=== PATIENT | female | born 1940 | race Caucasian/White ===

== ENCOUNTER 2016-10-31 10:27 | Inpatient (IN) | payer MEDICARE, MEDICAID ==
--- NOTE | 2016-10-31 10:34 | EDM.PDOC ---
ED HPI Skin/Rash - General Chief Complaint: Skin Complaint Stated Complaint: UNK Time Seen by Provider: 10/31/16 10:30 Source: Reports: Patient History Limitations: Reports: No limitations - History of Present Illness INITIAL COMMENTS - FREE TEXT/NARRATIVE: HISTORY AND PHYSICAL: History of present illness: [Patient is brought to the emergency room by EMS. Patient has been largely nonresponsive for the past 2 days. Home health care provider became concerned about patient's condition today. She gave patient a bath this morning and noticed a large pressure ulcer to her coccyx. She is concerned that this may be infected which could be causing patient's decreased level of consciousness. Patient is largely wheelchair bound and can take a couple of steps on command. Home health provider does not know patient's medical history. Thinks there may be a history of brain tumor. Family does not come to ER today so past medical history is largely unknown. 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 Her only medication is metoprolol 25 mg daily which was not given this morning. The healthcare provider began caring for the patient within the past week or so. Patient has lived at home with her as caregiver for the past 3+ years. He admits to home health care navigator that he is unable to care for her anymore. Aide reports that patient is full code. Review of systems: Unable to obtain Past medical history: As per history of present illness and as reviewed below otherwise noncontributory. Surgical history: As per history of present illness and as reviewed below otherwise noncontributory. Social history: No reported history of drug or alcohol abuse. Family history: As per history of present illness and as reviewed below otherwise noncontributory. Physical exam: Gen: Laying on bed, with eyes closed, does not answer questions or respond to commands. She pulls away from painful stimulus when IV is being started. HEENT: Atraumatic, normocephalic. pupils reactive. Yellow matter crusted to L eyelashes. negative for conjunctival pallor or scleral icterus, mucous membranes moist. neck supple. Lungs: Clear to auscultation anteriorly, breath sounds equal bilaterally. Is in no respiratory distress. Heart: S1S2, regular, negative for clicks, rubs, or JVD. Abdomen: Soft, nondistended, nontender. Genitourinary: Deferred. Rectal: Deferred. Skin: Warm dry pink. 3 cm x 2 cm partial-thickness ulceration to left elbow. Black eschar to center. Stage IV ulcer to coccyx is 6 cm x 6 cm and 2 cm deep. Purulent green discharge present in the ulcer. Surrounding tissue is erythematous. Extremities: No pressure ulcers to feet or lower legs. No swelling or cyanosis bilateral lower extremities. Cap refill less than 2 seconds. Neurovascular unremarkable. No flaccidity. Neuro: Nonresponsive to verbal commands. Diagnostics: [CBC, CMP, lactic acid, UA, blood cultures] Therapeutics: [Levaquin 750 mg IV, normal saline 250 mLs per hour] Impression: [UTI Stage 4 pressure ulcer, coccyx] Plan: [Discussed patient's condition with Dr. Francis Lyles. He agrees to accept patient to Med/Surg for IV antibiotics for UTI. Levaquin 750 mg IV started in the ER. Home health aide is made aware of inpatient admission questions are answered and concerns are addressed. Definitive disposition and diagnosis as appropriate pending reevaluation and review of above. - Related Data Allergies Allergy/AdvReac Type Severity Reaction Status Date / Time Penicillins Allergy Cannot Verified 10/31/16 10:37 Remember Home Meds: Ambulatory Orders Medication Instructions Recorded Confirmed Metoprolol Succinate 25 mg PO DAILY #30 07/25/14 10/31/16 Social & Family History - Tobacco Use Smoking Status *Q: Unknown Ever Smoked Second Hand Smoke Exposure: No - Alcohol Use Days Per Week of Alcohol Use: 0 - Recreational Drug Use Recreational Drug Use: No ED ROS GENERAL - Review of Systems Review Of Systems: ROS reveals no pertinent complaints other than HPI. ED EXAM, SKIN/RASH Exam: See Below Course - Vital Signs Last Recorded V/S: Last Vital Signs Temp 98.6 F 10/31/16 10:31 Pulse 70 10/31/16 12:39 Resp 16 10/31/16 12:39 BP 140/70 10/31/16 12:39 Pulse Ox 95 10/31/16 12:39 - Orders/Labs/Meds Orders: Active Orders 24 hr Category Date Time Status Admission Status [Patient Status] [ADT] Stat ADT 10/31/16 12:53 Active Head wo Cont [CT] Stat Exams 10/31/16 12:14 Taken CULTURE BLOOD [BC] Stat Lab 10/31/16 12:15 Results CULTURE BLOOD [BC] Stat Lab 10/31/16 12:22 Results Levofloxacin/Dextrose 5%-Water [Levaquin in D5W 750 MG/ Med 10/31/16 12:50 Active 150 ML] 750 mg Premix Bag 1 bag IV ONETIME Sodium Chloride 0.9% [Normal Saline] 1,000 ml Med 10/31/16 10:45 Active IV STAT Blood Culture x2 Reflex Set [OM.PC] Stat Oth 10/31/16 11:55 Ordered Medication Orders Sodium Chloride (Normal Saline) 1,000 mls @ 250 mls/hr IV STAT ONE Stop: 10/31/16 14:44 Last Admin: 10/31/16 11:13 Dose: 250 mls/hr Levofloxacin/Dextrose 750 mg/ (Premix) 150 mls @ 100 mls/hr IV ONETIME ONE Stop: 10/31/16 14:19 Last Admin: 10/31/16 12:58 Dose: 100 mls/hr Labs: Laboratory Tests 10/31/16 10/31/16 10/31/16 Range/Units 11:10 11:10 11:47 WBC 11.11 H (4.0-11.0) K/uL RBC 4.38 (4.30-5.90) M/uL Hgb 12.2 (12.0-16.0) g/dL Hct 39.2 (36.0-46.0) % MCV 89.5 (80.0-98.0) fL MCH 27.9 (27.0-32.0) pg MCHC 31.1 (31.0-37.0) g/dL RDW Std Deviation 50.1 (28.0-62.0) fl RDW Coeff of Deanna 16 H (11.0-15.0) % Plt Count 227 (150-400) K/uL MPV 10.20 (7.40-12.00) fL Neut % (Auto) 81.1 H (48.0-80.0) % Lymph % (Auto) 10.5 L (16.0-40.0) % [place] % (Auto) 7.5 (0.0-15.0) % Eos % (Auto) 0.5 (0.0-7.0) % Baso % (Auto) 0.4 (0.0-1.5) % Neut # 9.0 H (1.4-5.7) K/uL Lymph # 1.2 (0.6-2.4) K/uL [place] # 0.8 (0.0-0.8) K/uL Eos # 0.1 (0.0-0.7) K/uL Baso # 0.0 (0.0-0.1) K/uL Nucleated RBC % 0.0 /100WBC Nucleated RBCs # 0 K/uL Lactate (0.20-2.00) mmol/L Sodium 146 (136-146) mmol/L Potassium 4.2 (3.5-5.1) mmol/L Chloride 112 H (98-110) mmol/L Carbon Dioxide 23 (21-31) mmol/L BUN 14 (6.0-23.0) mg/dL Creatinine 0.6 (0.6-1.5) mg/dL Est Cr Clr Drug Dosing 59.49 mL/min Estimated GFR (MDRD) > 60.0 ml/min Glucose 102 (60-110) mg/dL Calcium 8.2 L (8.8-10.8) mg/dL Total Bilirubin 0.5 (0.1-1.5) mg/dL AST 18 (5-40) IU/L ALT 9 (8-54) IU/L Alkaline Phosphatase 61 (40-150) Total Protein 5.3 L (6.0-8.0) g/dL Albumin 2.8 L (3.4-4.8) g/dL Globulin 2.5 (2.0-3.5) g/dL Albumin/Globulin Ratio 1.1 L (1.3-2.8) Urine Color YELLOW Urine Appearance SLT CLOUDY Urine pH 5.0 (5.0-8.0) Ur Specific [place] 1.025 (1.001-1.035) Urine Protein TRACE (NEGATIVE) mg/dL Urine Glucose (UA) NEGATIVE (NEGATIVE) mg/dL Urine Ketones NEGATIVE (NEGATIVE) mg/dL Urine Occult Blood LARGE H (NEGATIVE) Urine Nitrite POSITIVE H (NEGATIVE) Urine Bilirubin SMALL H (NEGATIVE) Urine Ictotest NEGATIVE Urine Urobilinogen 1.0 (<2.0) EU/dL Ur Leukocyte Esterase SMALL (NEGATIVE) Urine RBC 10-12 (0-2/HPF) Urine WBC 30-40 (0-5/HPF) Ur Epithelial Cells FEW (NONE-FEW) Urine Bacteria 3+ H (NEGATIVE) 10/31/16 Range/Units 12:22 WBC (4.0-11.0) K/uL RBC (4.30-5.90) M/uL Hgb (12.0-16.0) g/dL Hct (36.0-46.0) % MCV (80.0-98.0) fL MCH (27.0-32.0) pg MCHC (31.0-37.0) g/dL RDW Std Deviation (28.0-62.0) fl RDW Coeff of Deanna (11.0-15.0) % Plt Count (150-400) K/uL MPV (7.40-12.00) fL Neut % (Auto) (48.0-80.0) % Lymph % (Auto) (16.0-40.0) % [place] % (Auto) (0.0-15.0) % Eos % (Auto) (0.0-7.0) % Baso % (Auto) (0.0-1.5) % Neut # (1.4-5.7) K/uL Lymph # (0.6-2.4) K/uL [place] # (0.0-0.8) K/uL Eos # (0.0-0.7) K/uL Baso # (0.0-0.1) K/uL Nucleated RBC % /100WBC Nucleated RBCs # K/uL Lactate 1.6 (0.20-2.00) mmol/L Sodium (136-146) mmol/L Potassium (3.5-5.1) mmol/L Chloride (98-110) mmol/L Carbon Dioxide (21-31) mmol/L BUN (6.0-23.0) mg/dL Creatinine (0.6-1.5) mg/dL Est Cr Clr Drug Dosing mL/min Estimated GFR (MDRD) ml/min Glucose (60-110) mg/dL Calcium (8.8-10.8) mg/dL Total Bilirubin (0.1-1.5) mg/dL AST (5-40) IU/L ALT (8-54) IU/L Alkaline Phosphatase (40-150) Total Protein (6.0-8.0) g/dL Albumin (3.4-4.8) g/dL Globulin (2.0-3.5) g/dL Albumin/Globulin Ratio (1.3-2.8) Urine Color Urine Appearance Urine pH (5.0-8.0) Ur Specific [place] (1.001-1.035) Urine Protein (NEGATIVE) mg/dL Urine Glucose (UA) (NEGATIVE) mg/dL Urine Ketones (NEGATIVE) mg/dL Urine Occult Blood (NEGATIVE) Urine Nitrite (NEGATIVE) Urine Bilirubin (NEGATIVE) Urine Ictotest Urine Urobilinogen (<2.0) EU/dL Ur Leukocyte Esterase (NEGATIVE) Urine RBC (0-2/HPF) Urine WBC (0-5/HPF) Ur Epithelial Cells (NONE-FEW) Urine Bacteria (NEGATIVE) Meds: Medications Generic Name Dose Route Start Last Admin Trade Name Freq PRN Reason Stop Dose Admin Sodium Chloride 1,000 mls @ 250 mls/hr 10/31/16 10:45 10/31/16 11:13 Normal Saline IV 10/31/16 14:44 250 mls/hr STAT ONE Administration Levofloxacin/Dextrose 750 mg/ 150 mls @ 100 mls/hr 10/31/16 12:50 10/31/16 12 :58 Premix IV 10/31/16 14:19 100 mls/hr ONETIME ONE Administration Discontinued Medications Generic Name Dose Route Start Last Admin Trade Name Freq PRN Reason Stop Dose Admin Ceftriaxone Sodium 1,000 mg 10/31/16 12:45 Rocephin IVPUSH Q24H DWIGHT Ceftriaxone Sodium/Dextrose Confirm 10/31/16 12:48 10/31/16 12:58 Rocephin In Dextrose,Iso-Osm 1 Gm/50 Ml Administered 10/31/16 12:49 Not Given Dose 50 mls @ as directed .ROUTE .STK-MED ONE Departure - Departure Time of Disposition: 12:40 Disposition: Admitted As Inpatient 68 Condition: fair Clinical Impression: Pressure ulcer of coccygeal region, stage 4 UTI (urinary tract infection) Qualifiers: Urinary tract infection type: site unspecified - My Orders Last 24 Hours: My Active Orders 10/31/16 10:45 Sodium Chloride 0.9% [Normal Saline] 1,000 ml IV STAT 10/31/16 11:55 Blood Culture x2 Reflex Set [OM.PC] Stat 10/31/16 12:14 Head wo Cont [CT] Stat 10/31/16 12:15 CULTURE BLOOD [BC] Stat 10/31/16 12:22 CULTURE BLOOD [BC] Stat 10/31/16 12:50 Levofloxacin/Dextrose 5%-Water [Levaquin in D5W 750 MG/150 ML] 750 mg Premix Bag 1 bag IV ONETIME 10/31/16 12:53 Admission Status [Patient Status] [ADT] Stat - Assessment/Plan Last 24 Hours: My Active Orders 10/31/16 10:45 Sodium Chloride 0.9% [Normal Saline] 1,000 ml IV STAT 10/31/16 11:55 Blood Culture x2 Reflex Set [OM.PC] Stat 10/31/16 12:14 Head wo Cont [CT] Stat 10/31/16 12:15 CULTURE BLOOD [BC] Stat 10/31/16 12:22 CULTURE BLOOD [BC] Stat 10/31/16 12:50 Levofloxacin/Dextrose 5%-Water [Levaquin in D5W 750 MG/150 ML] 750 mg Premix Bag 1 bag IV ONETIME 10/31/16 12:53 Admission Status [Patient Status] [ADT] Stat
[2016-10-31] MEDS ORDERED: Sodium Chloride 0.9% 1,000 ML IV ONE (10:45)
[2016-10-31 11:40] LABS: CHLORIDE,CL 112 mmol/L (98-110); SODIUM,NA 146 mmol/L (136-146)
[2016-10-31] MEDS ORDERED: Levofloxacin/Dextrose 5%-Water 750 MG in Premix Bag 1 BAG IV ONE (12:50)
[2016-10-31] MEDS: cefTRIAXone 1,000 MG VIAL IVPUSH SCH ×2 (12:50→17:21)
[2016-10-31] MEDS ORDERED: Ondansetron 4 MG/2 ML SDV IVPUSH PRN (14:34)
[2016-10-31] MEDS ORDERED: Acetaminophen 325 MG Tab PO PRN (14:34)
--- NOTE | 2016-10-31 14:43 | PCM.HP ---
H&P History of Present Illness - History of Present Illness Initial Comments - Free Text/Narative: 76 yo female with pmh of CVA with left sided weakness. She has largely been taking care of at home by her for the past two years. At baseline she does not speak much and does not ambulate. According to she can be unresponsive for days at a time. Today she was taking a bath and was more lethargic than normal. A new home helper noticed a large sacral ulcer prompting evaluation in the ED. She also has a left elbow ulcer which she picks at daily. - Related Data Allergies/Adverse Reactions: Allergies Allergy/AdvReac Type Severity Reaction Status Date / Time Penicillins Allergy Cannot Verified 10/31/16 10:37 Remember Home Medications: Home Meds Metoprolol Succinate 25 mg PO DAILY #30 07/25/14 [Rx] Social & Family History - Family History Family Medical History: Noncontributory - Tobacco Use Smoking Status *Q: Never Smoker Second Hand Smoke Exposure: No - Caffeine Use Caffeine Use: Reports: None - Alcohol Use Days Per Week of Alcohol Use: 0 - Recreational Drug Use Recreational Drug Use: No H&P Review of Systems - Review of Systems: Review Of Systems: Unable To Obtain Exam - Exam Exam: See Below - Vital Signs Vital Signs: Last Vital Signs Temp 37.1 C 10/31/16 14:26 Pulse 117 H 10/31/16 14:26 Resp 18 10/31/16 14:26 BP 127/82 10/31/16 14:26 Pulse Ox 97 10/31/16 14:26 Weight: 45.813 kg - Exam General: No: mild distress Lungs: Clear to auscultation, Normal respiratory effort Cardiovascular: regular rate, regular rhythm Abdomen: normal bowel sounds, soft Extremities: No: edema Skin: other (large sacral ulcer about the size of baseball, litte surroning erythema) - Patient Data Result Diagrams: 11/01/16 06:43 11/01/16 06:43 *Q Meaningful Use (ADM) - VTE *Q VTE Criteria *Q: - Stroke *Q Stroke Criteria *Q: - AMI *Q AMI Criteria *Q: Problem List Initiated/Reviewed/Updated: Yes Orders Last 24hrs: Active Orders 24 hr Category Date Time Status Antiembolic Devices [RC] PER UNIT ROUTINE Care 10/31/16 14:36 Ordered EKG 12 Lead [EKG Documentation Completion] [RC] STAT Care 10/31/16 14:22 Active Intake and Output [RC] QSHIFT Care 10/31/16 14:34 Ordered Oxygen Therapy [RC] PRN Care 10/31/16 14:34 Ordered Up ad Toyin [RC] ASDIRECTED Care 10/31/16 14:34 Ordered VTE/DVT Education [RC] PER UNIT ROUTINE Care 10/31/16 14:34 Ordered Vital Signs [RC] Q4H Care 10/31/16 14:34 Ordered PT Evaluation and Treatment [CONS] Routine Cons 10/31/16 14:34 Ordered Regular Diet [DIET] Diet 10/31/16 Breakfast Ordered BASIC METABOLIC PANEL,BMP [CHEM] AM Lab 11/01/16 05:11 Ordered BASIC METABOLIC PANEL,BMP [CHEM] AM Lab 11/02/16 05:11 Ordered BASIC METABOLIC PANEL,BMP [CHEM] AM Lab 11/03/16 05:11 Ordered CBC WITH AUTO DIFF [HEME] AM Lab 11/01/16 05:11 Ordered CBC WITH AUTO DIFF [HEME] AM Lab 11/02/16 05:11 Ordered CBC WITH AUTO DIFF [HEME] AM Lab 11/03/16 05:11 Ordered CULTURE URINE [RM] Routine Lab 10/31/16 14:02 Uncollected Acetaminophen [Tylenol] Med 10/31/16 14:34 Ordered 650 mg PO Q4H PRN Heparin Sodium Med 10/31/16 14:45 Ordered 5,000 units SUBCUT Q8H Metoprolol Succinate [Toprol XL] Med 11/01/16 09:00 Ordered 25 mg PO DAILY Ondansetron [Zofran] Med 10/31/16 14:34 Ordered 4 mg IVPUSH Q4H PRN Pneumococcal Polyvalent-23 Vac [Pneumovax 23] Med 11/04/16 23:59 Once 0.5 ml IM .ONCE ONE Sodium Chloride 0.9% @ 100 MLS/HR(1,000ml) Med 10/31/16 14:45 Ordered Sodium Chloride 0.9% [Normal Saline] 1,000 ml IV ASDIRECTED Vancomycin Pharmacy to Dose [Pharmacy to Dose - Med 10/31/16 14:45 Ordered Vancomycin] 1 dose .XX ASDIRECTED Sequential Compression Device [OM.PC] Per Unit Routine Oth 10/31/16 14:35 Ordered Resuscitation Status Routine Resus Stat 10/31/16 14:34 Ordered Medication Orders Acetaminophen (Tylenol) 650 mg PO Q4H PRN PRN Reason: Pain (Mild 1-3)/fever Heparin Sodium (Porcine) (Heparin Sodium) 5,000 units SUBCUT Q8H [facility] Sodium Chloride (Normal Saline) 1,000 mls @ 100 mls/hr IV ASDIRECTED [facility] Stop: 11/01/16 00:44 Metoprolol Succinate (Toprol Xl) 25 mg PO DAILY [facility] Ondansetron HCl (Zofran) 4 mg IVPUSH Q4H PRN PRN Reason: Nausea Pneumococcal Polyvalent Vaccine (Pneumovax 23) 0.5 ml IM .ONCE ONE Stop: 11/08/16 00:00 Vancomycin HCl (Pharmacy To Dose - Vancomycin) 1 dose .XX ASDIRECTED [facility] Assessment/Plan Comment:: 76 yo female admitted with large sacral ulcer and UTI. We will treat with Vancomcyin and zoysn. will place wound care consult.
[2016-10-31] MEDS ORDERED: Sodium Chloride 0.9% 1,000 ML IV SCH (14:45)
[2016-10-31] MEDS: Heparin Sodium 5,000 Units/ML Vial SUBCUT SCH ×2 (15:18→22:56)
[2016-10-31] MEDS ORDERED: Docusate Sodium 100 MG Cap PO PRN (15:52)
[2016-10-31] MEDS ORDERED: Bisacodyl 10 MG Supp RECTAL ONE (16:45)
[2016-10-31] MEDS ORDERED: Labetalol 100 MG/20 ML MDV IVPUSH PRN (18:20)
[2016-10-31] MEDS ORDERED: Metoprolol Tartrate 25 MG Tab PO ONE (18:20)
[2016-11-01] MEDS: Heparin Sodium 5,000 Units/ML Vial SUBCUT SCH ×3 (06:02→23:27)
[2016-11-01 07:58] LABS: CHLORIDE,CL 110 mmol/L (98-110); SODIUM,NA 143 mmol/L (136-146)
[2016-11-01] MEDS: Metoprolol Succinate 25 MG Tab.ER PO SCH (09:58)
[2016-11-01] MEDS ORDERED: Levofloxacin 500 MG Tab PO SCH (10:30)
--- NOTE | 2016-11-01 10:36 | PCM.PN ---
- Review of Systems Systems Review Comment:: nonverbal - Patient Data Vitals - most recent: Last Vital Signs Temp 37.2 C 11/01/16 04:00 Pulse 101 H 11/01/16 09:58 Resp 19 11/01/16 04:00 BP 151/96 H 11/01/16 09:58 Pulse Ox 98 11/01/16 04:00 Weight - most recent: 45.813 kg I&O - last 24 hours: Intake & Output 10/31/16 11/01/16 11/01/16 22:59 06:59 14:59 Intake Total 300 1150 Output Total 300 450 Balance 0 700 Lab Results last 24 hrs: Laboratory Results - last 24 hr 11/01/16 11/01/16 Range/Units 06:43 06:43 WBC 10.52 (4.0-11.0) K/uL RBC 4.36 (4.30-5.90) M/uL Hgb 12.2 (12.0-16.0) g/dL Hct 38.7 (36.0-46.0) % MCV 88.8 (80.0-98.0) fL MCH 28.0 (27.0-32.0) pg MCHC 31.5 (31.0-37.0) g/dL RDW Std Deviation 49.3 (28.0-62.0) fl RDW Coeff of Deanna 15 (11.0-15.0) % Plt Count 211 (150-400) K/uL MPV 10.60 (7.40-12.00) fL Neut % (Auto) 84.4 H (48.0-80.0) % Lymph % (Auto) 9.2 L (16.0-40.0) % [place] % (Auto) 5.7 (0.0-15.0) % Eos % (Auto) 0.6 (0.0-7.0) % Baso % (Auto) 0.1 (0.0-1.5) % Neut # 8.9 H (1.4-5.7) K/uL Lymph # 1.0 (0.6-2.4) K/uL [place] # 0.6 (0.0-0.8) K/uL Eos # 0.1 (0.0-0.7) K/uL Baso # 0.0 (0.0-0.1) K/uL Nucleated RBC % 0.0 /100WBC Nucleated RBCs # 0 K/uL Sodium 143 (136-146) mmol/L Potassium 4.4 (3.5-5.1) mmol/L Chloride 110 (98-110) mmol/L Carbon Dioxide 23 (21-31) mmol/L BUN 9 (6.0-23.0) mg/dL Creatinine 0.5 L (0.6-1.5) mg/dL Est Cr Clr Drug Dosing 71.39 mL/min Estimated GFR (MDRD) > 60.0 ml/min Glucose 103 (60-110) mg/dL Calcium 7.9 L (8.8-10.8) mg/dL Med Orders - Current: Current Medications Acetaminophen (Tylenol) 650 mg PO Q4H PRN PRN Reason: Pain (Mild 1-3)/fever Diltiazem HCl (Diltiazem) 10 mg IVPUSH Q4H PRN PRN Reason: tachycardia Docusate Sodium (Colace) 100 mg PO DAILY PRN PRN Reason: Constipation Last Admin: 10/31/16 16:41 Dose: 100 mg Heparin Sodium (Porcine) (Heparin Sodium) 5,000 units SUBCUT Q8H [facility] Last Admin: 11/01/16 06:02 Dose: 5,000 units Vancomycin HCl 0.75 gm/ Sodium (Chloride) 100 mls @ 100 mls/hr IV Q12H [facility] Last Admin: 11/01/16 02:27 Dose: 100 mls/hr Levofloxacin (Levaquin) 500 mg PO Q24H [facility] Metoprolol Succinate (Toprol Xl) 25 mg PO DAILY [facility] Last Admin: 11/01/16 09:58 Dose: 25 mg Ondansetron HCl (Zofran) 4 mg IVPUSH Q4H PRN PRN Reason: Nausea Pneumococcal Polyvalent Vaccine (Pneumovax 23) 0.5 ml IM .ONCE ONE Stop: 11/08/16 00:00 Vancomycin HCl (Pharmacy To Dose - Vancomycin) 1 dose .XX ASDIRECTED [facility] Discontinued Medications Bisacodyl (Dulcolax) 10 mg RECTAL ONETIME ONE Stop: 10/31/16 16:46 Last Admin: 10/31/16 16:41 Dose: 10 mg Ceftriaxone Sodium (Rocephin) 1,000 mg IVPUSH Q24H [facility] Last Admin: 10/31/16 17:21 Dose: Not Given Sodium Chloride (Normal Saline) 1,000 mls @ 250 mls/hr IV STAT ONE Stop: 10/31/16 14:44 Last Admin: 10/31/16 11:13 Dose: 250 mls/hr Levofloxacin/Dextrose 750 mg/ (Premix) 150 mls @ 100 mls/hr IV ONETIME ONE Stop: 10/31/16 14:19 Last Admin: 10/31/16 12:58 Dose: 100 mls/hr Ceftriaxone Sodium/Dextrose (Rocephin In Dextrose,Iso-Osm 1 Gm/50 Ml) Confirm Administered Dose 50 mls @ as directed .ROUTE .STK-MED ONE Stop: 10/31/16 12:49 Last Admin: 10/31/16 12:58 Dose: Not Given Sodium Chloride (Normal Saline) 1,000 mls @ 100 mls/hr IV ASDIRECTED [facility] Stop: 11/01/16 00:44 Last Admin: 10/31/16 15:09 Dose: 100 mls/hr Labetalol HCl (Normodyne) 20 mg IVPUSH Q4H PRN PRN Reason: tachycardia Metoprolol Tartrate (Lopressor) 25 mg PO ONETIME ONE Stop: 10/31/16 18:21 Last Admin: 10/31/16 18:41 Dose: 25 mg - Exam General: alert, oriented Lungs: Clear to auscultation, Normal respiratory effort Cardiovascular: regular rate, regular rhythm Extremities: no edema Skin: other (no changes to large sacral ulcer) Neurological: no new focal deficit - Problem List Review Problem List Initiated/Reviewed/Updated: Yes - My Orders Last 24 Hours: My Active Orders 10/31/16 11:47 CULTURE URINE [RM] Routine 10/31/16 14:22 EKG 12 Lead [EKG Documentation Completion] [RC] STAT 10/31/16 14:34 Intake and Output [RC] Q12H Oxygen Therapy [RC] PRN Up ad Toyin [RC] ASDIRECTED VTE/DVT Education [RC] DAILY Vital Signs [RC] Q4H PT Evaluation and Treatment [CONS] Routine Acetaminophen [Tylenol] 650 mg PO Q4H PRN Ondansetron [Zofran] 4 mg IVPUSH Q4H PRN Resuscitation Status Routine 10/31/16 14:35 Sequential Compression Device [OM.PC] Per Unit Routine 10/31/16 14:36 Antiembolic Devices [RC] Q12H 10/31/16 14:45 Heparin Sodium 5,000 units SUBCUT Q8H Vancomycin Pharmacy to Dose [Pharmacy to Dose - Vancomycin] 1 dose .XX ASDIRECTED 10/31/16 15:00 Vancomycin 0.75 gm Sodium Chloride 0.9% [Normal Saline] 100 ml IV Q12H 10/31/16 15:08 Telemetry Monitoring [Cardiac Monitoring] [RC] Q8H 10/31/16 15:52 Docusate Sodium [Colace] 100 mg PO DAILY PRN 10/31/16 15:53 Urinary Catheter Assessment [RC] Q4H 10/31/16 16:00 Insert Nguyen Catheter [Insert Urinary Catheter] [OM.PC] Q24H 10/31/16 17:39 Hip Min 2V or 3V w Pelvis Lt [CR] Routine 10/31/16 18:22 Diltiazem 10 mg IVPUSH Q4H PRN 11/01/16 09:00 Metoprolol Succinate [Toprol XL] 25 mg PO DAILY 11/01/16 10:25 Abdomen Pelvis wo Cont [CT] Routine 11/01/16 10:30 Levofloxacin [Levaquin] 500 mg PO Q24H 11/02/16 02:30 VANCOMYCIN TROUGH [CHEM] Routine 11/02/16 05:11 BASIC METABOLIC PANEL,BMP [CHEM] AM CBC WITH AUTO DIFF [HEME] AM 11/03/16 05:11 BASIC METABOLIC PANEL,BMP [CHEM] AM CBC WITH AUTO DIFF [HEME] AM 11/07/16 23:59 Pneumococcal Polyvalent-23 Vac [Pneumovax 23] 0.5 ml IM .ONCE ONE - Plan Plan:: 76 yo female admitted with large sacral ulcer and UTI. Sacral ulcer: on vancomycin blood cultures growing gram positive cocci. CT scan of pelvis ordered UTI. on levaquin
[2016-11-01] MEDS: Levofloxacin 500 MG Tab PO SCH (13:29)
[2016-11-01] MEDS: Diltiazem 25 MG/5 ML SDV IVPUSH PRN (19:57)
[2016-11-02 03:24] LABS: CHLORIDE,CL 107 mmol/L (98-110); SODIUM,NA 140 mmol/L (136-146)
[2016-11-02] MEDS: Heparin Sodium 5,000 Units/ML Vial SUBCUT SCH ×3 (06:41→22:30)
[2016-11-02] MEDS ORDERED: Calcium Carbonate 500 MG Tab.Chew PO ONE (08:18)
--- NOTE | 2016-11-02 08:21 | PCM.PN ---
- General Info Date of Service: 11/02/16 Admission Dx/Problem (Free Text): UTI and sacral ulcer Subjective Update: Non-verbal. Connor at bedside. He reports she is more alert and is talking with him some. He feels she is improving. Discussed with him plans for discharge. At this time he would like to take her home and provide care. He had her at [facility] but removed her from there in the past. - Patient Data Vitals - most recent: Last Vital Signs Temp 97.8 F 11/02/16 04:00 Pulse 107 H 11/01/16 16:00 Resp 18 11/02/16 04:00 BP 117/59 L 11/02/16 04:00 Pulse Ox 95 11/02/16 05:06 Weight - most recent: 45.813 kg I&O - last 24 hours: Intake & Output 11/01/16 11/02/16 11/02/16 22:59 06:59 14:59 Intake Total 540 200 Output Total 450 300 Balance 90 -100 Lab Results last 24 hrs: Laboratory Results - last 24 hr 11/02/16 11/02/16 11/02/16 Range/Units 02:50 02:50 02:50 WBC 9.88 (4.0-11.0) K/uL RBC 3.93 L (4.30-5.90) M/uL Hgb 11.0 L (12.0-16.0) g/dL Hct 35.0 L (36.0-46.0) % MCV 89.1 (80.0-98.0) fL MCH 28.0 (27.0-32.0) pg MCHC 31.4 (31.0-37.0) g/dL RDW Std Deviation 46.7 (28.0-62.0) fl RDW Coeff of Deanna 15 (11.0-15.0) % Plt Count 230 (150-400) K/uL MPV 9.70 (7.40-12.00) fL Neut % (Auto) 77.8 (48.0-80.0) % Lymph % (Auto) 13.2 L (16.0-40.0) % [place] % (Auto) 7.7 (0.0-15.0) % Eos % (Auto) 1.1 (0.0-7.0) % Baso % (Auto) 0.2 (0.0-1.5) % Neut # 7.7 H (1.4-5.7) K/uL Lymph # 1.3 (0.6-2.4) K/uL [place] # 0.8 (0.0-0.8) K/uL Eos # 0.1 (0.0-0.7) K/uL Baso # 0.0 (0.0-0.1) K/uL Sodium 140 (136-146) mmol/L Potassium 3.6 (3.5-5.1) mmol/L Chloride 107 (98-110) mmol/L Carbon Dioxide 23 (21-31) mmol/L BUN 9 (6.0-23.0) mg/dL Creatinine 0.6 (0.6-1.5) mg/dL Est Cr Clr Drug Dosing 59.49 mL/min Estimated GFR (MDRD) > 60.0 ml/min Glucose 105 (60-110) mg/dL Calcium 7.6 L (8.8-10.8) mg/dL Vancomycin Trough 13.4 (5-15) ug/mL Elbert Results last 24 hrs: Microbiology 11/01/16 12:15 Anaerobic Blood Culture - Final Blood - Venous Med Orders - Current: Current Medications Acetaminophen (Tylenol) 650 mg PO Q4H PRN PRN Reason: Pain (Mild 1-3)/fever Calcium Carbonate/Glycine (Tums) 1,000 mg PO ONETIME ONE Stop: 11/02/16 08:19 Diltiazem HCl (Diltiazem) 10 mg IVPUSH Q4H PRN PRN Reason: tachycardia Last Admin: 11/01/16 19:57 Dose: 10 mg Docusate Sodium (Colace) 100 mg PO DAILY PRN PRN Reason: Constipation Last Admin: 10/31/16 16:41 Dose: 100 mg Heparin Sodium (Porcine) (Heparin Sodium) 5,000 units SUBCUT Q8H [facility] Last Admin: 11/02/16 06:41 Dose: 5,000 units Vancomycin HCl 0.75 gm/ Sodium (Chloride) 100 mls @ 100 mls/hr IV Q12H [facility] Last Admin: 11/02/16 04:15 Dose: 100 mls/hr Levofloxacin (Levaquin) 500 mg PO Q24H [facility] Last Admin: 11/01/16 13:29 Dose: 500 mg Metoprolol Succinate (Toprol Xl) 25 mg PO DAILY [facility] Last Admin: 11/01/16 09:58 Dose: 25 mg Ondansetron HCl (Zofran) 4 mg IVPUSH Q4H PRN PRN Reason: Nausea Pneumococcal Polyvalent Vaccine (Pneumovax 23) 0.5 ml IM .ONCE ONE Stop: 11/08/16 00:00 Vancomycin HCl (Pharmacy To Dose - Vancomycin) 1 dose .XX ASDIRECTED [facility] Discontinued Medications Bisacodyl (Dulcolax) 10 mg RECTAL ONETIME ONE Stop: 10/31/16 16:46 Last Admin: 10/31/16 16:41 Dose: 10 mg Ceftriaxone Sodium (Rocephin) 1,000 mg IVPUSH Q24H [facility] Last Admin: 10/31/16 17:21 Dose: Not Given Sodium Chloride (Normal Saline) 1,000 mls @ 250 mls/hr IV STAT ONE Stop: 10/31/16 14:44 Last Admin: 10/31/16 11:13 Dose: 250 mls/hr Levofloxacin/Dextrose 750 mg/ (Premix) 150 mls @ 100 mls/hr IV ONETIME ONE Stop: 10/31/16 14:19 Last Admin: 10/31/16 12:58 Dose: 100 mls/hr Ceftriaxone Sodium/Dextrose (Rocephin In Dextrose,Iso-Osm 1 Gm/50 Ml) Confirm Administered Dose 50 mls @ as directed .ROUTE .STK-MED ONE Stop: 10/31/16 12:49 Last Admin: 10/31/16 12:58 Dose: Not Given Sodium Chloride (Normal Saline) 1,000 mls @ 100 mls/hr IV ASDIRECTED [facility] Stop: 11/01/16 00:44 Last Admin: 10/31/16 15:09 Dose: 100 mls/hr Labetalol HCl (Normodyne) 20 mg IVPUSH Q4H PRN PRN Reason: tachycardia Levofloxacin (Levaquin) 500 mg PO Q24H [facility] Last Admin: 11/01/16 15:38 Dose: Not Given Metoprolol Tartrate (Lopressor) 25 mg PO ONETIME ONE Stop: 10/31/16 18:21 Last Admin: 10/31/16 18:41 Dose: 25 mg - Exam Quality Assessment: urine catheter, DVT prophylaxis General: alert Neck: supple Lungs: Clear to auscultation, Normal respiratory effort Cardiovascular: regular rhythm, tachycardia Abdomen: bowel sounds present, soft, no tenderness, no distension Extremities: no edema, normal pulses Wound/Incisions: decubitis (sacral ulcer, wet to dry dressing intact.), other ( L elbow abrasion noted, no surrounding erythema or drainage) - Problem List & Annotations (1) Pressure ulcer of coccygeal region, stage 4 SNOMED Code(s): 981000313, 140988133 Code(s): L89.154 - PRESSURE ULCER OF SACRAL REGION, STAGE 4 Status: Acute Current Visit: Yes (2) UTI (urinary tract infection) SNOMED Code(s): 28417799 Code(s): N39.0 - URINARY TRACT INFECTION, SITE NOT SPECIFIED Status: Acute Current Visit: Yes Qualifiers: Urinary tract infection type: site unspecified (3) Malaise SNOMED Code(s): 637340397 Code(s): R53.81 - OTHER MALAISE Status: Chronic Current Visit: No (4) History of CVA with residual deficit SNOMED Code(s): 505158046 Code(s): I69.30 - UNSPECIFIED SEQUELAE OF CEREBRAL INFARCTION Status: Chronic Current Visit: Yes - Problem List Review Problem List Initiated/Reviewed/Updated: Yes - My Orders Last 24 Hours: My Active Orders 11/02/16 08:18 Calcium Carbonate [Tums] 1,000 mg PO ONETIME ONE - Plan Plan:: This 76 year old female admitted with large sacral ulcer and UTI. 1. Sacral ulcer: Continue Vancomycin. blood cultures growing gram positive cocci. CT revealed sacral ulcer, with osteopenia, unable to confirm/deny presence of ostemyelitis. Will consult Dr. Mustafa for best recommendations for care of wound. We appreciate her assistance on this case. 2. UTI: Continue Levaquin. Urine culture Kelbsiella pneumoniae 3. Tachycardia: May be related to above infections. Will give 500 ml NS and increase Metoprolol XL to 50 mg daily. VTE: Heparin Dispo:2-3 days Pending improvement and evaluation by Dr. Mustafa. May benefit from [facility] care facility to provide adequate care for sacral ulcer. at this time wants to return home and provide care.
[2016-11-02] MEDS: Metoprolol Succinate 25 MG Tab.ER PO SCH (08:50)
[2016-11-02] MEDS ORDERED: Sodium Chloride 0.9% 500 ML IV SCH (10:00)
[2016-11-02] MEDS ORDERED: Metoprolol Succinate 25 MG Tab.ER PO ONE (10:01)
[2016-11-02] MEDS: Diltiazem 25 MG/5 ML SDV IVPUSH PRN (11:28)
[2016-11-02] MEDS: Levofloxacin 500 MG Tab PO SCH (14:30)
--- NOTE | 2016-11-02 14:43 | CT ---
EXAM DATE: 10/31/16 PATIENT'S AGE: 76 Patient: SAMINA COMER Facility: [place], [place] Site . Site : 1940 Study: CT Head [id number]/18/2017 1:09:21 PM Ordering Physician: Doctor Noriega Final Report: INDICATION: Decreased level of consciousness. TECHNIQUE: CT head without IV contrast. COMPARISON: CT head 07/22/2014. FINDINGS: Polyp or retention cysts in the maxillary sinuses are stable. Postoperative changes of a left suboccipital craniectomy with moderate ill-defined encephalomalacia in the left cerebellum stable. 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 Small amount of fluid in the left sphenoid sinus. Moderate cerebral and cerebellar atrophy mildly more prominent. Patchy mild small vessel ischemic disease. Mild prominence of the left ventricular system compared to the right is likely a chronic finding which is slightly more prominent. No acute intracranial hemorrhage, edema or mass effect. Remainder negative. IMPRESSION: 1. 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 2. Moderate chronic intracranial disease has progressed mildly. 3. Mild inflammatory sinus disease. Dictated by Dayday Mitchell MD @ 10/31/2016 2:15:02 PM Dictated by: Dayday Mitchell MD @ 10/31/2016 14:15:06 (Electronic Signature) Report Signed by Proxy and Original Signed Document filed in the Medical Record.JOEL DICKSON
--- NOTE | 2016-11-02 15:25 | CR ---
EXAM DATE: 10/31/16 PATIENT'S AGE: 76 Patient: SAMINA COMER Facility: [place], [place] Site . Site : 1940 Study: XRay Hip Left with pelvis [id number]/18/2017 6:03:21 PM Ordering Physician: Rafal Blanco Final Report: Indication: Pain after fall. Technique: Three views pelvis and left hip. Impression: No definite fracture or malalignment left hip. Osteopenia somewhat limits sensitivity. Large amount of stool and gas in the visualized rectum and colon. No definite pelvic fracture. If there is difficulty bearing weight and on going significant pain, consider MRI for further characterization. Dictated by Reji Shin MD @ Oct 31 2016 6:09PM (Electronic Signature) Report Signed by Proxy and Original Signed Document filed in the Medical Record. MTDD
--- NOTE | 2016-11-02 17:03 | CT ---
EXAM DATE: 10/31/16 PATIENT'S AGE: 76 Patient: SAMINA COMER Facility: [place], [place] Site . Site : 1940 Study: CT Abdomen/Pelvis [id number] wo cont-11/01/2016 12:36:38 PM Ordering Physician: Rafal Blanco Final Report: INDICATIONS: Sacral ulcer. Technique: Noncontrast CT head of the abdomen and pelvis. Coronal and sagittal reformats. Comparison: No relevant priors. Findings: Bones and soft tissues: There is a large sacral ulcer containing air, just to the left of midline which measures approximately 5.7 x 3.2 x 4.7 cm. Underlying osteopenia which limits evaluation for osteomyelitis. No definite focal bony changes the. There is an age-indeterminate compression deformity of L4. No other worrisome bone findings. Abdomen/pelvis: The adrenal glands, kidneys, liver, spleen and pancreas are grossly unremarkable. No renal or ureteral stones. Bowel is nonobstructed. A large volume of stool. There is a Nguyen catheter in place with complex appearing fluid in the bladder, raising the question of bladder infection. No free air or free fluid. There is atelectasis in the lung bases. Impression: 1. 5.7 cm sacral ulcer with marked underlying osteopenia limiting evaluation for osteomyelitis, however there is no overt bony change. 2. Complex air and fluid in the bladder suggesting a possible bladder infection. Catheter is in place. 3. Age-indeterminate mild compression deformity of L4. 4. Very large volume of stool. Dictated by Dorinda Rodriguez MD @ Nov 01 2016 1:10PM (Electronic Signature) Report Signed by Proxy and Original Signed Document filed in the Medical Record. [facility]
[2016-11-03] MEDS: Heparin Sodium 5,000 Units/ML Vial SUBCUT SCH ×3 (05:55→22:55)
[2016-11-03 06:52] LABS: CHLORIDE,CL 105 mmol/L (98-110); SODIUM,NA 139 mmol/L (136-146)
[2016-11-03] MEDS: Metoprolol Succinate 25 MG Tab.ER PO SCH (09:42)
[2016-11-03] MEDS: Levofloxacin 500 MG Tab PO SCH (13:25)
--- NOTE | 2016-11-03 13:35 | PCM.PN ---
- General Info Date of Service: 11/03/16 Admission Dx/Problem (Free Text): UTI and sacral ulcer Subjective Update: Non-verbal. Connor at bedside. continues to report she is more alert and is answering him. He feels she is improving. Dr. Mustafa in this morning for consult on sacral wound. Connor would like to take Jane home and provide care for her there with the assistance of a friend and then Home Health. Functional Status: Reports: pain controlled (denies pain, answers "No") - Patient Data Vitals - most recent: Last Vital Signs Temp 97.1 F 11/03/16 12:00 Pulse 100 11/03/16 12:00 Resp 22 H 11/03/16 12:00 BP 145/78 H 11/03/16 12:00 Pulse Ox 92 L 11/03/16 12:00 Weight - most recent: 45.813 kg I&O - last 24 hours: Intake & Output 11/02/16 11/03/16 11/03/16 22:59 06:59 14:59 Intake Total 500 400 Output Total 450 480 Balance 50 -80 Lab Results last 24 hrs: Laboratory Results - last 24 hr 11/02/16 11/03/16 11/03/16 Range/Units 08:33 06:11 06:11 WBC 8.39 (4.0-11.0) K/uL RBC 4.24 L (4.30-5.90) M/uL Hgb 11.6 L (12.0-16.0) g/dL Hct 37.4 (36.0-46.0) % MCV 88.2 (80.0-98.0) fL MCH 27.4 (27.0-32.0) pg MCHC 31.0 (31.0-37.0) g/dL RDW Std Deviation 49.0 (28.0-62.0) fl RDW Coeff of Deanna 15 (11.0-15.0) % Plt Count 221 (150-400) K/uL MPV 10.70 (7.40-12.00) fL Neut % (Auto) 77.0 (48.0-80.0) % Lymph % (Auto) 14.5 L (16.0-40.0) % Alexander % (Auto) 7.3 (0.0-15.0) % Eos % (Auto) 1.1 (0.0-7.0) % Baso % (Auto) 0.1 (0.0-1.5) % Neut # 6.5 H (1.4-5.7) K/uL Lymph # 1.2 (0.6-2.4) K/uL Alexander # 0.6 (0.0-0.8) K/uL Eos # 0.1 (0.0-0.7) K/uL Baso # 0.0 (0.0-0.1) K/uL Nucleated RBC % 0.0 /100WBC Nucleated RBCs # 0 K/uL Sodium 139 (136-146) mmol/L Potassium 3.7 (3.5-5.1) mmol/L Chloride 105 (98-110) mmol/L Carbon Dioxide 26 (21-31) mmol/L BUN 11 (6.0-23.0) mg/dL Creatinine 0.6 (0.6-1.5) mg/dL Est Cr Clr Drug Dosing 59.49 mL/min Estimated GFR (MDRD) > 60.0 ml/min Glucose 111 H (60-110) mg/dL Calcium 8.0 L (8.8-10.8) mg/dL Magnesium 1.8 (1.5-2.3) mEq/L Elbert Results last 24 hrs: Microbiology 11/01/16 12:38 Aerobic Blood Culture - Preliminary Blood - Venous - Lab Draw NO GROWTH AFTER 2 DAYS Anaerobic Blood Culture - Preliminary NO GROWTH AFTER 2 DAYS 11/01/16 12:15 Aerobic Blood Culture - Preliminary Blood - Venous NO GROWTH AFTER 2 DAYS Anaerobic Blood Culture - Final Med Orders - Current: Current Medications Acetaminophen (Tylenol) 650 mg PO Q4H PRN PRN Reason: Pain (Mild 1-3)/fever Diltiazem HCl (Diltiazem) 10 mg IVPUSH Q4H PRN PRN Reason: tachycardia Last Admin: 11/02/16 11:28 Dose: 10 mg Docusate Sodium (Colace) 100 mg PO DAILY PRN PRN Reason: Constipation Last Admin: 10/31/16 16:41 Dose: 100 mg Heparin Sodium (Porcine) (Heparin Sodium) 5,000 units SUBCUT Q8H [facility] Last Admin: 11/03/16 05:55 Dose: 5,000 units Sodium Chloride (Normal Saline) 500 mls @ 125 mls/hr IV .BOLUS [facility] Last Admin: 11/02/16 10:15 Dose: 125 mls/hr Levofloxacin (Levaquin) 500 mg PO Q24H [facility] Last Admin: 11/03/16 13:25 Dose: 500 mg Metoprolol Succinate (Toprol Xl) 50 mg PO DAILY [facility] Last Admin: 11/03/16 09:42 Dose: 50 mg Ondansetron HCl (Zofran) 4 mg IVPUSH Q4H PRN PRN Reason: Nausea Pneumococcal Polyvalent Vaccine (Pneumovax 23) 0.5 ml IM .ONCE ONE Stop: 11/08/16 00:00 Discontinued Medications Bisacodyl (Dulcolax) 10 mg RECTAL ONETIME ONE Stop: 10/31/16 16:46 Last Admin: 10/31/16 16:41 Dose: 10 mg Calcium Carbonate/Glycine (Tums) 1,000 mg PO ONETIME ONE Stop: 11/02/16 08:19 Last Admin: 11/02/16 08:56 Dose: 1,000 mg Ceftriaxone Sodium (Rocephin) 1,000 mg IVPUSH Q24H [facility] Last Admin: 10/31/16 17:21 Dose: Not Given Sodium Chloride (Normal Saline) 1,000 mls @ 250 mls/hr IV STAT ONE Stop: 10/31/16 14:44 Last Admin: 10/31/16 11:13 Dose: 250 mls/hr Levofloxacin/Dextrose 750 mg/ (Premix) 150 mls @ 100 mls/hr IV ONETIME ONE Stop: 10/31/16 14:19 Last Admin: 10/31/16 12:58 Dose: 100 mls/hr Ceftriaxone Sodium/Dextrose (Rocephin In Dextrose,Iso-Osm 1 Gm/50 Ml) Confirm Administered Dose 50 mls @ as directed .ROUTE .STK-MED ONE Stop: 10/31/16 12:49 Last Admin: 10/31/16 12:58 Dose: Not Given Sodium Chloride (Normal Saline) 1,000 mls @ 100 mls/hr IV ASDIRECTED [facility] Stop: 11/01/16 00:44 Last Admin: 10/31/16 15:09 Dose: 100 mls/hr Vancomycin HCl 0.75 gm/ Sodium (Chloride) 100 mls @ 100 mls/hr IV Q12H [facility] Last Admin: 11/03/16 02:58 Dose: 100 mls/hr Labetalol HCl (Normodyne) 20 mg IVPUSH Q4H PRN PRN Reason: tachycardia Levofloxacin (Levaquin) 500 mg PO Q24H [facility] Last Admin: 11/01/16 15:38 Dose: Not Given Metoprolol Succinate (Toprol Xl) 25 mg PO DAILY [facility] Last Admin: 11/02/16 08:50 Dose: 25 mg Metoprolol Succinate (Toprol Xl) 25 mg PO ONETIME ONE Stop: 11/02/16 10:02 Last Admin: 11/02/16 10:31 Dose: 25 mg Metoprolol Tartrate (Lopressor) 25 mg PO ONETIME ONE Stop: 10/31/16 18:21 Last Admin: 10/31/16 18:41 Dose: 25 mg Vancomycin HCl (Pharmacy To Dose - Vancomycin) 1 dose .XX ASDIRECTED [facility] - Exam General: alert, cooperative Lungs: Clear to auscultation, Normal respiratory effort Cardiovascular: regular rate, regular rhythm, no murmurs Abdomen: bowel sounds present, soft, no tenderness, no distension Extremities: no edema, normal pulses Wound/Incisions: dressing dry and intact, decubitis (dressing intact, changed this morning per Dr. Mustafa. No erythema noted and no purulent drainage), other ( L elbow ulcer, intact, no erythema or drainage. ) Neurological: no new focal deficit Psy/Mental Status: alert, normal affect, normal mood - Problem List & Annotations (1) Pressure ulcer of coccygeal region, stage 4 SNOMED Code(s): 293074609, 353515310 Code(s): L89.154 - PRESSURE ULCER OF SACRAL REGION, STAGE 4 Status: Acute Current Visit: Yes (2) UTI (urinary tract infection) SNOMED Code(s): 54461554 Code(s): N39.0 - URINARY TRACT INFECTION, SITE NOT SPECIFIED Status: Acute Current Visit: Yes Qualifiers: Urinary tract infection type: site unspecified (3) Malaise SNOMED Code(s): 916554511 Code(s): R53.81 - OTHER MALAISE Status: Chronic Current Visit: No (4) History of CVA with residual deficit SNOMED Code(s): 497503501 Code(s): I69.30 - UNSPECIFIED SEQUELAE OF CEREBRAL INFARCTION Status: Chronic Current Visit: Yes - Problem List Review Problem List Initiated/Reviewed/Updated: Yes - My Orders Last 24 Hours: My Active Orders 11/03/16 09:00 Metoprolol Succinate [Toprol XL] 50 mg PO DAILY - Plan Plan:: This 76 year old female admitted with large sacral ulcer and UTI. 1. Sacral ulcer: Does not appear infection, will discontinue Vancomycin. Blood cultures growing gram positive cocci, coagulase negative Staph, likely contaminated. Repeat cultures negative x [address] Mustafa consulted and recommends wet to dry dressing BID, please see Dr. Mustafa's note for consult. We appreciate her assistance on this case. would like hospital bed for care at home. Jane is bed bound due to CVA with residual affects. She is unable to move per self frequently relieve pressure from sacrum. Frequent repositioning and relief of pressure to sacrum is needed for adequate healing of sacral ucler. This ulcer is approximately 5.7x 3.2 x 4.7 cm. Frequent perineal care is needed to keep wound bed clean as well as twice daily dressing changes to the sacral wound. These frequent, at least eery 2 hours, position changes and perineal care is limited when she is a regular bed. Positioning and cares will be more easily performed in a hospital bed. For this reason, I will prescribe hospital bed for home use to be able to provide adequate care to wound as well as allowing ease for frequent repositioning to relieve pressure to large sacral ulcer. 2. UTI: Continue Levaquin. Urine culture Kelbsiella pneumoniae 3. Tachycardia: Increased Metoprolol XL to 50 mg daily, better controlled today. Does elevate slightly with dressing changes and when awake. Pain related? VTE: Heparin Dispo: discharge in am.
[2016-11-03] MEDS: Diltiazem 25 MG/5 ML SDV IVPUSH PRN (20:10)
[2016-11-04] MEDS: Diltiazem 25 MG/5 ML SDV IVPUSH PRN (05:12)
[2016-11-04] MEDS: Heparin Sodium 5,000 Units/ML Vial SUBCUT SCH ×2 (05:56→14:37)
[2016-11-04] MEDS: Metoprolol Succinate 25 MG Tab.ER PO SCH (08:40)
--- NOTE | 2016-11-04 11:13 | CR ---
EXAMINATION: Abdomen HISTORY: Pain COMPARISON: CT dated 11/01/2016. TECHNIQUE: Single AP view. FINDINGS: There is a moderate amount of stool and gas throughout the colon and most notable overlyin g the rectum. No dilated loops of small bowel identified. No abnormal calcifications project the kid neys. The lung bases are clear. Old right-sided rib fractures are present. IMPRESSION: 1. Moderate amount of stool and gas throughout the colon with probable fecal impaction.
[2016-11-04] MEDS: Levofloxacin 500 MG Tab PO SCH (12:37)
--- NOTE | 2016-11-04 15:49 | PCM.DCSUM1 ---
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 She has largely been taken care of at home by her for the past two years. At baseline she does not speak much and does not ambulate. According to she can be unresponsive for days at a time. Today she was taking a bath and was more lethargic than normal. A new home helper noticed a large sacral ulcer prompting evaluation in the ED. She also has a left elbow ulcer which she picks at daily. In the ED UTI was noted and slight leukcytosis noted as well, 11,000. She was admitted due to large stage 4 sacral ulcer and UTI. - Discharge Data Discharge Date: 11/04/16 Discharge Disposition: Home, W Home Health Agency 06 Condition: Good - Discharge Diagnosis/Problem(s) (1) Pressure ulcer of coccygeal region, stage 4 SNOMED Code(s): 023632308, 429015832 ICD Code: L89.154 - PRESSURE ULCER OF SACRAL REGION, STAGE 4 Status: Acute Current Visit: Yes (2) UTI (urinary tract infection) SNOMED Code(s): 36215885 ICD Code: N39.0 - URINARY TRACT INFECTION, SITE NOT SPECIFIED Status: Acute Current Visit: Yes Qualifiers: Urinary tract infection type: site unspecified (3) Malaise SNOMED Code(s): 729952995 ICD Code: R53.81 - OTHER MALAISE Status: Chronic Current Visit: No (4) History of CVA with residual deficit SNOMED Code(s): 011474147 ICD Code: I69.30 - UNSPECIFIED SEQUELAE OF CEREBRAL INFARCTION Status: Chronic Current Visit: Yes (5) Generalized weakness SNOMED Code(s): 79229698 ICD Code: R53.1 - WEAKNESS Status: Acute Current Visit: Yes - Patient Summary/Data Consults: Consultations 10/31/16 14:34 PT Evaluation and Treatment [CONS] Routine 11/02/16 11:52 Consult to Physician [CONS] Routine - Patient Instructions Diet: Regular Diet as Tolerated Activity: As Tolerated Activity, Other: FREQUENT REPOSITIONING, At least every 2 hours to relieve pressure Showering/Bathing: May Shower Notify Provider of: Fever, Increased Pain, Swelling and Redness, Drainage, Nausea and/or Vomiting Other/Special Instructions: Wet to dry dressing change to sacral ulcer twice daily and as needed for soiling. It is very important to change dressing if stool matter soils dressing and keep wound clean. Frequent repositioning to relieve pressure from sacrum. Anton cares. Home health. - Discharge Plan Prescriptions/Med Rec: Acetaminophen/HYDROcodone [[place] 325-5 MG] 1 tab PO Q8H #15 tablet Adhesive Tape [Paper Tape] 1 each TP ASDIRECTED #1 tape Gauze Bandage [Gauze Dressing] 1 each TP ASDIRECTED #1 box Levofloxacin [Levaquin] 500 mg PO Q24H #5 tablet Metoprolol Succinate 50 mg PO DAILY #30 tab.er.24h Sodium Chloride [Saline Wound Wash] 210 ml MC ASDIRECTED #1 bottle Home Medications: Home Meds Acetaminophen/HYDROcodone [[place] 325-5 MG] 1 tab PO Q8H #15 tablet 11/04/16 [Rx] Adhesive Tape [Paper Tape] 1 each TP ASDIRECTED #1 tape 11/04/16 [Rx] Gauze Bandage [Gauze Dressing] 1 each TP ASDIRECTED #1 box 11/04/16 [Rx] Levofloxacin [Levaquin] 500 mg PO Q24H #5 tablet 11/04/16 [Rx] Metoprolol Succinate 50 mg PO DAILY #30 tab.er.24h 11/04/16 [Rx] Sodium Chloride [Saline Wound Wash] 210 ml MC ASDIRECTED #1 bottle 11/04/16 [Rx] Patient Handouts: Acetaminophen; Hydrocodone tablets or capsules, Metoprolol extended-release tablets, How to Prevent Pressure Injuries, Urinary Tract Infection, Adult, [id number], Anton Catheter Care, Adult, [id number], Levofloxacin tablets Referrals: Volodymyr Arellano MD [Physician] - 11/11/16 1:45 pm (Follow up 1 week) - Discharge Summary/Plan Comment DC Time >30 min.: No Discharge Summary/Plan Comment: Discharge Diagnosis: Large stage 4 sacral ulcer UTI-Klebsiella Hx CVA with residual effects Constipation Non-verbal bedfast HTN Jane was admitted and treated with Vancomycin for sacral ulcer with question of infection. She was given Levaquin for UTI. Anton was placed due to large sacral wound. PT and Dr. Mustafa were consulted for wound care and dressing recommendations. See Dr. Mustafa's consult. She recommended wet to dry dressing changes BID and when soiled. No surgical interventions appropriate at this time. UC returned with Klebsiella. Wound not infected and CT did not see osteomyelitis, but it was not clear due to patient osteopenia. Patient responded well to antibiotics. , Connor was spoke to regarding need for frequently dressing changes and repositioning to help with healing of sacral ulcer. He declined transfer to [facility] and would like to take care of her at home. He reports he does have help and a friend, Nathalie will help with dressing changes and positioning. I will also order to have Home Health follow. Skilled protector plate attacher is needed for wound care and home safety assessment. Jane is homebound because it is taxing for caregivers and herself to leave the residence since she is non-ambulatory and bedfast. Dr. Volodymyr Arellano is PCP and will oversee plan of care. Dr. Arellano updated on patient and sacral ulcer. Tachycardia was noted intermittently in the hospital, Metoprolol was increased to 50 mg XL daily. She has done well, but it is noted she has some pain with dressing changes and heart rate elevates when in pain. Will arrange follow up with Dr Arellano next week. To return to ED or clinic if concerns should arise. I spoke with and stressed the importance of keep this wound clean. Will continue anton catheter now to help with keep wound clean and dry. Anton cares stressed as well. verbalizes understanding and reports a lpn care manager, Nathalie, will help. ALso encouraged good bowel regimen at home to keep bowels regular and diminished fecal impaction, states he has stool softeners at home. - General Info Date of Service: 11/04/16 Admission Dx/Problem (Free Text: UTI and sacral ulcer Subjective Update: Non-verbal. - Review of Systems Gastrointestinal: Reports: Abdominal pain (whinced when palpated. ) - Patient Data Vitals - Most Recent: Last Vital Signs Temp 97.8 F 11/04/16 12:00 Pulse 108 H 11/04/16 12:00 Resp 18 11/04/16 12:00 BP 140/78 11/04/16 12:00 Pulse Ox 93 L 11/04/16 12:00 Weight - Most Recent: 45.813 kg I&O - Last 24 hours: Intake & Output 11/04/16 11/04/16 11/04/16 06:59 14:59 22:59 Intake Total 240 Output Total 425 Balance -185 ALIYA Results - Last 24 hrs: Microbiology 11/01/16 12:38 Aerobic Blood Culture - Preliminary Blood - Venous - Lab Draw NO GROWTH AFTER 3 DAYS Anaerobic Blood Culture - Preliminary NO GROWTH AFTER 3 DAYS 11/01/16 12:15 Aerobic Blood Culture - Preliminary Blood - Venous NO GROWTH AFTER 3 DAYS Anaerobic Blood Culture - Final Med Orders - Current: Current Medications Acetaminophen (Tylenol) 650 mg PO Q4H PRN PRN Reason: Pain (Mild 1-3)/fever Diltiazem HCl (Diltiazem) 10 mg IVPUSH Q4H PRN PRN Reason: tachycardia Last Admin: 11/04/16 05:12 Dose: 10 mg Docusate Sodium (Colace) 100 mg PO DAILY PRN PRN Reason: Constipation Last Admin: 10/31/16 16:41 Dose: 100 mg Heparin Sodium (Porcine) (Heparin Sodium) 5,000 units SUBCUT Q8H [facility] Last Admin: 11/04/16 14:37 Dose: 5,000 units Sodium Chloride (Normal Saline) 500 mls @ 125 mls/hr IV .BOLUS [facility] Last Admin: 11/02/16 10:15 Dose: 125 mls/hr Levofloxacin (Levaquin) 500 mg PO Q24H [facility] Last Admin: 11/04/16 12:37 Dose: 500 mg Metoprolol Succinate (Toprol Xl) 50 mg PO DAILY [facility] Last Admin: 11/04/16 08:40 Dose: 50 mg Ondansetron HCl (Zofran) 4 mg IVPUSH Q4H PRN PRN Reason: Nausea Pneumococcal Polyvalent Vaccine (Pneumovax 23) 0.5 ml IM .ONCE ONE Stop: 11/08/16 00:00 Discontinued Medications Bisacodyl (Dulcolax) 10 mg RECTAL ONETIME ONE Stop: 10/31/16 16:46 Last Admin: 10/31/16 16:41 Dose: 10 mg Calcium Carbonate/Glycine (Tums) 1,000 mg PO ONETIME ONE Stop: 11/02/16 08:19 Last Admin: 11/02/16 08:56 Dose: 1,000 mg Ceftriaxone Sodium (Rocephin) 1,000 mg IVPUSH Q24H [facility] Last Admin: 10/31/16 17:21 Dose: Not Given Sodium Chloride (Normal Saline) 1,000 mls @ 250 mls/hr IV STAT ONE Stop: 10/31/16 14:44 Last Admin: 10/31/16 11:13 Dose: 250 mls/hr Levofloxacin/Dextrose 750 mg/ (Premix) 150 mls @ 100 mls/hr IV ONETIME ONE Stop: 10/31/16 14:19 Last Admin: 10/31/16 12:58 Dose: 100 mls/hr Ceftriaxone Sodium/Dextrose (Rocephin In Dextrose,Iso-Osm 1 Gm/50 Ml) Confirm Administered Dose 50 mls @ as directed .ROUTE .STK-MED ONE Stop: 10/31/16 12:49 Last Admin: 10/31/16 12:58 Dose: Not Given Sodium Chloride (Normal Saline) 1,000 mls @ 100 mls/hr IV ASDIRECTED [facility] Stop: 11/01/16 00:44 Last Admin: 10/31/16 15:09 Dose: 100 mls/hr Vancomycin HCl 0.75 gm/ Sodium (Chloride) 100 mls @ 100 mls/hr IV Q12H [facility] Last Admin: 11/03/16 02:58 Dose: 100 mls/hr Labetalol HCl (Normodyne) 20 mg IVPUSH Q4H PRN PRN Reason: tachycardia Levofloxacin (Levaquin) 500 mg PO Q24H [facility] Last Admin: 11/01/16 15:38 Dose: Not Given Metoprolol Succinate (Toprol Xl) 25 mg PO DAILY [facility] Last Admin: 11/02/16 08:50 Dose: 25 mg Metoprolol Succinate (Toprol Xl) 25 mg PO ONETIME ONE Stop: 11/02/16 10:02 Last Admin: 11/02/16 10:31 Dose: 25 mg Metoprolol Tartrate (Lopressor) 25 mg PO ONETIME ONE Stop: 10/31/16 18:21 Last Admin: 10/31/16 18:41 Dose: 25 mg Vancomycin HCl (Pharmacy To Dose - Vancomycin) 1 dose .XX ASDIRECTED [facility] - Exam General: Reports: alert Lungs: Reports: Clear to auscultation, Normal respiratory effort Cardiovascular: Reports: regular rate, regular rhythm, no murmurs Abdomen: Reports: bowel sounds present, soft, no distension, tenderness (Xray noted fecal impaction with large amount of stool. Enema given along with manual removal by nursing, with good results. ) Wound/Incisions: Reports: decubitis (sacral ulcer noted. At least 6 cm wide, with depth of 2-3 cm, no bone noted, no erythema. Tissue appears healthy with some slough noted. No drainage or foul odor. Continue wet to dry dressing. Ulcer to L elbow, healing well keep clean and dry) Neurological: Reports: no new focal deficit Psy/Mental Status: Reports: normal affect, normal mood *Q Meaningful Use (DIS) - VTE *Q VTE Criteria *Q: - Stroke *Q Stroke Criteria *Q: - AMI *Q AMI Criteria *Q:
[2016-11-04 15:53] VITALS: BP 103/58
[2016-11-07] MEDS ORDERED: Pneumococcal Polyvalent-23 Vaccine 0.5 ML SDV IM ONE (23:59)
--- NOTE | 2016-11-09 09:39 | PCM.CONS ---
H&P History of Present Illness - General Date of Service: 11/03/16 Admit Problem/Dx: UTI and sacral ulcer Source of Information: Family, Old records, Provider, RN History Limitations: Reports: Altered mental status - History of Present Illness Initial Comments - Free Text/Narative: longstanding sacral ulcer. has been caring for her at home. Discussed dressing changes. She is incontinent and has severe dementia. We discussed prognosis and I would not recommend surgery for someone who cannot offload and participate in care. The open wound is not infected and dressings changes with wet to dry bid are the best option for her at this point to keep this clean and prevent it from causing her problems with the time she has left. Discussed cares and offloading with turning her q 2 hours and preventing contamination. Onset of Symptoms: Reports: gradual Duration of Symptoms: Reports: Chronic Location: Reports: back, pelvis Improves with: Reports: None Worsens with: Reports: Immobilization Associated Symptoms: Reports: fever/chills Sacral Pain Score (Numeric/FACES): 2 Abdomen Pain Score (Numeric/FACES): 1 - Related Data Allergies/Adverse Reactions: Allergies Allergy/AdvReac Type Severity Reaction Status Date / Time Penicillins Allergy Cannot Verified 10/31/16 10:37 Remember Home Medications: Home Meds Acetaminophen/HYDROcodone [[place] 325-5 MG] 1 tab PO Q8H #15 tablet 11/04/16 [Rx] Adhesive Tape [Paper Tape] 1 each TP ASDIRECTED #1 tape 11/04/16 [Rx] Gauze Bandage [Gauze Dressing] 1 each TP ASDIRECTED #1 box 11/04/16 [Rx] Levofloxacin [Levaquin] 500 mg PO Q24H #5 tablet 11/04/16 [Rx] Metoprolol Succinate 50 mg PO DAILY #30 tab.er.24h 11/04/16 [Rx] Sodium Chloride [Saline Wound Wash] 210 ml MC ASDIRECTED #1 bottle 11/04/16 [Rx] Past Medical History Cardiovascular History: Reports: Hypertension Gastrointestinal History: Reports: Other (see below) Other Gastrointestinal History: constipation Neurological History: Reports: Other (see below) Other Neuro History: Brain tumor Oncologic (Cancer) History: Reports: Brain Social & Family History - Family History Family Medical History: Noncontributory - Tobacco Use Smoking Status *Q: Never Smoker Second Hand Smoke Exposure: No - Caffeine Use Caffeine Use: Reports: None - Alcohol Use Days Per Week of Alcohol Use: 0 - Recreational Drug Use Recreational Drug Use: No H&P Review of Systems - Review of Systems: Review Of Systems: Unable To Obtain Exam - Exam Exam: See Below - Vital Signs Vital Signs: Last Vital Signs Temp 97.7 F 11/04/16 15:52 Pulse 89 11/04/16 15:52 Resp 18 11/04/16 15:52 BP 103/58 L 11/04/16 15:52 Pulse Ox 94 L 11/04/16 15:52 Weight: 101 lb - Exam General: alert, cooperative HEENT: EOMI Lungs: Normal respiratory effort Back Exam: decreased range of motion Extremities: cool Skin: warm, dry, decubitis ulcer (stage 3-4 on the sacrum - central and large wihtout signs of infection. No sequestration. Mild debris but cleaning up well with dressing changes. No redness surrounding. ) Neuro Extensive - Mental Status: alert Psychiatric: alert. No: agitated - Patient Data Result Diagrams: 11/03/16 06:11 11/03/16 06:11 Consult PN Assessment/Plan Procedures: Procedures (1) Pressure ulcer of coccygeal region, stage 4 SNOMED Code(s): 479372709, 576105967 Code(s): L89.154 - PRESSURE ULCER OF SACRAL REGION, STAGE 4 Priority: Medium Problem List Initiated/Reviewed/Updated: Yes Plan: Treating UTI. Continue wet to dry dressings to the area and watch closely for any signs of infection. Continue pressure relief and vigilance for her incontinence. Continue to keep her comfortable for her remaining time. Requesting Provider: noni alejandre Consult Requested: 11/02/16 Reason for Consult: sacral ulcer Patient History Reviewed: Yes Admission H&P Reviewed: Yes Notified Requestor: Yes Time Spent (in minutes): 20
== END 2016-11-04 17:15 | disposition home health service (06) | DRG 592 ==
LOC: MW.ED 10:27 → MW.MS 12:53 → UNDOADMIN 13:17 → MW.MS 13:17 → UNDODISIN 11-04 17:15
PROVIDERS: ADMIT Internal Medicine; ATTEND Internal Medicine
DX: L89.154 Pressure ulcer of sacral region, stage 4 (principal); N39.0 Urinary tract infection, site not specified; I69.354 Hemiplegia and hemiparesis following cerebral infarction affecting left non-dominant side; B96.1 Klebsiella pneumoniae [K. pneumoniae] as the cause of diseases classified elsewhere; R53.81 Other malaise; K59.00 Constipation, unspecified; R00.0 Tachycardia, unspecified; L98.499 Non-pressure chronic ulcer of skin of other sites with unspecified severity; R41.82 Altered mental status, unspecified
CPT/HCPCS: 70450; 80053; 81001; 83605; 85025; 87040 ×2; 87077; 87086; 87186; 96361; 96365; 99285; J1956; J7040; 36415; 51703; 73502-26-LT; 73502-LT; 74000; 74000-26; 74176; 74176-26; 80048; 80202; 83735; 87088; 93005; 97802; A9270-GY; J0696; J1644; J3370; J3490; J7030

== ENCOUNTER 2017-02-25 13:02 | Inpatient (IN) | payer MEDICARE, MEDICAID ==
[2017-02-25] MEDS ORDERED: Sodium Chloride 0.9% 10 ML Syringe FLUSH PRN (13:09)
[2017-02-25] MEDS ORDERED: Sodium Chloride 0.9% 2.5 ML Syringe FLUSH PRN (13:09)
[2017-02-25] MEDS ORDERED: Sodium Chloride 0.9% 1,000 ML IV SCH (13:15)
--- NOTE | 2017-02-25 13:16 | EDM.PDOC ---
ED HPI GENERAL MEDICAL PROBLEM - General Chief Complaint: General Stated Complaint: NOT RESPONDING Time Seen by Provider: 02/25/17 13:03 - History of Present Illness INITIAL COMMENTS - FREE TEXT/NARRATIVE: HISTORY AND PHYSICAL: History of present illness: The patient is a 76-year-old female who was bedridden and has a caregiver at home as well as family and presents via ambulance after being noted to have decreased mental status that started early this morning. According to the family and EMS she has not been eating as much over the last few days and she was noted to have decreased mental status early this morning. They opted to call paramedics as she was no longer grimacing when they interacted with her. There is no history of fever chills, vomiting or diarrhea and the patient is unable to offer any history she merely stares off or closes her eyes. Caregiver is here and at the time of this dictation on my initial evaluation we have not spoken with her but we will proceed to get more history. 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 The family member has subsequently arrived and states that she takes only 1 medication and they have been doing wound care on her sacrum/coccyx decubital ulcer and it has been improving. She states to me that the patient has not been eating or drinking very much the last several days and that her decreased mental status started yesterday. She did not talk very much yesterday and this morning this progressed hence their call with the ambulance. Review of systems: As per history of present illness and below otherwise all systems reviewed and negative. Past medical history: As per history of present illness and as reviewed below otherwise noncontributory. Surgical history: As per history of present illness and as reviewed below otherwise noncontributory. Social history: No reported history of drug or alcohol abuse. Family history: As per history of present illness and as reviewed below otherwise noncontributory. Physical exam: Gen.: Well-developed thin and cachectic female prefers to lay on her left side and eyes are open. She resists movement and when I attempt to look in her eyes she does scratch them and resist opening. HEENT: Atraumatic, normocephalic, pupils reactive, negative for conjunctival pallor or scleral icterus, mucous membranes tacky, throat clear, neck supple, nontender, trachea midline. Lungs: Clear to auscultation diminished breath sounds with poor effort but no work of breathing or sensory muscle use breath sounds equal bilaterally, chest nontender. Heart: S1S2, regular, negative for clicks, rubs, or JVD. Abdomen: Soft, nondistended, nontender. Negative for masses or hepatosplenomegaly. Negative for costovertebral tenderness. Pelvis: Stable nontender. Genitourinary: Deferred. Patient does have a chronic indwelling Nguyen Rectal: Deferred. Extremities: Atraumatic, negative for cords or calf pain. Neurovascular unremarkable. There are no palpable bony deformities or visible soft tissue swelling of the extremities. Neuro: Awake, and as noted above. Patient is contracted in all extremities with flexion at the hips and knees bilaterally as well as her hands and arms clenched to her chest. Exam cannot be performed due to patient's lack of cooperation or inability and she is nonverbal in the ED. Coccyx: There is a very large decubital ulcer seen with a wet-to-dry gauze in place but no surrounding erythema and according to the computer she has a history of same. Diagnostics: EKG Accu-Chek CBC CMP troponin INR lactic acid TSH UA urine culture if indicated ABG chest x-ray CT scan of the head Therapeutics: IV O2 monitor gentle IV fluids Due to EKG abnormalities Dr. DE LA TORRE logistics supply officer was notified at 1325 and he has reviewed the EKG. He requests a repeat EKG and would like labs to be performed and he will follow-up with this patient. 1505: Case was discussed with her hospitalist Dr. Lyles who was aware of the patient and the findings and agrees with admission. He is aware of my antibiotic choices and I will discuss with Dr. Leos if he like to be on formal consult. I've also discussed testing results with the family and plan for admission. Critical care time including [id number]: Impression: Altered mental status, UTI, EKG changes Definitive disposition and diagnosis as appropriate pending reevaluation and review of above. - Related Data Allergies Allergy/AdvReac Type Severity Reaction Status Date / Time Penicillins Allergy Cannot Verified 10/31/16 10:37 Remember Home Meds: Home Meds Metoprolol Succinate 50 mg PO DAILY #30 tab.er.24h 11/04/16 [Rx] Past Medical History Cardiovascular History: Reports: Hypertension Gastrointestinal History: Reports: Other (See Below) Other Gastrointestinal History: constipation Neurological History: Reports: Other (See Below) Other Neuro History: Brain tumor Oncologic (Cancer) History: Reports: Brain Social & Family History - Family History Family Medical History: Noncontributory - Tobacco Use Smoking Status *Q: Never Smoker Second Hand Smoke Exposure: No - Caffeine Use Caffeine Use: Reports: None - Alcohol Use Days Per Week of Alcohol Use: 0 - Recreational Drug Use Recreational Drug Use: No ED ROS GENERAL - Review of Systems Review Of Systems: ROS reveals no pertinent complaints other than HPI. ED EXAM, GENERAL - Physical Exam Exam: See Below (See dictation) Course - Vital Signs Last Recorded V/S: Last Vital Signs Temp 36.2 C 02/25/17 13:50 Pulse 109 H 02/25/17 14:07 Resp 15 02/25/17 14:07 BP 122/78 02/25/17 14:07 Pulse Ox 96 02/25/17 14:07 - Orders/Labs/Meds Orders: Active Orders 24 hr Category Date Time Status Blood Glucose Check, Bedside [RC] ONETIME Care 02/25/17 13:09 Active Cardiac Monitoring [RC] . DIRECTED Care 02/25/17 13:09 Active EKG Documentation Completion [RC] STAT Care 02/25/17 13:09 Active Oxygen Therapy, ED [RC] ASDIRECTED Care 02/25/17 13:09 Active Pulse Oximetry [RC] ASDIRECTED Care 02/25/17 13:09 Active CULTURE BLOOD [BC] Stat Lab 02/25/17 13:17 Received CULTURE BLOOD [BC] Stat Lab 02/25/17 13:39 Results CULTURE URINE [RM] Stat Lab 02/25/17 13:05 Received Sodium Chloride 0.9% [Normal Saline] 1,000 ml Med 02/25/17 13:15 Active IV ASDIRECTED Sodium Chloride 0.9% [Saline Flush] Med 02/25/17 13:09 Active 10 ml FLUSH ASDIRECTED PRN Sodium Chloride 0.9% [Saline Flush] Med 02/25/17 13:09 Active 2.5 ml FLUSH ASDIRECTED PRN Blood Culture x2 Reflex Set [OM.PC] Stat Oth 02/25/17 14:49 Ordered Saline Lock Insert [OM.PC] Stat Oth 02/25/17 13:09 Ordered Medication Orders Sodium Chloride (Normal Saline) 1,000 mls @ 83 mls/hr IV ASDIRECTED DWIGHT Last Admin: 02/25/17 13:41 Dose: 83 mls/hr Sodium Chloride (Saline Flush) 10 ml FLUSH ASDIRECTED PRN PRN Reason: Keep Vein Open Last Admin: 02/25/17 13:41 Dose: 10 ml Sodium Chloride (Saline Flush) 2.5 ml FLUSH ASDIRECTED PRN PRN Reason: Keep Vein Open Last Admin: 02/25/17 13:41 Dose: 2.5 ml Labs: Laboratory Tests 02/25/17 02/25/17 02/25/17 Range/Units 13:05 13:17 13:17 WBC 10.14 (4.0-11.0) K/uL RBC 4.63 (4.30-5.90) M/uL Hgb 11.5 L (12.0-16.0) g/dL Hct 36.8 (36.0-46.0) % MCV 79.5 L (80.0-98.0) fL MCH 24.8 L (27.0-32.0) pg MCHC 31.3 (31.0-37.0) g/dL RDW Std Deviation 52.7 (28.0-62.0) fl RDW Coeff of Deanna 18 H (11.0-15.0) % Plt Count 438 H (150-400) K/uL MPV 8.80 (7.40-12.00) fL Neut % (Auto) 74.1 (48.0-80.0) % Lymph % (Auto) 18.3 (16.0-40.0) % [place] % (Auto) 6.6 (0.0-15.0) % Eos % (Auto) 0.6 (0.0-7.0) % Baso % (Auto) 0.4 (0.0-1.5) % Neut # (Auto) 7.5 H (1.4-5.7) K/uL Lymph # (Auto) 1.9 (0.6-2.4) K/uL [place] # (Auto) 0.7 (0.0-0.8) K/uL Eos # (Auto) 0.1 (0.0-0.7) K/uL Baso # (Auto) 0.0 (0.0-0.1) K/uL Nucleated RBC % 0.0 /100WBC Nucleated RBCs # 0 K/uL INR (0.86-1.11) ABG pH (7.35-7.45) ABG pCO2 (35-45) mmHG ABG pO2 (75-100) mmHG ABG HCO3 (22-26) mEq/L ABG Total CO2 ABG Base Excess (-2.0-2.0) Lactate (0.20-2.00) mmol/L Sodium 133 L (136-146) mmol/L Potassium 4.7 (3.5-5.1) mmol/L Chloride 100 (98-110) mmol/L Carbon Dioxide 22 (21-31) mmol/L BUN 10 (6.0-23.0) mg/dL Creatinine 0.6 (0.6-1.5) mg/dL Est Cr Clr Drug Dosing 53.76 mL/min Estimated GFR (MDRD) > 60.0 ml/min Glucose 103 (60-110) mg/dL POC Glucose (60-110) mg/dL Calcium 8.3 L (8.8-10.8) mg/dL Total Bilirubin 0.4 (0.1-1.5) mg/dL AST 20 (5-40) IU/L ALT 7 L (8-54) IU/L Alkaline Phosphatase 64 (40-150) Troponin I (0.0-0.29) NG/ML Total Protein 5.8 L (6.0-8.0) g/dL Albumin 2.7 L (3.4-4.8) g/dL Globulin 3.1 (2.0-3.5) g/dL Albumin/Globulin Ratio 0.9 L (1.3-2.8) TSH 3rd Generation 3.48 (0.47-5.0) uIU/mL Urine Color YELLOW Urine Appearance CLOUDY Urine pH 6.0 (5.0-8.0) Ur Specific [place] >= 1.030 (1.001-1.035) Urine Protein 30 (NEGATIVE) mg/dL Urine Glucose (UA) NEGATIVE (NEGATIVE) mg/dL Urine Ketones 15 H (NEGATIVE) mg/dL Urine Occult Blood MODERATE (NEGATIVE) Urine Nitrite POSITIVE H (NEGATIVE) Urine Bilirubin SMALL H (NEGATIVE) Urine Ictotest NEGATIVE Urine Urobilinogen 1.0 (<2.0) EU/dL Ur Leukocyte Esterase MODERATE (NEGATIVE) Urine RBC 1-2 (0-2/HPF) Urine WBC TO NUMEROUS TO COUNT H (0-5/HPF) Ur Epithelial Cells RARE (NONE-FEW) Urine Bacteria 3+ H (NEGATIVE) 02/25/17 02/25/17 02/25/17 Range/Units 13:17 13:17 13:17 WBC (4.0-11.0) K/uL RBC (4.30-5.90) M/uL Hgb (12.0-16.0) g/dL Hct (36.0-46.0) % MCV (80.0-98.0) fL MCH (27.0-32.0) pg MCHC (31.0-37.0) g/dL RDW Std Deviation (28.0-62.0) fl RDW Coeff of Deanna (11.0-15.0) % Plt Count (150-400) K/uL MPV (7.40-12.00) fL Neut % (Auto) (48.0-80.0) % Lymph % (Auto) (16.0-40.0) % [place] % (Auto) (0.0-15.0) % Eos % (Auto) (0.0-7.0) % Baso % (Auto) (0.0-1.5) % Neut # (Auto) (1.4-5.7) K/uL Lymph # (Auto) (0.6-2.4) K/uL [place] # (Auto) (0.0-0.8) K/uL Eos # (Auto) (0.0-0.7) K/uL Baso # (Auto) (0.0-0.1) K/uL Nucleated RBC % /100WBC Nucleated RBCs # K/uL INR 1.03 (0.86-1.11) ABG pH (7.35-7.45) ABG pCO2 (35-45) mmHG ABG pO2 (75-100) mmHG ABG HCO3 (22-26) mEq/L ABG Total CO2 ABG Base Excess (-2.0-2.0) Lactate 1.7 (0.20-2.00) mmol/L Sodium (136-146) mmol/L Potassium (3.5-5.1) mmol/L Chloride (98-110) mmol/L Carbon Dioxide (21-31) mmol/L BUN (6.0-23.0) mg/dL Creatinine (0.6-1.5) mg/dL Est Cr Clr Drug Dosing mL/min Estimated GFR (MDRD) ml/min Glucose (60-110) mg/dL POC Glucose (60-110) mg/dL Calcium (8.8-10.8) mg/dL Total Bilirubin (0.1-1.5) mg/dL AST (5-40) IU/L ALT (8-54) IU/L Alkaline Phosphatase (40-150) Troponin I < 0.10 (0.0-0.29) NG/ML Total Protein (6.0-8.0) g/dL Albumin (3.4-4.8) g/dL Globulin (2.0-3.5) g/dL Albumin/Globulin Ratio (1.3-2.8) TSH 3rd Generation (0.47-5.0) uIU/mL Urine Color Urine Appearance Urine pH (5.0-8.0) Ur Specific [place] (1.001-1.035) Urine Protein (NEGATIVE) mg/dL Urine Glucose (UA) (NEGATIVE) mg/dL Urine Ketones (NEGATIVE) mg/dL Urine Occult Blood (NEGATIVE) Urine Nitrite (NEGATIVE) Urine Bilirubin (NEGATIVE) Urine Ictotest Urine Urobilinogen (<2.0) EU/dL Ur Leukocyte Esterase (NEGATIVE) Urine RBC (0-2/HPF) Urine WBC (0-5/HPF) Ur Epithelial Cells (NONE-FEW) Urine Bacteria (NEGATIVE) 02/25/17 02/25/17 Range/Units 13:27 13:47 WBC (4.0-11.0) K/uL RBC (4.30-5.90) M/uL Hgb (12.0-16.0) g/dL Hct (36.0-46.0) % MCV (80.0-98.0) fL MCH (27.0-32.0) pg MCHC (31.0-37.0) g/dL RDW Std Deviation (28.0-62.0) fl RDW Coeff of Deanna (11.0-15.0) % Plt Count (150-400) K/uL MPV (7.40-12.00) fL Neut % (Auto) (48.0-80.0) % Lymph % (Auto) (16.0-40.0) % [place] % (Auto) (0.0-15.0) % Eos % (Auto) (0.0-7.0) % Baso % (Auto) (0.0-1.5) % Neut # (Auto) (1.4-5.7) K/uL Lymph # (Auto) (0.6-2.4) K/uL [place] # (Auto) (0.0-0.8) K/uL Eos # (Auto) (0.0-0.7) K/uL Baso # (Auto) (0.0-0.1) K/uL Nucleated RBC % /100WBC Nucleated RBCs # K/uL INR (0.86-1.11) ABG pH 7.484 H (7.35-7.45) ABG pCO2 34 L (35-45) mmHG ABG pO2 75 (75-100) mmHG ABG HCO3 25 (22-26) mEq/L ABG Total CO2 23.0 ABG Base Excess 1.9 (-2.0-2.0) Lactate (0.20-2.00) mmol/L Sodium (136-146) mmol/L Potassium (3.5-5.1) mmol/L Chloride (98-110) mmol/L Carbon Dioxide (21-31) mmol/L BUN (6.0-23.0) mg/dL Creatinine (0.6-1.5) mg/dL Est Cr Clr Drug Dosing mL/min Estimated GFR (MDRD) ml/min Glucose (60-110) mg/dL POC Glucose 105 (60-110) mg/dL Calcium (8.8-10.8) mg/dL Total Bilirubin (0.1-1.5) mg/dL AST (5-40) IU/L ALT (8-54) IU/L Alkaline Phosphatase (40-150) Troponin I (0.0-0.29) NG/ML Total Protein (6.0-8.0) g/dL Albumin (3.4-4.8) g/dL Globulin (2.0-3.5) g/dL Albumin/Globulin Ratio (1.3-2.8) TSH 3rd Generation (0.47-5.0) uIU/mL Urine Color Urine Appearance Urine pH (5.0-8.0) Ur Specific [place] (1.001-1.035) Urine Protein (NEGATIVE) mg/dL Urine Glucose (UA) (NEGATIVE) mg/dL Urine Ketones (NEGATIVE) mg/dL Urine Occult Blood (NEGATIVE) Urine Nitrite (NEGATIVE) Urine Bilirubin (NEGATIVE) Urine Ictotest Urine Urobilinogen (<2.0) EU/dL Ur Leukocyte Esterase (NEGATIVE) Urine RBC (0-2/HPF) Urine WBC (0-5/HPF) Ur Epithelial Cells (NONE-FEW) Urine Bacteria (NEGATIVE) Meds: Medications Generic Name Dose Route Start Last Admin Trade Name Freq PRN Reason Stop Dose Admin Sodium Chloride 1,000 mls @ 83 mls/hr 02/25/17 13:15 02/25/17 13:41 Normal Saline IV 83 mls/hr ASDIRECTED DWIGHT Administration Sodium Chloride 10 ml 02/25/17 13:09 02/25/17 13:41 Saline Flush FLUSH 10 ml ASDIRECTED PRN Administration Keep Vein Open Sodium Chloride 2.5 ml 02/25/17 13:09 02/25/17 13:41 Saline Flush FLUSH 2.5 ml ASDIRECTED PRN Administration Keep Vein Open Discontinued Medications Generic Name Dose Route Start Last Admin Trade Name Freq PRN Reason Stop Dose Admin Ceftriaxone Sodium/Dextrose 1 50 mls @ 100 mls/hr 02/25/17 14:00 02/25/17 14: 06 gm/ Premix IV 02/25/17 14:29 100 mls/hr ONETIME ONE Administration Departure - Departure Time of Disposition: 15:21 Disposition: Admitted As Inpatient 68 Condition: Fair Clinical Impression: Altered mental status Qualifiers: Altered mental status type: somnolence Qualified Code(s): R40.0 - Somnolence UTI (urinary tract infection) Qualifiers: Urinary tract infection type: site unspecified - Discharge Information Forms: ED Department Discharge - My Orders Last 24 Hours: My Active Orders 02/25/17 13:05 CULTURE URINE [RM] Stat 02/25/17 13:09 Blood Glucose Check, Bedside [RC] ONETIME Cardiac Monitoring [RC] . DIRECTED EKG Documentation Completion [RC] STAT Oxygen Therapy, ED [RC] ASDIRECTED Pulse Oximetry [RC] ASDIRECTED Sodium Chloride 0.9% [Saline Flush] 10 ml FLUSH ASDIRECTED PRN Sodium Chloride 0.9% [Saline Flush] 2.5 ml FLUSH ASDIRECTED PRN Saline Lock Insert [OM.PC] Stat 02/25/17 13:15 Sodium Chloride 0.9% [Normal Saline] 1,000 ml IV ASDIRECTED 02/25/17 13:17 CULTURE BLOOD [BC] Stat 02/25/17 13:39 CULTURE BLOOD [BC] Stat 02/25/17 14:49 Blood Culture x2 Reflex Set [OM.PC] Stat - Assessment/Plan Last 24 Hours: My Active Orders 02/25/17 13:05 CULTURE URINE [RM] Stat 02/25/17 13:09 Blood Glucose Check, Bedside [RC] ONETIME Cardiac Monitoring [RC] . DIRECTED EKG Documentation Completion [RC] STAT Oxygen Therapy, ED [RC] ASDIRECTED Pulse Oximetry [RC] ASDIRECTED Sodium Chloride 0.9% [Saline Flush] 10 ml FLUSH ASDIRECTED PRN Sodium Chloride 0.9% [Saline Flush] 2.5 ml FLUSH ASDIRECTED PRN Saline Lock Insert [OM.PC] Stat 02/25/17 13:15 Sodium Chloride 0.9% [Normal Saline] 1,000 ml IV ASDIRECTED 02/25/17 13:17 CULTURE BLOOD [BC] Stat 02/25/17 13:39 CULTURE BLOOD [BC] Stat 02/25/17 14:49 Blood Culture x2 Reflex Set [OM.PC] Stat
[2017-02-25 13:58] LABS: CHLORIDE,CL 100 mmol/L (98-110); SODIUM,NA 133 mmol/L (136-146)
[2017-02-25] MEDS ORDERED: cefTRIAXone 1 GM in Premix Bag 1 BAG IV ONE (14:00)
--- NOTE | 2017-02-25 14:29 | CR ---
EXAMINATION: Portable chest radiograph. HISTORY: Shortness of breath. FINDINGS: The trachea is midline. The heart is prominent in size. The cardiomediastinal silhouette is within n ormal limits. No pulmonary infiltrates, effusions or pneumothorax. Old right-sided rib fractures are noted. Chronic interstitial prominence. IMPRESSION: Borderline cardiomegaly with chronic interstitial prominence. No acute cardiopulmonary finding.
--- NOTE | 2017-02-25 15:14 | CT ---
EXAMINATION: Non contrast CT head. Coronal and sagittal reformats. HISTORY: Pain FINDINGS: No evidence of intra or extra axial hemorrhage, mass, midline shift, hydrocephalus or edema. Enceph alomalacia is noted within the medial right frontal lobe and within the left cerebellum with overlyi ng postsurgical changes. There is generalized atrophy. Confluent periventricular and subcortical whi te matter hypodensities are noted. No hypoattenuation changes in the major vascular territories to suggest acute infarct. No abnormal intracranial calcifications are detected. Mild vascular calcifications noted. The paranasal sinuses and mastoid air cells are well aerated without substantial findings. Pituitary fossa appears unremarkable. Degenerative changes are noted within the temporomandibular po ints. The orbits and globes are symmetric. Calvarium is intact. No evidence of skull fracture. IMPRESSION: 1. Generalized atrophy and small vessel ischemic changes. 2. No acute intracranial findings. 3. Encephalomalacia noted within the right frontal, right occipital, and left cerebellum. 4. 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
--- NOTE | 2017-02-25 15:59 | PCM.HP ---
H&P History of Present Illness - General Date of Service: 02/25/17 Admit Problem/Dx: UTI, altered mental status Source of Information: Other (ED MD documentation, ) History Limitations: Reports: Altered Mental Status (NO family or caregiver at bedside upon admission) - History of Present Illness Initial Comments - Free Text/Narative: This 76 year old female with pmh of CVA with L sided weakness, nonverbal and bedridden, and sacral decubitus presented to the ED via EMS today with concerns from family and caregiver of decreased mental status, which started earlier in the day. No family in the room at time of admission, so unable to gather further information. Please see Dr Montiel's ED note. In the ED WBC 10,140, Hgb 11.5, Na 133, Ua 3+ bacteria, +nitrites, mod leukocyte esterase, and too numerous to count WBC. CXR showed borderline cardiomegaly, and Head CT reported no acute intracranial findings, but did report encephalomalacia in the R frontal, occipital and L cerebellum regions. She was treated with Rocephin in the ED, BC and UC pending. She will be admitted with UTI and AMS. - Related Data Allergies/Adverse Reactions: Allergies Allergy/AdvReac Type Severity Reaction Status Date / Time Penicillins Allergy Cannot Verified 10/31/16 10:37 Remember Home Medications: Home Meds Metoprolol Succinate 50 mg PO DAILY #30 tab.er.24h 11/04/16 [Rx] Past Medical History Cardiovascular History: Reports: Hypertension Gastrointestinal History: Reports: Other (See Below) Other Gastrointestinal History: constipation Neurological History: Reports: CVA (with residual effects, L sided weakness, non verbal.), Other (See Below) Other Neuro History: Brain tumor Endocrine/Metabolic History: Reports: None. Denies: Diabetes, Type II Oncologic (Cancer) History: Reports: Brain Dermatologic History: Reports: Other (See Below) (sacral pressure ulcer.) - Past Surgical History Cardiovascular Surgical History: Reports: None Oncologic Surgical History: Reports: None Social & Family History - Family History Family Medical History: Noncontributory - Tobacco Use Smoking Status *Q: Never Smoker Second Hand Smoke Exposure: No - Caffeine Use Caffeine Use: Reports: None - Alcohol Use Days Per Week of Alcohol Use: 0 - Recreational Drug Use Recreational Drug Use: No - Living Situation & Occupation Living situation: Reports: with Spouse, Other (has caregiver as well) Occupation: Disabled H&P Review of Systems - Review of Systems: Review Of Systems: Unable To Obtain Exam - Exam Exam: See Below - Vital Signs Vital Signs: Last Vital Signs Temp 97.2 F 02/25/17 13:50 Pulse 109 H 02/25/17 14:07 Resp 15 02/25/17 14:07 BP 122/78 02/25/17 14:07 Pulse Ox 96 02/25/17 14:07 Weight: 41.4 kg - Exam Quality Assessment: Urinary Catheter General: Obtunded (responds to painful stimuli.) HEENT: Nares Patent, Posterior Pharynx Clear, Pupils Reactive. No: Conjunctiva Clear (green matter to eyes, dried and some moist, ), Mucosa Moist & [place] (dry mucous membranes) Neck: Supple, Trachea Midline Lungs: Clear to Auscultation, Normal Respiratory Effort Cardiovascular: Regular Rate, Regular Rhythm, Normal S1, Normal S2 Abdomen: Normal Bowel Sounds, Soft. No: Tenderness Extremities: Normal Inspection, Other (contractures noted to bilateral hands and wrists. ). No: Edema Skin: Decubitis (large sacral decubitis, very clean wound bed, no surround erythema and no drainage. some bleeding noted after removal of dressing on wound bed. Measures 6cm x 4.5 cm x 3 cm) - Patient Data Result Diagrams: 02/25/17 13:17 02/25/17 13:17 *Q Meaningful Use (ADM) - VTE *Q VTE Criteria *Q: - VTE Risk Assess *Q Each Risk Factor Represents 1 Point: Medical Patient Currently on Bedrest Total Score 1 Point Risk Factors: 1 Each Risk Factor Represents 2 Points: Age 60 - 74 Years Total Score 2 Point Risk Factors: 2 Each Risk Factor Represents 3 Points: None Total Score 3 Point Risk Factors: 0 Each Risk Factor Represents 5 Points: None Total Score 5 Point Risk Factors: 0 Venous Thromboembolism Risk Factor Score *Q: 3 - Stroke *Q Stroke Criteria *Q: - AMI *Q AMI Criteria *Q: - Problem List (1) Altered mental status SNOMED Code(s): 964450184 ICD Code: R41.82 - ALTERED MENTAL STATUS, UNSPECIFIED Status: Acute Current Visit: Yes Qualifiers: Altered mental status type: somnolence Qualified Code(s): R40.0 - Somnolence (2) UTI (urinary tract infection) SNOMED Code(s): 82954479 ICD Code: N39.0 - URINARY TRACT INFECTION, SITE NOT SPECIFIED Status: Acute Current Visit: Yes Qualifiers: Urinary tract infection type: acute cystitis Hematuria presence: without hematuria Qualified Code(s): N30.00 - Acute cystitis without hematuria (3) History of CVA with residual deficit SNOMED Code(s): 007142396 ICD Code: I69.30 - UNSPECIFIED SEQUELAE OF CEREBRAL INFARCTION Status: Chronic Current Visit: No Problem List Initiated/Reviewed/Updated: Yes Orders Last 24hrs: Medication Orders Sodium Chloride (Normal Saline) 1,000 mls @ 83 mls/hr IV ASDIRECTED DWIGHT Last Admin: 02/25/17 13:41 Dose: 83 mls/hr Sodium Chloride (Saline Flush) 10 ml FLUSH ASDIRECTED PRN PRN Reason: Keep Vein Open Last Admin: 02/25/17 13:41 Dose: 10 ml Sodium Chloride (Saline Flush) 2.5 ml FLUSH ASDIRECTED PRN PRN Reason: Keep Vein Open Last Admin: 02/25/17 13:41 Dose: 2.5 ml Assessment/Plan Comment:: This 76 year old female admitted with UTI and AMS 1. UTI: UC pending. Will treat with Rocephin. Nguyen at home due to sacral wound. Gentle IVFs. 2. AMS: likely secondary to UTI. Will monitor. Will keep NPO until more alert. 3. Sacral decubitus: Continue wet to dry dressing changes. VTE prophylaxis: Heparin. Dispo: Pending improvement.
[2017-02-25] MEDS ORDERED: Ondansetron 4 MG/2 ML SDV IVPUSH PRN (16:08)
[2017-02-25] MEDS: Sodium Chloride 0.9% 1,000 ML IV SCH ×2 (19:00→23:20)
--- NOTE | 2017-02-25 19:14 | CONS ---
DATE OF CONSULTATION: 02/25/2017 DATE OF : 1940 PRIMARY CARE PHYSICIAN: None PCP REASON FOR CONSULTATION: Abnormal EKG. 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 Her baseline is that she can talk some, she can state what she want, and she can tell about her symptoms, about pain, and what she needs as well. However, over the past two days, she has been eating less and less and not responding or not talking, and her caregiver noticed that her urine output seemed to be less, but no fever, did not notice any cough nor any aspiration and not even complained about the pain. That is why she was brought here to the emergency room. Initial EKG showed some EKG abnormality, there is suspicion of ST elevation in V2 and with the EKG repeated with 20 minutes apart still remained the same looking of ST-segment in V2 and then when I compared to the old one in October 2016, there is a lot of artifact on this EKG tracing and there is no other previous EKG tracing that I can compare, and it seems like there is lead V2. It seemed to probably look similar to the current one as well as a V1, otherwise there are no any other ST-segment elevation or depression in the other leads. Otherwise, she is nonverbal. PAST MEDICAL HISTORY: Including left-sided CVA, bed ridden and she was noted to take metoprolol but her caregiver states that she does not have a history of hypertension, diabetes, hyperlipidemia or heart problem. ALLERGIES: Seems to be allergic to penicillin. FAMILY HISTORY: Unobtainable. SOCIAL HISTORY: She lives with her and it seems like her want everything aggressively to be done. PHYSICAL EXAMINATION: VITAL SIGNS: Blood pressure is 102/64, heart rate of 109, temperature 36.2, O2 saturation 96% on room air, respirations 16. HEENT: Mouth dry, mouth pale. No jaundice. HEART: Tachycardic. Regular rate and rhythm. No murmur. LUNGS: Clear. ABDOMEN: Soft, nontender. Bowel sounds present. No hepatosplenomegaly. LEGS: No edema. NEUROLOGICAL: She is nonverbal, left-sided weakness, responding to pain but nonverbal. LABORATORY INVESTIGATION: CBC showed WBC 10, hematocrit of 36, hemoglobin of 11, platelets 438. Neutrophils 74, INR 1.03. Blood gases 7.48, PO2 75. Sodium 133, potassium 4.7, chloride 100, bicarb 22, BUN 10, creatinine 0.6. Liver function is normal. Troponin is negative. TSH is normal at 3.4. Urinalysis, numerous WBC. She already has Nguyen catheter since she was admitted here in October due to the pressure sore. ASSESSMENT: A 76-year-old female, left-sided cerebrovascular accident, bed ridden, unresponsive and abnormal EKG. Troponin was negative for heart attack. I am suspicious that her EKG changes abnormality seemed to be unchanged from the previous EKG and I doubt it will be ACS, but I will keep checking the troponin, repeat EKG, check her echocardiogram, and it seems like she may have infection for UTI that caused her unresponsiveness and she will be assessed and evaluated by hospitalist team, and definitely she looks dehydrated. She needs IV fluid. STANISLAV / RICARDO /[id number]
[2017-02-25] MEDS: Heparin Sodium 5,000 Units/ML Vial SUBCUT SCH (20:33)
[2017-02-26] MEDS: Sodium Chloride 0.9% 1,000 ML IV SCH ×2 (05:22→10:47)
[2017-02-26 07:24] LABS: CHLORIDE,CL 105 mmol/L (98-110); SODIUM,NA 136 mmol/L (136-146)
--- NOTE | 2017-02-26 08:40 | PCM.PN ---
- General Info Date of Service: 02/26/17 Admission Dx/Problem (Free Text): UTI, altered mental status Subjective Update: Slightly more alert, but is more alert when family is at bedside. Non verbal. - Patient Data Vitals - most recent: Last Vital Signs Temp 97.5 F 02/26/17 08:00 Pulse 88 02/26/17 08:00 Resp 18 02/26/17 08:00 BP 128/60 02/26/17 08:00 Pulse Ox 96 02/26/17 08:00 Weight - most recent: 41.4 kg I&O - last 24 hours: Intake & Output 02/25/17 02/26/17 02/26/17 22:59 06:59 14:59 Intake Total 652 Output Total 150 Balance 502 Lab Results last 24 hrs: Laboratory Results - last 24 hr 02/26/17 02/26/17 Range/Units 06:54 06:54 WBC 5.83 (4.0-11.0) K/uL RBC 3.96 L (4.30-5.90) M/uL Hgb 10.0 L (12.0-16.0) g/dL Hct 32.0 L (36.0-46.0) % MCV 80.8 (80.0-98.0) fL MCH 25.3 L (27.0-32.0) pg MCHC 31.3 (31.0-37.0) g/dL RDW Std Deviation 52.2 (28.0-62.0) fl RDW Coeff of Deanna 18 H (11.0-15.0) % Plt Count 368 (150-400) K/uL MPV 8.60 (7.40-12.00) fL Neut % (Auto) 70.7 (48.0-80.0) % Lymph % (Auto) 19.7 (16.0-40.0) % [place] % (Auto) 7.4 (0.0-15.0) % Eos % (Auto) 1.7 (0.0-7.0) % Baso % (Auto) 0.5 (0.0-1.5) % Neut # (Auto) 4.1 (1.4-5.7) K/uL Lymph # (Auto) 1.2 (0.6-2.4) K/uL [place] # (Auto) 0.4 (0.0-0.8) K/uL Eos # (Auto) 0.1 (0.0-0.7) K/uL Baso # (Auto) 0.0 (0.0-0.1) K/uL Sodium 136 (136-146) mmol/L Potassium 3.7 (3.5-5.1) mmol/L Chloride 105 (98-110) mmol/L Carbon Dioxide 21 (21-31) mmol/L BUN 7 (6.0-23.0) mg/dL Creatinine 0.5 L (0.6-1.5) mg/dL Est Cr Clr Drug Dosing 64.52 mL/min Estimated GFR (MDRD) > 60.0 ml/min Glucose 72 (60-110) mg/dL Calcium 7.7 L (8.8-10.8) mg/dL Med Orders - Current: Current Medications Heparin Sodium (Porcine) (Heparin Sodium) 5,000 units SUBCUT Q12HR [facility] Last Admin: 02/25/17 20:33 Dose: 5,000 units Ceftriaxone Sodium/Dextrose 1 (gm/ Premix) 50 mls @ 100 mls/hr IV Q24H [facility] Sodium Chloride (Normal Saline) 1,000 mls @ 125 mls/hr IV ASDIRECTED [facility] Last Admin: 02/26/17 05:22 Dose: 125 mls/hr Metoprolol Succinate (Toprol Xl) 50 mg PO DAILY [facility] Ondansetron HCl (Zofran) 4 mg IVPUSH Q4H PRN PRN Reason: Nausea Sodium Chloride (Saline Flush) 10 ml FLUSH ASDIRECTED PRN PRN Reason: Keep Vein Open Last Admin: 02/25/17 13:41 Dose: 10 ml Sodium Chloride (Saline Flush) 2.5 ml FLUSH ASDIRECTED PRN PRN Reason: Keep Vein Open Last Admin: 02/25/17 13:41 Dose: 2.5 ml Discontinued Medications Sodium Chloride (Normal Saline) 1,000 mls @ 83 mls/hr IV ASDIRECTED [facility] Last Admin: 02/25/17 13:41 Dose: 83 mls/hr Ceftriaxone Sodium/Dextrose 1 (gm/ Premix) 50 mls @ 100 mls/hr IV ONETIME ONE Stop: 02/25/17 14:29 Last Admin: 02/25/17 14:06 Dose: 100 mls/hr Sodium Chloride (Normal Saline) 1,000 mls @ 50 mls/hr IV ASDIRECTED [facility] Last Admin: 02/25/17 23:20 Dose: 50 mls/hr - Exam Quality Assessment: urine catheter, DVT prophylaxis General: other (Non verbal, does not respond to questions, opens eyes slightly.) Neck: supple Lungs: Clear to auscultation, Normal respiratory effort Cardiovascular: Regular Rate, Regular Rhythm, No Murmurs. No: Tachycardia Abdomen: bowel sounds present, soft, no tenderness, no distension Extremities: no edema, other (contractures to hands and wrists) Wound/Incisions: dressing dry and intact Psy/Mental Status: alert, normal affect, normal mood - Problem List & Annotations (1) Altered mental status SNOMED Code(s): 455968273 Code(s): R41.82 - ALTERED MENTAL STATUS, UNSPECIFIED Status: Acute Current Visit: Yes Qualifiers: Altered mental status type: somnolence Qualified Code(s): R40.0 - Somnolence (2) UTI (urinary tract infection) SNOMED Code(s): 37112462 Code(s): N39.0 - URINARY TRACT INFECTION, SITE NOT SPECIFIED Status: Acute Current Visit: Yes Qualifiers: Urinary tract infection type: acute cystitis Hematuria presence: without hematuria Qualified Code(s): N30.00 - Acute cystitis without hematuria (3) History of CVA with residual deficit SNOMED Code(s): 516055526 Code(s): I69.30 - UNSPECIFIED SEQUELAE OF CEREBRAL INFARCTION Status: Chronic Current Visit: No - Problem List Review Problem List Initiated/Reviewed/Updated: Yes - My Orders Last 24 Hours: My Active Orders 02/25/17 16:08 Oxygen Therapy [RC] PRN VTE/DVT Education [RC] DAILY Vital Signs [RC] Q4H Ondansetron [Zofran] 4 mg IVPUSH Q4H PRN 02/25/17 16:14 Turn and Reposition [RC] Q2H 02/25/17 16:52 Resuscitation Status Routine 02/25/17 16:57 Telemetry Monitoring [Cardiac Monitoring] [RC] Q8H 02/25/17 21:00 Heparin Sodium 5,000 units SUBCUT Q12HR 02/26/17 07:56 TROPONIN I [CHEM] Routine 02/26/17 09:00 Metoprolol Succinate [Toprol XL] 50 mg PO DAILY 02/26/17 14:00 cefTRIAXone [Rocephin in Dextrose,Iso-Osm 1 GM/50 ML] 1 gm Premix Bag 1 bag IV Q24H 02/27/17 05:11 BASIC METABOLIC PANEL,BMP [CHEM] AM CBC WITH AUTO DIFF [HEME] AM 02/28/17 05:11 BASIC METABOLIC PANEL,BMP [CHEM] AM CBC WITH AUTO DIFF [HEME] AM 03/01/17 05:11 BASIC METABOLIC PANEL,BMP [CHEM] AM CBC WITH AUTO DIFF [HEME] AM - Plan Plan:: This 76 year old female admitted with UTI and AMS 1. UTI: UC pending. Continue Rocephin. Nguyen at home due to sacral wound. Gentle IVFs. 2. AMS: likely secondary to UTI. Will monitor. More alert with family this am, will start soft diet, monitor alertness prior to feedings 3. Sacral decubitus: Continue wet to dry dressing changes. 4. Tachycardia: Noted this am, Will order lopressor IV until able to tale Metoprolol home medication. Telemetry. Dr. Murdock was consulted in ED regarding abnormal EKG, which was similar to previous EKGs. NO ACS was suspected. Will obtain troponin this am. VTE prophylaxis: Heparin. Dispo: Pending improvement.
[2017-02-26] MEDS: Metoprolol Succinate 50 MG Tab.ER PO SCH (09:40)
[2017-02-26] MEDS: Heparin Sodium 5,000 Units/ML Vial SUBCUT SCH ×2 (09:41→21:26)
[2017-02-26] MEDS ORDERED: Metoprolol Tartrate 5 MG/5 ML SDV IVPUSH PRN (09:58)
[2017-02-26] MEDS ORDERED: Magnesium Sulfate/Water 4 GM in Premix Bag 1 BAG IV ONE (10:31)
[2017-02-26] MEDS ORDERED: Potassium Chloride 20 MEQ Tab.ER PO ONE (11:20)
[2017-02-26] MEDS ORDERED: Diltiazem 25 MG/5 ML SDV IVPUSH ONE (11:20)
[2017-02-26] MEDS ORDERED: cefTRIAXone 1 GM in Premix Bag 1 BAG IV SCH (14:00)
[2017-02-27 06:30] LABS: CHLORIDE,CL 107 mmol/L (98-110); SODIUM,NA 137 mmol/L (136-146)
[2017-02-27] MEDS: Metoprolol Succinate 50 MG Tab.ER PO SCH (08:58)
[2017-02-27] MEDS: Heparin Sodium 5,000 Units/ML Vial SUBCUT SCH ×2 (09:33→20:22)
[2017-02-27] MEDS: Diltiazem 25 MG/5 ML SDV IVPUSH PRN ×3 (10:16→21:07)
--- NOTE | 2017-02-27 10:58 | PCM.PN ---
- Review of Systems Systems Review Comment:: ate breakfast, sleeping this morning - Patient Data Vitals - most recent: Last Vital Signs Temp 36.9 C 02/27/17 08:00 Pulse 150 H 02/27/17 08:58 Resp 16 02/27/17 08:00 BP 133/79 02/27/17 08:58 Pulse Ox 97 02/27/17 08:00 Weight - most recent: 41.4 kg I&O - last 24 hours: Intake & Output 02/26/17 02/27/17 02/27/17 22:59 06:59 14:59 Intake Total 711 0 Output Total 350 200 Balance 361 -200 Lab Results last 24 hrs: Laboratory Results - last 24 hr 02/27/17 02/27/17 02/27/17 Range/Units 06:00 06:00 06:00 WBC 6.69 (4.0-11.0) K/uL RBC 3.99 L (4.30-5.90) M/uL Hgb 10.0 L (12.0-16.0) g/dL Hct 31.6 L (36.0-46.0) % MCV 79.2 L (80.0-98.0) fL MCH 25.1 L (27.0-32.0) pg MCHC 31.6 (31.0-37.0) g/dL RDW Std Deviation 52.1 (28.0-62.0) fl RDW Coeff of Deanna 18 H (11.0-15.0) % Plt Count 371 (150-400) K/uL MPV 8.60 (7.40-12.00) fL Neut % (Auto) 69.2 (48.0-80.0) % Lymph % (Auto) 21.8 (16.0-40.0) % [place] % (Auto) 7.8 (0.0-15.0) % Eos % (Auto) 0.9 (0.0-7.0) % Baso % (Auto) 0.3 (0.0-1.5) % Neut # (Auto) 4.6 (1.4-5.7) K/uL Lymph # (Auto) 1.5 (0.6-2.4) K/uL [place] # (Auto) 0.5 (0.0-0.8) K/uL Eos # (Auto) 0.1 (0.0-0.7) K/uL Baso # (Auto) 0.0 (0.0-0.1) K/uL Nucleated RBC % 0.8 /100WBC Nucleated RBCs # 0 K/uL Sodium 137 (136-146) mmol/L Potassium 4.0 (3.5-5.1) mmol/L Chloride 107 (98-110) mmol/L Carbon Dioxide 21 (21-31) mmol/L BUN 5 L (6.0-23.0) mg/dL Creatinine 0.5 L (0.6-1.5) mg/dL Est Cr Clr Drug Dosing 64.52 mL/min Estimated GFR (MDRD) > 60.0 ml/min Glucose 92 (60-110) mg/dL Calcium 7.5 L (8.8-10.8) mg/dL Magnesium 1.9 (1.5-2.3) mEq/L Med Orders - Current: Current Medications Diltiazem HCl (Diltiazem) 10 mg IVPUSH Q3H PRN PRN Reason: Tachycardia Last Admin: 02/27/17 10:16 Dose: 10 mg Heparin Sodium (Porcine) (Heparin Sodium) 5,000 units SUBCUT Q12HR [facility] Last Admin: 02/27/17 09:33 Dose: 5,000 units Ceftriaxone Sodium/Dextrose 1 (gm/ Premix) 50 mls @ 100 mls/hr IV Q24H [facility] Last Admin: 02/26/17 13:59 Dose: 100 mls/hr Metoprolol Succinate (Toprol Xl) 50 mg PO DAILY [facility] Last Admin: 02/27/17 08:58 Dose: 50 mg Ondansetron HCl (Zofran) 4 mg IVPUSH Q4H PRN PRN Reason: Nausea Sodium Chloride (Saline Flush) 10 ml FLUSH ASDIRECTED PRN PRN Reason: Keep Vein Open Last Admin: 02/25/17 13:41 Dose: 10 ml Sodium Chloride (Saline Flush) 2.5 ml FLUSH ASDIRECTED PRN PRN Reason: Keep Vein Open Last Admin: 02/25/17 13:41 Dose: 2.5 ml Discontinued Medications Diltiazem HCl (Diltiazem) 20 mg IVPUSH ONETIME ONE Stop: 02/26/17 11:21 Last Admin: 02/26/17 11:35 Dose: 20 mg Sodium Chloride (Normal Saline) 1,000 mls @ 83 mls/hr IV ASDIRECTED [facility] Last Admin: 02/25/17 13:41 Dose: 83 mls/hr Ceftriaxone Sodium/Dextrose 1 (gm/ Premix) 50 mls @ 100 mls/hr IV ONETIME ONE Stop: 02/25/17 14:29 Last Admin: 02/25/17 14:06 Dose: 100 mls/hr Sodium Chloride (Normal Saline) 1,000 mls @ 50 mls/hr IV ASDIRECTED [facility] Last Admin: 02/25/17 23:20 Dose: 50 mls/hr Sodium Chloride (Normal Saline) 1,000 mls @ 125 mls/hr IV ASDIRECTED [facility] Last Admin: 02/26/17 10:47 Dose: 125 mls/hr Magnesium Sulfate 4 gm/ Premix 100 mls @ 50 mls/hr IV ONETIME ONE Stop: 02/26/17 12:30 Last Admin: 02/26/17 10:52 Dose: 50 mls/hr Metoprolol Tartrate (Lopressor) 5 mg IVPUSH Q6H PRN PRN Reason: Tachycardia Last Admin: 02/26/17 10:06 Dose: 5 mg Potassium Chloride (Klor-Con M20) 40 meq PO ONETIME ONE Stop: 02/26/17 11:21 Last Admin: 02/26/17 11:55 Dose: 40 meq - Exam General: sedated Lungs: Clear to auscultation, Normal respiratory effort Cardiovascular: Regular Rate, Regular Rhythm Extremities: no edema - Problem List Review Problem List Initiated/Reviewed/Updated: Yes - My Orders Last 24 Hours: My Active Orders 02/27/17 10:02 Diltiazem 10 mg IVPUSH Q3H PRN - Plan Plan:: This 76 year old female admitted with UTI and AMS 1. MRSA UTI: will switch to vancomcyin. 2. Sacral decubitus: Continue wet to dry dressing changes. 3. Tachycardia: sinus/a.fib continue metoprolol and prn diltiazem VTE prophylaxis: Heparin. Dispo: Pending improvement.
[2017-02-27] MEDS ORDERED: Digoxin 500 MCG/2 ML Amp IVPUSH ONE (11:01)
[2017-02-28] MEDS: Diltiazem 25 MG/5 ML SDV IVPUSH PRN (02:56)
[2017-02-28 06:51] LABS: CHLORIDE,CL 106 mmol/L (98-110); SODIUM,NA 133 mmol/L (136-146)
[2017-02-28] MEDS: Metoprolol Succinate 50 MG Tab.ER PO SCH (08:04)
[2017-02-28] MEDS: Heparin Sodium 5,000 Units/ML Vial SUBCUT SCH ×2 (08:05→20:04)
--- NOTE | 2017-02-28 09:34 | PCM.PN ---
- Review of Systems Systems Review Comment:: nonverbal - Patient Data Vitals - most recent: Last Vital Signs Temp 35.9 C 02/28/17 08:00 Pulse 104 H 02/28/17 08:04 Resp 16 02/28/17 08:00 BP 102/56 L 02/28/17 08:04 Pulse Ox 96 02/28/17 04:00 Weight - most recent: 41.4 kg I&O - last 24 hours: Intake & Output 02/27/17 02/28/17 02/28/17 22:59 06:59 14:59 Intake Total 400 570 Output Total 235 Balance 400 335 Lab Results last 24 hrs: Laboratory Results - last 24 hr 02/28/17 02/28/17 02/28/17 Range/Units 06:05 06:05 06:05 WBC 11.64 H (4.0-11.0) K/uL RBC 4.10 L (4.30-5.90) M/uL Hgb 10.4 L (12.0-16.0) g/dL Hct 32.1 L (36.0-46.0) % MCV 78.3 L (80.0-98.0) fL MCH 25.4 L (27.0-32.0) pg MCHC 32.4 (31.0-37.0) g/dL RDW Std Deviation 51.2 (28.0-62.0) fl RDW Coeff of Deanna 18 H (11.0-15.0) % Plt Count 359 (150-400) K/uL MPV 8.80 (7.40-12.00) fL Neut % (Auto) 81.1 H (48.0-80.0) % Lymph % (Auto) 13.1 L (16.0-40.0) % [place] % (Auto) 4.6 (0.0-15.0) % Eos % (Auto) 0.9 (0.0-7.0) % Baso % (Auto) 0.3 (0.0-1.5) % Neut # (Auto) 9.4 H (1.4-5.7) K/uL Lymph # (Auto) 1.5 (0.6-2.4) K/uL [place] # (Auto) 0.5 (0.0-0.8) K/uL Eos # (Auto) 0.1 (0.0-0.7) K/uL Baso # (Auto) 0.0 (0.0-0.1) K/uL Nucleated RBC % 0.6 /100WBC Nucleated RBCs # 0 K/uL Sodium 133 L (136-146) mmol/L Potassium 3.9 (3.5-5.1) mmol/L Chloride 106 (98-110) mmol/L Carbon Dioxide 17 L (21-31) mmol/L BUN 3 L (6.0-23.0) mg/dL Creatinine 0.5 L (0.6-1.5) mg/dL Est Cr Clr Drug Dosing 64.52 mL/min Estimated GFR (MDRD) > 60.0 ml/min Glucose 112 H (60-110) mg/dL Calcium 7.6 L (8.8-10.8) mg/dL Magnesium 1.6 (1.5-2.3) mEq/L Med Orders - Current: Current Medications Diltiazem HCl (Diltiazem) 10 mg IVPUSH Q3H PRN PRN Reason: Tachycardia Last Admin: 02/28/17 02:56 Dose: 10 mg Heparin Sodium (Porcine) (Heparin Sodium) 5,000 units SUBCUT Q12HR [facility] Last Admin: 02/28/17 08:05 Dose: 5,000 units Vancomycin HCl 500 mg/ Sodium (Chloride) 100 mls @ 100 mls/hr IV Q12H [facility] Last Admin: 02/27/17 23:17 Dose: 100 mls/hr Metoprolol Succinate (Toprol Xl) 50 mg PO DAILY [facility] Last Admin: 02/28/17 08:04 Dose: 50 mg Ondansetron HCl (Zofran) 4 mg IVPUSH Q4H PRN PRN Reason: Nausea Sodium Chloride (Saline Flush) 10 ml FLUSH ASDIRECTED PRN PRN Reason: Keep Vein Open Last Admin: 02/25/17 13:41 Dose: 10 ml Sodium Chloride (Saline Flush) 2.5 ml FLUSH ASDIRECTED PRN PRN Reason: Keep Vein Open Last Admin: 02/25/17 13:41 Dose: 2.5 ml Vancomycin HCl (Pharmacy To Dose - Vancomycin) 1 dose .XX ASDIRECTED [facility] Discontinued Medications Digoxin (Lanoxin) 250 mcg IVPUSH ONETIME ONE Stop: 02/27/17 11:02 Last Admin: 02/27/17 11:31 Dose: 250 mcg Diltiazem HCl (Diltiazem) 20 mg IVPUSH ONETIME ONE Stop: 02/26/17 11:21 Last Admin: 02/26/17 11:35 Dose: 20 mg Sodium Chloride (Normal Saline) 1,000 mls @ 83 mls/hr IV ASDIRECTED [facility] Last Admin: 02/25/17 13:41 Dose: 83 mls/hr Ceftriaxone Sodium/Dextrose 1 (gm/ Premix) 50 mls @ 100 mls/hr IV ONETIME ONE Stop: 02/25/17 14:29 Last Admin: 02/25/17 14:06 Dose: 100 mls/hr Sodium Chloride (Normal Saline) 1,000 mls @ 50 mls/hr IV ASDIRECTED [facility] Last Admin: 02/25/17 23:20 Dose: 50 mls/hr Ceftriaxone Sodium/Dextrose 1 (gm/ Premix) 50 mls @ 100 mls/hr IV Q24H [facility] Last Admin: 02/26/17 13:59 Dose: 100 mls/hr Sodium Chloride (Normal Saline) 1,000 mls @ 125 mls/hr IV ASDIRECTED [facility] Last Admin: 02/26/17 10:47 Dose: 125 mls/hr Magnesium Sulfate 4 gm/ Premix 100 mls @ 50 mls/hr IV ONETIME ONE Stop: 02/26/17 12:30 Last Admin: 02/26/17 10:52 Dose: 50 mls/hr Metoprolol Tartrate (Lopressor) 5 mg IVPUSH Q6H PRN PRN Reason: Tachycardia Last Admin: 02/26/17 10:06 Dose: 5 mg Potassium Chloride (Klor-Con M20) 40 meq PO ONETIME ONE Stop: 02/26/17 11:21 Last Admin: 02/26/17 11:55 Dose: 40 meq - Exam General: no acute distress Neck: No: JVD Lungs: Clear to auscultation, Normal respiratory effort Cardiovascular: Regular Rate, Regular Rhythm Abdomen: soft, no distension Extremities: no edema - Problem List Review Problem List Initiated/Reviewed/Updated: Yes - My Orders Last 24 Hours: My Active Orders 02/27/17 10:02 Diltiazem 10 mg IVPUSH Q3H PRN 02/27/17 10:56 Consult to Speech Language Pathology [PROPERTY CONDITION ASSESSOR Evaluation and Treatment] [CONS] Routine 02/27/17 11:15 Vancomycin Pharmacy to Dose [Pharmacy to Dose - Vancomycin] 1 dose .XX ASDIRECTED 02/27/17 11:30 Vancomycin 500 mg Sodium Chloride 0.9% [Normal Saline] 100 ml IV Q12H 02/28/17 22:30 VANCOMYCIN TROUGH [CHEM] Routine - Plan Plan:: This 76 year old female admitted with UTI and AMS 1. MRSA UTI: continue vancomcyin. 2. Sacral decubitus: Continue wet to dry dressing changes. 3. Tachycardia: sinus/a.fib continue metoprolol and prn diltiazem VTE prophylaxis: Heparin. Dispo: Pending improvement.
[2017-03-01 05:12] LABS: CHLORIDE,CL 101 mmol/L (98-110); SODIUM,NA 132 mmol/L (136-146)
[2017-03-01] MEDS: Metoprolol Succinate 50 MG Tab.ER PO SCH (10:02)
[2017-03-01] MEDS: Potassium Chloride 20 MEQ Tab.ER PO ONE ×2 (10:04→15:04)
[2017-03-01] MEDS: Diltiazem 25 MG/5 ML SDV IVPUSH PRN ×2 (10:14→23:03)
[2017-03-01] MEDS ORDERED: Digoxin 500 MCG/2 ML Amp IVPUSH ONE ×2 (10:15→16:30)
[2017-03-01] MEDS: Heparin Sodium 5,000 Units/ML Vial SUBCUT SCH ×2 (10:38→20:05)
[2017-03-01] MEDS ORDERED: Magnesium Sulfate/Water 4 GM in Premix Bag 1 BAG IV ONE (11:00)
--- NOTE | 2017-03-01 11:00 | PCM.PN ---
- General Info Date of Service: 03/01/17 Admission Dx/Problem (Free Text): UTI, altered mental status Subjective Update: Non verbal and care tech in room on second rounds with Dr Barron, continue to have concers regarding swallowing. ST consult ordered. - Patient Data Vitals - most recent: Last Vital Signs Temp 97.2 F 03/01/17 07:25 Pulse 137 H 03/01/17 10:02 Resp 14 03/01/17 07:25 BP 154/92 H 03/01/17 10:02 Pulse Ox 97 03/01/17 07:25 Weight - most recent: 41.4 kg I&O - last 24 hours: Intake & Output 02/28/17 03/01/17 03/01/17 22:59 06:59 14:59 Intake Total 474 376 100 Output Total 250 150 Balance 224 226 100 Lab Results last 24 hrs: Laboratory Results - last 24 hr 02/28/17 03/01/17 03/01/17 Range/Units 22:40 04:45 04:45 WBC 7.18 (4.0-11.0) K/uL RBC 3.90 L (4.30-5.90) M/uL Hgb 9.8 L (12.0-16.0) g/dL Hct 30.7 L (36.0-46.0) % MCV 78.7 L (80.0-98.0) fL MCH 25.1 L (27.0-32.0) pg MCHC 31.9 (31.0-37.0) g/dL RDW Std Deviation 50.4 (28.0-62.0) fl RDW Coeff of Deanna 18 H (11.0-15.0) % Plt Count 329 (150-400) K/uL MPV 9.00 (7.40-12.00) fL Neut % (Auto) 70.4 (48.0-80.0) % Lymph % (Auto) 18.0 (16.0-40.0) % [place] % (Auto) 9.1 (0.0-15.0) % Eos % (Auto) 1.9 (0.0-7.0) % Baso % (Auto) 0.6 (0.0-1.5) % Neut # (Auto) 5.1 (1.4-5.7) K/uL Lymph # (Auto) 1.3 (0.6-2.4) K/uL [place] # (Auto) 0.7 (0.0-0.8) K/uL Eos # (Auto) 0.1 (0.0-0.7) K/uL Baso # (Auto) 0.0 (0.0-0.1) K/uL Nucleated RBC % 0.0 /100WBC Nucleated RBCs # 0 K/uL Sodium 132 L (136-146) mmol/L Potassium 3.4 L (3.5-5.1) mmol/L Chloride 101 (98-110) mmol/L Carbon Dioxide 23 (21-31) mmol/L BUN 3 L (6.0-23.0) mg/dL Creatinine 0.4 L (0.6-1.5) mg/dL Est Cr Clr Drug Dosing 80.64 mL/min Estimated GFR (MDRD) > 60.0 ml/min Glucose 98 (60-110) mg/dL Calcium 7.4 L (8.8-10.8) mg/dL Magnesium (1.5-2.3) mEq/L Vancomycin Trough 9.2 (5-15) ug/mL 03/01/17 Range/Units 04:45 WBC (4.0-11.0) K/uL RBC (4.30-5.90) M/uL Hgb (12.0-16.0) g/dL Hct (36.0-46.0) % MCV (80.0-98.0) fL MCH (27.0-32.0) pg MCHC (31.0-37.0) g/dL RDW Std Deviation (28.0-62.0) fl RDW Coeff of Deanna (11.0-15.0) % Plt Count (150-400) K/uL MPV (7.40-12.00) fL Neut % (Auto) (48.0-80.0) % Lymph % (Auto) (16.0-40.0) % [place] % (Auto) (0.0-15.0) % Eos % (Auto) (0.0-7.0) % Baso % (Auto) (0.0-1.5) % Neut # (Auto) (1.4-5.7) K/uL Lymph # (Auto) (0.6-2.4) K/uL [place] # (Auto) (0.0-0.8) K/uL Eos # (Auto) (0.0-0.7) K/uL Baso # (Auto) (0.0-0.1) K/uL Nucleated RBC % /100WBC Nucleated RBCs # K/uL Sodium (136-146) mmol/L Potassium (3.5-5.1) mmol/L Chloride (98-110) mmol/L Carbon Dioxide (21-31) mmol/L BUN (6.0-23.0) mg/dL Creatinine (0.6-1.5) mg/dL Est Cr Clr Drug Dosing mL/min Estimated GFR (MDRD) ml/min Glucose (60-110) mg/dL Calcium (8.8-10.8) mg/dL Magnesium 1.3 L (1.5-2.3) mEq/L Vancomycin Trough (5-15) ug/mL Med Orders - Current: Current Medications Diltiazem HCl (Diltiazem) 10 mg IVPUSH Q3H PRN PRN Reason: Tachycardia Last Admin: 03/01/17 10:14 Dose: 10 mg Heparin Sodium (Porcine) (Heparin Sodium) 5,000 units SUBCUT Q12HR [facility] Last Admin: 03/01/17 10:38 Dose: 5,000 units Vancomycin HCl 500 mg/ Sodium (Chloride) 100 mls @ 100 mls/hr IV Q8H [facility] Last Admin: 03/01/17 10:37 Dose: 100 mls/hr Magnesium Sulfate 4 gm/ Premix 100 mls @ 50 mls/hr IV ONETIME ONE Stop: 03/01/17 12:57 Metoprolol Succinate (Toprol Xl) 50 mg PO DAILY [facility] Last Admin: 03/01/17 10:02 Dose: 50 mg Ondansetron HCl (Zofran) 4 mg IVPUSH Q4H PRN PRN Reason: Nausea Sodium Chloride (Saline Flush) 10 ml FLUSH ASDIRECTED PRN PRN Reason: Keep Vein Open Last Admin: 02/25/17 13:41 Dose: 10 ml Sodium Chloride (Saline Flush) 2.5 ml FLUSH ASDIRECTED PRN PRN Reason: Keep Vein Open Last Admin: 02/25/17 13:41 Dose: 2.5 ml Vancomycin HCl (Pharmacy To Dose - Vancomycin) 1 dose .XX ASDIRECTED [facility] Discontinued Medications Digoxin (Lanoxin) 250 mcg IVPUSH ONETIME ONE Stop: 02/27/17 11:02 Last Admin: 02/27/17 11:31 Dose: 250 mcg Digoxin (Lanoxin) 250 mcg IVPUSH ONETIME ONE Stop: 03/01/17 10:16 Last Admin: 03/01/17 10:23 Dose: 250 mcg Diltiazem HCl (Diltiazem) 20 mg IVPUSH ONETIME ONE Stop: 02/26/17 11:21 Last Admin: 02/26/17 11:35 Dose: 20 mg Sodium Chloride (Normal Saline) 1,000 mls [facility] Last Admin: 02/25/17 13:41 Dose: 83 mls/hr Ceftriaxone Sodium/Dextrose 1 (gm/ Premix) 50 mls @ 100 mls/hr IV ONETIME ONE Stop: 02/25/17 14:29 Last Admin: 02/25/17 14:06 Dose: 100 mls/hr Sodium Chloride (Normal Saline) 1,000 mls @ 50 mls/hr IV ASDIRECTED [facility] Last Admin: 02/25/17 23:20 Dose: 50 mls/hr Ceftriaxone Sodium/Dextrose 1 (gm/ Premix) 50 mls @ 100 mls/hr IV Q24H [facility] Last Admin: 02/26/17 13:59 Dose: 100 mls/hr Sodium Chloride (Normal Saline) 1,000 mls @ 125 mls/hr IV ASDIRECTED [facility] Last Admin: 02/26/17 10:47 Dose: 125 mls/hr Magnesium Sulfate 4 gm/ Premix 100 mls @ 50 mls/hr IV ONETIME ONE Stop: 02/26/17 12:30 Last Admin: 02/26/17 10:52 Dose: 50 mls/hr Vancomycin HCl 500 mg/ Sodium (Chloride) 100 mls @ 100 mls/hr IV Q12H [facility] Last Admin: 02/28/17 23:41 Dose: 100 mls/hr Metoprolol Tartrate (Lopressor) 5 mg IVPUSH Q6H PRN PRN Reason: Tachycardia Last Admin: 02/26/17 10:06 Dose: 5 mg Potassium Chloride (Klor-Con M20) 40 meq PO ONETIME ONE Stop: 02/26/17 11:21 Last Admin: 02/26/17 11:55 Dose: 40 meq Potassium Chloride (Klor-Con M20) 40 meq PO ONETIME ONE Stop: 03/01/17 07:59 Last Admin: 03/01/17 10:04 Dose: 40 meq - Exam General: alert Lungs: Clear to auscultation, Normal respiratory effort Cardiovascular: Regular Rate, Regular Rhythm. No: Tachycardia Abdomen: bowel sounds present, soft, no tenderness, no distension Extremities: no edema Wound/Incisions: healing well, decubitis (dressing C/D/I) Psy/Mental Status: alert - Problem List & Annotations (1) Altered mental status SNOMED Code(s): 287729517 Code(s): R41.82 - ALTERED MENTAL STATUS, UNSPECIFIED Status: Acute Current Visit: Yes Qualifiers: Altered mental status type: somnolence Qualified Code(s): R40.0 - Somnolence (2) UTI (urinary tract infection) SNOMED Code(s): 57763376 Code(s): N39.0 - URINARY TRACT INFECTION, SITE NOT SPECIFIED Status: Acute Current Visit: Yes Qualifiers: Urinary tract infection type: acute cystitis Hematuria presence: without hematuria Qualified Code(s): N30.00 - Acute cystitis without hematuria (3) History of CVA with residual deficit SNOMED Code(s): 953594097 Code(s): I69.30 - UNSPECIFIED SEQUELAE OF CEREBRAL INFARCTION Status: Chronic Current Visit: No - Problem List Review Problem List Initiated/Reviewed/Updated: Yes - My Orders Last 24 Hours: My Active Orders 03/01/17 10:58 Magnesium Sulfate/Water [Magnesium Sulfate 4 GM in Water 100 ML] 4 gm Premix Bag 1 bag IV ONETIME - Plan Plan:: This 76 year old female admitted with UTI and AMS 1. MRSA UTI: continue Vancomcyin. Leukocytosis improving 2. Sacral decubitus: Continue wet to dry dressing changes. 3. Tachycardia: sinus/a.fib continue metoprolol and prn diltiazem. Supplement magnesium today. Add Digoxin, monitor. 4. Dysphagia: ST consult. VTE prophylaxis: Heparin. Dispo: Pending improvement.
[2017-03-01] MEDS ORDERED: Potassium Chloride 40 MEQ in Sodium Chloride 0.9% 500 ML IV SCH (16:15)
[2017-03-02 05:26] LABS: CHLORIDE,CL 105 mmol/L (98-110); SODIUM,NA 133 mmol/L (136-146)
[2017-03-02] MEDS ORDERED: Magnesium Sulfate/Water 2 GM in Premix Bag 1 BAG IV ONE (08:06)
[2017-03-02] MEDS: Heparin Sodium 5,000 Units/ML Vial SUBCUT SCH ×2 (09:28→21:05)
[2017-03-02] MEDS: Digoxin 125 MCG Tab PO SCH (09:29)
[2017-03-02] MEDS: Metoprolol Succinate 50 MG Tab.ER PO SCH (09:29)
[2017-03-02] MEDS: Sulfamethoxazole/Trimethoprim 800-160 MG Tab PO SCH ×2 (12:23→21:05)
--- NOTE | 2017-03-02 12:31 | PCM.PN ---
- General Info Date of Service: 03/02/17 Admission Dx/Problem (Free Text): UTI, altered mental status Subjective Update: Non, verbal. Sleeping this morning. had a few bites of cream of wheat this morning. at bedside. discussed with him our concerns of her swallowing ST still pending full assessment. Dr. Lyles and I discussed with swallowing concerns. We also discussed if he would want a PEG tube placed if she was aspirating or no longer eating. He wouldn't want her to"lay there and starve." At this time, he wants to wait and see if after this acute illness if her appetite and swallowing function returns. Will modify diet as per ST. - Patient Data Vitals - most recent: Last Vital Signs Temp 97.7 F 03/02/17 08:00 Pulse 100 03/02/17 09:29 Resp 16 03/02/17 08:00 BP 138/67 03/02/17 09:29 Pulse Ox 95 03/02/17 08:00 Weight - most recent: 41.4 kg I&O - last 24 hours: Intake & Output 03/01/17 03/02/17 03/02/17 22:59 06:59 14:59 Intake Total 340 730 150 Output Total 400 350 Balance -60 380 150 Lab Results last 24 hrs: Laboratory Results - last 24 hr 03/02/17 03/02/17 03/02/17 Range/Units 04:12 04:12 08:19 WBC 7.72 (4.0-11.0) K/uL RBC 3.90 L (4.30-5.90) M/uL Hgb 9.8 L (12.0-16.0) g/dL Hct 31.1 L (36.0-46.0) % MCV 79.7 L (80.0-98.0) fL MCH 25.1 L (27.0-32.0) pg MCHC 31.5 (31.0-37.0) g/dL RDW Std Deviation 51.7 (28.0-62.0) fl RDW Coeff of Deanna 18 H (11.0-15.0) % Plt Count 225 (150-400) K/uL MPV 10.40 (7.40-12.00) fL Neut % (Auto) 73.5 (48.0-80.0) % Lymph % (Auto) 16.1 (16.0-40.0) % [place] % (Auto) 8.2 (0.0-15.0) % Eos % (Auto) 1.8 (0.0-7.0) % Baso % (Auto) 0.4 (0.0-1.5) % Neut # (Auto) 5.7 (1.4-5.7) K/uL Lymph # (Auto) 1.2 (0.6-2.4) K/uL [place] # (Auto) 0.6 (0.0-0.8) K/uL Eos # (Auto) 0.1 (0.0-0.7) K/uL Baso # (Auto) 0.0 (0.0-0.1) K/uL Sodium 133 L (136-146) mmol/L Potassium 4.6 (3.5-5.1) mmol/L Chloride 105 (98-110) mmol/L Carbon Dioxide 22 (21-31) mmol/L BUN 4 L (6.0-23.0) mg/dL Creatinine 0.4 L (0.6-1.5) mg/dL Est Cr Clr Drug Dosing 80.64 mL/min Estimated GFR (MDRD) > 60.0 ml/min Glucose 91 (60-110) mg/dL Calcium 7.0 L (8.8-10.8) mg/dL Magnesium 1.6 (1.5-2.3) mEq/L Vancomycin Trough 16.1 H (5-15) ug/mL Med Orders - Current: Current Medications Digoxin (Lanoxin) 125 mcg PO DAILY [facility] Last Admin: 03/02/17 09:29 Dose: 125 mcg Diltiazem HCl (Diltiazem) 10 mg IVPUSH Q3H PRN PRN Reason: Tachycardia Last Admin: 03/01/17 23:03 Dose: 10 mg Heparin Sodium (Porcine) (Heparin Sodium) 5,000 units SUBCUT Q12HR [facility] Last Admin: 03/02/17 09:28 Dose: 5,000 units Metoprolol Succinate (Toprol Xl) 50 mg PO DAILY [facility] Last Admin: 03/02/17 09:29 Dose: 50 mg Ondansetron HCl (Zofran) 4 mg IVPUSH Q4H PRN PRN Reason: Nausea Sodium Chloride (Saline Flush) 10 ml FLUSH ASDIRECTED PRN PRN Reason: Keep Vein Open Last Admin: 02/25/17 13:41 Dose: 10 ml Sodium Chloride (Saline Flush) 2.5 ml FLUSH ASDIRECTED PRN PRN Reason: Keep Vein Open Last Admin: 02/25/17 13:41 Dose: 2.5 ml Trimethoprim/Sulfamethoxazole (Septra Ds) 1 tab PO BID [facility] Discontinued Medications Digoxin (Lanoxin) 250 mcg IVPUSH ONETIME ONE Stop: 02/27/17 11:02 Last Admin: 02/27/17 11:31 Dose: 250 mcg Digoxin (Lanoxin) 250 mcg IVPUSH ONETIME ONE Stop: 03/01/17 10:16 Last Admin: 03/01/17 10:23 Dose: 250 mcg Digoxin (Lanoxin) 125 mcg IVPUSH ONETIME ONE Stop: 03/01/17 16:31 Last Admin: 03/01/17 16:48 Dose: 125 mcg Diltiazem HCl (Diltiazem) 20 mg IVPUSH ONETIME ONE Stop: 02/26/17 11:21 Last Admin: 02/26/17 11:35 Dose: 20 mg Sodium Chloride (Normal Saline) 1,000 mls @ 83 mls/hr IV ASDIRECTED [facility] Last Admin: 02/25/17 13:41 Dose: 83 mls/hr Ceftriaxone Sodium/Dextrose 1 (gm/ Premix) 50 mls @ 100 mls/hr IV ONETIME ONE Stop: 02/25/17 14:29 Last Admin: 02/25/17 14:06 Dose: 100 mls/hr Sodium Chloride (Normal Saline) 1,000 mls @ 50 mls/hr IV ASDIRECTED [facility] Last Admin: 02/25/17 23:20 Dose: 50 mls/hr Ceftriaxone Sodium/Dextrose 1 (gm/ Premix) 50 mls @ 100 mls/hr IV Q24H [facility] Last Admin: 02/26/17 13:59 Dose: 100 mls/hr Sodium Chloride (Normal Saline) 1,000 mls @ 125 mls/hr IV ASDIRECTED [facility] Last Admin: 02/26/17 10:47 Dose: 125 mls/hr Magnesium Sulfate 4 gm/ Premix 100 mls @ 50 mls/hr IV ONETIME ONE Stop: 02/26/17 12:30 Last Admin: 02/26/17 10:52 Dose: 50 mls/hr Vancomycin HCl 500 mg/ Sodium (Chloride) 100 mls @ 100 mls/hr IV Q12H [facility] Last Admin: 02/28/17 23:41 Dose: 100 mls/hr Vancomycin HCl 500 mg/ Sodium (Chloride) 100 mls @ 100 mls/hr IV Q8H [facility] Last Admin: 03/02/17 09:25 Dose: 100 mls/hr Magnesium Sulfate 4 gm/ Premix 100 mls @ 50 mls/hr IV ONETIME ONE Stop: 03/01/17 12:59 Last Admin: 03/01/17 12:01 Dose: 50 mls/hr Potassium Chloride 40 meq/ (Sodium Chloride) 520 mls @ 75 mls/hr IV ASDIRECTED [facility] Stop: 03/01/17 23:10 Last Admin: 03/01/17 16:48 Dose: 75 mls/hr Magnesium Sulfate 2 gm/ Premix 50 mls @ 50 mls/hr IV ONETIME ONE Stop: 03/02/17 09:05 Last Admin: 03/02/17 09:28 Dose: 50 mls/hr Metoprolol Tartrate (Lopressor) 5 mg IVPUSH Q6H PRN PRN Reason: Tachycardia Last Admin: 02/26/17 10:06 Dose: 5 mg Potassium Chloride (Klor-Con M20) 40 meq PO ONETIME ONE Stop: 02/26/17 11:21 Last Admin: 02/26/17 11:55 Dose: 40 meq Potassium Chloride (Klor-Con M20) 40 meq PO ONETIME ONE Stop: 03/01/17 07:59 Last Admin: 03/01/17 15:04 Dose: Not Given Vancomycin HCl (Pharmacy To Dose - Vancomycin) 1 dose .XX ASDIRECTED [facility] - Exam General: alert, cooperative, no acute distress Lungs: Clear to auscultation, Normal respiratory effort Cardiovascular: Regular Rate, Regular Rhythm Extremities: no edema, normal pulses Wound/Incisions: dressing dry and intact, decubitis Psy/Mental Status: alert, normal affect, normal mood - Problem List & Annotations (1) Altered mental status SNOMED Code(s): 799308564 Code(s): R41.82 - ALTERED MENTAL STATUS, UNSPECIFIED Status: Acute Current Visit: Yes Qualifiers: Altered mental status type: somnolence Qualified Code(s): R40.0 - Somnolence (2) UTI (urinary tract infection) SNOMED Code(s): 19316679 Code(s): N39.0 - URINARY TRACT INFECTION, SITE NOT SPECIFIED Status: Acute Current Visit: Yes Qualifiers: Urinary tract infection type: acute cystitis Hematuria presence: without hematuria Qualified Code(s): N30.00 - Acute cystitis without hematuria (3) History of CVA with residual deficit SNOMED Code(s): 124937093 Code(s): I69.30 - UNSPECIFIED SEQUELAE OF CEREBRAL INFARCTION Status: Chronic Current Visit: No - Problem List Review Problem List Initiated/Reviewed/Updated: Yes - My Orders Last 24 Hours: My Active Orders 03/02/17 09:00 Digoxin [Lanoxin] 125 mcg PO DAILY 03/02/17 10:30 Sulfamethoxazole/Trimethoprim [Septra DS] 1 tab PO BID 03/02/17 11:20 Consult to Dietary [Consult to Mandarin Speaking Nanny] [CONS] Routine 03/02/17 Lunch Pureed Diet [DIET] 03/03/17 05:00 BASIC METABOLIC PANEL,BMP [CHEM] DAILY CBC WITH AUTO DIFF [HEME] DAILY MAGNESIUM [CHEM] DAILY 03/04/17 05:00 BASIC METABOLIC PANEL,BMP [CHEM] DAILY CBC WITH AUTO DIFF [HEME] DAILY MAGNESIUM [CHEM] DAILY - Plan Plan:: This 76 year old female admitted with UTI and AMS 1. MRSA UTI:Discontinue vancomycin, start Bactrim. Leukocytosis resolved. 2. Sacral decubitus: Continue wet to dry dressing changes. 3. Tachycardia: sinus/a.fib continue metoprolol and prn diltiazem. Supplement magnesium today. Add Digoxin, monitor. 4. Dysphagia: ST consult. Will change diet to pureed with thickened liquids. Monitor. Consult dietary to increase calorie intake. VTE prophylaxis: Heparin. Dispo: Likely discharge in am.
[2017-03-02] MEDS: Diltiazem 25 MG/5 ML SDV IVPUSH PRN (12:54)
[2017-03-03 05:28] LABS: CHLORIDE,CL 100 mmol/L (98-110); SODIUM,NA 127 mmol/L (136-146)
[2017-03-03] MEDS ORDERED: Magnesium Sulfate/Water 4 GM in Premix Bag 1 BAG IV ONE (07:31)
[2017-03-03 08:19] LABS: CHLORIDE,CL 101 mmol/L (98-110); SODIUM,NA 128 mmol/L (136-146)
[2017-03-03] MEDS: Sodium Chloride 0.9% 1,000 ML IV SCH (09:42)
[2017-03-03] MEDS: Heparin Sodium 5,000 Units/ML Vial SUBCUT SCH ×2 (09:51→21:42)
[2017-03-03] MEDS: Sulfamethoxazole/Trimethoprim 800-160 MG Tab PO SCH ×3 (09:51→21:47)
[2017-03-03] MEDS: Digoxin 125 MCG Tab PO SCH (10:20)
[2017-03-03] MEDS: Metoprolol Succinate 50 MG Tab.ER PO SCH (10:20)
[2017-03-03 14:11] LABS: CHLORIDE,CL 99 mmol/L (98-110); SODIUM,NA 127 mmol/L (136-146)
--- NOTE | 2017-03-03 14:36 | PCM.PN ---
- General Info Date of Service: 03/03/17 Admission Dx/Problem (Free Text): UTI, altered mental status Subjective Update: Non-verbal - Patient Data Vitals - most recent: Last Vital Signs Temp 97.6 F 03/03/17 11:00 Pulse 77 03/03/17 11:00 Resp 17 03/03/17 11:00 BP 101/52 L 03/03/17 11:00 Pulse Ox 94 L 03/03/17 11:00 Weight - most recent: 41.4 kg I&O - last 24 hours: Intake & Output 03/02/17 03/03/17 03/03/17 22:59 06:59 14:59 Intake Total 400 160 Output Total 500 350 Balance -100 -190 Lab Results last 24 hrs: Laboratory Results - last 24 hr 03/03/17 03/03/17 03/03/17 Range/Units 04:18 04:18 07:39 WBC 8.11 (4.0-11.0) K/uL RBC 4.19 L (4.30-5.90) M/uL Hgb 10.4 L (12.0-16.0) g/dL Hct 32.9 L (36.0-46.0) % MCV 78.5 L (80.0-98.0) fL MCH 24.8 L (27.0-32.0) pg MCHC 31.6 (31.0-37.0) g/dL RDW Std Deviation 52.5 (28.0-62.0) fl RDW Coeff of Deanna 18 H (11.0-15.0) % Plt Count 350 (150-400) K/uL MPV 9.40 (7.40-12.00) fL Neut % (Auto) 68.6 (48.0-80.0) % Lymph % (Auto) 19.5 (16.0-40.0) % [place] % (Auto) 10.4 (0.0-15.0) % Eos % (Auto) 1.1 (0.0-7.0) % Baso % (Auto) 0.4 (0.0-1.5) % Neut # (Auto) 5.6 (1.4-5.7) K/uL Lymph # (Auto) 1.6 (0.6-2.4) K/uL [place] # (Auto) 0.8 (0.0-0.8) K/uL Eos # (Auto) 0.1 (0.0-0.7) K/uL Baso # (Auto) 0.0 (0.0-0.1) K/uL Nucleated RBC % 0.0 /100WBC Nucleated RBCs # 0 K/uL Sodium 127 L 128 L (136-146) mmol/L Potassium 4.9 4.8 (3.5-5.1) mmol/L Chloride 100 101 (98-110) mmol/L Carbon Dioxide 21 22 (21-31) mmol/L BUN 3 L 3 L (6.0-23.0) mg/dL Creatinine 0.5 L 0.5 L (0.6-1.5) mg/dL Est Cr Clr Drug Dosing 64.52 64.52 mL/min Estimated GFR (MDRD) > 60.0 > 60.0 ml/min Glucose 99 94 (60-110) mg/dL Calcium 7.4 L 7.4 L (8.8-10.8) mg/dL Magnesium 1.4 L (1.5-2.3) mEq/L 03/03/17 Range/Units 13:42 WBC (4.0-11.0) K/uL RBC (4.30-5.90) M/uL Hgb (12.0-16.0) g/dL Hct (36.0-46.0) % MCV (80.0-98.0) fL MCH (27.0-32.0) pg MCHC (31.0-37.0) g/dL RDW Std Deviation (28.0-62.0) fl RDW Coeff of Deanna (11.0-15.0) % Plt Count (150-400) K/uL MPV (7.40-12.00) fL Neut % (Auto) (48.0-80.0) % Lymph % (Auto) (16.0-40.0) % [place] % (Auto) (0.0-15.0) % Eos % (Auto) (0.0-7.0) % Baso % (Auto) (0.0-1.5) % Neut # (Auto) (1.4-5.7) K/uL Lymph # (Auto) (0.6-2.4) K/uL [place] # (Auto) (0.0-0.8) K/uL Eos # (Auto) (0.0-0.7) K/uL Baso # (Auto) (0.0-0.1) K/uL Nucleated RBC % /100WBC Nucleated RBCs # K/uL Sodium 127 L (136-146) mmol/L Potassium 4.7 (3.5-5.1) mmol/L Chloride 99 (98-110) mmol/L Carbon Dioxide 21 (21-31) mmol/L BUN 4 L (6.0-23.0) mg/dL Creatinine 0.5 L (0.6-1.5) mg/dL Est Cr Clr Drug Dosing 64.52 mL/min Estimated GFR (MDRD) > 60.0 ml/min Glucose 106 (60-110) mg/dL Calcium 7.3 L (8.8-10.8) mg/dL Magnesium (1.5-2.3) mEq/L Med Orders - Current: Current Medications Digoxin (Lanoxin) 125 mcg PO DAILY [facility] Last Admin: 03/03/17 10:20 Dose: 125 mcg Diltiazem HCl (Diltiazem) 10 mg IVPUSH Q3H PRN PRN Reason: Tachycardia Last Admin: 03/02/17 12:54 Dose: 10 mg Heparin Sodium (Porcine) (Heparin Sodium) 5,000 units SUBCUT Q12HR [facility] Last Admin: 03/03/17 09:51 Dose: 5,000 units Sodium Chloride (Normal Saline) 1,000 mls @ 75 mls/hr IV ASDIRECTED [facility] Last Admin: 03/03/17 09:42 Dose: 75 mls/hr Metoprolol Succinate (Toprol Xl) 50 mg PO DAILY [facility] Last Admin: 03/03/17 10:20 Dose: 50 mg Ondansetron HCl (Zofran) 4 mg IVPUSH Q4H PRN PRN Reason: Nausea Sodium Chloride (Saline Flush) 10 ml FLUSH ASDIRECTED PRN PRN Reason: Keep Vein Open Last Admin: 02/25/17 13:41 Dose: 10 ml Sodium Chloride (Saline Flush) 2.5 ml FLUSH ASDIRECTED PRN PRN Reason: Keep Vein Open Last Admin: 02/25/17 13:41 Dose: 2.5 ml Trimethoprim/Sulfamethoxazole (Septra Ds) 1 tab PO BID [facility] Last Admin: 03/03/17 09:51 Dose: 1 tab Discontinued Medications Digoxin (Lanoxin) 250 mcg IVPUSH ONETIME ONE Stop: 02/27/17 11:02 Last Admin: 02/27/17 11:31 Dose: 250 mcg Digoxin (Lanoxin) 250 mcg IVPUSH ONETIME ONE Stop: 03/01/17 10:16 Last Admin: 03/01/17 10:23 Dose: 250 mcg Digoxin (Lanoxin) 125 mcg IVPUSH ONETIME ONE Stop: 03/01/17 16:31 Last Admin: 03/01/17 16:48 Dose: 125 mcg Diltiazem HCl (Diltiazem) 20 mg IVPUSH ONETIME ONE Stop: 02/26/17 11:21 Last Admin: 02/26/17 11:35 Dose: 20 mg Sodium Chloride (Normal Saline) 1,000 mls @ 83 [facility] Last Admin: 02/25/17 13:41 Dose: 83 mls/hr Ceftriaxone Sodium/Dextrose 1 (gm/ Premix) 50 mls @ 100 mls/hr IV ONETIME ONE Stop: 02/25/17 14:29 Last Admin: 02/25/17 14:06 Dose: 100 mls/hr Sodium Chloride (Normal Saline) 1,000 mls @ [facility] Last Admin: 02/25/17 23:20 Dose: 50 mls/hr Ceftriaxone Sodium/Dextrose 1 (gm/ Premix) 50 mls @ 100 mls/hr IV Q24H [facility] Last Admin: 02/26/17 13:59 Dose: 100 mls/hr Sodium Chloride (Normal Saline) 1,000 mls @ [facility] Last Admin: 02/26/17 10:47 Dose: 125 mls/hr Magnesium Sulfate 4 gm/ Premix 100 mls @ 50 mls/hr IV ONETIME ONE Stop: 02/26/17 12:30 Last Admin: 02/26/17 10:52 Dose: 50 mls/hr Vancomycin HCl 500 mg/ Sodium (Chloride) 100 mls @ 100 mls/hr IV Q12H [facility] Last Admin: 02/28/17 23:41 Dose: 100 mls/hr Vancomycin HCl 500 mg/ Sodium (Chloride) 100 mls @ 100 mls/hr IV Q8H [facility] Last Admin: 03/02/17 09:25 Dose: 100 mls/hr Magnesium Sulfate 4 gm/ Premix 100 mls @ 50 mls/hr IV ONETIME ONE Stop: 03/01/17 12:59 Last Admin: 03/01/17 12:01 Dose: 50 mls/hr Potassium Chloride 40 meq/ (Sodium Chloride) 520 mls @ 75 mls/hr IV ASDIRECTED [facility] Stop: 03/01/17 23:10 Last Admin: 03/01/17 16:48 Dose: 75 mls/hr Magnesium Sulfate 2 gm/ Premix 50 mls @ 50 mls/hr IV ONETIME ONE Stop: 03/02/17 09:05 Last Admin: 03/02/17 09:28 Dose: 50 mls/hr Magnesium Sulfate 4 gm/ Premix 100 mls @ 50 mls/hr IV ONETIME ONE Stop: 03/03/17 09:30 Last Admin: 03/03/17 09:45 Dose: 50 mls/hr Metoprolol Tartrate (Lopressor) 5 mg IVPUSH Q6H PRN PRN Reason: Tachycardia Last Admin: 02/26/17 10:06 Dose: 5 mg Potassium Chloride (Klor-Con M20) 40 meq PO ONETIME ONE Stop: 02/26/17 11:21 Last Admin: 02/26/17 11:55 Dose: 40 meq Potassium Chloride (Klor-Con M20) 40 meq PO ONETIME ONE Stop: 03/01/17 07:59 Last Admin: 03/01/17 15:04 Dose: Not Given Vancomycin HCl (Pharmacy To Dose - Vancomycin) 1 dose .XX ASDIRECTED [facility] - Exam Quality Assessment: urine catheter, DVT prophylaxis General: alert, cooperative, other (nonverbal) Lungs: Clear to auscultation, Normal respiratory effort. No: Crackles Cardiovascular: Regular Rate, Regular Rhythm. No: Tachycardia, Murmurs Abdomen: bowel sounds present, soft, no tenderness, no distension Extremities: no edema, normal pulses Wound/Incisions: dressing dry and intact, decubitis (6cm x 4.5 cm x 3 cm clean wound bed, no drainage.). No: drainage, erythema - Problem List & Annotations (1) Altered mental status SNOMED Code(s): 692499139 Code(s): R41.82 - ALTERED MENTAL STATUS, UNSPECIFIED Status: Acute Current Visit: Yes Qualifiers: Altered mental status type: somnolence Qualified Code(s): R40.0 - Somnolence (2) UTI (urinary tract infection) SNOMED Code(s): 45640879 Code(s): N39.0 - URINARY TRACT INFECTION, SITE NOT SPECIFIED Status: Acute Current Visit: Yes Qualifiers: Urinary tract infection type: acute cystitis Hematuria presence: without hematuria Qualified Code(s): N30.00 - Acute cystitis without hematuria (3) History of CVA with residual deficit SNOMED Code(s): 333604087 Code(s): I69.30 - UNSPECIFIED SEQUELAE OF CEREBRAL INFARCTION Status: Chronic Current Visit: No - Problem List Review Problem List Initiated/Reviewed/Updated: Yes - My Orders Last 24 Hours: My Active Orders 03/03/17 07:30 Sodium Chloride 0.9% [Normal Saline] 1,000 ml IV ASDIRECTED 03/03/17 10:08 Communication Order [RC] PRN 03/04/17 05:00 BASIC METABOLIC PANEL,BMP [CHEM] DAILY CBC WITH AUTO DIFF [HEME] DAILY MAGNESIUM [CHEM] DAILY - Plan Plan:: This 76 year old female admitted with UTI and AMS 1. MRSA UTI: Continue Bactrim. 2. Sacral decubitus: Continue wet to dry dressing changes. Stable, no drainage. clean wound bed. 3. Tachycardia: sinus/a.fib continue metoprolol and prn diltiazem. HR improving. Supplement Mg today. 4. Dysphagia: pureed diet with thickened liquids. Monitor. ST feels unsafe feeding patient due to inconsistent findings. Patient does well with family feeding her and does not want patient to be NPO, does udnerstand risk of aspiration. We did talk at length regarding PEG tube yesterday, may want to discuss that at a later date, but would like to take Jane home and evaluate how she does there first. 5. Hyponatremia: Noted this am, will give gentle fluids and monitor in am. VTE prophylaxis: Heparin. Dispo: 1-2 days.
[2017-03-04] MEDS: Sodium Chloride 0.9% 1,000 ML IV SCH (00:06)
[2017-03-04 05:26] LABS: CHLORIDE,CL 101 mmol/L (98-110); SODIUM,NA 128 mmol/L (136-146)
[2017-03-04] MEDS ORDERED: Magnesium Sulfate/Water 4 GM in Premix Bag 1 BAG IV ONE (07:53)
[2017-03-04 08:49] VITALS: BP 110/58
[2017-03-04] MEDS: Digoxin 125 MCG Tab PO SCH (09:04)
[2017-03-04] MEDS: Sulfamethoxazole/Trimethoprim 800-160 MG Tab PO SCH (09:04)
[2017-03-04] MEDS: Metoprolol Succinate 50 MG Tab.ER PO SCH (09:05)
[2017-03-04] MEDS: Heparin Sodium 5,000 Units/ML Vial SUBCUT SCH (09:06)
--- NOTE | 2017-03-04 11:29 | PCM.DCSUM1 ---
Addendum entered and electronically signed by Hemalatha Greenfield NP 03/09/17 12: 23: Discharge Summary - Hospital Course Free Text/Narrative:: Jane will go home with Home Care. Skilled trimmer and borer machine operator is needed for wound care and dressing changes. Jane is homebound because it is taxing for caregivers to transport her. She is bedridden and non-ambulatory. Dr. Arellano, PCP will oversee care plan. Brief History: This 76 year old female with pmh of CVA with L sided weakness, nonverbal and bedridden, and sacral decubitus presented to the ED via EMS today with concerns from family and caregiver of decreased mental status, which started earlier in the day. In the ED WBC 10,140, Hgb 11.5, Na 133, Ua 3+ bacteria, +nitrites, mod leukocyte esterase, and too numerous to count WBC. CXR showed borderline cardiomegaly, and Head CT reported no acute intracranial findings, but did report encephalomalacia in the R frontal, occipital and L cerebellum regions. She was treated with Rocephin in the ED, BC and UC pending. She will be admitted with UTI and AMS. - Discharge Data Discharge Date: 03/04/17 Discharge Disposition: Home, W Home Health Agency 06 Condition: Good - Discharge Diagnosis/Problem(s) (1) Altered mental status SNOMED Code(s): 179524503 ICD Code: R41.82 - ALTERED MENTAL STATUS, UNSPECIFIED Status: Acute Qualifiers: Altered mental status type: somnolence Qualified Code(s): R40.0 - Somnolence (2) UTI (urinary tract infection) SNOMED Code(s): 71864047 ICD Code: N39.0 - URINARY TRACT INFECTION, SITE NOT SPECIFIED Status: Acute Qualifiers: Urinary tract infection type: acute cystitis Hematuria presence: without hematuria Qualified Code(s): N30.00 - Acute cystitis without hematuria (3) History of CVA with residual deficit SNOMED Code(s): 207336346 ICD Code: I69.30 - UNSPECIFIED SEQUELAE OF CEREBRAL INFARCTION Status: Chronic - Patient Summary/Data Consults: Consultations 02/25/17 15:57 Consult to Physician [CONS] Stat 02/27/17 10:56 Consult to Speech Language Pathology [ENERGY TRADING ANALYST Evaluation and Treatment] [CONS] Routine 03/02/17 11:20 Consult to Dietary [Consult to Imager] [CONS] Routine - Patient Instructions Diet: Pureed Activity: As Tolerated Showering/Bathing: May Shower Notify Provider of: Fever, Increased Pain, Swelling and Redness, Drainage, Nausea and/or Vomiting Other/Special Instructions: Resume Home health. Continue wet to dry dressing changes to sacral decubitus. - Discharge Plan Prescriptions/Med Rec: Digoxin [Lanoxin] 125 mcg PO DAILY #30 tablet Sulfamethoxazole/Trimethoprim [IJD: Sulfamethoxazole/Trimethoprim DS] 1 tab PO BID #5 tablet Home Medications: Home Meds Metoprolol Succinate 50 mg PO DAILY #30 tab.er.24h 11/04/16 [Rx] Digoxin [Lanoxin] 125 mcg PO DAILY #30 tablet 03/04/17 [Rx] Sulfamethoxazole/Trimethoprim [IJD: Sulfamethoxazole/Trimethoprim DS] 1 tab PO BID #5 tablet 03/04/17 [Rx] Patient Handouts: Urinary Tract Infection, Adult, [id number] Referrals: Volodymyr Arellano MD [Physician] - 03/11/17 1:30 pm - Patient Data Vitals - Most Recent: Last Vital Signs Temp 97.5 F 03/04/17 07:00 Pulse 88 03/04/17 09:05 Resp 18 03/04/17 07:00 BP 110/58 L 03/04/17 09:05 Pulse Ox 95 03/04/17 07:00 Weight - Most Recent: 41.4 kg Med Orders - Current: Current Medications Discontinued Medications Digoxin (Lanoxin) 250 mcg IVPUSH ONETIME ONE Stop: 02/27/17 11:02 Last Admin: 02/27/17 11:31 Dose: 250 mcg Digoxin (Lanoxin) 250 mcg IVPUSH ONETIME ONE Stop: 03/01/17 10:16 Last Admin: 03/01/17 10:23 Dose: 250 mcg Digoxin (Lanoxin) 125 mcg IVPUSH ONETIME ONE Stop: 03/01/17 16:31 Last Admin: 03/01/17 16:48 Dose: 125 mcg Digoxin (Lanoxin) 125 mcg PO DAILY [facility] Last Admin: 03/04/17 09:04 Dose: 125 mcg Diltiazem HCl (Diltiazem) 20 mg IVPUSH ONETIME ONE Stop: 02/26/17 11:21 Last Admin: 02/26/17 11:35 Dose: 20 mg Diltiazem HCl (Diltiazem) 10 mg IVPUSH Q3H PRN PRN Reason: Tachycardia Last Admin: 03/02/17 12:54 Dose: 10 mg Heparin Sodium (Porcine) (Heparin Sodium) 5,000 units SUBCUT Q12HR [facility] Last Admin: 03/04/17 09:06 Dose: 5,000 units Sodium Chloride (Normal Saline) 1,000 mls [facility] Last Admin: 02/25/17 13:41 Dose: 83 mls/hr Ceftriaxone Sodium/Dextrose 1 (gm/ Premix) 50 mls @ 100 mls/hr IV ONETIME ONE Stop: 02/25/17 14:29 Last Admin: 02/25/17 14:06 Dose: 100 mls/hr Sodium Chloride (Normal Saline) 1,000 [facility] Admin: 02/25/17 23:20 Dose: 50 mls/hr Ceftriaxone Sodium/Dextrose 1 (gm/ Premix) 50 mls @ 100 mls/hr IV Q24H [facility] Last Admin: 02/26/17 13:59 Dose: 100 mls/hr Sodium Chloride (Normal Saline) 1,000 mls @ 125 [facility] Last Admin: 02/26/17 10:47 Dose: 125 mls/hr Magnesium Sulfate 4 gm/ Premix 100 mls @ 50 mls/hr IV ONETIME ONE Stop: 02/26/17 12:30 Last Admin: 02/26/17 10:52 Dose: 50 mls/hr Vancomycin HCl 500 mg/ Sodium (Chloride) 100 mls @ 100 mls/hr IV Q12H [facility] Last Admin: 02/28/17 23:41 Dose: 100 mls/hr Vancomycin HCl 500 mg/ Sodium (Chloride) 100 mls @ 100 mls/hr IV Q8H [facility] Last Admin: 03/02/17 09:25 Dose: 100 mls/hr Magnesium Sulfate 4 gm/ Premix 100 mls @ 50 mls/hr IV ONETIME ONE Stop: 03/01/17 12:59 Last Admin: 03/01/17 12:01 Dose: 50 mls/hr Potassium Chloride 40 meq/ (Sodium Chloride) 520 mls @ 75 [facility]ls[facility] Stop: 03/01/17 23:10 Last Admin: 03/01/17 16:48 Dose: 75 mls/hr Magnesium Sulfate 2 gm/ Premix 50 mls @ 50 mls/hr IV ONETIME ONE Stop: 03/02/17 09:05 Last Admin: 03/02/17 09:28 Dose: 50 mls/hr Magnesium Sulfate 4 gm/ Premix 100 mls @ 50 mls/hr IV ONETIME ONE Stop: 03/03/17 09:30 Last Admin: 03/03/17 09:45 Dose: 50 mls/hr Sodium Chloride (Normal Saline) 1,000 mls @ 75 mls/hr IV ASDIRECTED [facility] Last Admin: 03/04/17 00:06 Dose: 75 mls/hr Magnesium Sulfate 4 gm/ Premix 100 mls @ 50 mls/hr IV ONETIME ONE Stop: 03/04/17 09:52 Last Admin: 03/04/17 09:06 Dose: 50 mls/hr Metoprolol Succinate (Toprol Xl) 50 mg PO DAILY [facility] Last Admin: 03/04/17 09:05 Dose: 50 mg Metoprolol Tartrate (Lopressor) 5 mg IVPUSH Q6H PRN PRN Reason: Tachycardia Last Admin: 02/26/17 10:06 Dose: 5 mg Ondansetron HCl (Zofran) 4 mg IVPUSH Q4H PRN PRN Reason: Nausea Potassium Chloride (Klor-Con M20) 40 meq PO ONETIME ONE Stop: 02/26/17 11:21 Last Admin: 02/26/17 11:55 Dose: 40 meq Potassium Chloride (Klor-Con M20) 40 meq PO ONETIME ONE Stop: 03/01/17 07:59 Last Admin: 03/01/17 15:04 Dose: Not Given Sodium Chloride (Saline Flush) 10 ml FLUSH ASDIRECTED PRN PRN Reason: Keep Vein Open Last Admin: 02/25/17 13:41 Dose: 10 ml Sodium Chloride (Saline Flush) 2.5 ml FLUSH ASDIRECTED PRN PRN Reason: Keep Vein Open Last Admin: 02/25/17 13:41 Dose: 2.5 ml Trimethoprim/Sulfamethoxazole (Septra Ds) 1 tab PO BID [facility] Last Admin: 03/04/17 09:04 Dose: 1 tab Vancomycin HCl (Pharmacy To Dose - Vancomycin) 1 dose .XX ASDIRECTED [facility] Addendum entered and electronically signed by Hemalatha Greenfield NP 03/04/17 12: 45: Discharge Summary - Hospital Course Free Text/Narrative:: Resume Home Health. Brief History: This 76 year old female with pmh of CVA with L sided weakness, nonverbal and bedridden, and sacral decubitus presented to the ED via EMS today with concerns from family and caregiver of decreased mental status, which started earlier in the day. In the ED WBC 10,140, Hgb 11.5, Na 133, Ua 3+ bacteria, +nitrites, mod leukocyte esterase, and too numerous to count WBC. CXR showed borderline cardiomegaly, and Head CT reported no acute intracranial findings, but did report encephalomalacia in the R frontal, occipital and L cerebellum regions. She was treated with Rocephin in the ED, BC and UC pending. She will be admitted with UTI and AMS. - Discharge Data Discharge Date: 03/04/17 Discharge Disposition: Home, W Home Health Agency 06 Condition: Good - Discharge Diagnosis/Problem(s) (1) Altered mental status SNOMED Code(s): 096175388 ICD Code: R41.82 - ALTERED MENTAL STATUS, UNSPECIFIED Status: Acute Qualifiers: Altered mental status type: somnolence Qualified Code(s): R40.0 - Somnolence (2) UTI (urinary tract infection) SNOMED Code(s): 17815752 ICD Code: N39.0 - URINARY TRACT INFECTION, SITE NOT SPECIFIED Status: Acute Qualifiers: Urinary tract infection type: acute cystitis Hematuria presence: without hematuria Qualified Code(s): N30.00 - Acute cystitis without hematuria (3) History of CVA with residual deficit SNOMED Code(s): 955789227 ICD Code: I69.30 - UNSPECIFIED SEQUELAE OF CEREBRAL INFARCTION Status: Chronic - Patient Summary/Data Consults: Consultations 02/25/17 15:57 Consult to Physician [CONS] Stat 02/27/17 10:56 Consult to Speech Language Pathology [ENERGY TRADING ANALYST Evaluation and Treatment] [CONS] Routine 03/02/17 11:20 Consult to Dietary [Consult to Imager] [CONS] Routine - Patient Instructions Diet: Pureed Activity: As Tolerated Showering/Bathing: January Shower Notify Provider of: Fever, Increased Pain, Swelling and Redness, Drainage, Nausea and/or Vomiting Other/Special Instructions: Resume Home health. Continue wet to dry dressing changes to sacral decubitus. - Discharge Plan Prescriptions/Med Rec: Digoxin [Lanoxin] 125 mcg PO DAILY #30 tablet Sulfamethoxazole/Trimethoprim [IJD: Sulfamethoxazole/Trimethoprim DS] 1 tab PO BID #5 tablet Home Medications: Home Meds Metoprolol Succinate 50 mg PO DAILY #30 tab.er.24h 11/04/16 [Rx] Digoxin [Lanoxin] 125 mcg PO DAILY #30 tablet 03/04/17 [Rx] Sulfamethoxazole/Trimethoprim [IJD: Sulfamethoxazole/Trimethoprim DS] 1 tab PO BID #5 tablet 03/04/17 [Rx] Patient Handouts: Urinary Tract Infection, Adult, [id number] Referrals: Volodymyr Arellano MD [Physician] - 03/11/17 1:30 pm - Patient Data Vitals - Most Recent: Last Vital Signs Temp 97.5 F 03/04/17 07:00 Pulse 88 03/04/17 09:05 Resp 18 03/04/17 07:00 BP 110/58 L 03/04/17 09:05 Pulse Ox 95 03/04/17 07:00 Weight - Most Recent: 41.4 kg I&O - Last 24 hours: Intake & Output 03/03/17 03/04/17 03/04/17 22:59 06:59 14:59 Intake Total 100 1283 950 Output Total 700 500 600 Balance -600 783 350 Lab Results - Last 24 hrs: Laboratory Results - last 24 hr 03/03/17 03/04/17 03/04/17 Range/Units 13:42 04:10 04:10 WBC 6.80 (4.0-11.0) K/uL RBC 3.93 L (4.30-5.90) M/uL Hgb 9.8 L (12.0-16.0) g/dL Hct 30.4 L (36.0-46.0) % MCV 77.4 L (80.0-98.0) fL MCH 24.9 L (27.0-32.0) pg MCHC 32.2 (31.0-37.0) g/dL RDW Std Deviation 51.6 (28.0-62.0) fl RDW Coeff of Deanna 18 H (11.0-15.0) % Plt Count 332 (150-400) K/uL MPV 10.00 (7.40-12.00) fL Neut % (Auto) 64.8 (48.0-80.0) % Lymph % (Auto) 20.3 (16.0-40.0) % [place] % (Auto) 12.4 (0.0-15.0) % Eos % (Auto) 2.1 (0.0-7.0) % Baso % (Auto) 0.4 (0.0-1.5) % Neut # (Auto) 4.4 (1.4-5.7) K/uL Lymph # (Auto) 1.4 (0.6-2.4) K/uL [place] # (Auto) 0.8 (0.0-0.8) K/uL Eos # (Auto) 0.1 (0.0-0.7) K/uL Baso # (Auto) 0.0 (0.0-0.1) K/uL Nucleated RBC % 0.0 /100WBC Nucleated RBCs # 0 K/uL Sodium 127 L 128 L (136-146) mmol/L Potassium 4.7 4.4 (3.5-5.1) mmol/L Chloride 99 101 (98-110) mmol/L Carbon Dioxide 21 21 (21-31) mmol/L BUN 4 L 3 L (6.0-23.0) mg/dL Creatinine 0.5 L 0.5 L (0.6-1.5) mg/dL Est Cr Clr Drug Dosing 64.52 64.52 mL/min Estimated GFR (MDRD) > 60.0 > 60.0 ml/min Glucose 106 90 (60-110) mg/dL Calcium 7.3 L 7.2 L (8.8-10.8) mg/dL Magnesium 1.3 L (1.5-2.3) mEq/L Med Orders - Current: Current Medications Discontinued Medications Digoxin (Lanoxin) 250 mcg IVPUSH ONETIME ONE Stop: 02/27/17 11:02 Last Admin: 02/27/17 11:31 Dose: 250 mcg Digoxin (Lanoxin) 250 mcg IVPUSH ONETIME ONE Stop: 03/01/17 10:16 Last Admin: 03/01/17 10:23 Dose: 250 mcg Digoxin (Lanoxin) 125 mcg IVPUSH ONETIME ONE Stop: 03/01/17 16:31 Last Admin: 03/01/17 16:48 Dose: 125 mcg Digoxin (Lanoxin) 125 mcg PO DAILY [facility] Last Admin: 03/04/17 09:04 Dose: 125 mcg Diltiazem HCl (Diltiazem) 20 mg IVPUSH ONETIME ONE Stop: 02/26/17 11:21 Last Admin: 02/26/17 11:35 Dose: 20 mg Diltiazem HCl (Diltiazem) 10 mg IVPUSH Q3H PRN PRN Reason: Tachycardia Last Admin: 03/02/17 12:54 Dose: 10 mg Heparin Sodium (Porcine) (Heparin Sodium) 5,000 units SUBCUT Q12HR [facility] Last Admin: 03/04/17 09:06 Dose: 5,000 units Sodium Chloride (Normal Saline) 1,000 mls @ 83 mls/hr IV ASDIRECTED [facility] Last Admin: 02/25/17 13:41 Dose: 83 mls/hr Ceftriaxone Sodium/Dextrose 1 (gm/ Premix) 50 mls @ 100 mls/hr IV ONETIME ONE Stop: 02/25/17 14:29 Last Admin: 02/25/17 14:06 Dose: 100 mls/hr Sodium Chloride (Normal Saline) 1,000 mls @ 50 mls/hr IV ASDIRECTED [facility] Last Admin: 02/25/17 23:20 Dose: 50 mls/hr Ceftriaxone Sodium/Dextrose 1 (gm/ Premix) 50 mls @ 100 mls/hr IV Q24H [facility] Last Admin: 02/26/17 13:59 Dose: 100 mls/hr Sodium Chloride (Normal Saline) 1,000 mls @ 125 mls/hr IV ASDIRECTED [facility] Last Admin: 02/26/17 10:47 Dose: 125 mls/hr Magnesium Sulfate 4 gm/ Premix 100 mls @ 50 mls/hr IV ONETIME ONE Stop: 02/26/17 12:30 Last Admin: 02/26/17 10:52 Dose: 50 mls/hr Vancomycin HCl 500 mg/ Sodium (Chloride) 100 mls @ 100 mls/hr IV Q12H [facility] Last Admin: 02/28/17 23:41 Dose: 100 mls/hr Vancomycin HCl 500 mg/ Sodium (Chloride) 100 mls @ 100 mls/hr IV Q8H [facility] Last Admin: 03/02/17 09:25 Dose: 100 mls/hr Magnesium Sulfate 4 gm/ Premix 100 mls @ 50 mls/hr IV ONETIME ONE Stop: 03/01/17 12:59 Last Admin: 03/01/17 12:01 Dose: 50 mls/hr Potassium Chloride 40 meq/ (Sodium Chloride) 520 mls @ 75 mls/hr IV ASDIRECTED [facility] Stop: 03/01/17 23:10 Last Admin: 03/01/17 16:48 Dose: 75 mls/hr Magnesium Sulfate 2 gm/ Premix 50 mls @ 50 mls/hr IV ONETIME ONE Stop: 03/02/17 09:05 Last Admin: 03/02/17 09:28 Dose: 50 mls/hr Magnesium Sulfate 4 gm/ Premix 100 mls @ 50 mls/hr IV ONETIME ONE Stop: 03/03/17 09:30 Last Admin: 03/03/17 09:45 Dose: 50 mls/hr Sodium Chloride (Normal Saline) 1,000 mls @ 75 mls/hr IV ASDIRECTED [facility] Last Admin: 03/04/17 00:06 Dose: 75 mls/hr Magnesium Sulfate 4 gm/ Premix 100 mls @ 50 mls/hr IV ONETIME ONE Stop: 03/04/17 09:52 Last Admin: 03/04/17 09:06 Dose: 50 mls/hr Metoprolol Succinate (Toprol Xl) 50 mg PO DAILY [facility] Last Admin: 03/04/17 09:05 Dose: 50 mg Metoprolol Tartrate (Lopressor) 5 mg IVPUSH Q6H PRN PRN Reason: Tachycardia Last Admin: 02/26/17 10:06 Dose: 5 mg Ondansetron HCl (Zofran) 4 mg IVPUSH Q4H PRN PRN Reason: Nausea Potassium Chloride (Klor-Con M20) 40 meq PO ONETIME ONE Stop: 02/26/17 11:21 Last Admin: 02/26/17 11:55 Dose: 40 meq Potassium Chloride (Klor-Con M20) 40 meq PO ONETIME ONE Stop: 03/01/17 07:59 Last Admin: 03/01/17 15:04 Dose: Not Given Sodium Chloride (Saline Flush) 10 ml FLUSH ASDIRECTED PRN PRN Reason: Keep Vein Open Last Admin: 02/25/17 13:41 Dose: 10 ml Sodium Chloride (Saline Flush) 2.5 ml FLUSH ASDIRECTED PRN PRN Reason: Keep Vein Open Last Admin: 02/25/17 13:41 Dose: 2.5 ml Trimethoprim/Sulfamethoxazole (Septra Ds) 1 tab PO BID [facility] Last Admin: 03/04/17 09:04 Dose: 1 tab Vancomycin HCl (Pharmacy To Dose - Vancomycin) 1 dose .XX ASDIRECTED [facility] Original Note: Discharge Summary - Hospital Course Brief History: This 76 year old female with pmh of CVA with L sided weakness, nonverbal and bedridden, and sacral decubitus presented to the ED via EMS today with concerns from family and caregiver of decreased mental status, which started earlier in the day. In the ED WBC 10,140, Hgb 11.5, Na 133, Ua 3+ bacteria, +nitrites, mod leukocyte esterase, and too numerous to count WBC. CXR showed borderline cardiomegaly, and Head CT reported no acute intracranial findings, but did report encephalomalacia in the R frontal, occipital and L cerebellum regions. She was treated with Rocephin in the ED, BC and UC pending. She will be admitted with UTI and AMS. - Discharge Data Discharge Date: 03/04/17 Discharge Disposition: Home, W Home Health Agency 06 Condition: Good - Discharge Diagnosis/Problem(s) (1) Altered mental status SNOMED Code(s): 230277647 ICD Code: R41.82 - ALTERED MENTAL STATUS, UNSPECIFIED Status: Acute Current Visit: Yes Qualifiers: Altered mental status type: somnolence Qualified Code(s): R40.0 - Somnolence (2) UTI (urinary tract infection) SNOMED Code(s): 49033235 ICD Code: N39.0 - URINARY TRACT INFECTION, SITE NOT SPECIFIED Status: Acute Current Visit: Yes Qualifiers: Urinary tract infection type: acute cystitis Hematuria presence: without hematuria Qualified Code(s): N30.00 - Acute cystitis without hematuria (3) History of CVA with residual deficit SNOMED Code(s): 511211435 ICD Code: I69.30 - UNSPECIFIED SEQUELAE OF CEREBRAL INFARCTION Status: Chronic Current Visit: No - Patient Summary/Data Consults: Consultations 02/25/17 15:57 Consult to Physician [CONS] Stat 02/27/17 10:56 Consult to Speech Language Pathology [ENERGY TRADING ANALYST Evaluation and Treatment] [CONS] Routine 03/02/17 11:20 Consult to Dietary [Consult to Imager] [CONS] Routine - Patient Instructions Diet: Pureed (Thickened liquids) Activity: As Tolerated Showering/Bathing: May Shower Notify Provider of: Fever, Increased Pain, Swelling and Redness, Drainage, Nausea and/or Vomiting Other/Special Instructions: Resume Home health. Continue wet to dry dressing changes to sacral decubitus. - Discharge Plan Prescriptions/Med Rec: Digoxin [Lanoxin] 125 mcg PO DAILY #30 tablet Sulfamethoxazole/Trimethoprim [IJD: Sulfamethoxazole/Trimethoprim DS] 1 tab PO BID #5 tablet Home Medications: Home Meds Metoprolol Succinate 50 mg PO DAILY #30 tab.er.24h 11/04/16 [Rx] Digoxin [Lanoxin] 125 mcg PO DAILY #30 tablet 03/04/17 [Rx] Sulfamethoxazole/Trimethoprim [IJD: Sulfamethoxazole/Trimethoprim DS] 1 tab PO BID #5 tablet 03/04/17 [Rx] Patient Handouts: Urinary Tract Infection, Adult, [id number] Referrals: Volodymyr Arellano MD [Physician] - 03/11/17 1:30 pm - Discharge Summary/Plan Comment DC Time >30 min.: No Discharge Summary/Plan Comment: Discharge diagnoses: MRSA UTI AMS-resolved Hx CVA with residual effects Afib Jane was admitted and treated with Rocephin initially, UC returned with MRSA and antibiotics changed to Vancomycin. She slowly improved and is more alert. She is alert intermittently, which reports is normal, "she has good days and bad days". He reports today she is more alert and is wanted to take her home. During her stay, coughing was noted with some liquids. Speech was consulted, and after a few evaluations she felt it was unsafe to feed Jane due to inconsistent findings of coughing and no coughing with liquids and foods. We spoke with regarding her findings and PEG tube. At this time, he would like to keep feeing her pureed diet and thickened liquids and assess how things go at home. He will further discuss PEG tube with Dr Arellano as needed. Hyponatremia noted, but patient asymptomatic, maybe related to nutrition and CHF. requesting discharge today. Sacral wound remains clean with no drainage. Digoxin 125 mcg was started due to noted afib. Tacycardia resolved and she has now be SR. Will continue metoprolol as well. Will continue Bactrim DS for 2 more days, 10 day course due to MRSA UTI. Will arrange follow up with Dr. Arellano. At first caregiver refused to go to Dr. Arellano, but , who makes all decisions requests Dr Arellano, he is not unhappy with the care and states "that lady has no business making decisions for us, she is not family." We encouraged him to bring Jane back to the ED or clinic if concerns should arise. - General Info Date of Service: 03/04/17 Admission Dx/Problem (Free Text: UTI, altered mental status Subjective Update: Alert this morning, ate breakfast well with assistance of caregiver and . requesting discharge. Non verbal. Functional Status: Reports: pain controlled, tolerating diet, ambulating - Patient Data Vitals - Most Recent: Last Vital Signs Temp 97.5 F 03/04/17 07:00 Pulse 88 03/04/17 09:05 Resp 18 03/04/17 07:00 BP 110/58 L 03/04/17 09:05 Pulse Ox 95 03/04/17 07:00 Weight - Most Recent: 41.4 kg I&O - Last 24 hours: Intake & Output 03/03/17 03/04/17 03/04/17 22:59 06:59 14:59 Intake Total 100 1283 Output Total 700 500 Balance -600 783 Lab Results - Last 24 hrs: Laboratory Results - last 24 hr 03/03/17 03/04/17 03/04/17 Range/Units 13:42 04:10 04:10 WBC 6.80 (4.0-11.0) K/uL RBC 3.93 L (4.30-5.90) M/uL Hgb 9.8 L (12.0-16.0) g/dL Hct 30.4 L (36.0-46.0) % MCV 77.4 L (80.0-98.0) fL MCH 24.9 L (27.0-32.0) pg MCHC 32.2 (31.0-37.0) g/dL RDW Std Deviation 51.6 (28.0-62.0) fl RDW Coeff of Deanna 18 H (11.0-15.0) % Plt Count 332 (150-400) K/uL MPV 10.00 (7.40-12.00) fL Neut % (Auto) 64.8 (48.0-80.0) % Lymph % (Auto) 20.3 (16.0-40.0) % [place] % (Auto) 12.4 (0.0-15.0) % Eos % (Auto) 2.1 (0.0-7.0) % Baso % (Auto) 0.4 (0.0-1.5) % Neut # (Auto) 4.4 (1.4-5.7) K/uL Lymph # (Auto) 1.4 (0.6-2.4) K/uL [place] # (Auto) 0.8 (0.0-0.8) K/uL Eos # (Auto) 0.1 (0.0-0.7) K/uL Baso # (Auto) 0.0 (0.0-0.1) K/uL Nucleated RBC % 0.0 /100WBC Nucleated RBCs # 0 K/uL Sodium 127 L 128 L (136-146) mmol/L Potassium 4.7 4.4 (3.5-5.1) mmol/L Chloride 99 101 (98-110) mmol/L Carbon Dioxide 21 21 (21-31) mmol/L BUN 4 L 3 L (6.0-23.0) mg/dL Creatinine 0.5 L 0.5 L (0.6-1.5) mg/dL Est Cr Clr Drug Dosing 64.52 64.52 mL/min Estimated GFR (MDRD) > 60.0 > 60.0 ml/min Glucose 106 90 (60-110) mg/dL Calcium 7.3 L 7.2 L (8.8-10.8) mg/dL Magnesium 1.3 L (1.5-2.3) mEq/L Med Orders - Current: Current Medications Digoxin (Lanoxin) 125 mcg PO DAILY [facility] Last Admin: 03/04/17 09:04 Dose: 125 mcg Diltiazem HCl (Diltiazem) 10 mg IVPUSH Q3H PRN PRN Reason: Tachycardia Last Admin: 03/02/17 12:54 Dose: 10 mg Heparin Sodium (Porcine) (Heparin Sodium) 5,000 units SUBCUT Q12HR [facility] Last Admin: 03/04/17 09:06 Dose: 5,000 units Sodium Chloride (Normal Saline) 1,000 mls @ 75 mls/hr IV ASDIRECTED [facility] Last Admin: 03/04/17 00:06 Dose: 75 mls/hr Metoprolol Succinate (Toprol Xl) 50 mg PO DAILY [facility] Last Admin: 03/04/17 09:05 Dose: 50 mg Ondansetron HCl (Zofran) 4 mg IVPUSH Q4H PRN PRN Reason: Nausea Sodium Chloride (Saline Flush) 10 ml FLUSH ASDIRECTED PRN PRN Reason: Keep Vein Open Last Admin: 02/25/17 13:41 Dose: 10 ml Sodium Chloride (Saline Flush) 2.5 ml FLUSH ASDIRECTED PRN PRN Reason: Keep Vein Open Last Admin: 02/25/17 13:41 Dose: 2.5 ml Trimethoprim/Sulfamethoxazole (Septra Ds) 1 tab PO BID [facility] Last Admin: 03/04/17 09:04 Dose: 1 tab Discontinued Medications Digoxin (Lanoxin) 250 mcg IVPUSH ONETIME ONE Stop: 02/27/17 11:02 Last Admin: 02/27/17 11:31 Dose: 250 mcg Digoxin (Lanoxin) 250 mcg IVPUSH ONETIME ONE Stop: 03/01/17 10:16 Last Admin: 03/01/17 10:23 Dose: 250 mcg Digoxin (Lanoxin) 125 mcg IVPUSH ONETIME ONE Stop: 03/01/17 16:31 Last Admin: 03/01/17 16:48 Dose: 125 mcg Diltiazem HCl (Diltiazem) 20 mg IVPUSH ONETIME ONE Stop: 02/26/17 11:21 Last Admin: 02/26/17 11:35 Dose: 20 mg Sodium Chloride (Normal Saline) 1,000 mls @ 83 mls/hr IV ASDIRECTED [facility] Last Admin: 02/25/17 13:41 Dose: 83 mls/hr Ceftriaxone Sodium/Dextrose 1 (gm/ Premix) 50 mls @ 100 mls/hr IV ONETIME ONE Stop: 02/25/17 14:29 Last Admin: 02/25/17 14:06 Dose: 100 mls/hr Sodium Chloride (Normal Saline) 1,000 mls [facility] Admin: 02/25/17 23:20 Dose: 50 mls/hr Ceftriaxone Sodium/Dextrose 1 (gm/ Premix) 50 mls @ 100 mls/hr IV Q24H [facility] Last Admin: 02/26/17 13:59 Dose: 100 mls/hr Sodium Chloride (Normal Saline) 1,000 mls [facility] Admin: 02/26/17 10:47 Dose: 125 mls/hr Magnesium Sulfate 4 gm/ Premix 100 mls @ 50 mls/hr IV ONETIME ONE Stop: 02/26/17 12:30 Last Admin: 02/26/17 10:52 Dose: 50 mls/hr Vancomycin HCl 500 mg/ Sodium (Chloride) 100 mls @ 100 mls/hr IV Q12H [facility] Last Admin: 02/28/17 23:41 Dose: 100 mls/hr Vancomycin HCl 500 mg/ Sodium (Chloride) 100 mls @ 100 mls/hr IV Q8H [facility] Last Admin: 03/02/17 09:25 Dose: 100 mls/hr Magnesium Sulfate 4 gm/ Premix 100 mls @ 50 mls/hr IV ONETIME ONE Stop: 03/01/17 12:59 Last Admin: 03/01/17 12:01 Dose: 50 mls/hr Potassium Chloride 40 meq/ (Sodium Chloride) 520 mls @ 75 mls/hr IV [facility] Stop: 03/01/17 23:10 Last Admin: 03/01/17 16:48 Dose: 75 mls/hr Magnesium Sulfate 2 gm/ Premix 50 mls @ 50 mls/hr IV ONETIME ONE Stop: 03/02/17 09:05 Last Admin: 03/02/17 09:28 Dose: 50 mls/hr Magnesium Sulfate 4 gm/ Premix 100 mls @ 50 mls/hr IV ONETIME ONE Stop: 03/03/17 09:30 Last Admin: 03/03/17 09:45 Dose: 50 mls/hr Magnesium Sulfate 4 gm/ Premix 100 mls @ 50 mls/hr IV ONETIME ONE Stop: 03/04/17 09:52 Last Admin: 03/04/17 09:06 Dose: 50 mls/hr Metoprolol Tartrate (Lopressor) 5 mg IVPUSH Q6H PRN PRN Reason: Tachycardia Last Admin: 02/26/17 10:06 Dose: 5 mg Potassium Chloride (Klor-Con M20) 40 meq PO ONETIME ONE Stop: 02/26/17 11:21 Last Admin: 02/26/17 11:55 Dose: 40 meq Potassium Chloride (Klor-Con M20) 40 meq PO ONETIME ONE Stop: 03/01/17 07:59 Last Admin: 03/01/17 15:04 Dose: Not Given Vancomycin HCl (Pharmacy To Dose - Vancomycin) 1 dose .XX ASDIRECTED DWIGHT - Exam General: Reports: alert, cooperative, no acute distress Lungs: Reports: Clear to auscultation, Normal respiratory effort Cardiovascular: Reports: Regular Rate, Regular Rhythm Extremities: Reports: edema (dependent, upon repositioning) Wound/Incisions: Reports: dressing dry and intact (sacral decubitus.), no drainage Neurological: Reports: no new focal deficit Psy/Mental Status: Reports: alert, normal affect, normal mood *Q Meaningful Use (DIS) - VTE *Q VTE Criteria *Q: - Stroke *Q Stroke Criteria *Q: - AMI *Q AMI Criteria *Q:
== END 2017-03-04 12:20 | disposition home health service (06) | DRG 690 ==
LOC: MW.ED 13:02 → OBSVTOIN 15:48 → INTOOBSV 15:48 → MW.MS 15:48 → EEVIPCON 15:48 → MW.MS 16:24
PROVIDERS: ADMIT Internal Medicine; ATTEND Internal Medicine
DX: N39.0 Urinary tract infection, site not specified (principal); I69.354 Hemiplegia and hemiparesis following cerebral infarction affecting left non-dominant side; E87.1 Hypo-osmolality and hyponatremia; B95.62 Methicillin resistant Staphylococcus aureus infection as the cause of diseases classified elsewhere; Z74.01 Bed confinement status; I50.9 Heart failure, unspecified; I48.91 Unspecified atrial fibrillation; L89.159 Pressure ulcer of sacral region, unspecified stage; R13.10 Dysphagia, unspecified; R06.02 Shortness of breath; G93.89 Other specified disorders of brain
CPT/HCPCS: 36415; 36600; 70450; 71010; 80053; 81001; 82803; 82962; 83605; 84443; 84484; 85025; 85610; 87040 ×2; 87086; 87088 ×2; 87186; 93005 ×2; 96361; 96365; 99285; J0696; J7040; 51703; 80048; 80202; 83735; 92526-GN; 92610-GN; A9270-GY; J1160; J1644; J3370; J3475; J3480; J3490; J7030

== ENCOUNTER 2017-03-10 12:54 | Inpatient (IN) | payer MEDICARE, MEDICAID ==
[2017-03-10] MEDS ORDERED: Sodium Chloride 0.9% 2.5 ML Syringe FLUSH PRN (12:58)
[2017-03-10] MEDS ORDERED: Sodium Chloride 0.9% 10 ML Syringe FLUSH PRN (12:58)
[2017-03-10] MEDS ORDERED: Sodium Chloride 0.9% 500 ML IV SCH ×2 (13:00→13:30)
--- NOTE | 2017-03-10 13:01 | EDM.PDOC ---
ED HPI GENERAL MEDICAL PROBLEM - General Stated Complaint: SOB Time Seen by Provider: 03/10/17 12:58 Source of Information: Reports: EMS, Old Records, RN History Limitations: Reports: Other (Nonverbal) - History of Present Illness INITIAL COMMENTS - FREE TEXT/NARRATIVE: HISTORY AND PHYSICAL: []76-year-old female presenting per EMS with unresponsiveness History of Present Illness: []Frail Patient is known to the staff. 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 Review of Systems: As per history of present illness and below otherwise all systems reviewed and negative. Past medical history: As per history of present illness and as reviewed below otherwise noncontributory. Surgical history: As per history of present illness and as reviewed below otherwise noncontributory. Social history: No reported history of drug or alcohol abuse. Family history: As per history of present illness and as reviewed below otherwise noncontributory. Physical exam: Patient has nonverbal responses. Skin is warm and dry. HEENT: Atraumatic, normocehpalic, pupils reactive, but sluggish .negative for conjunctival pallor or scleral icterus, mucous membranes moist, throat clear, gag reflex intact, neck supple, nontender, trachea midline. Lungs: Clear to auscultation, breath sounds equal bilaterally, shallow and diminished. chest non tender. Heart: S1S2, regular, negative for clicks, rubs, or JVD. Abdomen: Soft, nondistended, nontender. Negative for masses or hepatossplenmegaly. Negative for costovertebral tenderness. Pelvis: Stable nontender. Genitourinary: Deferred. Nguyen catheter intact yellow fluid present Rectal: Deferred/large stage IV decubitus present to coccyx area Extremities: Atraumatic, negative for cords or calf pain. Neurovascular unremarkable. Neuro: Awake, alert, oriented. Cranial nerves II through XII unremarkable. Cerebellum unremarkable. Motor and sensory unremarkable throughout. Exam nonfocal. Discussed code level status with and son. Have discussed the repercussions of having CPR of possible fractured ribs. Have discussed what ventilation would consist of. relates he would not want CPR initiated. Discussed case with Dr. Mathew Aguilera who has accepted patient for inpatient care. Diagnostics: [CBC, CMP CT head, blood cultures, ammonia level, digoxin level, UA and culture] Therapeutics: [Normal saline] Impression: []#1 left basilar pneumonia versus atelectasis #2 failure to thrive #3 possible recent CVA Plan: []Admit for left basilar pneumonia UTI Definitive disposition and diagnosis as appropriate pending reevaluation and review of above. Onset: Unknown/Unsure - Related Data Allergies Allergy/AdvReac Type Severity Reaction Status Date / Time Penicillins Allergy Cannot Verified 03/10/17 13:15 Remember Home Meds: Home Meds Metoprolol Succinate 50 mg PO DAILY #30 tab.er.24h 11/04/16 [Rx] Digoxin [Lanoxin] 125 mcg PO DAILY #30 tablet 03/04/17 [Rx] Sulfamethoxazole/Trimethoprim [IJD: Sulfamethoxazole/Trimethoprim DS] 1 tab PO DAILY 03/10/17 [History] Past Medical History Cardiovascular History: Reports: Hypertension Gastrointestinal History: Reports: Other (See Below) Other Gastrointestinal History: constipation Neurological History: Reports: CVA, Other (See Below) Other Neuro History: Brain tumor Endocrine/Metabolic History: Reports: None Oncologic (Cancer) History: Reports: Brain Dermatologic History: Reports: Other (See Below) - Past Surgical History Cardiovascular Surgical History: Reports: None Oncologic Surgical History: Reports: None Social & Family History - Family History Family Medical History: Noncontributory - Tobacco Use Smoking Status *Q: Never Smoker Second Hand Smoke Exposure: No - Caffeine Use Caffeine Use: Reports: None - Alcohol Use Days Per Week of Alcohol Use: 0 - Recreational Drug Use Recreational Drug Use: No - Living Situation & Occupation Living situation: Reports: with Spouse, Other (has caregiver as well) Occupation: Disabled ED ROS GENERAL - Review of Systems Review Of Systems: ROS reveals no pertinent complaints other than HPI. ED EXAM, GENERAL - Physical Exam Exam: See Below (See dictation) Course - Vital Signs Last Recorded V/S: Last Vital Signs Temp 36.4 C 03/10/17 13:06 Pulse 132 H 03/10/17 13:50 Resp 20 03/10/17 13:50 BP 158/99 H 03/10/17 13:50 Pulse Ox 94 L 03/10/17 13:50 - Orders/Labs/Meds Orders: Active Orders 24 hr Category Date Time Status Patient Status [ADT] Stat ADT 03/10/17 14:02 Active Cardiac Monitoring [RC] . DIRECTED Care 03/10/17 12:57 Active EKG Documentation Completion [RC] STAT Care 03/10/17 12:57 Active Oxygen Therapy, ED [RC] ASDIRECTED Care 03/10/17 12:57 Active Pulse Oximetry [RC] ASDIRECTED Care 03/10/17 12:57 Active Telemetry Monitoring [Cardiac Monitoring] [RC] . Care 03/10/17 14:04 Active DIRECTED CULTURE BLOOD [BC] Stat Lab 03/10/17 13:40 Received CULTURE BLOOD [BC] Stat Lab 03/10/17 14:00 Received CULTURE URINE [RM] Stat Lab 03/10/17 12:55 Received Levofloxacin/Dextrose 5%-Water [Levaquin in D5W 500 MG/ Med 03/10/17 14:01 Active 100 ML] 500 mg Premix Bag 1 bag IV ONETIME Sodium Chloride 0.9% [Normal Saline] 1,000 ml Med 03/10/17 13:45 Active IV ASDIRECTED Sodium Chloride 0.9% [Saline Flush] Med 03/10/17 12:58 Active 10 ml FLUSH ASDIRECTED PRN Sodium Chloride 0.9% [Saline Flush] Med 03/10/17 12:58 Active 2.5 ml FLUSH ASDIRECTED PRN Blood Culture x2 Reflex Set [OM.PC] Stat Oth 03/10/17 12:58 Ordered Saline Lock Insert [OM.PC] Stat Oth 03/10/17 12:57 Ordered Medication Orders Sodium Chloride (Normal Saline) 1,000 mls @ 999 mls/hr IV ASDIRECTED DWIGHT Last Admin: 03/10/17 13:41 Dose: 999 mls/hr Levofloxacin/Dextrose 500 mg/ (Premix) 100 mls @ 100 mls/hr IV ONETIME ONE Stop: 03/10/17 15:00 Sodium Chloride (Saline Flush) 10 ml FLUSH ASDIRECTED PRN PRN Reason: Keep Vein Open Sodium Chloride (Saline Flush) 2.5 ml FLUSH ASDIRECTED PRN PRN Reason: Keep Vein Open Labs: Laboratory Tests 03/10/17 03/10/17 03/10/17 Range/Units 12:50 12:50 12:50 WBC 12.44 H (4.0-11.0) K/uL RBC 4.40 (4.30-5.90) M/uL Hgb 11.3 L (12.0-16.0) g/dL Hct 35.8 L (36.0-46.0) % MCV 81.4 (80.0-98.0) fL MCH 25.7 L (27.0-32.0) pg MCHC 31.6 (31.0-37.0) g/dL RDW Std Deviation 57.4 (28.0-62.0) fl RDW Coeff of Deanna 20 H (11.0-15.0) % Plt Count 359 (150-400) K/uL MPV 9.10 (7.40-12.00) fL Neut % (Auto) 84.7 H (48.0-80.0) % Lymph % (Auto) 9.6 L (16.0-40.0) % [place] % (Auto) 5.6 (0.0-15.0) % Eos % (Auto) 0.0 (0.0-7.0) % Baso % (Auto) 0.1 (0.0-1.5) % Neut # (Auto) 10.5 H (1.4-5.7) K/uL Lymph # (Auto) 1.2 (0.6-2.4) K/uL [place] # (Auto) 0.7 (0.0-0.8) K/uL Eos # (Auto) 0.0 (0.0-0.7) K/uL Baso # (Auto) 0.0 (0.0-0.1) K/uL Nucleated RBC % 0.0 /100WBC Nucleated RBCs # 0 K/uL INR 1.09 (0.86-1.11) ABG pH (7.35-7.45) ABG pCO2 (35-45) mmHG ABG pO2 (75-100) mmHG ABG HCO3 (22-26) mEq/L ABG Total CO2 ABG Base Excess (-2.0-2.0) Lactate 1.3 (0.20-2.00) mmol/L Sodium (136-146) mmol/L Potassium (3.5-5.1) mmol/L Chloride (98-110) mmol/L Carbon Dioxide (21-31) mmol/L BUN (6.0-23.0) mg/dL Creatinine (0.6-1.5) mg/dL Est Cr Clr Drug Dosing mL/min Estimated GFR (MDRD) ml/min Glucose (60-110) mg/dL Calcium (8.8-10.8) mg/dL Total Bilirubin (0.1-1.5) mg/dL AST (5-40) IU/L ALT (8-54) IU/L Alkaline Phosphatase (40-150) Ammonia (14-68) UG/DL Troponin I (0.0-0.29) NG/ML Total Protein (6.0-8.0) g/dL Albumin (3.4-4.8) g/dL Globulin (2.0-3.5) g/dL Albumin/Globulin Ratio (1.3-2.8) Urine Color Urine Appearance Urine pH (5.0-8.0) Ur Specific [place] (1.001-1.035) Urine Protein (NEGATIVE) mg/dL Urine Glucose (UA) (NEGATIVE) mg/dL Urine Ketones (NEGATIVE) mg/dL Urine Occult Blood (NEGATIVE) Urine Nitrite (NEGATIVE) Urine Bilirubin (NEGATIVE) Urine Ictotest Urine Urobilinogen (<2.0) EU/dL Ur Leukocyte Esterase (NEGATIVE) Urine RBC (0-2/HPF) Urine WBC (0-5/HPF) Ur Epithelial Cells (NONE-FEW) Urine Bacteria (NEGATIVE) Urine Yeast 03/10/17 03/10/17 03/10/17 Range/Units 12:50 12:50 12:50 WBC (4.0-11.0) K/uL RBC (4.30-5.90) M/uL Hgb (12.0-16.0) g/dL Hct (36.0-46.0) % MCV (80.0-98.0) fL MCH (27.0-32.0) pg MCHC (31.0-37.0) g/dL RDW Std Deviation (28.0-62.0) fl RDW Coeff of Deanna (11.0-15.0) % Plt Count (150-400) K/uL MPV (7.40-12.00) fL Neut % (Auto) (48.0-80.0) % Lymph % (Auto) (16.0-40.0) % [place] % (Auto) (0.0-15.0) % Eos % (Auto) (0.0-7.0) % Baso % (Auto) (0.0-1.5) % Neut # (Auto) (1.4-5.7) K/uL Lymph # (Auto) (0.6-2.4) K/uL [place] # (Auto) (0.0-0.8) K/uL Eos # (Auto) (0.0-0.7) K/uL Baso # (Auto) (0.0-0.1) K/uL Nucleated RBC % /100WBC Nucleated RBCs # K/uL INR (0.86-1.11) ABG pH (7.35-7.45) ABG pCO2 (35-45) mmHG ABG pO2 (75-100) mmHG ABG HCO3 (22-26) mEq/L ABG Total CO2 ABG Base Excess (-2.0-2.0) Lactate (0.20-2.00) mmol/L Sodium 138 (136-146) mmol/L Potassium 4.1 (3.5-5.1) mmol/L Chloride 106 (98-110) mmol/L Carbon Dioxide 22 (21-31) mmol/L BUN 21 (6.0-23.0) mg/dL Creatinine 0.6 (0.6-1.5) mg/dL Est Cr Clr Drug Dosing 56.10 mL/min Estimated GFR (MDRD) > 60.0 ml/min Glucose 129 H (60-110) mg/dL Calcium 9.0 (8.8-10.8) mg/dL Total Bilirubin 0.5 (0.1-1.5) mg/dL AST 23 (5-40) IU/L ALT 9 (8-54) IU/L Alkaline Phosphatase 87 (40-150) Ammonia 55 (14-68) UG/DL Troponin I < 0.10 (0.0-0.29) NG/ML Total Protein 5.9 L (6.0-8.0) g/dL Albumin 2.7 L (3.4-4.8) g/dL Globulin 3.2 (2.0-3.5) g/dL Albumin/Globulin Ratio 0.8 L (1.3-2.8) Urine Color Urine Appearance Urine pH (5.0-8.0) Ur Specific [place] (1.001-1.035) Urine Protein (NEGATIVE) mg/dL Urine Glucose (UA) (NEGATIVE) mg/dL Urine Ketones (NEGATIVE) mg/dL Urine Occult Blood (NEGATIVE) Urine Nitrite (NEGATIVE) Urine Bilirubin (NEGATIVE) Urine Ictotest Urine Urobilinogen (<2.0) EU/dL Ur Leukocyte Esterase (NEGATIVE) Urine RBC (0-2/HPF) Urine WBC (0-5/HPF) Ur Epithelial Cells (NONE-FEW) Urine Bacteria (NEGATIVE) Urine Yeast 03/10/17 03/10/17 Range/Units 12:55 13:31 WBC (4.0-11.0) K/uL RBC (4.30-5.90) M/uL Hgb (12.0-16.0) g/dL Hct (36.0-46.0) % MCV (80.0-98.0) fL MCH (27.0-32.0) pg MCHC (31.0-37.0) g/dL RDW Std Deviation (28.0-62.0) fl RDW Coeff of Deanna (11.0-15.0) % Plt Count (150-400) K/uL MPV (7.40-12.00) fL Neut % (Auto) (48.0-80.0) % Lymph % (Auto) (16.0-40.0) % [place] % (Auto) (0.0-15.0) % Eos % (Auto) (0.0-7.0) % Baso % (Auto) (0.0-1.5) % Neut # (Auto) (1.4-5.7) K/uL Lymph # (Auto) (0.6-2.4) K/uL [place] # (Auto) (0.0-0.8) K/uL Eos # (Auto) (0.0-0.7) K/uL Baso # (Auto) (0.0-0.1) K/uL Nucleated RBC % /100WBC Nucleated RBCs # K/uL INR (0.86-1.11) ABG pH 7.506 H (7.35-7.45) ABG pCO2 32 L (35-45) mmHG ABG pO2 70 L (75-100) mmHG ABG HCO3 25 (22-26) mEq/L ABG Total CO2 22.8 ABG Base Excess 2.0 (-2.0-2.0) Lactate (0.20-2.00) mmol/L Sodium (136-146) mmol/L Potassium (3.5-5.1) mmol/L Chloride (98-110) mmol/L Carbon Dioxide (21-31) mmol/L BUN (6.0-23.0) mg/dL Creatinine (0.6-1.5) mg/dL Est Cr Clr Drug Dosing mL/min Estimated GFR (MDRD) ml/min Glucose (60-110) mg/dL Calcium (8.8-10.8) mg/dL Total Bilirubin (0.1-1.5) mg/dL AST (5-40) IU/L ALT (8-54) IU/L Alkaline Phosphatase (40-150) Ammonia (14-68) UG/DL Troponin I (0.0-0.29) NG/ML Total Protein (6.0-8.0) g/dL Albumin (3.4-4.8) g/dL Globulin (2.0-3.5) g/dL Albumin/Globulin Ratio (1.3-2.8) Urine Color YELLOW Urine Appearance CLEAR Urine pH 5.5 (5.0-8.0) Ur Specific [place] >= 1.030 (1.001-1.035) Urine Protein TRACE (NEGATIVE) mg/dL Urine Glucose (UA) NEGATIVE (NEGATIVE) mg/dL Urine Ketones TRACE H (NEGATIVE) mg/dL Urine Occult Blood MODERATE (NEGATIVE) Urine Nitrite NEGATIVE (NEGATIVE) Urine Bilirubin SMALL H (NEGATIVE) Urine Ictotest Urine Urobilinogen 0.2 (<2.0) EU/dL Ur Leukocyte Esterase LARGE (NEGATIVE) Urine RBC 3-5 (0-2/HPF) Urine WBC 55-60 (0-5/HPF) Ur Epithelial Cells MODERATE (NONE-FEW) Urine Bacteria FEW (NEGATIVE) Urine Yeast MANY Meds: Medications Generic Name Dose Route Start Last Admin Trade Name Freq PRN Reason Stop Dose Admin Sodium Chloride 1,000 mls @ 999 mls/hr 03/10/17 13:45 03/10/17 13:41 Normal Saline IV 999 mls/hr ASDIRECTED DWIGHT Administration Levofloxacin/Dextrose 500 mg/ 100 mls @ 100 mls/hr 03/10/17 14:01 Premix IV 03/10/17 15:00 ONETIME ONE Sodium Chloride 10 ml 03/10/17 12:58 Saline Flush FLUSH ASDIRECTED PRN Keep Vein Open Sodium Chloride 2.5 ml 03/10/17 12:58 Saline Flush FLUSH ASDIRECTED PRN Keep Vein Open Discontinued Medications Generic Name Dose Route Start Last Admin Trade Name Freq PRN Reason Stop Dose Admin Sodium Chloride 500 mls @ 999 mls/hr 03/10/17 13:00 Normal Saline IV STAT DWIGHT Sodium Chloride 500 mls @ 999 mls/hr 03/10/17 13:30 Normal Saline IV .BOLUS DWIGHT Departure - Departure Time of Disposition: 14:07 Disposition: Admitted As Inpatient 68 Condition: Good Clinical Impression: Pressure ulcer of coccygeal region, stage 4, Generalized weakness UTI (urinary tract infection) Qualifiers: Urinary tract infection type: acute cystitis Hematuria presence: with hematuria Qualified Code(s): N30.01 - Acute cystitis with hematuria Altered mental status Qualifiers: Altered mental status type: somnolence Qualified Code(s): R40.0 - Somnolence Pneumonia Qualifiers: Pneumonia type: due to unspecified organism Laterality: left Lung location: lower lobe of lung Qualified Code(s): J18.1 - Lobar pneumonia, unspecified organism - Discharge Information - My Orders Last 24 Hours: My Active Orders 03/10/17 13:45 Sodium Chloride 0.9% [Normal Saline] 1,000 ml IV ASDIRECTED 03/10/17 14:01 Levofloxacin/Dextrose 5%-Water [Levaquin in D5W 500 MG/100 ML] 500 mg Premix Bag 1 bag IV ONETIME 03/10/17 14:02 Patient Status [ADT] Stat 03/10/17 14:04 Telemetry Monitoring [Cardiac Monitoring] [RC] . DIRECTED - Assessment/Plan Last 24 Hours: My Active Orders 03/10/17 13:45 Sodium Chloride 0.9% [Normal Saline] 1,000 ml IV ASDIRECTED 03/10/17 14:01 Levofloxacin/Dextrose 5%-Water [Levaquin in D5W 500 MG/100 ML] 500 mg Premix Bag 1 bag IV ONETIME 03/10/17 14:02 Patient Status [ADT] Stat 03/10/17 14:04 Telemetry Monitoring [Cardiac Monitoring] [RC] . DIRECTED
--- NOTE | 2017-03-10 13:31 | CT ---
EXAMINATION: Non contrast CT head. Coronal and sagittal reformats. HISTORY: Pain FINDINGS: No evidence of intra or extra axial hemorrhage, mass, midline shift, hydrocephalus or edema. There is moderate generalized atrophy. Multiple previously demonstrated areas of encephalomalacia noted wi thin the cerebrum and cerebellum again noted. There is likely a small area of jackson-white matter diff erentiation loss within the medial left frontoparietal area. This however appears slightly less pron ounced in comparison to the previous CT. No abnormal intracranial calcifications are detected. Mild basilar calcifications are noted. Paranasal sinuses and mastoid air cells are well aerated without substantial findings. The orbits a nd globes are symmetric. Pituitary fossa appears unremarkable. Postoperative changes are noted within the left aspect of the posterior fossa. The calvarium otherwi se appears intact. IMPRESSION: 1. Probable small cortical ischemic infarct within the left frontoparietal region medially. This how ever appears slightly less pronounced in comparison to the recent CT. 2. No evidence of an acute intracranial hemorrhage. 3. Multiple previously demonstrated areas of encephalomalacia within the supra and infratentorial. 4. Prominent generalized atrophy and small vessel ischemic changes. The above findings were called to the ER at 1:25 PM.
--- NOTE | 2017-03-10 13:32 | CR ---
EXAMINATION: Portable chest radiograph. HISTORY: Shortness of breath. FINDINGS: Stable rightward deviation of the trachea. The heart is borderline in size. The cardiomediastinal si lhouette is within normal limits. Left basilar atelectasis and/or infiltrate is noted. Chronic inter stitial prominence. Osseous structures appear unremarkable. IMPRESSION: Mild left basilar atelectasis and/or infiltrate.
[2017-03-10 13:40] LABS: CHLORIDE,CL 106 mmol/L (98-110); SODIUM,NA 138 mmol/L (136-146)
[2017-03-10] MEDS ORDERED: Sodium Chloride 0.9% 1,000 ML IV SCH (13:45)
[2017-03-10] MEDS ORDERED: Levofloxacin/Dextrose 5%-Water 500 MG in Premix Bag 1 BAG IV ONE (14:01)
[2017-03-10] MEDS ORDERED: Cefepime 1 GM in Premix Bag 1 BAG IV SCH (16:15)
[2017-03-10] MEDS ORDERED: Ondansetron 4 MG/2 ML SDV IVPUSH PRN (16:28)
[2017-03-10] MEDS ORDERED: Acetaminophen 650 MG Supp RECTAL PRN (16:28)
[2017-03-10] MEDS: Sodium Chloride 0.9% 1,000 ML IV SCH ×2 (16:39→20:53)
--- NOTE | 2017-03-10 16:42 | PCM.HP ---
H&P History of Present Illness - General Date of Service: 03/10/17 Admit Problem/Dx: Admission Diagnosis/Problem Admission Diagnosis/Problem Pneumonia Source of Information: Patient History Limitations: Reports: No Limitations - History of Present Illness Initial Comments - Free Text/Narative: This 76 year old female with pmh of CVA with residual effects, left sided weaknes, non-verbal, bedridde, stage IV sacral ulcer, afib and chronic anton arrived to ED today unresponsive. Patient is non-verbal , all history from . Jane was discharge 03/04/2017 after a hospital stay for MRSA UTI and urosepsis. She was improving and discharged home. Her reports she did improve at home, but continued to eat/drink very little. He reports she would spit all food out of her mouth or anything she did try to eat she would cough to the point of emesis. He reports today she seemed more lethargic and he became worried and called EMS. He denies fevers, but does note more coughing in the last 2-3 days. He reports she won't use a straw so they have been thickening water and giving it by syringe, but they have noticed coughing with this as well. He reports her urine was clear yesterday, but today it looked "raunchy" and had chunks. Reports feeling a lump on the left side of her neck. In the ED leukocytosis, 12,440 noted, hgb 11.3 Na 138, Ua -nitrite, large leukocyte esterase, WBC 55-60 and few bacteria. UC and BC obtained and pending. CXR revealed l basilar atelectasis vs. infiltrate. Head CT obtained as well "probable small cortical ischemix infarct within the left frontoparietal region medially, but less pronounced from last head CT, no evidence of acute intracranial hemorrhage, multple previousl demonstrated areas of encephalamalacia with the supr and infraentorial, promoinint generalized atrophy and small vessel ischemic changes." HR in ED and EKG revealed 130-140s, afib. Dig level 0.72. She was treated with Levaquin in ED. She will be admitted for HCAP and UTI. I had lengthy discussion with regarding goals of care/treatment. He is very concerned about her not eating or drinking. During last admission we discussed PEG tub placement and he wanted to wait on this. ST had recommended NPO status due to hish risk of aspiration due to inconsistent findings of bedside swallow. had wanted to continue feeding her. Today he is wondering if she needs a PEG tube. He states she never had a living will or advance directive. When asked if this is what she would want for quality of life , he stated "Well this is what I want, and what she would want. She would not want to be away from me. I know what she wants." I suggested waiting to see how she responds to abx prior to consulting surgery for PEG tube placement. This may not be safe due to patient frail condition and comorbidities. We also discussed code status. When asked is her heart were to stop, "I don't want you push on her chest and break her ribs." When asked if he would want a tube placed to help with breathing, he responded "No, she wouldn't want that." When asked is she needed medications to start her heart or to help with blood pressure he responded "Yes that is ok". At this time Jane would be DNR/DNI, medications only in the event of cardiac arrest. - Related Data Allergies/Adverse Reactions: Allergies Allergy/AdvReac Type Severity Reaction Status Date / Time Penicillins Allergy Cannot Verified 03/10/17 13:15 Remember Home Medications: Home Meds Metoprolol Succinate 50 mg PO DAILY #30 tab.er.24h 11/04/16 [Rx] Digoxin [Lanoxin] 125 mcg PO DAILY #30 tablet 03/04/17 [Rx] Sulfamethoxazole/Trimethoprim [IJD: Sulfamethoxazole/Trimethoprim DS] 1 tab PO DAILY 03/10/17 [History] Past Medical History Cardiovascular History: Reports: Afib, Heart Failure, Hypertension Gastrointestinal History: Reports: Other (See Below) Other Gastrointestinal History: constipation Neurological History: Reports: CVA, Other (See Below) Other Neuro History: Brain tumor Endocrine/Metabolic History: Reports: None Oncologic (Cancer) History: Reports: Brain Dermatologic History: Reports: Other (See Below) - Past Surgical History Cardiovascular Surgical History: Reports: None Oncologic Surgical History: Reports: None Social & Family History - Family History Family Medical History: Noncontributory - Tobacco Use Smoking Status *Q: Never Smoker Second Hand Smoke Exposure: No - Caffeine Use Caffeine Use: Reports: None - Alcohol Use Days Per Week of Alcohol Use: 0 - Recreational Drug Use Recreational Drug Use: No - Living Situation & Occupation Living situation: Reports: with Spouse, Other (has caregiver as well) Occupation: Disabled H&P Review of Systems - Review of Systems: Review Of Systems: Unable To Obtain (patient non-verbal. From .) General: Denies: Fever, Chills Pulmonary: Reports: Cough, Sputum Cardiovascular: Denies: Edema Gastrointestinal: Reports: Vomiting. Denies: Abdominal Pain, Black Stool, Bloody Stool Genitourinary: Reports: Other (sediment in urine and cloudy in anton) Neurological: Reports: Other (more lethargic) Exam - Exam Exam: See Below - Vital Signs Vital Signs: Last Vital Signs Temp 96.7 F 03/10/17 15:25 Pulse 111 H 03/10/17 15:25 Resp 16 03/10/17 15:25 BP 100/56 L 03/10/17 15:25 Pulse Ox 94 L 03/10/17 15:25 Weight: 38.5 kg - Exam General: Alert, Other (non verbal, anton being changed out, very alert, eyes open. Will not follow commands) HEENT: Mucosa Moist & [place], Nares Patent, Pupils Equal, Pupils Reactive Neck: Supple. No: Lymphadenopathy, JVD, Thyromegaly Lungs: Clear to Auscultation, Normal Respiratory Effort Cardiovascular: Irregular Rhythm, Tachycardia (100s) Abdomen: Normal Bowel Sounds, Soft. No: Tenderness Extremities: Normal Inspection, Normal Pulses, Other (contractures to bilateral hands , arms and legs.) Skin: Decubitis (large sacral ulcer remains, clean wound bed, with some bleeding 3x3.5x2.5 with tunneling noted to R. ) Neuro Extensive - Mental Status: Alert, Normal Mood/Affect Neuro Extensive - Motor, Sensory, Reflexes: Total Aphasia, Other (Does not follow commands, will not open mouth, holds it tightly closed.) Psychiatric: Alert - Patient Data Result Diagrams: 03/10/17 12:50 03/10/17 12:50 EKG INTERPRETATION Rhythm: A-Fib Rate (Beats/Min): 134 *Q Meaningful Use (ADM) - VTE *Q VTE Criteria *Q: - VTE Risk Assess *Q Each Risk Factor Represents 1 Point: Serious Lung Disease Including Pneumonia, Less than 1 Month Total Score 1 Point Risk Factors: 1 Each Risk Factor Represents 2 Points: Age 60 - 74 Years Total Score 2 Point Risk Factors: 2 Each Risk Factor Represents 3 Points: None Total Score 3 Point Risk Factors: 0 Each Risk Factor Represents 5 Points: None Total Score 5 Point Risk Factors: 0 Venous Thromboembolism Risk Factor Score *Q: 3 - Stroke *Q Stroke Criteria *Q: - AMI *Q AMI Criteria *Q: - Problem List (1) UTI (urinary tract infection) SNOMED Code(s): 37165646 ICD Code: N39.0 - URINARY TRACT INFECTION, SITE NOT SPECIFIED Status: Acute Current Visit: Yes Qualifiers: Urinary tract infection type: acute cystitis Hematuria presence: with hematuria Qualified Code(s): N30.01 - Acute cystitis with hematuria (2) Pneumonia SNOMED Code(s): 593588738 ICD Code: J18.9 - PNEUMONIA, UNSPECIFIED ORGANISM Status: Acute Current Visit: Yes Qualifiers: Pneumonia type: due to unspecified organism Laterality: left Lung location: lower lobe of lung Qualified Code(s): J18.1 - Lobar pneumonia, unspecified organism (3) Altered mental status SNOMED Code(s): 271873410 ICD Code: R41.82 - ALTERED MENTAL STATUS, UNSPECIFIED Status: Acute Current Visit: Yes Qualifiers: Altered mental status type: somnolence Qualified Code(s): R40.0 - Somnolence (4) Hx MRSA infection SNOMED Code(s): 459299934, 233629599 ICD Code: Z86.14 - PERSONAL HISTORY OF METHICILLIN RESIS STAPH INFECTION Status: Chronic Current Visit: Yes Problem Details: UTI (5) Pressure ulcer of coccygeal region, stage 4 SNOMED Code(s): 753500555, 929416084 ICD Code: L89.154 - PRESSURE ULCER OF SACRAL REGION, STAGE 4 Status: Chronic Priority: Medium Current Visit: Yes (6) History of CVA with residual deficit SNOMED Code(s): 616803815 ICD Code: I69.30 - UNSPECIFIED SEQUELAE OF CEREBRAL INFARCTION Status: Chronic Current Visit: No Problem List Initiated/Reviewed/Updated: Yes Orders Last 24hrs: Active Orders 24 hr Category Date Time Status Height and Weight [RC] DAILY Care 03/10/17 16:28 Ordered Intake and Output [RC] QSHIFT Care 03/10/17 16:29 Ordered Oxygen Therapy [RC] PRN Care 03/10/17 16:28 Ordered RT Aerosol Therapy [RC] ASDIRECTED Care 03/10/17 16:30 Ordered Telemetry Monitoring [Cardiac Monitoring] [RC] . Care 03/10/17 14:04 Inactive DIRECTED Telemetry Monitoring [Cardiac Monitoring] [RC] . Care 03/10/17 16:26 Ordered DIRECTED VTE/DVT Education [RC] PER UNIT ROUTINE Care 03/10/17 16:28 Ordered Vital Signs [RC] Q4H Care 03/10/17 16:28 Ordered Nothing per Oral Now Diet [DIET] Diet 03/10/17 Dinner Ordered BASIC METABOLIC PANEL,BMP [CHEM] DAILY Lab 03/11/17 05:00 Ordered BASIC METABOLIC PANEL,BMP [CHEM] DAILY Lab 03/12/17 05:00 Ordered BASIC METABOLIC PANEL,BMP [CHEM] DAILY Lab 03/13/17 05:00 Ordered BASIC METABOLIC PANEL,BMP [CHEM] DAILY Lab 03/14/17 05:00 Ordered BASIC METABOLIC PANEL,BMP [CHEM] DAILY Lab 03/15/17 05:00 Ordered CBC WITH AUTO DIFF [HEME] DAILY Lab 03/11/17 05:00 Ordered CBC WITH AUTO DIFF [HEME] DAILY Lab 03/12/17 05:00 Ordered CBC WITH AUTO DIFF [HEME] DAILY Lab 03/13/17 05:00 Ordered CBC WITH AUTO DIFF [HEME] DAILY Lab 03/14/17 05:00 Ordered CBC WITH AUTO DIFF [HEME] DAILY Lab 03/15/17 05:00 Ordered MAGNESIUM [CHEM] DAILY Lab 03/11/17 05:00 Ordered MAGNESIUM [CHEM] DAILY Lab 03/12/17 05:00 Ordered MAGNESIUM [CHEM] DAILY Lab 03/13/17 05:00 Ordered MAGNESIUM [CHEM] DAILY Lab 03/14/17 05:00 Ordered MAGNESIUM [CHEM] DAILY Lab 03/15/17 05:00 Ordered MAGNESIUM [CHEM] Routine Lab 03/10/17 16:25 Ordered Acetaminophen [Tylenol] Med 03/10/17 16:28 Ordered 650 mg RECTAL Q4H PRN Albuterol/Ipratropium [DuoNeb 3.0-0.5 MG/3 ML] Med 03/10/17 16:28 Ordered 3 ml NEB Q4HRRT PRN Cefepime [Maxipime in D5W 1 GM/50 ML] 1 gm Med 03/10/17 16:15 Ordered Premix Bag 1 bag IV Q8H Heparin Sodium Med 03/10/17 21:00 Ordered 5,000 units SUBCUT Q12HR Levofloxacin/Dextrose 5%-Water [Levaquin in D5W 750 MG/ Med 03/11/17 13:00 Active 150 ML] 750 mg Premix Bag 1 bag IV Q24H Metoprolol Tartrate [Lopressor] Med 03/10/17 16:24 Ordered 5 mg IVPUSH Q6H PRN Ondansetron [Zofran] Med 03/10/17 16:28 Ordered 4 mg IVPUSH Q4H PRN Sodium Chloride 0.9% @ 75 MLS/HR(1,000ml) Med 03/10/17 16:30 Ordered Sodium Chloride 0.9% [Normal Saline] 1,000 ml IV ASDIRECTED Vancomycin Pharmacy to Dose [Pharmacy to Dose - Med 03/10/17 16:15 Ordered Vancomycin] 1 dose .XX ASDIRECTED Resuscitation Status Routine Resus Stat 03/10/17 16:28 Ordered Medication Orders Acetaminophen (Tylenol) 650 mg RECTAL Q4H PRN PRN Reason: Pain (mild 1-3) Albuterol/Ipratropium (Duoneb 3.0-0.5 Mg/3 Ml) 3 ml NEB Q4HRRT PRN PRN Reason: Shortness Of Breath/wheezing Heparin Sodium (Porcine) (Heparin Sodium) 5,000 units SUBCUT Q12HR [facility] Cefepime HCl 1 gm/ Premix 50 mls @ 100 mls/hr IV Q8H [facility] Levofloxacin/Dextrose 750 mg/ (Premix) 150 mls @ 100 mls/hr IV Q24H [facility] Sodium Chloride (Normal Saline) 1,000 mls @ 75 mls/hr IV ASDIRECTED [facility] Metoprolol Tartrate (Lopressor) 5 mg IVPUSH Q6H PRN PRN Reason: Tachycardia Ondansetron HCl (Zofran) 4 mg IVPUSH Q4H PRN PRN Reason: Nausea Sodium Chloride (Saline Flush) 10 ml FLUSH ASDIRECTED PRN PRN Reason: Keep Vein Open Sodium Chloride (Saline Flush) 2.5 ml FLUSH ASDIRECTED PRN PRN Reason: Keep Vein Open Vancomycin HCl (Pharmacy To Dose - Vancomycin) 1 dose .XX ASDIRECTED [facility] Assessment/Plan Comment:: This 76 year old female admitted with HCAP vs aspiration PNA, UTI, and AMS 1. PNA: Since recent admission will treat with broad spectrum antibiotics, Vancomycin, Levaquin and Cefepime. BC pending. Will place NPO for now until more alert to eat, consult ST. 2. UTI: recent hx MRSA UTI, treat with Vancomycin, culture pending. change anton catheter. 3. AMS: More alert since coming to floor. Will monitor. 4. Afib: HR elevated, Lopressor IV PRN, monitor on telemetry. Magnesium low, will supplement, k+ 4.1. 5. CHF: Gentle IVF since she has very low oral intake. NS 75 for now. Monitor daily weights. VTE prophylaxis: Heparin. Dispo: 3-4 days
[2017-03-10] MEDS: Cefepime 2 GM in Premix Bag 1 BAG IV SCH (16:59)
[2017-03-10] MEDS ORDERED: Magnesium Sulfate/Water 4 GM in Premix Bag 1 BAG IV ONE (17:04)
[2017-03-10] MEDS: Albuterol/Ipratropium 3.0-0.5 MG/3 ML Neb Soln NEB PRN (17:16)
[2017-03-10] MEDS: Metoprolol Tartrate 5 MG/5 ML SDV IVPUSH PRN (18:27)
[2017-03-10] MEDS: Heparin Sodium 5,000 Units/ML Vial SUBCUT SCH (20:46)
[2017-03-11] MEDS: Cefepime 2 GM in Premix Bag 1 BAG IV SCH ×3 (00:45→16:42)
[2017-03-11] MEDS: Sodium Chloride 0.9% 1,000 ML IV SCH (05:30)
[2017-03-11 05:54] LABS: CHLORIDE,CL 112 mmol/L (98-110); SODIUM,NA 139 mmol/L (136-146)
[2017-03-11] MEDS ORDERED: Potassium Chloride 40 MEQ in Sodium Chloride 0.45% 1,000 ML IV SCH (07:45)
--- NOTE | 2017-03-11 08:52 | PCM.PN ---
- General Info Date of Service: 03/11/17 Admission Dx/Problem (Free Text): Admission Diagnosis/Problem Admission Diagnosis/Problem Pneumonia, UTI Subjective Update: Non verbal and no family at bedside. Upon talking to patient, she did move her L arm and adjust herself. Did not open eyes. - Patient Data Vitals - most recent: Last Vital Signs Temp 97.3 F 03/11/17 08:00 Pulse 111 H 03/11/17 08:00 Resp 20 03/11/17 08:00 BP 156/87 H 03/11/17 08:00 Pulse Ox 99 03/11/17 08:00 Weight - most recent: 39 kg I&O - last 24 hours: Intake & Output 03/10/17 03/11/17 03/11/17 22:59 06:59 14:59 Intake Total 700 1050 250 Output Total 300 200 Balance 400 850 250 Lab Results last 24 hrs: Laboratory Results - last 24 hr 03/11/17 03/11/17 Range/Units 05:03 05:03 WBC 10.47 (4.0-11.0) K/uL RBC 3.58 L (4.30-5.90) M/uL Hgb 9.1 L (12.0-16.0) g/dL Hct 29.1 L (36.0-46.0) % MCV 81.3 (80.0-98.0) fL MCH 25.4 L (27.0-32.0) pg MCHC 31.3 (31.0-37.0) g/dL RDW Std Deviation 56.6 (28.0-62.0) fl RDW Coeff of Deanna 19 H (11.0-15.0) % Plt Count 295 (150-400) K/uL MPV 8.90 (7.40-12.00) fL Neut % (Auto) 87.4 H (48.0-80.0) % Lymph % (Auto) 6.6 L (16.0-40.0) % [place] % (Auto) 5.8 (0.0-15.0) % Eos % (Auto) 0.1 (0.0-7.0) % Baso % (Auto) 0.1 (0.0-1.5) % Neut # (Auto) 9.2 H (1.4-5.7) K/uL Lymph # (Auto) 0.7 (0.6-2.4) K/uL [place] # (Auto) 0.6 (0.0-0.8) K/uL Eos # (Auto) 0.0 (0.0-0.7) K/uL Baso # (Auto) 0.0 (0.0-0.1) K/uL Nucleated RBC % 0.0 /100WBC Nucleated RBCs # 0 K/uL Sodium 139 (136-146) mmol/L Potassium 3.4 L (3.5-5.1) mmol/L Chloride 112 H (98-110) mmol/L Carbon Dioxide 19 L (21-31) mmol/L BUN 16 (6.0-23.0) mg/dL Creatinine 0.5 L (0.6-1.5) mg/dL Est Cr Clr Drug Dosing 60.00 mL/min Estimated GFR (MDRD) > 60.0 ml/min Glucose 107 (60-110) mg/dL Calcium 7.6 L (8.8-10.8) mg/dL Magnesium 2.1 (1.5-2.3) mEq/L Med Orders - Current: Current Medications Acetaminophen (Tylenol) 650 mg RECTAL Q4H PRN PRN Reason: Pain (mild 1-3) Albuterol/Ipratropium (Duoneb 3.0-0.5 Mg/3 Ml) 3 ml NEB Q4HRRT PRN PRN Reason: Shortness Of Breath/wheezing Last Admin: 03/10/17 17:16 Dose: 3 ml Heparin Sodium (Porcine) (Heparin Sodium) 5,000 units SUBCUT Q12HR [facility] Last Admin: 03/10/17 20:46 Dose: 5,000 units Levofloxacin/Dextrose 750 mg/ (Premix) 150 mls @ 100 mls/hr IV Q24H [facility] Cefepime HCl 2 gm/ Premix 50 mls @ 100 mls/hr IV Q8H [facility] Last Admin: 03/11/17 00:45 Dose: 100 mls/hr Vancomycin HCl 750 mg/ Sodium (Chloride) 250 mls @ 250 mls/hr IV Q12H [facility] Last Infusion: 03/11/17 07:00 Dose: Infused Potassium Chloride 40 meq/ (Sodium Chloride) 1,020 mls @ 75 mls/hr IV ASDIRECTED [facility] Stop: 03/11/17 21:20 Metoprolol Tartrate (Lopressor) 5 mg IVPUSH Q6H PRN PRN Reason: Tachycardia Last Admin: 03/10/17 18:27 Dose: 5 mg Ondansetron HCl (Zofran) 4 mg IVPUSH Q4H PRN PRN Reason: Nausea Sodium Chloride (Saline Flush) 10 ml FLUSH ASDIRECTED PRN PRN Reason: Keep Vein Open Sodium Chloride (Saline Flush) 2.5 ml FLUSH ASDIRECTED PRN PRN Reason: Keep Vein Open Vancomycin HCl (Pharmacy To Dose - Vancomycin) 1 dose .XX ASDIRECTED [facility] Discontinued Medications Sodium Chloride (Normal Saline) 500 mls @ 999 mls/hr IV STAT [facility] Sodium Chloride (Normal Saline) 500 mls @ 999 mls/hr IV .BOLUS [facility] Sodium Chloride (Normal Saline) 1,000 mls @ 999 mls/hr IV ASDIRECTED [facility] Last Infusion: 03/10/17 14:11 Dose: 300 mls/hr Levofloxacin/Dextrose 500 mg/ (Premix) 100 mls @ 100 mls/hr IV ONETIME ONE Stop: 03/10/17 15:00 Last Admin: 03/10/17 14:11 Dose: 100 mls/hr Sodium Chloride (Normal Saline) 1,000 mls @ 75 mls/hr IV ASDIRECTED [facility] Last Admin: 03/11/17 05:30 Dose: 75 mls/hr Magnesium Sulfate 4 gm/ Premix 100 mls @ 50 mls/hr IV ONETIME ONE Stop: 03/10/17 19:03 Last Admin: 03/10/17 18:04 Dose: 50 mls/hr - Exam Quality Assessment: supplemental oxygen, urine catheter, DVT prophylaxis General: alert, cooperative, no acute distress Lungs: Clear to auscultation, Normal respiratory effort Cardiovascular: Regular Rate, Regular Rhythm Extremities: no edema, normal pulses Wound/Incisions: dressing dry and intact (sacral decubitus) Neurological: no new focal deficit Psy/Mental Status: alert, normal affect, normal mood - Problem List & Annotations (1) UTI (urinary tract infection) SNOMED Code(s): 49300389 Code(s): N39.0 - URINARY TRACT INFECTION, SITE NOT SPECIFIED Status: Acute Current Visit: Yes Qualifiers: Urinary tract infection type: acute cystitis Hematuria presence: with hematuria Qualified Code(s): N30.01 - Acute cystitis with hematuria (2) Pneumonia SNOMED Code(s): 230975401 Code(s): J18.9 - PNEUMONIA, UNSPECIFIED ORGANISM Status: Acute Current Visit: Yes Qualifiers: Pneumonia type: due to unspecified organism Laterality: left Lung location: lower lobe of lung Qualified Code(s): J18.1 - Lobar pneumonia, unspecified organism (3) Altered mental status SNOMED Code(s): 802553317 Code(s): R41.82 - ALTERED MENTAL STATUS, UNSPECIFIED Status: Acute Current Visit: Yes Qualifiers: Altered mental status type: somnolence Qualified Code(s): R40.0 - Somnolence (4) Hx MRSA infection SNOMED Code(s): 676012711, 888676687 Code(s): Z86.14 - PERSONAL HISTORY OF METHICILLIN RESIS STAPH INFECTION Status: Chronic Current Visit: Yes Annotation/Comment:: UTI (5) Pressure ulcer of coccygeal region, stage 4 SNOMED Code(s): 532915634, 662860158 Code(s): L89.154 - PRESSURE ULCER OF SACRAL REGION, STAGE 4 Status: Chronic Priority: Medium Current Visit: Yes (6) History of CVA with residual deficit SNOMED Code(s): 241020764 Code(s): I69.30 - UNSPECIFIED SEQUELAE OF CEREBRAL INFARCTION Status: Chronic Current Visit: No - Problem List Review Problem List Initiated/Reviewed/Updated: Yes - My Orders Last 24 Hours: My Active Orders 03/10/17 16:15 Vancomycin Pharmacy to Dose [Pharmacy to Dose - Vancomycin] 1 dose .XX ASDIRECTED 03/10/17 16:24 Metoprolol Tartrate [Lopressor] 5 mg IVPUSH Q6H PRN 03/10/17 16:26 Telemetry Monitoring [Cardiac Monitoring] [RC] . DIRECTED 03/10/17 16:28 Height and Weight [RC] DAILY Oxygen Therapy [RC] PRN Vital Signs [RC] Q4H Acetaminophen [Tylenol] 650 mg RECTAL Q4H PRN Albuterol/Ipratropium [DuoNeb 3.0-0.5 MG/3 ML] 3 ml NEB Q4HRRT PRN Ondansetron [Zofran] 4 mg IVPUSH Q4H PRN Resuscitation Status Routine 03/10/17 16:29 Intake and Output [RC] Q12H 03/10/17 16:30 RT Aerosol Therapy [RC] ASDIRECTED 03/10/17 16:45 Cefepime [Maxipime in D5W 2 GM/50 ML] 2 gm Premix Bag 1 bag IV Q8H 03/10/17 17:00 Nguyen Catheter Insertion [Insert Urinary Catheter] [OM.PC] Q24H Urinary Catheter Assessment [RC] Q4H 03/10/17 17:02 Consult to Speech Language Pathology [TUBE SIZER OPERATOR Evaluation and Treatment] [CONS] Routine 03/10/17 21:00 Heparin Sodium 5,000 units SUBCUT Q12HR 03/10/17 Dinner Nothing per Oral Now Diet [DIET] 03/11/17 07:45 Potassium Chloride 40 meq Sodium Chloride 0.45% 1,000 ml IV ASDIRECTED 03/11/17 13:00 Levofloxacin/Dextrose 5%-Water [Levaquin in D5W 750 MG/150 ML] 750 mg Premix Bag 1 bag IV Q24H 03/12/17 05:00 BASIC METABOLIC PANEL,BMP [CHEM] DAILY CBC WITH AUTO DIFF [HEME] DAILY MAGNESIUM [CHEM] DAILY 03/13/17 05:00 BASIC METABOLIC PANEL,BMP [CHEM] DAILY CBC WITH AUTO DIFF [HEME] DAILY MAGNESIUM [CHEM] DAILY 03/14/17 05:00 BASIC METABOLIC PANEL,BMP [CHEM] DAILY CBC WITH AUTO DIFF [HEME] DAILY MAGNESIUM [CHEM] DAILY 03/15/17 05:00 BASIC METABOLIC PANEL,BMP [CHEM] DAILY CBC WITH AUTO DIFF [HEME] DAILY MAGNESIUM [CHEM] DAILY - Plan Plan:: This 76 year old female admitted with HCAP vs aspiration PNA, UTI, and AMS 1. PNA: Continue with broad spectrum antibiotics, Vancomycin, Levaquin and Cefepime. BC pending. NPO for now until more alert to eat, consulted ST. After speaking with ST, will possible consult General surgery for PEG tube placement consultation. confirms he would want to pursue this. 2. UTI: recent hx MRSA UTI, treat with Vancomycin, culture pending. Urine more clear this morning 3. AMS: Monitor. 4. Afib: Lopressor IV PRN, monitor on telemetry. Magnesium 2.1 today, K+3.4, will supplement in fluids. 5. CHF: Gentle IVF since she has very low oral intake. Change to 1/2 NS with 40 kcl 75. Monitor daily weights. VTE prophylaxis: Heparin. Dispo: 3-4 days
[2017-03-11] MEDS: Heparin Sodium 5,000 Units/ML Vial SUBCUT SCH ×2 (10:18→20:36)
[2017-03-11] MEDS ORDERED: Fluconazole/Dextrose 200 MG in Premix Bag 1 BAG IV ONE (11:05)
[2017-03-11] MEDS: Levofloxacin/Dextrose 5%-Water 750 MG in Premix Bag 1 BAG IV SCH (13:54)
--- NOTE | 2017-03-11 15:07 | PCM.SN ---
- Free Text/Narrative Note: Spoke with Dr Martinez regarding PEG tube placement. She agrees she does need this and is willing to place, but recommends placing NG tube now for feedings and she will visit with on Wednesday or as outpatient. I notified and he agrees with this, verbally agreed to NG tube placement for feedings now. Notified PCP, Dr Volodymyr Arellano.
--- NOTE | 2017-03-11 20:32 | PCM.CONS ---
H&P History of Present Illness - General Date of Service: 03/11/17 Admit Problem/Dx: Admission Diagnosis/Problem Admission Diagnosis/Problem Pneumonia, UTI Source of Information: Family History Limitations: Reports: Physical Impairment - History of Present Illness Initial Comments - Free Text/Narative: Patient is a 76-year-old female status post CVA with left-sided weakness and dysarthria. She requires [id number] care for all of her ADLs. She lives at home with her and is cared for by him and a care provider that comes to the home. The patient was admitted 2 days ago with failure to thrive as well as a possible left-sided pneumonia and UTI. According to the , she will eat small amounts for him but has significant swallowing difficulties due to the stroke. Many times she will just hold food in her mouth as opposed eating it. For the last several weeks she has not been eating much at all. She has been admitted for dehydration in the past as well. She has a large sacral ulcer that is being managed with 3 times a day dressing changes. At this point in time the patient is unable to take anything by mouth due to her physical limitations. She is unable to follow commands. Her last bowel movement was this morning. She had a previous hysterectomy performed via a lower midline incision. She is currently on IV fluids and receiving IV antibiotics. Her white blood count has come down to 10 and currently her vital signs are stable. Her recently made the patient DNR DNI other than medications in the event of a cardiac arrest. In the meantime, he would like to provide all medical cares necessary for his . - Related Data Allergies/Adverse Reactions: Allergies Allergy/AdvReac Type Severity Reaction Status Date / Time Penicillins Allergy Cannot Verified 03/10/17 13:15 Remember Home Medications: Home Meds Metoprolol Succinate 50 mg PO DAILY #30 tab.er.24h 11/04/16 [Rx] Digoxin [Lanoxin] 125 mcg PO DAILY #30 tablet 03/04/17 [Rx] Sulfamethoxazole/Trimethoprim [IJD: Sulfamethoxazole/Trimethoprim DS] 1 tab PO DAILY 03/10/17 [History] Past Medical History HEENT History: Reports: None Cardiovascular History: Reports: Afib, Heart Failure, Hypertension Gastrointestinal History: Reports: Other (See Below) Other Gastrointestinal History: constipation Genitourinary History: Reports: UTI, Recurrent, Other (See Below) Other Genitourinary History: MRSA positive in urine 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: Reports: Musculoskeletal History: Reports: Other (See Below) Other Musculoskeletal History: Contractures Neurological History: Reports: CVA, Other (See Below) Other Neuro History: Brain tumor Psychiatric History: Reports: Other (See Below) Other Psychiatric History: Non-verbal Endocrine/Metabolic History: Reports: None Oncologic (Cancer) History: Reports: Brain Dermatologic History: Reports: Other (See Below) Other Dermatologic History: Unstageable pressure ulcer to coccyx - Infectious Disease History Infectious Disease History: Reports: MRSA - Past Surgical History HEENT Surgical History: Reports: None Cardiovascular Surgical History: Reports: None GI Surgical History: Reports: None Female Surgical History: Reports: Hysterectomy Oncologic Surgical History: Reports: None Social & Family History - Family History Family Medical History: Noncontributory - Tobacco Use Smoking Status *Q: Never Smoker Second Hand Smoke Exposure: No - Caffeine Use Caffeine Use: Reports: None - Alcohol Use Days Per Week of Alcohol Use: 0 - Recreational Drug Use Recreational Drug Use: No - Living Situation & Occupation Living situation: Reports: with Spouse, Other (has caregiver as well) Occupation: Disabled H&P Review of Systems - Review of Systems: Review Of Systems: Unable To Obtain Exam - Exam Exam: See Below - Vital Signs Vital Signs: Last Vital Signs Temp 36.4 C 03/11/17 16:00 Pulse 109 H 03/11/17 16:00 Resp 20 03/11/17 16:00 BP 161/78 H 03/11/17 16:00 Pulse Ox 97 03/11/17 16:28 Weight: 39 kg - Exam Quality Assessment: Supplemental Oxygen General: Obtunded HEENT: Conjunctiva Clear, Mucosa Moist & [place], Nares Patent, Pupils Equal, Pupils Reactive Neck: Trachea Midline Lungs: Clear to Auscultation, Normal Respiratory Effort Cardiovascular: Regular Rhythm, Tachycardia Abdomen: Soft, Other (well healed lower midline abdominal incision). No: Distention, Guarding, Rigidity, Rebound Back Exam: Other (scoliosis) Skin: Warm, Dry Neurological: Other (contractures of the left arm and legs) Neuro Extensive - Mental Status: Alert, Withdraws to Pain Neuro Extensive - Motor, Sensory, Reflexes: Total Aphasia, Hemeplagia (L) - Patient Data Lab Results Last 24 hrs: Laboratory Results - last 24 hr 03/11/17 03/11/17 Range/Units 05:03 05:03 WBC 10.47 (4.0-11.0) K/uL RBC 3.58 L (4.30-5.90) M/uL Hgb 9.1 L (12.0-16.0) g/dL Hct 29.1 L (36.0-46.0) % MCV 81.3 (80.0-98.0) fL MCH 25.4 L (27.0-32.0) pg MCHC 31.3 (31.0-37.0) g/dL RDW Std Deviation 56.6 (28.0-62.0) fl RDW Coeff of Deanna 19 H (11.0-15.0) % Plt Count 295 (150-400) K/uL MPV 8.90 (7.40-12.00) fL Neut % (Auto) 87.4 H (48.0-80.0) % Lymph % (Auto) 6.6 L (16.0-40.0) % [place] % (Auto) 5.8 (0.0-15.0) % Eos % (Auto) 0.1 (0.0-7.0) % Baso % (Auto) 0.1 (0.0-1.5) % Neut # (Auto) 9.2 H (1.4-5.7) K/uL Lymph # (Auto) 0.7 (0.6-2.4) K/uL [place] # (Auto) 0.6 (0.0-0.8) K/uL Eos # (Auto) 0.0 (0.0-0.7) K/uL Baso # (Auto) 0.0 (0.0-0.1) K/uL Nucleated RBC % 0.0 /100WBC Nucleated RBCs # 0 K/uL Sodium 139 (136-146) mmol/L Potassium 3.4 L (3.5-5.1) mmol/L Chloride 112 H (98-110) mmol/L Carbon Dioxide 19 L (21-31) mmol/L BUN 16 (6.0-23.0) mg/dL Creatinine 0.5 L (0.6-1.5) mg/dL Est Cr Clr Drug Dosing 60.00 mL/min Estimated GFR (MDRD) > 60.0 ml/min Glucose 107 (60-110) mg/dL Calcium 7.6 L (8.8-10.8) mg/dL Magnesium 2.1 (1.5-2.3) mEq/L Result Diagrams: 03/11/17 05:03 03/11/17 05:03 Consult PN Assessment/Plan Procedures: Procedures ASSAY OF CK (CPK) (04/26/14) ASSAY OF LACTIC ACID (02/25/17) ASSAY OF MAGNESIUM (02/25/17) ASSAY OF PHOSPHORUS (07/22/14) ASSAY OF TROPONIN QUANT (02/25/17) ASSAY OF VANCOMYCIN (02/25/17) ASSAY THYROID STIM HORMONE (02/25/17) BLOOD CULTURE FOR BACTERIA (02/25/17) BLOOD GASES ANY COMBINATION (02/25/17) CHEST X-RAY 1 VIEW FRONTAL (02/25/17) CHEST X-RAY 2VW FRONTAL&LATL (07/22/14) COMPLETE CBC W/AUTO DIFF WBC (02/25/17) COMPREHEN METABOLIC PANEL (02/25/17) CREATINE MB FRACTION (07/22/14) CT ABD & PELVIS W/O CONTRAST (10/31/16) CT HEAD/BRAIN W/O DYE (02/25/17) CT NECK SPINE W/O DYE (07/22/14) CULTURE AEROBIC IDENTIFY (10/31/16) ELECTROCARDIOGRAM TRACING (02/25/17) EMERGENCY DEPT VISIT (02/25/17) EMERGENCY DEPT VISIT (04/26/14) EMERGENCY DEPT VISIT (04/26/14) EVALUATE SWALLOWING FUNCTION (02/25/17) GLUCOSE BLOOD TEST (02/25/17) HYDRATE IV INFUSION ADD-ON (02/25/17) INSERT BLADDER CATH COMPLEX (02/25/17) MEDICAL NUTRITION INDIV IN (10/31/16) METABOLIC PANEL TOTAL CA (02/25/17) MICROBE SUSCEPTIBLE ALIYA (02/25/17) ORAL FUNCTION THERAPY (02/25/17) PPSV23 VACC 2 YRS+ SUBQ/IM (07/22/14) PROTHROMBIN TIME (02/25/17) PT EVALUATION (07/22/14) ROUTINE VENIPUNCTURE (02/25/17) THER/PROPH/DIAG INJ IV PUSH (07/22/14) THER/PROPH/DIAG IV INF INIT (02/25/17) THERAPEUTIC ACTIVITIES (07/22/14) URINALYSIS AUTO W/SCOPE (02/25/17) URINE BACTERIA CULTURE (02/25/17) URINE CULTURE/COLONY COUNT (02/25/17) WITHDRAWAL OF ARTERIAL BLOOD (02/25/17) X-RAY EXAM HIP UNI 2-3 VIEWS (10/31/16) X-RAY EXAM L-S SPINE 2/3 VWS (07/22/14) X-RAY EXAM OF ABDOMEN (10/31/16) X-RAY EXAM THORAC SPINE 3VWS (07/22/14) (1) Failure to thrive SNOMED Code(s): 37666104 Code(s): LLG2293 - Current Visit: Yes (2) Dysphagia as late effect of cerebrovascular accident (CVA) SNOMED Code(s): 754845663 Code(s): I69.391 - DYSPHAGIA FOLLOWING CEREBRAL INFARCTION Current Visit: Yes Problem List Initiated/Reviewed/Updated: Yes Plan: Due to the patient's stroke she is unable to swallow appropriately or follow commands enough to adequately meet her nutritional needs. Her albumin is low she appears slightly cachectic. She will need a feeding tube placed because of this and the 's desire to provide maximum medical therapy. I discussed the need for feeding tube and the surgical techniques to place it. I explained the open gastrostomy as well as the percutaneous endoscopically placed gastrostomy tube. Ideally I would perform this via a PEG procedure. I explained the expected perioperative course as well as the risks. Given this patient's previous stroke she carries a greater risk of anesthetic complications. I will discuss her case with anesthesia prior to doing any surgical procedure. We discussed the risks of surgery including bleeding infection or damage to surrounding structures. Because her previous surgery was done through a lower midline incision I feel it would be safe to proceed with a PEG. However to rule out any bowel distention I would like to order a plain film of the abdomen. We discussed the need to suspend her DNR/DNI status for the surgery itself. The consented to blood if it should be needed. The patient's is in agreement and wishes to proceed. I attempted to place a feeding tube and NG tube at bedside. Despite multiple attempts and repositioning, I was unable to get the feeding tube to go into the patient's stomach. She is nutritionally deplete in any form of enteral nutrition prior to this procedure will be beneficial. However we do not have the proper feeding tubes available in our facility at this time. I would favor PPN nutrition however will leave this decision up to her primary team. I will discuss this procedure with the anesthesia team tomorrow and tentatively plan on an operation this coming Wednesday. That will allow the patient to have enough time to recover from her infections and be resuscitated. I will continue to follow along. Please call with any questions or concerns.
[2017-03-11] MEDS: Metoprolol Tartrate 5 MG/5 ML SDV IVPUSH PRN (20:48)
[2017-03-12] MEDS: Cefepime 2 GM in Premix Bag 1 BAG IV SCH ×3 (00:13→15:46)
[2017-03-12] MEDS: Metoprolol Tartrate 5 MG/5 ML SDV IVPUSH PRN ×2 (03:28→20:32)
[2017-03-12] MEDS ORDERED: Potassium Chloride 40 MEQ in Sodium Chloride 0.45% 1,000 ML IV SCH (04:45)
[2017-03-12 06:08] LABS: CHLORIDE,CL 113 mmol/L (98-110); SODIUM,NA 140 mmol/L (136-146)
[2017-03-12] MEDS ORDERED: Magnesium Sulfate/Water 4 GM in Premix Bag 1 BAG IV ONE (07:51)
--- NOTE | 2017-03-12 07:53 | PCM.PN ---
- General Info Date of Service: 03/12/17 Admission Dx/Problem (Free Text): Admission Diagnosis/Problem Admission Diagnosis/Problem Pneumonia, UTI Subjective Update: Non-verbal. Is alert, open eyes slightly when spoken to. at bedside, he is very pleased with treatment plan at this time. Discussed tachycardia, with possible afib. Jane has been taking ASA daily, but we discussed the need for possible chronic anticoagulation to reduce further stroke risk. He will think about it, but is likely wanting this started. Will start after PEG tube placement, closer to discharge. - Patient Data Vitals - most recent: Last Vital Signs Temp 97.2 F 03/12/17 04:00 Pulse 108 H 03/12/17 03:28 Resp 18 03/12/17 04:00 BP 130/61 03/12/17 04:00 Pulse Ox 98 03/12/17 04:00 Weight - most recent: 43 kg I&O - last 24 hours: Intake & Output 03/11/17 03/12/17 03/12/17 22:59 06:59 14:59 Intake Total 1535 721 250 Output Total 225 200 Balance 1310 521 250 Lab Results last 24 hrs: Laboratory Results - last 24 hr 03/12/17 03/12/17 03/12/17 Range/Units 04:20 04:20 04:20 WBC 8.66 (4.0-11.0) K/uL RBC 3.52 L (4.30-5.90) M/uL Hgb 9.0 L (12.0-16.0) g/dL Hct 28.7 L (36.0-46.0) % MCV 81.5 (80.0-98.0) fL MCH 25.6 L (27.0-32.0) pg MCHC 31.4 (31.0-37.0) g/dL RDW Std Deviation 57.6 (28.0-62.0) fl RDW Coeff of Deanna 19 H (11.0-15.0) % Plt Count 295 (150-400) K/uL MPV 9.20 (7.40-12.00) fL Neut % (Auto) 79.5 (48.0-80.0) % Lymph % (Auto) 13.2 L (16.0-40.0) % [place] % (Auto) 6.6 (0.0-15.0) % Eos % (Auto) 0.5 (0.0-7.0) % Baso % (Auto) 0.2 (0.0-1.5) % Neut # (Auto) 6.9 H (1.4-5.7) K/uL Lymph # (Auto) 1.1 (0.6-2.4) K/uL [place] # (Auto) 0.6 (0.0-0.8) K/uL Eos # (Auto) 0.0 (0.0-0.7) K/uL Baso # (Auto) 0.0 (0.0-0.1) K/uL Nucleated RBC % 0.0 /100WBC Nucleated RBCs # 0 K/uL Sodium 140 (136-146) mmol/L Potassium 4.0 (3.5-5.1) mmol/L Chloride 113 H (98-110) mmol/L Carbon Dioxide 19 L (21-31) mmol/L BUN 12 (6.0-23.0) mg/dL Creatinine 0.5 L (0.6-1.5) mg/dL Est Cr Clr Drug Dosing 67.01 mL/min Estimated GFR (MDRD) > 60.0 ml/min Glucose 80 (60-110) mg/dL Calcium 7.6 L (8.8-10.8) mg/dL Magnesium 1.5 (1.5-2.3) mEq/L Vancomycin Trough 14.6 (5-15) ug/mL Med Orders - Current: Current Medications Acetaminophen (Tylenol) 650 mg RECTAL Q4H PRN PRN Reason: Pain (mild 1-3) Albuterol/Ipratropium (Duoneb 3.0-0.5 Mg/3 Ml) 3 ml NEB Q4HRRT PRN PRN Reason: Shortness Of Breath/wheezing Last Admin: 03/10/17 17:16 Dose: 3 ml Heparin Sodium (Porcine) (Heparin Sodium) 5,000 units SUBCUT Q12HR [facility] Last Admin: 03/11/17 20:36 Dose: 5,000 units Levofloxacin/Dextrose 750 mg/ (Premix) 150 mls @ 100 mls/hr IV Q24H [facility] Last Admin: 03/11/17 13:54 Dose: 100 mls/hr Cefepime HCl 2 gm/ Premix 50 mls @ 100 mls/hr IV Q8H [facility] Last Admin: 03/12/17 00:13 Dose: 100 mls/hr Vancomycin HCl 750 mg/ Sodium (Chloride) 250 mls @ 250 mls/hr IV Q12H [facility] Last Admin: 03/12/17 06:30 Dose: 250 mls/hr Magnesium Sulfate 4 gm/ Premix 100 mls @ 50 mls/hr IV ONETIME ONE Stop: 03/12/17 09:50 Sodium Chloride (Sodium Chloride 0.45%) 1,000 mls @ 50 mls/hr IV ASDIRECTED [facility] Metoprolol Tartrate (Lopressor) 5 mg IVPUSH Q6H PRN PRN Reason: Tachycardia Last Admin: 03/12/17 03:28 Dose: 5 mg Ondansetron HCl (Zofran) 4 mg IVPUSH Q4H PRN PRN Reason: Nausea Sodium Chloride (Saline Flush) 10 ml FLUSH ASDIRECTED PRN PRN Reason: Keep Vein Open Sodium Chloride (Saline Flush) 2.5 ml FLUSH ASDIRECTED PRN PRN Reason: Keep Vein Open Vancomycin HCl (Pharmacy To Dose - Vancomycin) 1 dose .XX ASDIRECTED [facility] Discontinued Medications Sodium Chloride (Normal Saline) 500 mls @ 999 mls/hr IV STAT [facility] Sodium Chloride (Normal Saline) 500 mls @ 999 mls/hr IV .BOLUS [facility] Sodium Chloride (Normal Saline) 1,000 mls @ 999 mls/hr IV ASDIRECTED [facility] Last Infusion: 03/10/17 14:11 Dose: 300 mls/hr Levofloxacin/Dextrose 500 mg/ (Premix) 100 mls @ 100 mls/hr IV ONETIME ONE Stop: 03/10/17 15:00 Last Admin: 03/10/17 14:11 Dose: 100 mls/hr Sodium Chloride (Normal Saline) 1,000 mls @ 75 mls/hr IV ASDIRECTED [facility] Last Admin: 03/11/17 05:30 Dose: 75 mls/hr Magnesium Sulfate 4 gm/ Premix 100 mls @ 50 mls/hr IV ONETIME ONE Stop: 03/10/17 19:03 Last Admin: 03/10/17 18:04 Dose: 50 mls/hr Potassium Chloride 40 meq/ (Sodium Chloride) 1,020 mls @ 75 mls/hr IV ASDIRECTED [facility] Stop: 03/11/17 21:20 Last Admin: 03/11/17 09:54 Dose: 75 mls/hr Fluconazole 200 mg/ Premix 100 mls @ 100 mls/hr IV ONETIME ONE Stop: 03/11/17 12:04 Last Admin: 03/11/17 11:15 Dose: 100 mls/hr Potassium Chloride 40 meq/ (Sodium Chloride) 1,020 mls @ 75 mls/hr IV ASDIRECTED [facility] Last Admin: 03/12/17 05:46 Dose: 75 mls/hr - Exam General: alert, cooperative, no acute distress Lungs: Clear to auscultation, Normal respiratory effort Cardiovascular: Regular Rate, Regular Rhythm Abdomen: bowel sounds present, soft, no tenderness, no distension Extremities: normal pulses, edema (trace to +1 edema to bilateral feet) Wound/Incisions: decubitis (dressing intact, no erythema.) Psy/Mental Status: alert, normal affect, normal mood - Problem List & Annotations (1) UTI (urinary tract infection) SNOMED Code(s): 82575397 Code(s): N39.0 - URINARY TRACT INFECTION, SITE NOT SPECIFIED Status: Acute Current Visit: Yes Qualifiers: Urinary tract infection type: acute cystitis Hematuria presence: with hematuria Qualified Code(s): N30.01 - Acute cystitis with hematuria (2) Pneumonia SNOMED Code(s): 021193223 Code(s): J18.9 - PNEUMONIA, UNSPECIFIED ORGANISM Status: Acute Current Visit: Yes Qualifiers: Pneumonia type: due to unspecified organism Laterality: left Lung location: lower lobe of lung Qualified Code(s): J18.1 - Lobar pneumonia, unspecified organism (3) Altered mental status SNOMED Code(s): 598464015 Code(s): R41.82 - ALTERED MENTAL STATUS, UNSPECIFIED Status: Acute Current Visit: Yes Qualifiers: Altered mental status type: somnolence Qualified Code(s): R40.0 - Somnolence (4) Hx MRSA infection SNOMED Code(s): 681394424, 413259529 Code(s): Z86.14 - PERSONAL HISTORY OF METHICILLIN RESIS STAPH INFECTION Status: Chronic Current Visit: Yes Annotation/Comment:: UTI (5) Pressure ulcer of coccygeal region, stage 4 SNOMED Code(s): 938740193, 340707746 Code(s): L89.154 - PRESSURE ULCER OF SACRAL REGION, STAGE 4 Status: Chronic Priority: Medium Current Visit: Yes (6) History of CVA with residual deficit SNOMED Code(s): 515781606 Code(s): I69.30 - UNSPECIFIED SEQUELAE OF CEREBRAL INFARCTION Status: Chronic Current Visit: No (7) Malnutrition SNOMED Code(s): 2411267 Code(s): E46 - UNSPECIFIED PROTEIN-CALORIE MALNUTRITION Status: Acute Current Visit: Yes (8) Failure to thrive SNOMED Code(s): 66101707 Code(s): ZKL7328 - Status: Acute Current Visit: Yes Qualifiers: Failure to thrive age range: in adult Qualified Code(s): R62.7 - Adult failure to thrive - Problem List Review Problem List Initiated/Reviewed/Updated: Yes - My Orders Last 24 Hours: My Active Orders 03/11/17 08:49 Dressing Change [Wound Care] [RC] Q8H 03/11/17 13:00 Levofloxacin/Dextrose 5%-Water [Levaquin in D5W 750 MG/150 ML] 750 mg Premix Bag 1 bag IV Q24H 03/11/17 14:53 Consult to Packaging Machine Operator [CONS] Routine 03/11/17 15:05 NG [Nasogastric Orogastric Tube Insertion] [OM.PC] Routine 03/12/17 07:51 Magnesium Sulfate/Water [Magnesium Sulfate 4 GM in Water 100 ML] 4 gm Premix Bag 1 bag IV ONETIME 03/12/17 08:00 Sodium Chloride 0.45% 1,000 ml IV ASDIRECTED 03/13/17 05:00 BASIC METABOLIC PANEL,BMP [CHEM] DAILY CBC WITH AUTO DIFF [HEME] DAILY MAGNESIUM [CHEM] DAILY 03/14/17 05:00 BASIC METABOLIC PANEL,BMP [CHEM] DAILY CBC WITH AUTO DIFF [HEME] DAILY MAGNESIUM [CHEM] DAILY 03/15/17 05:00 BASIC METABOLIC PANEL,BMP [CHEM] DAILY CBC WITH AUTO DIFF [HEME] DAILY MAGNESIUM [CHEM] DAILY - Plan Plan:: This 76 year old female admitted with HCAP vs aspiration PNA, UTI, and AMS 1. PNA: Continue with broad spectrum antibiotics, Vancomycin, Levaquin and Cefepime. BC negative. NPO, consulted Dr. Martinez, General surgery for PEG tube placement consultation. Plan for placement on Wednesday, unable to place NG tube last evening for tube feedings. After discussion with he declines wanting to start PPN at this time. Will change IVFs to D51/2 NS and monitor closely 2. UTI: UC reveals yeast, Given Diflucan 200 mg IV x1 yesterday 3. AMS: resolved, more alert. 4. Afib/tachycardia: A lot of artifact noted on EKG, possibly Afib or tachycardia. Some irregularity to rhythm. Lopressor IV PRN, monitor on telemetry. Supplement magnesium. debating chronic anticoagluation besides ASA which she has been on at home. 5. CHF: Monitor daily weights. 6. Malnutrition: secondary to dysphagia from hx CVA Plan for PEG tube placement on Wednesday. VTE prophylaxis: Heparin. Dispo: 3-4 days
[2017-03-12] MEDS ORDERED: Sodium Chloride 0.45% 1,000 ML IV SCH (08:00)
[2017-03-12] MEDS: Heparin Sodium 5,000 Units/ML Vial SUBCUT SCH ×2 (08:22→21:06)
[2017-03-12] MEDS ORDERED: Dextrose 5%-0.45% NaCl 1,000 ML IV SCH (10:30)
--- NOTE | 2017-03-12 11:40 | CR ---
EXAMINATION: Abdomen HISTORY: Rule out distention COMPARISON: 11/04/2016 TECHNIQUE: Single view FINDINGS: There is stool and gas throughout the colon most prominent within the rectosigmoid region. No dilated loops of small bowel. No abnormal calcifications project over the kidneys. No organomega ly. The visualized osseous structures appear osteopenic. IMPRESSION: 1. Mild amount of stool and gas throughout the colon most prominent within the rectal region. Correl ate clinically for constipation versus mild impaction.
--- NOTE | 2017-03-12 12:17 | PCM.SN ---
- Free Text/Narrative Note: Abdominal xray shows some constipation but otherwise normal bowel ga pattern. Plan for PEG possbile open gastrostomy on Wednesday. Please make NPO at midnight. Please call recruiting consultant physician this weekend with any questions or concerns.
[2017-03-12] MEDS: Levofloxacin/Dextrose 5%-Water 750 MG in Premix Bag 1 BAG IV SCH (12:38)
[2017-03-12] MEDS ORDERED: Bisacodyl 10 MG Supp RECTAL PRN (14:42)
[2017-03-12] MEDS: Albuterol/Ipratropium 3.0-0.5 MG/3 ML Neb Soln NEB PRN (19:53)
[2017-03-13] MEDS: Sodium Chloride 0.65% Nasal Spray 45 ML Bottle NAS SCH ×3 (00:28→20:24)
[2017-03-13] MEDS: Cefepime 2 GM in Premix Bag 1 BAG IV SCH ×2 (00:30→08:30)
[2017-03-13 06:47] LABS: CHLORIDE,CL 111 mmol/L (98-110); SODIUM,NA 136 mmol/L (136-146)
--- NOTE | 2017-03-13 08:49 | PCM.PN ---
- Review of Systems Systems Review Comment:: nonverbal - Patient Data Vitals - most recent: Last Vital Signs Temp 36.9 C 03/13/17 08:00 Pulse 93 03/13/17 08:00 Resp 16 03/13/17 08:00 BP 109/50 L 03/13/17 08:00 Pulse Ox 96 03/13/17 08:00 Weight - most recent: 42.5 kg I&O - last 24 hours: Intake & Output 03/12/17 03/13/17 03/13/17 22:59 06:59 14:59 Intake Total 550 730 250 Output Total 450 260 Balance 100 470 250 Lab Results last 24 hrs: Laboratory Results - last 24 hr 03/13/17 03/13/17 Range/Units 05:38 05:38 WBC 7.00 (4.0-11.0) K/uL RBC 3.46 L (4.30-5.90) M/uL Hgb 8.8 L (12.0-16.0) g/dL Hct 27.9 L (36.0-46.0) % MCV 80.6 (80.0-98.0) fL MCH 25.4 L (27.0-32.0) pg MCHC 31.5 (31.0-37.0) g/dL RDW Std Deviation 55.9 (28.0-62.0) fl RDW Coeff of Deanna 19 H (11.0-15.0) % Plt Count 321 (150-400) K/uL MPV 9.30 (7.40-12.00) fL Neut % (Auto) 78.0 (48.0-80.0) % Lymph % (Auto) 13.6 L (16.0-40.0) % [place] % (Auto) 7.6 (0.0-15.0) % Eos % (Auto) 0.7 (0.0-7.0) % Baso % (Auto) 0.1 (0.0-1.5) % Neut # (Auto) 5.5 (1.4-5.7) K/uL Lymph # (Auto) 1.0 (0.6-2.4) K/uL [place] # (Auto) 0.5 (0.0-0.8) K/uL Eos # (Auto) 0.1 (0.0-0.7) K/uL Baso # (Auto) 0.0 (0.0-0.1) K/uL Nucleated RBC % 0.0 /100WBC Nucleated RBCs # 0 K/uL Sodium 136 (136-146) mmol/L Potassium 3.0 L (3.5-5.1) mmol/L Chloride 111 H (98-110) mmol/L Carbon Dioxide 18 L (21-31) mmol/L BUN 9 (6.0-23.0) mg/dL Creatinine 0.5 L (0.6-1.5) mg/dL Est Cr Clr Drug Dosing 66.23 mL/min Estimated GFR (MDRD) > 60.0 ml/min Glucose 109 (60-110) mg/dL Calcium 7.8 L (8.8-10.8) mg/dL Magnesium 1.6 (1.5-2.3) mEq/L Med Orders - Current: Current Medications Acetaminophen (Tylenol) 650 mg RECTAL Q4H PRN PRN Reason: Pain (mild 1-3) Albuterol/Ipratropium (Duoneb 3.0-0.5 Mg/3 Ml) 3 ml NEB Q4HRRT PRN PRN Reason: Shortness Of Breath/wheezing Last Admin: 03/12/17 19:53 Dose: 3 ml Bisacodyl (Dulcolax) 10 mg RECTAL DAILY PRN PRN Reason: Constipation Heparin Sodium (Porcine) (Heparin Sodium) 5,000 units SUBCUT Q12HR [facility] Last Admin: 03/12/17 21:06 Dose: 5,000 units Levofloxacin/Dextrose 750 mg/ (Premix) 150 mls @ 100 mls/hr IV Q24H [facility] Last Admin: 03/12/17 12:38 Dose: 100 mls/hr Cefepime HCl 2 gm/ Premix 50 mls @ 100 mls/hr IV Q8H [facility] Last Admin: 03/13/17 08:30 Dose: 100 mls/hr Vancomycin HCl 750 mg/ Sodium (Chloride) 250 mls @ 250 mls/hr IV Q12H [facility] Last Admin: 03/13/17 06:32 Dose: 250 mls/hr Dextrose/Sodium Chloride (Dextrose 5%-1/2 Ns) 1,000 mls @ 50 mls/hr IV ASDIRECTED [facility] Last Admin: 03/12/17 11:00 Dose: 50 mls/hr Metoprolol Tartrate (Lopressor) 5 mg IVPUSH Q6H PRN PRN Reason: Tachycardia Last Admin: 03/12/17 20:32 Dose: 5 mg Ondansetron HCl (Zofran) 4 mg IVPUSH Q4H PRN PRN Reason: Nausea Sodium Chloride (Saline Flush) 10 ml FLUSH ASDIRECTED PRN PRN Reason: Keep Vein Open Sodium Chloride (Saline Flush) 2.5 ml FLUSH ASDIRECTED PRN PRN Reason: Keep Vein Open Sodium Chloride ([place] Nasal [place]) 1 ml KIEL BID [facility] Last Admin: 03/13/17 00:28 Dose: 1 ml Vancomycin HCl (Pharmacy To Dose - Vancomycin) 1 dose .XX ASDIRECTED [facility] Discontinued Medications Sodium Chloride (Normal Saline) 500 mls @ 999 mls/hr IV STAT DWIGHT Sodium Chloride (Normal Saline) 500 mls @ 999 mls/hr IV .BOLUS DWIGHT Sodium Chloride (Normal Saline) 1,000 mls @ 999 mls/hr IV ASDIRECTED [facility] Last Infusion: 03/10/17 14:11 Dose: 300 mls/hr Levofloxacin/Dextrose 500 mg/ (Premix) 100 mls @ 100 mls/hr IV ONETIME ONE Stop: 03/10/17 15:00 Last Admin: 03/10/17 14:11 Dose: 100 mls/hr Sodium Chloride (Normal Saline) 1,000 mls @ 75 mls/hr IV ASDIRECTED [facility] Last Admin: 03/11/17 05:30 Dose: 75 mls/hr Magnesium Sulfate 4 gm/ Premix 100 mls @ 50 mls/hr IV ONETIME ONE Stop: 03/10/17 19:03 Last Admin: 03/10/17 18:04 Dose: 50 mls/hr Potassium Chloride 40 meq/ (Sodium Chloride) 1,020 mls @ 75 mls/hr IV ASDIRECTED [facility] Stop: 03/11/17 21:20 Last Admin: 03/11/17 09:54 Dose: 75 mls/hr Fluconazole 200 mg/ Premix 100 mls @ 100 mls/hr IV ONETIME ONE Stop: 03/11/17 12:04 Last Admin: 03/11/17 11:15 Dose: 100 mls/hr Potassium Chloride 40 meq/ (Sodium Chloride) 1,020 mls @ 75 mls/hr IV ASDIRECTED [facility] Last Admin: 03/12/17 05:46 Dose: 75 mls/hr Magnesium Sulfate 4 gm/ Premix 100 mls @ 50 mls/hr IV ONETIME ONE Stop: 03/12/17 09:50 Last Admin: 03/12/17 08:21 Dose: 50 mls/hr Sodium Chloride (Sodium Chloride 0.45%) 1,000 mls @ 50 mls/hr IV ASDIRECTED [facility] Last Admin: 03/12/17 09:56 Dose: 50 mls/hr - Exam General: lethargic Lungs: Clear to auscultation, Normal respiratory effort Cardiovascular: Regular Rate, Regular Rhythm Abdomen: bowel sounds present, soft, no tenderness, no distension Extremities: no edema Skin: warm, dry, intact - Problem List Review Problem List Initiated/Reviewed/Updated: Yes - My Orders Last 24 Hours: My Active Orders 03/12/17 23:22 Sodium Chloride 0.65% [[place] Nasal [place]] 1 ml KIEL BID - Plan Plan:: This 76 year old female admitted with HCAP vs aspiration PNA, UTI, and AMS PNA with suspected gram negative infection or possible MRSA: Continue antibiotics, Vancomycin, and Levaquin UTI: UC reveals yeast, Given Diflucan 200 mg IV x1 Afib/tachycardia: Lopressor IV PRN, monitor on telemetry. Supplement magnesium and potassium. debating chronic anticoagluation besides ASA which she has been on at home. Hypokalemia: replacing CHF: Monitor daily weights. Malnutrition/protein deficiency: secondary to dysphagia from hx CVA Plan for PEG tube placement on Wednesday. VTE prophylaxis: Heparin. Dispo: 3-4 days
[2017-03-13] MEDS ORDERED: Magnesium Sulfate/Water 2 GM in Premix Bag 1 BAG IV ONE (09:00)
[2017-03-13] MEDS: D5 1/2 NS w/ 20 mEq/L KCl 1,000 ML IV SCH (09:19)
[2017-03-13] MEDS: Heparin Sodium 5,000 Units/ML Vial SUBCUT SCH ×2 (09:24→20:21)
[2017-03-13] MEDS: Levofloxacin/Dextrose 5%-Water 750 MG in Premix Bag 1 BAG IV SCH (12:06)
[2017-03-13] MEDS: Metoprolol Tartrate 5 MG/5 ML SDV IVPUSH PRN (13:47)
[2017-03-14] MEDS: D5 1/2 NS w/ 20 mEq/L KCl 1,000 ML IV SCH (01:30)
[2017-03-14] MEDS: Metoprolol Tartrate 5 MG/5 ML SDV IVPUSH PRN ×2 (04:09→23:47)
[2017-03-14 06:58] LABS: CHLORIDE,CL 110 mmol/L (98-110); SODIUM,NA 135 mmol/L (136-146)
[2017-03-14] MEDS: Heparin Sodium 5,000 Units/ML Vial SUBCUT SCH ×2 (08:17→21:20)
[2017-03-14] MEDS: Sodium Chloride 0.65% Nasal Spray 45 ML Bottle NAS SCH ×2 (08:19→20:33)
[2017-03-14] MEDS ORDERED: Magnesium Sulfate/Water 2 GM in Premix Bag 1 BAG IV ONE (10:48)
[2017-03-14] MEDS: D5 1/2 NS w/ 40 mEq/L KCl 1,000 ML IV SCH ×2 (11:41→22:53)
--- NOTE | 2017-03-14 11:55 | PCM.PN ---
- Review of Systems Systems Review Comment:: nonverbal - Patient Data Vitals - most recent: Last Vital Signs Temp 36.5 C 03/14/17 08:00 Pulse 81 03/14/17 08:00 Resp 16 03/14/17 08:00 BP 118/57 L 03/14/17 08:00 Pulse Ox 97 03/14/17 08:00 Weight - most recent: 42.5 kg I&O - last 24 hours: Intake & Output 03/13/17 03/14/17 03/14/17 22:59 06:59 14:59 Intake Total 621 831 950 Output Total 350 400 Balance 271 431 950 Lab Results last 24 hrs: Laboratory Results - last 24 hr 03/14/17 03/14/17 Range/Units 05:30 05:30 WBC 5.83 (4.0-11.0) K/uL RBC 3.45 L (4.30-5.90) M/uL Hgb 8.9 L (12.0-16.0) g/dL Hct 27.3 L (36.0-46.0) % MCV 79.1 L (80.0-98.0) fL MCH 25.8 L (27.0-32.0) pg MCHC 32.6 (31.0-37.0) g/dL RDW Std Deviation 54.3 (28.0-62.0) fl RDW Coeff of Deanna 19 H (11.0-15.0) % Plt Count 319 (150-400) K/uL MPV 9.30 (7.40-12.00) fL Neut % (Auto) 71.7 (48.0-80.0) % Lymph % (Auto) 18.2 (16.0-40.0) % [place] % (Auto) 8.4 (0.0-15.0) % Eos % (Auto) 1.5 (0.0-7.0) % Baso % (Auto) 0.2 (0.0-1.5) % Neut # (Auto) 4.2 (1.4-5.7) K/uL Lymph # (Auto) 1.1 (0.6-2.4) K/uL [place] # (Auto) 0.5 (0.0-0.8) K/uL Eos # (Auto) 0.1 (0.0-0.7) K/uL Baso # (Auto) 0.0 (0.0-0.1) K/uL Nucleated RBC % 0.0 /100WBC Nucleated RBCs # 0 K/uL Sodium 135 L (136-146) mmol/L Potassium 2.9 L (3.5-5.1) mmol/L Chloride 110 (98-110) mmol/L Carbon Dioxide 18 L (21-31) mmol/L BUN 4 L (6.0-23.0) mg/dL Creatinine 0.4 L (0.6-1.5) mg/dL Est Cr Clr Drug Dosing 82.79 mL/min Estimated GFR (MDRD) > 60.0 ml/min Glucose 126 H (60-110) mg/dL Calcium 7.3 L (8.8-10.8) mg/dL Magnesium 1.4 L (1.5-2.3) mEq/L Med Orders - Current: Current Medications Acetaminophen (Tylenol) 650 mg RECTAL Q4H PRN PRN Reason: Pain (mild 1-3) Albuterol/Ipratropium (Duoneb 3.0-0.5 Mg/3 Ml) 3 ml NEB Q4HRRT PRN PRN Reason: Shortness Of Breath/wheezing Last Admin: 03/12/17 19:53 Dose: 3 ml Bisacodyl (Dulcolax) 10 mg RECTAL DAILY PRN PRN Reason: Constipation Heparin Sodium (Porcine) (Heparin Sodium) 5,000 units SUBCUT Q12HR [facility] Last Admin: 03/14/17 08:17 Dose: 5,000 units Levofloxacin/Dextrose 750 mg/ (Premix) 150 mls @ 100 mls/hr IV Q24H [facility] Last Admin: 03/13/17 12:06 Dose: 100 mls/hr Vancomycin HCl 750 mg/ Sodium (Chloride) 250 mls @ 250 mls/hr IV Q12H [facility] Last Admin: 03/14/17 06:28 Dose: 250 mls/hr Potassium Chloride/Dextrose/Sod Cl (D5 1/2 Ns W/ 40 Meq/L Kcl) 1,000 mls @ 100 mls/hr IV ASDIRECTED [facility] Last Admin: 03/14/17 11:41 Dose: 100 mls/hr Metoprolol Tartrate (Lopressor) 5 mg IVPUSH Q6H PRN PRN Reason: Tachycardia Last Admin: 03/14/17 04:09 Dose: 5 mg Ondansetron HCl (Zofran) 4 mg IVPUSH Q4H PRN PRN Reason: Nausea Sodium Chloride (Saline Flush) 10 ml FLUSH ASDIRECTED PRN PRN Reason: Keep Vein Open Sodium Chloride (Saline Flush) 2.5 ml FLUSH ASDIRECTED PRN PRN Reason: Keep Vein Open Sodium Chloride ([place] Nasal [place]) 1 ml KIEL BID [facility] Last Admin: 03/14/17 08:19 Dose: 1 ml Vancomycin HCl (Pharmacy To Dose - Vancomycin) 1 dose .XX ASDIRECTED [facility] Discontinued Medications Sodium Chloride (Normal Saline) 500 mls @ 999 mls/hr IV STAT DWIGHT Sodium Chloride (Normal Saline) 500 mls @ 999 mls/hr IV .BOLUS DWIGHT Sodium Chloride (Normal Saline) 1,000 mls @ 999 mls/hr IV ASDIRECTED [facility] Last Infusion: 03/10/17 14:11 Dose: 300 mls/hr Levofloxacin/Dextrose 500 mg/ (Premix) 100 mls @ 100 mls/hr IV ONETIME ONE Stop: 03/10/17 15:00 Last Admin: 03/10/17 14:11 Dose: 100 mls/hr Sodium Chloride (Normal Saline) 1,000 mls @ 75 mls/hr IV ASDIRECTED [facility] Last Admin: 03/11/17 05:30 Dose: 75 mls/hr Cefepime HCl 2 gm/ Premix 50 mls @ 100 mls/hr IV Q8H [facility] Last Admin: 03/13/17 08:30 Dose: 100 mls/hr Magnesium Sulfate 4 gm/ Premix 100 mls @ 50 mls/hr IV ONETIME ONE Stop: 03/10/17 19:03 Last Admin: 03/10/17 18:04 Dose: 50 mls/hr Potassium Chloride 40 meq/ (Sodium Chloride) 1,020 mls @ 75 mls/hr IV ASDIRECTED [facility] Stop: 03/11/17 21:20 Last Admin: 03/11/17 09:54 Dose: 75 mls/hr Fluconazole 200 mg/ Premix 100 mls @ 100 mls/hr IV ONETIME ONE Stop: 03/11/17 12:04 Last Admin: 03/11/17 11:15 Dose: 100 mls/hr Potassium Chloride 40 meq/ (Sodium Chloride) 1,020 mls @ 75 mls/hr IV ASDIRECTED [facility] Last Admin: 03/12/17 05:46 Dose: 75 mls/hr Magnesium Sulfate 4 gm/ Premix 100 mls @ 50 mls/hr IV ONETIME ONE Stop: 03/12/17 09:50 Last Admin: 03/12/17 08:21 Dose: 50 mls/hr Sodium Chloride (Sodium Chloride 0.45%) 1,000 mls @ 50 mls/hr IV ASDIRECTED [facility] Last Admin: 03/12/17 09:56 Dose: 50 mls/hr Dextrose/Sodium Chloride (Dextrose 5%-1/2 Ns) 1,000 mls @ 50 mls/hr IV ASDIRECTED [facility] Last Admin: 03/12/17 11:00 Dose: 50 mls/hr Potassium Chloride/Dextrose/Sod Cl (D5 1/2 Ns W/ 20 Meq/L Kcl) 1,000 mls @ 75 mls/hr IV ASDIRECTED [facility] Last Admin: 03/14/17 01:30 Dose: 75 mls/hr Magnesium Sulfate 2 gm/ Premix 50 mls @ 50 mls/hr IV ONETIME ONE Stop: 03/13/17 09:59 Last Admin: 03/13/17 09:21 Dose: 50 mls/hr Magnesium Sulfate 2 gm/ Premix 50 mls @ 50 mls/hr IV ONETIME ONE Stop: 03/14/17 11:47 Last Admin: 03/14/17 11:37 Dose: 50 mls/hr - Exam General: no acute distress, lethargic Lungs: Clear to auscultation, Normal respiratory effort Cardiovascular: Regular Rate, Regular Rhythm Extremities: edema (+1 edema) Skin: warm, dry, intact Neurological: no new focal deficit - Problem List Review Problem List Initiated/Reviewed/Updated: Yes - My Orders Last 24 Hours: My Active Orders 03/14/17 11:00 D5 1/2 NS w/ 40 mEq/L KCl 1,000 ml IV ASDIRECTED - Plan Plan:: This 76 year old female admitted with HCAP vs aspiration PNA, UTI, and AMS PNA: Cultures are ngtd will d/c vancomycin and Continue Levaquin UTI: UC reveals yeast, Given Diflucan 200 mg IV x1 Afib/tachycardia: Lopressor IV PRN, monitor on telemetry. Supplement magnesium and potassium. debating chronic anticoagluation besides ASA which she has been on at home. Hypokalemia/hypomagnesia: replacing CHF: Monitor daily weights. Malnutrition/protein deficiency: secondary to dysphagia from hx CVA Plan for PEG tube placement on Wednesday. VTE prophylaxis: Heparin. Dispo: 3-4 days
[2017-03-14] MEDS: Levofloxacin/Dextrose 5%-Water 750 MG in Premix Bag 1 BAG IV SCH (12:41)
[2017-03-15 06:19] LABS: CHLORIDE,CL 109 mmol/L (98-110); SODIUM,NA 133 mmol/L (136-146)
--- NOTE | 2017-03-15 07:16 | PCM.PRNOTE ---
- Free Text/Narrative Note: Patient is a 76 yo female with failure to thrive secondary to CVA stroke subsequent dysphagia. She is currently on Levaquin for possible pneumonia ( cultures have all been negative) and UTI (on diflucan, levaquin). She had no acute events overnight. She is resting comfortably this am and vitals as stable. Lungs are clear to auscultation and heart rate is regular with regular rythm. Abdomen is soft flat and nontender. I visited with the about the procedure and sunny-operative course again. He understands that if we cannot perform a PEG we will do an open gastrostomy placement. Patient is cleared to go to the OR today.
[2017-03-15] MEDS ORDERED: Bupivacaine 0.5% 30 ML SDV ONE (07:23)
[2017-03-15] MEDS ORDERED: Lidocaine 1% 20 ML MDV ONE (07:23)
[2017-03-15] MEDS ORDERED: Magnesium Sulfate/Water 4 GM in Premix Bag 1 BAG IV ONE (07:44)
--- NOTE | 2017-03-15 07:51 | PCM.PREANE ---
Preanesthetic Assessment - Anesthesia/Transfusion/Family Hx Anesthesia History: No Prior Anesthesia Transfusion History: No Prior Transfusion(s) - Review of Systems General: Other (malnutrition, hypo K and Mg (k corrected)aphasia, l hemiparesis , extremity contractures) Pulmonary: Other (pneumonia? neg cultures, on abx) Cardiovascular: Other (afib) Gastrointestinal: Decreased appetite, Difficulty swallowing Neurological: Pre-Existing Deficit - Physical Assessment Pulse: 123 O2 Sat by Pulse Oximetry: 96 Respiratory Rate: 16 Blood Pressure: 115/68 Vital Signs: Last Vital Signs Temp 36.4 C 03/15/17 04:00 Pulse 72 03/15/17 04:00 Resp 16 03/15/17 04:00 BP 122/64 03/15/17 04:00 Pulse Ox 96 03/15/17 04:00 Height: 1.68 m Weight: 42 kg ASA Class: 4 - Lab Values: Laboratory Last Values WBC 5.96 K/uL (4.0-11.0) 03/15/17 05:19 RBC 3.84 M/uL (4.30-5.90) L 03/15/17 05:19 Hgb 9.8 g/dL (12.0-16.0) L 03/15/17 05:19 Hct 30.3 % (36.0-46.0) L 03/15/17 05:19 MCV 78.9 fL (80.0-98.0) L 03/15/17 05:19 MCH 25.5 pg (27.0-32.0) L 03/15/17 05:19 MCHC 32.3 g/dL (31.0-37.0) 03/15/17 05:19 RDW Std Deviation 53.6 fl (28.0-62.0) 03/15/17 05:19 RDW Coeff of Deanna 19 % (11.0-15.0) H 03/15/17 05:19 Plt Count 309 K/uL (150-400) 03/15/17 05:19 MPV 9.50 fL (7.40-12.00) 03/15/17 05:19 Neut % (Auto) 68.7 % (48.0-80.0) 03/15/17 05:19 Lymph % (Auto) 18.0 % (16.0-40.0) 03/15/17 05:19 [place] % (Auto) 10.9 % (0.0-15.0) 03/15/17 05:19 Eos % (Auto) 2.2 % (0.0-7.0) 03/15/17 05:19 Baso % (Auto) 0.2 % (0.0-1.5) 03/15/17 05:19 Neut # (Auto) 4.1 K/uL (1.4-5.7) 03/15/17 05:19 Lymph # (Auto) 1.1 K/uL (0.6-2.4) 03/15/17 05:19 [place] # (Auto) 0.7 K/uL (0.0-0.8) 03/15/17 05:19 Eos # (Auto) 0.1 K/uL (0.0-0.7) 03/15/17 05:19 Baso # (Auto) 0.0 K/uL (0.0-0.1) 03/15/17 05:19 Nucleated RBC % 0.0 /100WBC 03/15/17 05:19 Nucleated RBCs # 0 K/uL 03/15/17 05:19 INR 1.09 (0.86-1.11) 03/10/17 12:50 ABG pH 7.506 (7.35-7.45) H 03/10/17 13:31 ABG pCO2 32 mmHG (35-45) L 03/10/17 13:31 ABG pO2 70 mmHG (75-100) L 03/10/17 13:31 ABG HCO3 25 mEq/L (22-26) 03/10/17 13:31 ABG Total CO2 22.8 03/10/17 13:31 ABG Base Excess 2.0 (-2.0-2.0) 03/10/17 13:31 Lactate 1.3 mmol/L (0.20-2.00) 03/10/17 12:50 Sodium 133 mmol/L (136-146) L 03/15/17 05:19 Potassium 3.8 mmol/L (3.5-5.1) 03/15/17 05:19 Chloride 109 mmol/L (98-110) 03/15/17 05:19 Carbon Dioxide 19 mmol/L (21-31) L 03/15/17 05:19 BUN 2 mg/dL (6.0-23.0) L 03/15/17 05:19 Creatinine 0.4 mg/dL (0.6-1.5) L 03/15/17 05:19 Est Cr Clr Drug Dosing 81.81 mL/min 03/15/17 05:19 Estimated GFR (MDRD) > 60.0 ml/min 03/15/17 05:19 Glucose 142 mg/dL (60-110) H 03/15/17 05:19 Calcium 7.5 mg/dL (8.8-10.8) L 03/15/17 05:19 Magnesium 1.3 mEq/L (1.5-2.3) L 03/15/17 05:19 Total Bilirubin 0.5 mg/dL (0.1-1.5) 03/10/17 12:50 AST 23 IU/L (5-40) 03/10/17 12:50 ALT 9 IU/L (8-54) 03/10/17 12:50 Alkaline Phosphatase 87 (40-150) 03/10/17 12:50 Ammonia 55 UG/DL (14-68) 03/10/17 12:50 Troponin I < 0.10 NG/ML (0.0-0.29) 03/10/17 12:50 Total Protein 5.9 g/dL (6.0-8.0) L 03/10/17 12:50 Albumin 2.7 g/dL (3.4-4.8) L 03/10/17 12:50 Globulin 3.2 g/dL (2.0-3.5) 03/10/17 12:50 Albumin/Globulin Ratio 0.8 (1.3-2.8) L 03/10/17 12:50 Urine Color YELLOW 03/10/17 12:55 Urine Appearance CLEAR 03/10/17 12:55 Urine pH 5.5 (5.0-8.0) 03/10/17 12:55 Ur Specific [place] >= 1.030 (1.001-1.035) 03/10/17 12:55 Urine Protein TRACE mg/dL (NEGATIVE) 03/10/17 12:55 Urine Glucose (UA) NEGATIVE mg/dL (NEGATIVE) 03/10/17 12:55 Urine Ketones TRACE mg/dL (NEGATIVE) H 03/10/17 12:55 Urine Occult Blood MODERATE (NEGATIVE) 03/10/17 12:55 Urine Nitrite NEGATIVE (NEGATIVE) 03/10/17 12:55 Urine Bilirubin SMALL (NEGATIVE) H 03/10/17 12:55 Urine Ictotest 03/10/17 12:55 Urine Urobilinogen 0.2 EU/dL (<2.0) 03/10/17 12:55 Ur Leukocyte Esterase LARGE (NEGATIVE) 03/10/17 12:55 Urine RBC 3-5 (0-2/HPF) 03/10/17 12:55 Urine WBC 55-60 (0-5/HPF) 03/10/17 12:55 Ur Epithelial Cells MODERATE (NONE-FEW) 03/10/17 12:55 Urine Bacteria FEW (NEGATIVE) 03/10/17 12:55 Urine Yeast MANY 03/10/17 12:55 Vancomycin Trough 14.6 ug/mL (5-15) 03/12/17 04:20 Digoxin 0.72 ng/mL (0.8-2.0) L 03/10/17 14:00 - Allergies Allergies/Adverse Reactions: Allergies Allergy/AdvReac Type Severity Reaction Status Date / Time Penicillins Allergy Cannot Verified 03/10/17 13:15 Remember - Anesthesia Plan Pre-Op Medication Ordered: None - Acknowledgements Anesthesia Type Planned: General Anesthesia Pt an Appropriate Candidate for the Planned Anesthesia: Yes Alternatives and Risks of Anesthesia Discussed w Pt/Guardian: Yes Pt/Guardian Understands and Agrees with Anesthesia Plan: Yes Additional Comments: PMH: htn chf, hx or mrsa in urine, wants no CPR and no defibrillation, but will allow maximal drug therapy for recuscitation and will allow intraoperative ETT placement. 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 PROCESSING TECH History: Reports: Musculoskeletal History: Reports: Other (See Below) Other Musculoskeletal History: Contractures Neurological History: Reports: CVA, Other (See Below) Other Neuro History: Brain tumor Psychiatric History: Reports: Other (See Below) Other Psychiatric History: Non-verbal Endocrine/Metabolic History: Reports: None Oncologic (Cancer) History: Reports: Brain Dermatologic History: Reports: Other (See Below) Other Dermatologic History: Unstageable pressure ulcer to coccyx - Infectious Disease History Infectious Disease History: Reports: MRSA - Past Surgical History HEENT Surgical History: Reports: None Cardiovascular Surgical History: Reports: None GI Surgical History: Reports: None Female Surgical History: Reports: Hysterectomy Oncologic Surgical History: Reports: None - SUBSTANCE USE Smoking Status *Q: Never Smoker Second Hand Smoke Exposure: No Days Per Week of Alcohol Use: 0 Recreational Drug Use History: No - HOME MEDS Home Medications: Home Meds Metoprolol Succinate 50 mg PO DAILY #30 tab.er.24h 11/04/16 [Rx] Digoxin [Lanoxin] 125 mcg PO DAILY #30 tablet 03/04/17 [Rx] Sulfamethoxazole/Trimethoprim [IJD: Sulfamethoxazole/Trimethoprim DS] 1 tab PO DAILY 03/10/17 [History] - CURRENT (IN HOUSE) MEDS Current Meds: Current Medications Acetaminophen (Tylenol) 650 mg RECTAL Q4H PRN PRN Reason: Pain (mild 1-3) Albuterol/Ipratropium (Duoneb 3.0-0.5 Mg/3 Ml) 3 ml NEB Q4HRRT PRN PRN Reason: Shortness Of Breath/wheezing Last Admin: 03/12/17 19:53 Dose: 3 ml Bisacodyl (Dulcolax) 10 mg RECTAL DAILY PRN PRN Reason: Constipation Heparin Sodium (Porcine) (Heparin Sodium) 5,000 units SUBCUT Q12HR [facility] Last Admin: 03/14/17 21:20 Dose: 5,000 units Levofloxacin/Dextrose 750 mg/ (Premix) 150 mls @ 100 mls/hr IV Q24H [facility] Last Admin: 03/14/17 12:41 Dose: 100 mls/hr Potassium Chloride/Dextrose/Sod Cl (D5 1/2 Ns W/ 40 Meq/L Kcl) 1,000 mls @ 100 mls/hr IV ASDIRECTED [facility] Last Admin: 03/14/17 22:53 Dose: 100 mls/hr Magnesium Sulfate 4 gm/ Premix 100 mls @ 50 mls/hr IV ONETIME ONE Stop: 03/15/17 09:43 Metoprolol Tartrate (Lopressor) 5 mg IVPUSH Q6H PRN PRN Reason: Tachycardia Last Admin: 03/14/17 23:47 Dose: 5 mg Ondansetron HCl (Zofran) 4 mg IVPUSH Q4H PRN PRN Reason: Nausea Sodium Chloride (Saline Flush) 10 ml FLUSH ASDIRECTED PRN PRN Reason: Keep Vein Open Sodium Chloride (Saline Flush) 2.5 ml FLUSH ASDIRECTED PRN PRN Reason: Keep Vein Open Sodium Chloride ([place] Nasal [place]) 1 ml KIEL BID [facility] Last Admin: 03/14/17 20:33 Dose: 1 ml Discontinued Medications Bupivacaine HCl (Marcaine 0.5%) Confirm Administered Dose 30 ml .ROUTE .STK-MED ONE Stop: 03/15/17 07:24 Sodium Chloride (Normal Saline) 500 mls @ 999 mls/hr IV STAT DWIGHT Sodium Chloride (Normal Saline) 500 mls @ 999 mls/hr IV .BOLUS DWIGHT Sodium Chloride (Normal Saline) 1,000 mls @ 999 mls/hr IV ASDIRECTED [facility] Last Infusion: 03/10/17 14:11 Dose: 300 mls/hr Levofloxacin/Dextrose 500 mg/ (Premix) 100 mls @ 100 mls/hr IV ONETIME ONE Stop: 03/10/17 15:00 Last Admin: 03/10/17 14:11 Dose: 100 mls/hr Sodium Chloride (Normal Saline) 1,000 mls @ 75 mls/hr IV ASDIRECTED [facility] Last Admin: 03/11/17 05:30 Dose: 75 mls/hr Cefepime HCl 2 gm/ Premix 50 mls @ 100 mls/hr IV Q8H [facility] Last Admin: 03/13/17 08:30 Dose: 100 mls/hr Vancomycin HCl 750 mg/ Sodium (Chloride) 250 mls @ 250 mls/hr IV Q12H [facility] Last Admin: 03/14/17 06:28 Dose: 250 mls/hr Magnesium Sulfate 4 gm/ Premix 100 mls @ 50 mls/hr IV ONETIME ONE Stop: 03/10/17 19:03 Last Admin: 03/10/17 18:04 Dose: 50 mls/hr Potassium Chloride 40 meq/ (Sodium Chloride) 1,020 mls @ 75 mls/hr IV ASDIRECTED [facility] Stop: 03/11/17 21:20 Last Admin: 03/11/17 09:54 Dose: 75 mls/hr Fluconazole 200 mg/ Premix 100 mls @ 100 mls/hr IV ONETIME ONE Stop: 03/11/17 12:04 Last Admin: 03/11/17 11:15 Dose: 100 mls/hr Potassium Chloride 40 meq/ (Sodium Chloride) 1,020 mls @ 75 [facility]ls[facility] Admin: 03/12/17 05:46 Dose: 75 mls/hr Magnesium Sulfate 4 gm/ Premix 100 mls @ 50 mls/hr IV ONETIME ONE Stop: 03/12/17 09:50 Last Admin: 03/12/17 08:21 Dose: 50 mls/hr Sodium Chloride (Sodium Chloride 0.45%) 1,000 mls @ 50 mls[facility] Last Admin: 03/12/17 09:56 Dose: 50 mls/hr Dextrose/Sodium Chloride (Dextrose 5%-1/2 Ns) 1,000 mls @ [facility]ls[facility] Admin: 03/12/17 11:00 Dose: 50 mls/hr Potassium Chloride/Dextrose/Sod Cl (D5 1/2 Ns W/ 20 Meq/L Kcl) 1,000 mls @ 75 mls/hr IV ASDIRECTED [facility] Last Admin: 03/14/17 01:30 Dose: 75 mls/hr Magnesium Sulfate 2 gm/ Premix 50 mls @ 50 mls/hr IV ONETIME ONE Stop: 03/13/17 09:59 Last Admin: 03/13/17 09:21 Dose: 50 mls/hr Magnesium Sulfate 2 gm/ Premix 50 mls @ 50 mls/hr IV ONETIME ONE Stop: 03/14/17 11:47 Last Admin: 03/14/17 11:37 Dose: 50 mls/hr Lidocaine HCl (Xylocaine 1%) Confirm Administered Dose 20 ml .ROUTE .STK-MED ONE Stop: 03/15/17 07:24 Vancomycin HCl (Pharmacy To Dose - Vancomycin) 1 dose .XX ASDIRECTED [facility]
--- NOTE | 2017-03-15 08:01 | PCM.PN ---
- General Info Date of Service: 03/15/17 Admission Dx/Problem (Free Text): Admission Diagnosis/Problem Admission Diagnosis/Problem Pneumonia, UTI Subjective Update: Nonverbal. at bedside, reports her being wide awake earlier. Continues to agree with PEG tube placement this afternoon with Dr. Martinez. - Patient Data Vitals - most recent: Last Vital Signs Temp 97.6 F 03/15/17 04:00 Pulse 123 H 03/15/17 07:51 Resp 16 03/15/17 07:51 BP 115/68 03/15/17 07:51 Pulse Ox 96 03/15/17 07:51 Weight - most recent: 42 kg I&O - last 24 hours: Intake & Output 03/14/17 03/15/17 03/15/17 22:59 06:59 14:59 Intake Total 1024 0 Output Total 725 475 Balance 299 -475 Lab Results last 24 hrs: Laboratory Results - last 24 hr 03/15/17 03/15/17 Range/Units 05:19 05:19 WBC 5.96 (4.0-11.0) K/uL RBC 3.84 L (4.30-5.90) M/uL Hgb 9.8 L (12.0-16.0) g/dL Hct 30.3 L (36.0-46.0) % MCV 78.9 L (80.0-98.0) fL MCH 25.5 L (27.0-32.0) pg MCHC 32.3 (31.0-37.0) g/dL RDW Std Deviation 53.6 (28.0-62.0) fl RDW Coeff of Deanna 19 H (11.0-15.0) % Plt Count 309 (150-400) K/uL MPV 9.50 (7.40-12.00) fL Neut % (Auto) 68.7 (48.0-80.0) % Lymph % (Auto) 18.0 (16.0-40.0) % [place] % (Auto) 10.9 (0.0-15.0) % Eos % (Auto) 2.2 (0.0-7.0) % Baso % (Auto) 0.2 (0.0-1.5) % Neut # (Auto) 4.1 (1.4-5.7) K/uL Lymph # (Auto) 1.1 (0.6-2.4) K/uL [place] # (Auto) 0.7 (0.0-0.8) K/uL Eos # (Auto) 0.1 (0.0-0.7) K/uL Baso # (Auto) 0.0 (0.0-0.1) K/uL Nucleated RBC % 0.0 /100WBC Nucleated RBCs # 0 K/uL Sodium 133 L (136-146) mmol/L Potassium 3.8 (3.5-5.1) mmol/L Chloride 109 (98-110) mmol/L Carbon Dioxide 19 L (21-31) mmol/L BUN 2 L (6.0-23.0) mg/dL Creatinine 0.4 L (0.6-1.5) mg/dL Est Cr Clr Drug Dosing 81.81 mL/min Estimated GFR (MDRD) > 60.0 ml/min Glucose 142 H (60-110) mg/dL Calcium 7.5 L (8.8-10.8) mg/dL Magnesium 1.3 L (1.5-2.3) mEq/L Med Orders - Current: Current Medications Acetaminophen (Tylenol) 650 mg RECTAL Q4H PRN PRN Reason: Pain (mild 1-3) Albuterol/Ipratropium (Duoneb 3.0-0.5 Mg/3 Ml) 3 ml NEB Q4HRRT PRN PRN Reason: Shortness Of Breath/wheezing Last Admin: 03/12/17 19:53 Dose: 3 ml Bisacodyl (Dulcolax) 10 mg RECTAL DAILY PRN PRN Reason: Constipation Heparin Sodium (Porcine) (Heparin Sodium) 5,000 units SUBCUT Q12HR [facility] Last Admin: 03/14/17 21:20 Dose: 5,000 units Levofloxacin/Dextrose 750 mg/ (Premix) 150 mls @ 100 mls/hr IV Q24H [facility] Last Admin: 03/14/17 12:41 Dose: 100 mls/hr Potassium Chloride/Dextrose/Sod Cl (D5 1/2 Ns W/ 40 Meq/L Kcl) 1,000 mls @ 100 mls/hr IV ASDIRECTED [facility] Last Admin: 03/14/17 22:53 Dose: 100 mls/hr Magnesium Sulfate 4 gm/ Premix 100 mls @ 50 mls/hr IV ONETIME ONE Stop: 03/15/17 09:43 Last Admin: 03/15/17 07:54 Dose: 50 mls/hr Metoprolol Tartrate (Lopressor) 5 mg IVPUSH Q6H PRN PRN Reason: Tachycardia Last Admin: 03/14/17 23:47 Dose: 5 mg Ondansetron HCl (Zofran) 4 mg IVPUSH Q4H PRN PRN Reason: Nausea Sodium Chloride (Saline Flush) 10 ml FLUSH ASDIRECTED PRN PRN Reason: Keep Vein Open Sodium Chloride (Saline Flush) 2.5 ml FLUSH ASDIRECTED PRN PRN Reason: Keep Vein Open Sodium Chloride ([place] Nasal [place]) 1 ml KIEL BID [facility] Last Admin: 03/14/17 20:33 Dose: 1 ml Discontinued Medications Bupivacaine HCl (Marcaine 0.5%) Confirm Administered Dose 30 ml .ROUTE .STK-MED ONE Stop: 03/15/17 07:24 Sodium Chloride (Normal Saline) 500 mls @ 999 mls/hr IV STAT DWIGHT Sodium Chloride (Normal Saline) 500 mls @ 999 mls/hr IV .BOLUS DWIGHT Sodium Chloride (Normal Saline) 1,000 mls @ 999 mls/hr IV ASDIRECTED [facility] Last Infusion: 03/10/17 14:11 Dose: 300 mls/hr Levofloxacin/Dextrose 500 mg/ (Premix) 100 mls @ 100 mls/hr IV ONETIME ONE Stop: 03/10/17 15:00 Last Admin: 03/10/17 14:11 Dose: 100 mls/hr Sodium Chloride (Normal Saline) 1,000 mls @ 75 mls/hr IV ASDIRECTED [facility] Last Admin: 03/11/17 05:30 Dose: 75 mls/hr Cefepime HCl 2 gm/ Premix 50 mls @ 100 mls/hr IV Q8H [facility] Last Admin: 03/13/17 08:30 Dose: 100 mls/hr Vancomycin HCl 750 mg/ Sodium (Chloride) 250 mls @ 250 mls/hr IV Q12H [facility] Last Admin: 03/14/17 06:28 Dose: 250 mls/hr Magnesium Sulfate 4 gm/ Premix 100 mls @ 50 mls/hr IV ONETIME ONE Stop: 03/10/17 19:03 Last Admin: 03/10/17 18:04 Dose: 50 mls/hr Potassium Chloride 40 meq/ (Sodium Chloride) 1,020 mls @ 75 mls/hr IV ASDIRECTED [facility] Stop: 03/11/17 21:20 Last Admin: 03/11/17 09:54 Dose: 75 mls/hr Fluconazole 200 mg/ Premix 100 mls @ 100 mls/hr IV ONETIME ONE Stop: 03/11/17 12:04 Last Admin: 03/11/17 11:15 Dose: 100 mls/hr Potassium Chloride 40 meq/ (Sodium Chloride) 1,020 mls @ 75 mls/hr IV ASDIRECTED [facility] Last Admin: 03/12/17 05:46 Dose: 75 mls/hr Magnesium Sulfate 4 gm/ Premix 100 mls @ 50 mls/hr IV ONETIME ONE Stop: 03/12/17 09:50 Last Admin: 03/12/17 08:21 Dose: 50 mls/hr Sodium Chloride (Sodium Chloride 0.45%) 1,000 mls @ 50 mls/hr IV ASDIRECTED [facility] Last Admin: 03/12/17 09:56 Dose: 50 mls/hr Dextrose/Sodium Chloride (Dextrose 5%-1/2 Ns) 1,000 mls @ 50 mls/hr IV ASDIRECTED [facility] Last Admin: 03/12/17 11:00 Dose: 50 mls/hr Potassium Chloride/Dextrose/Sod Cl (D5 1/2 Ns W/ 20 Meq/L Kcl) 1,000 mls @ 75 mls/hr IV ASDIRECTED [facility] Last Admin: 03/14/17 01:30 Dose: 75 mls/hr Magnesium Sulfate 2 gm/ Premix 50 mls @ 50 mls/hr IV ONETIME ONE Stop: 03/13/17 09:59 Last Admin: 03/13/17 09:21 Dose: 50 mls/hr Magnesium Sulfate 2 gm/ Premix 50 mls @ 50 mls/hr IV ONETIME ONE Stop: 03/14/17 11:47 Last Admin: 03/14/17 11:37 Dose: 50 mls/hr Lidocaine HCl (Xylocaine 1%) Confirm Administered Dose 20 ml .ROUTE .STK-MED ONE Stop: 03/15/17 07:24 Vancomycin HCl (Pharmacy To Dose - Vancomycin) 1 dose .XX ASDIRECTED [facility] - Exam Quality Assessment: supplemental oxygen, urine catheter, DVT prophylaxis General: alert, cooperative, other (does not open eyes, withdraws to pain) Neck: supple Lungs: Clear to auscultation, Normal respiratory effort Cardiovascular: Regular Rate, Regular Rhythm Abdomen: bowel sounds present, soft, no tenderness, no distension Extremities: edema (+1 pitting edema to bilateral feet) Wound/Incisions: dressing dry and intact, decubitis Neurological: no new focal deficit Psy/Mental Status: alert, normal affect, normal mood - Problem List & Annotations (1) UTI (urinary tract infection) SNOMED Code(s): 47479635 Code(s): N39.0 - URINARY TRACT INFECTION, SITE NOT SPECIFIED Status: Acute Current Visit: Yes Qualifiers: Urinary tract infection type: acute cystitis Hematuria presence: with hematuria Qualified Code(s): N30.01 - Acute cystitis with hematuria (2) Pneumonia SNOMED Code(s): 370937759 Code(s): J18.9 - PNEUMONIA, UNSPECIFIED ORGANISM Status: Acute Current Visit: Yes Qualifiers: Pneumonia type: due to unspecified organism Laterality: left Lung location: lower lobe of lung Qualified Code(s): J18.1 - Lobar pneumonia, unspecified organism (3) Altered mental status SNOMED Code(s): 659936249 Code(s): R41.82 - ALTERED MENTAL STATUS, UNSPECIFIED Status: Acute Current Visit: Yes Qualifiers: Altered mental status type: somnolence Qualified Code(s): R40.0 - Somnolence (4) Hx MRSA infection SNOMED Code(s): 657333294, 605068806 Code(s): Z86.14 - PERSONAL HISTORY OF METHICILLIN RESIS STAPH INFECTION Status: Chronic Current Visit: Yes Annotation/Comment:: UTI (5) Pressure ulcer of coccygeal region, stage 4 SNOMED Code(s): 144140775, 876367553 Code(s): L89.154 - PRESSURE ULCER OF SACRAL REGION, STAGE 4 Status: Chronic Priority: Medium Current Visit: Yes (6) History of CVA with residual deficit SNOMED Code(s): 549012432 Code(s): I69.30 - UNSPECIFIED SEQUELAE OF CEREBRAL INFARCTION Status: Chronic Current Visit: No (7) Malnutrition SNOMED Code(s): 9026351 Code(s): E46 - UNSPECIFIED PROTEIN-CALORIE MALNUTRITION Status: Acute Current Visit: Yes (8) Failure to thrive SNOMED Code(s): 24039750 Code(s): VJD0611 - Status: Acute Current Visit: Yes Qualifiers: Failure to thrive age range: in adult Qualified Code(s): R62.7 - Adult failure to thrive - Problem List Review Problem List Initiated/Reviewed/Updated: Yes - My Orders Last 24 Hours: My Active Orders 03/15/17 05:49 PHOSPHORUS [CHEM] Routine 03/15/17 07:44 Magnesium Sulfate/Water [Magnesium Sulfate 4 GM in Water 100 ML] 4 gm Premix Bag 1 bag IV ONETIME - Plan Plan:: This 76 year old female admitted with HCAP vs aspiration PNA, UTI, and AMS 1. PNA: Cultures are ngtd Continue Levaquin. 2. UTI: Chronic anton remains intact. Monitor. 3. Afib/tachycardia: Lopressor IV PRN, monitor on telemetry. Supplement magnesium and potassium. debating chronic anticoagluation besides ASA which she has been on at home. 4. Hypokalemia/hypomagnesia/hypophosphatemia: replacing. Monitor closely for refeeding syndrome with initiation of tube feedings this evening. 5. CHF: Stable. Monitor daily weights. 6. Malnutrition/protein deficiency: secondary to dysphagia from hx CVA. PEG tube successfully placed this afternoon. Per Dr. Martinez, feedings may start this evening at 1800 at 10 ml/hr continuous, will anton plan by medical delivery technician. VTE prophylaxis: Heparin. Dispo: 3-4 days
[2017-03-15] MEDS: Sodium Chloride 0.65% Nasal Spray 45 ML Bottle NAS SCH ×2 (08:06→21:22)
[2017-03-15] MEDS: Heparin Sodium 5,000 Units/ML Vial SUBCUT SCH ×2 (08:06→21:21)
[2017-03-15] MEDS ORDERED: Propofol 200 MG/20 ML SDV ONE ×2 (09:03→10:24)
[2017-03-15] MEDS ORDERED: Lidocaine 2% 5 ML SDV ONE (10:23)
[2017-03-15] MEDS ORDERED: Midazolam 1 MG/ML 2 ML SDV ONE (10:25)
[2017-03-15] MEDS ORDERED: fentaNYL 100 MCG/2 ML SDV ONE (10:25)
[2017-03-15] MEDS ORDERED: POTASSIUM PHOSPHATES IV PRN (10:30)
[2017-03-15] MEDS ORDERED: Potassium Phosphates 45 MMOLE in Sodium Chloride 0.9% 250 ML IV SCH (10:30)
[2017-03-15] MEDS ORDERED: POTASSIUM PHOSPHATES IV SCH (10:30)
[2017-03-15] MEDS ORDERED: SODIUM CHLORIDE IV SCH (10:30)
[2017-03-15] MEDS ORDERED: SODIUM CHLORIDE IV PRN (10:30)
[2017-03-15] MEDS: Dextrose 5%-0.45% NaCl 1,000 ML IV SCH (10:43)
[2017-03-15] MEDS ORDERED: Phenylephrine/Normal Saline 100 MCG/ML 10 ML Syringe ONE (12:16)
[2017-03-15] MEDS ORDERED: ePHEDrine 50 MG/ML SDV ONE (12:16)
[2017-03-15] MEDS ORDERED: Metoprolol Tartrate 5 MG/5 ML SDV ONE (12:21)
--- NOTE | 2017-03-15 12:50 | PCM.OPNOTE ---
- General Post-Op/Procedure Note Date of Surgery/Procedure: 03/15/17 Operative Procedure(s): PEG tube placement Pre Op Diagnosis: Hx of stroke. Failure to thrive. Inability to take oral alimentation. Post-Op Diagnosis: Same Anesthesia Technique: General ET tube (ASA IV) Primary Surgeon: Aleksey Weller Secondary Surgeon: Radha Martinez EBL in mLs: 1 Condition: Fair Free Text/Narrative:: Intake & Output 03/15/17 03/15/17 03/15/17 03:59 11:59 19:59 Intake Total 700 311 Output Total 475 Balance 700 -601 Dictation [id number]
--- NOTE | 2017-03-15 13:22 | PCM.POSTAN ---
POST ANESTHESIA ASSESSMENT - MENTAL STATUS Mental Status: alert, oriented, somnolent, other Free Text/Narrative:: Status post severe CVA and current illness some spontaneous vocalization largely unresponsive - VITAL SIGNS Pulse Rate: 100 SaO2: 97 (O2 dependent on nasal prongs) Resp Rate: 12 Blood Pressure: 104/65 - RESPIRATORY Respiratory Status: respiratory rate WNL, airway patent, O2 saturation stable, supplemental oxygen - CARDIOVASCULAR CV Status: pulse rate WNL, blood pressure stable - GASTROINTESTINAL GI Status: no symptoms - PAIN Pain Score: 0 (no indications of pain per visual assesment) - POST OP HYDRATION Hydration Status: adequate & stable
--- NOTE | 2017-03-15 13:28 | PCM.OPNOTE ---
- General Post-Op/Procedure Note Date of Surgery/Procedure: 03/15/17 Operative Procedure(s): PEG Findings: PEG tube placement. Esophagitis and duodenitis. Pre Op Diagnosis: Failure to thrive Post-Op Diagnosis: Failure to thrive, esophagitis, duodenitis Anesthesia Technique: General ET tube Primary Surgeon: Radha Martinez Secondary Surgeon: Aleksey Weller Condition: Fair Free Text/Narrative:: Intake & Output 03/14/17 03/15/17 03/15/17 22:59 06:59 14:59 Intake Total 1024 0 1311 Output Total 725 475 70 Balance 793 -865 2533
[2017-03-15] MEDS: Levofloxacin/Dextrose 5%-Water 750 MG in Premix Bag 1 BAG IV SCH (13:45)
[2017-03-15] MEDS: Pantoprazole 40 MG in Sodium Chloride 0.9% 10 ML IVPUSH SCH ×2 (14:45→22:22)
--- NOTE | 2017-03-15 16:55 | PCM.SURGPN ---
- General Info Date of Service: 03/15/17 Date of Surgery/Procedure: 03/15/17 POD#: 0 Post-Op Diagnosis: Failure to thrive Functional Status: Reports: other (Abdomen is soft, flat and nontender. No acute events after surgery ) - Review of Systems Systems Review Comment:: Cannot review symptoms as patient is physically unable to communicate. - Patient Data Vitals - most recent: Last Vital Signs Temp 36.5 C 03/15/17 13:50 Pulse 102 H 03/15/17 13:50 Resp 14 03/15/17 13:50 BP 120/75 03/15/17 13:50 Pulse Ox 93 L 03/15/17 13:50 Weight - most recent: 42 kg I&O - last 24 hours: Intake & Output 03/15/17 03/15/17 03/15/17 06:59 14:59 22:59 Intake Total 0 1311 Output Total 475 70 Balance -475 1241 Lab Results last 24 hrs: Laboratory Results - last 24 hr 03/15/17 03/15/17 03/15/17 Range/Units 05:19 05:19 05:49 WBC 5.96 (4.0-11.0) K/uL RBC 3.84 L (4.30-5.90) M/uL Hgb 9.8 L (12.0-16.0) g/dL Hct 30.3 L (36.0-46.0) % MCV 78.9 L (80.0-98.0) fL MCH 25.5 L (27.0-32.0) pg MCHC 32.3 (31.0-37.0) g/dL RDW Std Deviation 53.6 (28.0-62.0) fl RDW Coeff of Deanna 19 H (11.0-15.0) % Plt Count 309 (150-400) K/uL MPV 9.50 (7.40-12.00) fL Neut % (Auto) 68.7 (48.0-80.0) % Lymph % (Auto) 18.0 (16.0-40.0) % Centre % (Auto) 10.9 (0.0-15.0) % Eos % (Auto) 2.2 (0.0-7.0) % Baso % (Auto) 0.2 (0.0-1.5) % Neut # (Auto) 4.1 (1.4-5.7) K/uL Lymph # (Auto) 1.1 (0.6-2.4) K/uL Centre # (Auto) 0.7 (0.0-0.8) K/uL Eos # (Auto) 0.1 (0.0-0.7) K/uL Baso # (Auto) 0.0 (0.0-0.1) K/uL Nucleated RBC % 0.0 /100WBC Nucleated RBCs # 0 K/uL Sodium 133 L (136-146) mmol/L Potassium 3.8 (3.5-5.1) mmol/L Chloride 109 (98-110) mmol/L Carbon Dioxide 19 L (21-31) mmol/L BUN 2 L (6.0-23.0) mg/dL Creatinine 0.4 L (0.6-1.5) mg/dL Est Cr Clr Drug Dosing 81.81 mL/min Estimated GFR (MDRD) > 60.0 ml/min Glucose 142 H (60-110) mg/dL Calcium 7.5 L (8.8-10.8) mg/dL Phosphorus 1.4 L (2.4-4.7) mg/dL Magnesium 1.3 L (1.5-2.3) mEq/L Med Orders - Current: Current Medications Acetaminophen (Tylenol) 650 mg RECTAL Q4H PRN PRN Reason: Pain (mild 1-3) Albuterol/Ipratropium (Duoneb 3.0-0.5 Mg/3 Ml) 3 ml NEB Q4HRRT PRN PRN Reason: Shortness Of Breath/wheezing Last Admin: 03/12/17 19:53 Dose: 3 ml Bisacodyl (Dulcolax) 10 mg RECTAL DAILY PRN PRN Reason: Constipation Heparin Sodium (Porcine) (Heparin Sodium) 5,000 units SUBCUT Q12HR [facility] Last Admin: 03/15/17 08:06 Dose: Not Given Levofloxacin/Dextrose 750 mg/ (Premix) 150 mls @ 100 mls/hr IV Q24H [facility] Last Admin: 03/15/17 13:45 Dose: 100 mls/hr Dextrose/Sodium Chloride (Dextrose 5%-1/2 Ns) 1,000 mls @ 75 mls/hr IV ASDIRECTED [facility] Last Admin: 03/15/17 10:43 Dose: 75 mls/hr Potassium Phosphate 5 mmole/ (Sodium Chloride) 251.6667 mls @ 41.944 mls/hr IV ASDIRECTED [facility] Last Admin: 03/15/17 11:41 Dose: 41.944 mls/hr Pantoprazole Sodium 40 mg/ (Sodium Chloride) 10 mls @ 300 mls/hr IVPUSH BID [facility] Last Admin: 03/15/17 14:45 Dose: 300 mls/hr Metoprolol Tartrate (Lopressor) 5 mg IVPUSH Q6H PRN PRN Reason: Tachycardia Last Admin: 03/14/17 23:47 Dose: 5 mg Ondansetron HCl (Zofran) 4 mg IVPUSH Q4H PRN PRN Reason: Nausea Sodium Chloride (Saline Flush) 10 ml FLUSH ASDIRECTED PRN PRN Reason: Keep Vein Open Sodium Chloride (Saline Flush) 2.5 ml FLUSH ASDIRECTED PRN PRN Reason: Keep Vein Open Sodium Chloride ([place]) 1 ml KIEL BID [facility] Last Admin: 03/15/17 08:06 Dose: 1 spray Sucralfate (Carafate) 1 gm GTUBE QIDACANDBED [facility] Discontinued Medications Bupivacaine HCl (Marcaine 0.5%) Confirm Administered Dose 30 ml .ROUTE .STK-MED ONE Stop: 03/15/17 07:24 Ephedrine Sulfate (Ephedrine Sulfate) Confirm Administered Dose 50 mg .ROUTE .STK-MED ONE Stop: 03/15/17 12:17 Fentanyl (Sublimaze) Confirm Administered Dose 100 mcg .ROUTE .STK-MED ONE Stop: 03/15/17 10:26 Sodium Chloride (Normal Saline) 500 mls @ 999 mls/hr IV STAT [place] Sodium Chloride (Normal Saline) 500 mls @ 999 mls/hr IV .BOLUS DW[place] Sodium Chloride (Normal Saline) 1,000 mls @ 999 mls/hr IV ASDIRECTED [facility] Last Infusion: 03/10/17 14:11 Dose: 300 mls/hr Levofloxacin/Dextrose 500 mg/ (Premix) 100 mls @ 100 mls/hr IV ONETIME ONE Stop: 03/10/17 15:00 Last Admin: 03/10/17 14:11 Dose: 100 mls/hr Sodium Chloride (Normal Saline) 1,000 mls @ 75 mls/hr IV ASDIRECTED [facility] Last Admin: 03/11/17 05:30 Dose: 75 mls/hr Cefepime HCl 2 gm/ Premix 50 mls @ 100 mls/hr IV Q8H [facility] Last Admin: 03/13/17 08:30 Dose: 100 mls/hr Vancomycin HCl 750 mg/ Sodium (Chloride) 250 mls @ 250 mls/hr IV Q12H [facility] Last Admin: 03/14/17 06:28 Dose: 250 mls/hr Magnesium Sulfate 4 gm/ Premix 100 mls @ 50 mls/hr IV ONETIME ONE Stop: 03/10/17 19:03 Last Admin: 03/10/17 18:04 Dose: 50 mls/hr Potassium Chloride 40 meq/ (Sodium Chloride) 1,020 mls [facility] Stop: 03/11/17 21:20 Last Admin: 03/11/17 09:54 Dose: 75 mls/hr Fluconazole 200 mg/ Premix 100 mls @ 100 mls/hr IV ONETIME ONE Stop: 03/11/17 12:04 Last Admin: 03/11/17 11:15 Dose: 100 mls/hr Potassium Chloride 40 meq/ (Sodium Chloride) 1,020 mls @ [facility] Last Admin: 03/12/17 05:46 Dose: 75 mls/hr Magnesium Sulfate 4 gm/ Premix 100 mls @ 50 mls/hr IV ONETIME ONE Stop: 03/12/17 09:50 Last Admin: 03/12/17 08:21 Dose: 50 mls/hr Sodium Chloride (Sodium Chloride 0.45%) 1,000 mls @ 50 mls/hr IV ASDIRECTED [facility] Last Admin: 03/12/17 09:56 Dose: 50 mls/hr Dextrose/Sodium Chloride (Dextrose 5%-1/2 Ns) 1,000 mls @ 50 mls/hr IV ASDIRECTED [facility] Last Admin: 03/12/17 11:00 Dose: 50 mls/hr Potassium Chloride/Dextrose/Sod Cl (D5 1/2 Ns W/ 20 Meq/L Kcl) 1,000 mls @ 75 mls/hr IV ASDIRECTED [facility] Last Admin: 03/14/17 01:30 Dose: 75 mls/hr Magnesium Sulfate 2 gm/ Premix 50 mls @ 50 mls/hr IV ONETIME ONE Stop: 03/13/17 09:59 Last Admin: 03/13/17 09:21 Dose: 50 mls/hr Potassium Chloride/Dextrose/Sod Cl (D5 1/2 Ns W/ 40 Meq/L Kcl) 1,000 mls @ 100 mls/hr IV ASDIRECTED [facility] Last Admin: 03/14/17 22:53 Dose: 100 mls/hr Magnesium Sulfate 2 gm/ Premix 50 mls @ 50 mls/hr IV ONETIME ONE Stop: 03/14/17 11:47 Last Admin: 03/14/17 11:37 Dose: 50 mls/hr Magnesium Sulfate 4 gm/ Premix 100 mls @ 50 mls/hr IV ONETIME ONE Stop: 03/15/17 09:43 Last Admin: 03/15/17 07:54 Dose: 50 mls/hr Potassium Phosphate 45 mmole/ (Sodium Chloride) 265 mls @ 125 mls/hr IV ASDIRECTED [facility] Potassium Phosphate 5 mmole/ (Sodium Chloride) 251.6667 mls @ 41.944 mls/hr IV Q6H PRN PRN Reason: ASDIRECTED Lidocaine (Xylocaine-Mpf 2%) Confirm Administered Dose 10 ml .ROUTE .STK-MED ONE Stop: 03/15/17 10:24 Lidocaine HCl (Xylocaine 1%) Confirm Administered Dose 20 ml .ROUTE .STK-MED ONE Stop: 03/15/17 07:24 Metoprolol Tartrate (Lopressor) Confirm Administered Dose 5 mg .ROUTE .STK-MED ONE Stop: 03/15/17 12:22 Midazolam HCl (Versed 1 Mg/Ml) Confirm Administered Dose 2 mg .ROUTE .STK-MED ONE Stop: 03/15/17 10:26 Phenylephrine HCl (Phenylephrine In Ns 100 Mcg/Ml) Confirm Administered Dose 1 mg .ROUTE .STK-MED ONE Stop: 03/15/17 12:17 Propofol (Diprivan 20 Ml) Confirm Administered Dose 200 mg .ROUTE .STK-MED ONE Stop: 03/15/17 09:04 Propofol (Diprivan 20 Ml) Confirm Administered Dose 400 mg .ROUTE .STK-MED ONE Stop: 03/15/17 10:25 Sucralfate (Carafate) 1 gm PO QIDACANDBED [facility] Vancomycin HCl (Pharmacy To Dose - Vancomycin) 1 dose .XX ASDIRECTED [facility] - Exam Wound/Incisions: healing well, dressing dry and intact, no drainage General: no acute distress Abdomen: soft, no tenderness, no distension - Problem List & Annotations (1) Failure to thrive SNOMED Code(s): 08049972 Code(s): DIV3342 - Status: Acute Current Visit: Yes Qualifiers: Failure to thrive age range: in adult Qualified Code(s): R62.7 - Adult failure to thrive (2) Dysphagia as late effect of cerebrovascular accident (CVA) SNOMED Code(s): 893176030 Code(s): I69.391 - DYSPHAGIA FOLLOWING CEREBRAL INFARCTION Status: Acute Current Visit: Yes - Problem List Review Problem List Initiated/Reviewed/Updated: Yes - My Orders Last 24 Hours: Active Orders 24 hr Category Date Time Status Communication Order [RC] ROUTINE Care 03/14/17 21:16 Active Communication Order [RC] ROUTINE Care 03/15/17 13:26 Active Verify Patient Consent Obtain [RC] ASDIRECTED Care 03/15/17 06:32 Active CBC WITH AUTO DIFF [HEME] DAILY Lab 03/16/17 05:00 Ordered CBC WITH AUTO DIFF [HEME] DAILY Lab 03/17/17 05:00 Ordered CBC WITH AUTO DIFF [HEME] DAILY Lab 03/18/17 05:00 Ordered CBC WITH AUTO DIFF [HEME] DAILY Lab 03/19/17 05:00 Ordered COMPREHENSIVE METABOLIC PN,CMP [CHEM] DAILY Lab 03/16/17 05:00 Ordered COMPREHENSIVE METABOLIC PN,CMP [CHEM] DAILY Lab 03/17/17 05:00 Ordered COMPREHENSIVE METABOLIC PN,CMP [CHEM] DAILY Lab 03/18/17 05:00 Ordered COMPREHENSIVE METABOLIC PN,CMP [CHEM] DAILY Lab 03/19/17 05:00 Ordered MAGNESIUM [CHEM] DAILY Lab 03/16/17 05:00 Ordered MAGNESIUM [CHEM] DAILY Lab 03/17/17 05:00 Ordered MAGNESIUM [CHEM] DAILY Lab 03/18/17 05:00 Ordered MAGNESIUM [CHEM] DAILY Lab 03/19/17 05:00 Ordered PHOSPHORUS [CHEM] DAILY Lab 03/16/17 13:29 Ordered PHOSPHORUS [CHEM] DAILY Lab 03/17/17 13:29 Ordered PHOSPHORUS [CHEM] DAILY Lab 03/18/17 13:29 Ordered PHOSPHORUS [CHEM] DAILY Lab 03/19/17 13:29 Ordered Dextrose 5%-0.45% NaCl [Dextrose 5%-1/2 NS] 1,000 ml Med 03/15/17 10:30 Active IV ASDIRECTED Pantoprazole [ProTONIX IV] 40 mg Med 03/15/17 13:45 Active Sodium Chloride 0.9% [Normal Saline] 10 ml IVPUSH BID Potassium Phosphates 5 mmole Med 03/15/17 10:30 Active Sodium Chloride 0.9% [Normal Saline] 250 ml IV ASDIRECTED Sucralfate [Carafate] Med 03/15/17 18:00 Active 1 gm GTUBE QIDACANDBED Medication Orders Acetaminophen (Tylenol) 650 mg RECTAL Q4H PRN PRN Reason: Pain (mild 1-3) Albuterol/Ipratropium (Duoneb 3.0-0.5 Mg/3 Ml) 3 ml NEB Q4HRRT PRN PRN Reason: Shortness Of Breath/wheezing Last Admin: 03/12/17 19:53 Dose: 3 ml Admin: 03/10/17 17:16 Dose: 3 ml Bisacodyl (Dulcolax) 10 mg RECTAL DAILY PRN PRN Reason: Constipation Heparin Sodium (Porcine) (Heparin Sodium) 5,000 units SUBCUT Q12HR [facility] Last Admin: 03/15/17 08:06 Dose: Admin: 03/14/17 21:20 Dose: 5,000 units Admin: 03/14/17 08:17 Dose: 5,000 units Admin: 03/13/17 20:21 Dose: 5,000 units Admin: 03/13/17 09:24 Dose: 5,000 units Admin: 03/12/17 21:06 Dose: 5,000 units Admin: 03/12/17 08:22 Dose: 5,000 units Admin: 03/11/17 20:36 Dose: 5,000 units Admin: 03/11/17 10:18 Dose: 5,000 units Admin: 03/10/17 20:46 Dose: 5,000 units Levofloxacin/Dextrose 750 mg/ (Premix) 150 mls @ 100 mls/hr IV Q24H [facility] Last Admin: 03/15/17 13:45 Dose: 100 mls/hr Infusion: 03/14/17 14:11 Dose: 100 mls/hr Admin: 03/14/17 12:41 Dose: 100 mls/hr Infusion: 03/13/17 13:36 Dose: 100 mls/hr Admin: 03/13/17 12:06 Dose: 100 mls/hr Infusion: 03/12/17 14:08 Dose: 100 mls/hr Admin: 03/12/17 12:38 Dose: 100 mls/hr Infusion: 03/11/17 15:24 Dose: 100 mls/hr Admin: 03/11/17 13:54 Dose: 100 mls/hr Dextrose/Sodium Chloride (Dextrose 5%-1/2 Ns) 1,000 mls @ 75 mls/hr IV ASDIRECTED [facility] Last Admin: 03/15/17 10:43 Dose: 75 mls/hr Potassium Phosphate 5 mmole/ (Sodium Chloride) 251.6667 mls @ 41.944 mls/hr IV ASDIRECTED [facility] Last Admin: 03/15/17 11:41 Dose: 41.944 mls/hr Pantoprazole Sodium 40 mg/ (Sodium Chloride) 10 mls @ 300 mls/hr IVPUSH BID [facility] Last Admin: 03/15/17 14:45 Dose: 300 mls/hr Metoprolol Tartrate (Lopressor) 5 mg IVPUSH Q6H PRN PRN Reason: Tachycardia Last Admin: 03/14/17 23:47 Dose: 5 mg Admin: 03/14/17 04:09 Dose: 5 mg Admin: 03/13/17 13:47 Dose: 5 mg Admin: 03/12/17 20:32 Dose: 5 mg Admin: 03/12/17 03:28 Dose: 5 mg Admin: 03/11/17 20:48 Dose: 5 mg Admin: 03/10/17 18:27 Dose: 5 mg Ondansetron HCl (Zofran) 4 mg IVPUSH Q4H PRN PRN Reason: Nausea Sodium Chloride (Saline Flush) 10 ml FLUSH ASDIRECTED PRN PRN Reason: Keep Vein Open Sodium Chloride (Saline Flush) 2.5 ml FLUSH ASDIRECTED PRN PRN Reason: Keep Vein Open Sodium Chloride ([place]) 1 ml KIEL BID [facility] Last Admin: 03/15/17 08:06 Dose: 1 spray Admin: 03/14/17 20:33 Dose: 1 ml Admin: 03/14/17 08:19 Dose: 1 ml Admin: 03/13/17 20:24 Dose: 1 ml Admin: 03/13/17 09:29 Dose: 1 ml Admin: 03/13/17 00:28 Dose: 1 ml Sucralfate (Carafate) 1 gm GTUBE QIDACANDBED [facility] - Assessment Assessment (Free Text/Narrative):: POD # 0 PEG tube placement - Plan Plan (Free Text/Narrative):: Patients PEG appears to be in good position with no immediate post-operative complications. The patient is ok to start meds and tube feeds down gastrostomy starting at 6pm. Would start tube feeds at 10ml/hr and slowly increase to goal rates. She will most likely develop re-feeding syndrome given her poor nutrition over a long period of time. Please monitor electrolytes closely. Sutures (prolene) to come out in one week. Bumper at 2cm.
[2017-03-15] MEDS: Metoprolol Tartrate 5 MG/5 ML SDV IVPUSH PRN (17:36)
[2017-03-15] MEDS ORDERED: Sucralfate Suspension 1 GM/10 ML Cup PO SCH (18:00)
[2017-03-15] MEDS: Sucralfate Suspension 1 GM/10 ML Cup GTUBE SCH ×2 (18:27→21:21)
--- NOTE | 2017-03-15 20:51 | OR ---
SURGEON: TONI MCCLAIN MD DATE OF PROCEDURE: 03/10/2017 PREOPERATIVE DIAGNOSIS: Failure to thrive. POSTOPERATIVE DIAGNOSIS: Failure to thrive. PROCEDURE PERFORMED: Percutaneous endoscopically placed gastrostomy tube. PEOPLE GREETER: molding line assistant: Dr. Aleksey Weller. ANESTHESIA: General endotracheal anesthesia. FLUIDS: 1000 mL crystalloid. URINE OUTPUT: 70 mL. ESTIMATED BLOOD LOSS: 10 mL. FINDINGS: Esophagitis, duodenitis with superficial ulcer. COMPLICATIONS: None. INDICATIONS: The patient is a 76-year-old female, with a devastating right-sided stroke. This occurred several years ago and the patient has been cared for at home with by her . The patient has had multiple hospitalizations of recent due to failure to thrive. The patient is now unable to take anything by mouth and the decision was made by the family and primary care team that the next best course of action is to place a feeding tube to allow for long-term enteral nutrition. The patient's and I had a long conversation regarding what this procedure would entail in the for the patient retirement. We discussed the expected perioperative course as well as risks including bleeding, infection, or damage to surrounding structures in the abdomen. The patient's verbalized understanding and wishes to proceed. PROCEDURE IN DETAIL: The patient was brought into the OR and placed in a slightly head up position. The bed was at approximately 30 degrees of angulation. The abdomen was prepped and draped in the usual standard fashion. Dr. Aleksey Weller performed the endoscopy portion of the exam. Please see his note for further details. The skin incision site was noted via transillumination. A 1% lidocaine plain was used to anesthetize the site and pass the needle into the stomach. After the needle was in the lumen of the stomach, I then slowly pulled back looking for any evidence of bubbles within the fluid in the syringe. None were noted. The area between the stomach and the abdominal wall was then anesthetized with lidocaine. An introducer needle was passed through the same tract into the lumen of the abdomen. The inner needle was then removed leaving the cannula. A guidewire was then placed into the stomach and grasped with the endoscope. This was pulled out through the mouth and the PEG tube secured on it. The guidewire and PEG tube were then pulled down through the mouth into the esophagus down through the stomach and through the abdominal wall. The bumper was then pulled to 2 cm at the skin, which allowed good tension without strangulation on the gastric mucosa. The bumper spun without difficulty. The feeding tube was then trimmed to size and a bumper put in place. The bumper was then secured to the abdominal skin with a 2-0 Prolene suture at four sites. A drain sponge was placed and the G-tube was then placed to gravity. All counts were complete and correct at the end of the case and the patient tolerated the procedure well. She was taken to the PACU in stable condition. MARITZA SILVA /[id number] RANDOLPH
[2017-03-16] MEDS: Dextrose 5%-0.45% NaCl 1,000 ML IV SCH (03:36)
[2017-03-16 05:54] LABS: CHLORIDE,CL 106 mmol/L (98-110); SODIUM,NA 133 mmol/L (136-146)
[2017-03-16] MEDS: Sucralfate Suspension 1 GM/10 ML Cup GTUBE SCH ×4 (07:48→20:00)
[2017-03-16] MEDS ORDERED: POTASSIUM PHOSPHATES IV SCH (08:00)
[2017-03-16] MEDS ORDERED: Magnesium Sulfate/Water 4 GM in Premix Bag 1 BAG IV ONE (08:00)
[2017-03-16] MEDS ORDERED: SODIUM CHLORIDE IV SCH (08:00)
--- NOTE | 2017-03-16 08:00 | PCM.SURGPN ---
- General Info Date of Service: 03/16/17 POD#: 1 Functional Status: Reports: other (Patient started on trickle feeds overnight. Abdomen flat, soft and nontender. Vitals stable overnight ) - Patient Data Vitals - most recent: Last Vital Signs Temp 36.2 C 03/16/17 07:48 Pulse 121 H 03/16/17 07:48 Resp 20 03/16/17 07:48 BP 141/89 H 03/16/17 07:48 Pulse Ox 96 03/16/17 07:48 Weight - most recent: 46 kg I&O - last 24 hours: Intake & Output 03/15/17 03/16/17 03/16/17 22:59 06:59 14:59 Intake Total 536 1000 Output Total 870 750 Balance -334 250 Lab Results last 24 hrs: Laboratory Results - last 24 hr 03/15/17 03/16/17 03/16/17 Range/Units 05:49 05:02 05:02 WBC 7.25 (4.0-11.0) K/uL RBC 3.89 L (4.30-5.90) M/uL Hgb 10.0 L (12.0-16.0) g/dL Hct 30.6 L (36.0-46.0) % MCV 78.7 L (80.0-98.0) fL MCH 25.7 L (27.0-32.0) pg MCHC 32.7 (31.0-37.0) g/dL RDW Std Deviation 54.8 (28.0-62.0) fl RDW Coeff of Deanna 19 H (11.0-15.0) % Plt Count 273 (150-400) K/uL MPV 9.50 (7.40-12.00) fL Neut % (Auto) 76.0 (48.0-80.0) % Lymph % (Auto) 14.9 L (16.0-40.0) % Whiteside % (Auto) 7.2 (0.0-15.0) % Eos % (Auto) 1.8 (0.0-7.0) % Baso % (Auto) 0.1 (0.0-1.5) % Neut # (Auto) 5.5 (1.4-5.7) K/uL Lymph # (Auto) 1.1 (0.6-2.4) K/uL [place] # (Auto) 0.5 (0.0-0.8) K/uL Eos # (Auto) 0.1 (0.0-0.7) K/uL Baso # (Auto) 0.0 (0.0-0.1) K/uL Nucleated RBC % 0.0 /100WBC Nucleated RBCs # 0 K/uL Sodium 133 L (136-146) mmol/L Potassium 3.6 (3.5-5.1) mmol/L Chloride 106 (98-110) mmol/L Carbon Dioxide 20 L (21-31) mmol/L BUN 2 L (6.0-23.0) mg/dL Creatinine 0.4 L (0.6-1.5) mg/dL Est Cr Clr Drug Dosing 89.60 mL/min Estimated GFR (MDRD) > 60.0 ml/min Glucose 128 H (60-110) mg/dL Calcium 7.3 L (8.8-10.8) mg/dL Phosphorus 1.4 L (2.4-4.7) mg/dL Magnesium 1.4 L (1.5-2.3) mEq/L Total Bilirubin 0.4 (0.1-1.5) mg/dL AST 14 (5-40) IU/L ALT 7 L (8-54) IU/L Alkaline Phosphatase 78 (40-150) Total Protein 4.1 L (6.0-8.0) g/dL Albumin 1.8 L (3.4-4.8) g/dL Globulin 2.3 (2.0-3.5) g/dL Albumin/Globulin Ratio 0.8 L (1.3-2.8) 03/16/17 Range/Units 05:02 WBC (4.0-11.0) K/uL RBC (4.30-5.90) M/uL Hgb (12.0-16.0) g/dL Hct (36.0-46.0) % MCV (80.0-98.0) fL MCH (27.0-32.0) pg MCHC (31.0-37.0) g/dL RDW Std Deviation (28.0-62.0) fl RDW Coeff of Deanna (11.0-15.0) % Plt Count (150-400) K/uL MPV (7.40-12.00) fL Neut % (Auto) (48.0-80.0) % Lymph % (Auto) (16.0-40.0) % Whiteside % (Auto) (0.0-15.0) % Eos % (Auto) (0.0-7.0) % Baso % (Auto) (0.0-1.5) % Neut # (Auto) (1.4-5.7) K/uL Lymph # (Auto) (0.6-2.4) K/uL [place] # (Auto) (0.0-0.8) K/uL Eos # (Auto) (0.0-0.7) K/uL Baso # (Auto) (0.0-0.1) K/uL Nucleated RBC % /100WBC Nucleated RBCs # K/uL Sodium (136-146) mmol/L Potassium (3.5-5.1) mmol/L Chloride (98-110) mmol/L Carbon Dioxide (21-31) mmol/L BUN (6.0-23.0) mg/dL Creatinine (0.6-1.5) mg/dL Est Cr Clr Drug Dosing mL/min Estimated GFR (MDRD) ml/min Glucose (60-110) mg/dL Calcium (8.8-10.8) mg/dL Phosphorus 2.0 L (2.4-4.7) mg/dL Magnesium (1.5-2.3) mEq/L Total Bilirubin (0.1-1.5) mg/dL AST (5-40) IU/L ALT (8-54) IU/L Alkaline Phosphatase (40-150) Total Protein (6.0-8.0) g/dL Albumin (3.4-4.8) g/dL Globulin (2.0-3.5) g/dL Albumin/Globulin Ratio (1.3-2.8) Med Orders - Current: Current Medications Acetaminophen (Tylenol) 650 mg RECTAL Q4H PRN PRN Reason: Pain (mild 1-3) Albuterol/Ipratropium (Duoneb 3.0-0.5 Mg/3 Ml) 3 ml NEB Q4HRRT PRN PRN Reason: Shortness Of Breath/wheezing Last Admin: 03/12/17 19:53 Dose: 3 ml Bisacodyl (Dulcolax) 10 mg RECTAL DAILY PRN PRN Reason: Constipation Digoxin (Lanoxin) 125 mcg PO DAILY [facility] Heparin Sodium (Porcine) (Heparin Sodium) 5,000 units SUBCUT Q12HR [facility] Last Admin: 03/15/17 21:21 Dose: 5,000 units Levofloxacin/Dextrose 750 mg/ (Premix) 150 mls @ 100 mls/hr IV Q24H [facility] Last Admin: 03/15/17 13:45 Dose: 100 mls/hr Potassium Phosphate 5 mmole/ (Sodium Chloride) 251.6667 mls @ 41.944 mls/hr IV ASDIRECTED [facility] Last Admin: 03/15/17 11:41 Dose: 41.944 mls/hr Pantoprazole Sodium 40 mg/ (Sodium Chloride) 10 mls @ 300 mls/hr IVPUSH BID [facility] Last Admin: 03/15/17 22:22 Dose: 300 mls/hr Magnesium Sulfate 4 gm/ Premix 100 mls @ 50 mls/hr IV ONETIME ONE Stop: 03/16/17 09:33 Potassium Phosphate 5 mmole/ (Sodium Chloride) 251.6667 mls @ 41 mls/hr IV ASDIRECTED [facility] Stop: 03/16/17 13:54 Metoprolol Succinate (Toprol Xl) 50 mg PO DAILY [facility] Metoprolol Tartrate (Lopressor) 5 mg IVPUSH Q6H PRN PRN Reason: Tachycardia Last Admin: 03/15/17 17:36 Dose: 5 mg Ondansetron HCl (Zofran) 4 mg IVPUSH Q4H PRN PRN Reason: Nausea Sodium Chloride (Saline Flush) 10 ml FLUSH ASDIRECTED PRN PRN Reason: Keep Vein Open Sodium Chloride (Saline Flush) 2.5 ml FLUSH ASDIRECTED PRN PRN Reason: Keep Vein Open Sodium Chloride ([place] Nasal [place]) 1 ml KIEL BID [facility] Last Admin: 03/15/17 21:22 Dose: 1 spray Sucralfate (Carafate) 1 gm GTUBE QIDACANDBED [facility] Last Admin: 03/16/17 07:48 Dose: 1 gm Discontinued Medications Bupivacaine HCl (Marcaine 0.5%) Confirm Administered Dose 30 ml .ROUTE .STK-MED ONE Stop: 03/15/17 07:24 Ephedrine Sulfate (Ephedrine Sulfate) Confirm Administered Dose 50 mg .ROUTE .STK-MED ONE Stop: 03/15/17 12:17 Fentanyl (Sublimaze) Confirm Administered Dose 100 mcg .ROUTE .STK-MED ONE Stop: 03/15/17 10:26 Sodium Chloride (Normal Saline) 500 mls @ 999 mls/hr IV STAT DWIGHT Sodium Chloride (Normal Saline) 500 mls @ 999 mls/hr IV .BOLUS DWIGHT Sodium Chloride (Normal Saline) 1,000 mls @ 999 mls/hr IV ASDIRECTED [facility] Last Infusion: 03/10/17 14:11 Dose: 300 mls/hr Levofloxacin/Dextrose 500 mg/ (Premix) 100 mls @ 100 mls/hr IV ONETIME ONE Stop: 03/10/17 15:00 Last Admin: 03/10/17 14:11 Dose: 100 mls/hr Sodium Chloride (Normal Saline) 1,000 mls @ 75 mls/hr IV ASDIRECTED [facility] Last Admin: 03/11/17 05:30 Dose: 75 mls/hr Cefepime HCl 2 gm/ Premix 50 mls @ 100 mls/hr IV Q8H [facility] Last Admin: 03/13/17 08:30 Dose: 100 mls/hr Vancomycin HCl 750 mg/ Sodium (Chloride) 250 mls @ 250 mls/hr IV Q12H [facility] Last Admin: 03/14/17 06:28 Dose: 250 mls/hr Magnesium Sulfate 4 gm/ Premix 100 mls @ 50 mls/hr IV ONETIME ONE Stop: 03/10/17 19:03 Last Admin: 03/10/17 18:04 Dose: 50 mls/hr Potassium Chloride 40 meq/ (Sodium Chloride) 1,020 mls @ 75 mls/hr IV ASDIRECTED [facility] Stop: 03/11/17 21:20 Last Admin: 03/11/17 09:54 Dose: 75 mls/hr Fluconazole 200 mg/ Premix 100 mls @ 100 mls/hr IV ONETIME ONE Stop: 03/11/17 12:04 Last Admin: 03/11/17 11:15 Dose: 100 mls/hr Potassium Chloride 40 meq/ (Sodium Chloride) 1,020 mls @ 75 mls/hr IV ASDIRECTED [facility] Last Admin: 03/12/17 05:46 Dose: 75 mls/hr Magnesium Sulfate 4 gm/ Premix 100 mls @ 50 mls/hr IV ONETIME ONE Stop: 03/12/17 09:50 Last Admin: 03/12/17 08:21 Dose: 50 mls/hr Sodium Chloride (Sodium Chloride 0.45%) 1,000 mls @ 50 mls/hr IV ASDIRECTED [facility] Last Admin: 03/12/17 09:56 Dose: 50 mls/hr Dextrose/Sodium Chloride (Dextrose 5%-1/2 Ns) 1,000 mls @ 50 mls/hr IV ASDIRECTED [facility] Last Admin: 03/12/17 11:00 Dose: 50 mls/hr Potassium Chloride/Dextrose/Sod Cl (D5 1/2 Ns W/ 20 Meq/L Kcl) 1,000 mls @ 75 mls/hr IV ASDIRECTED [facility] Last Admin: 03/14/17 01:30 Dose: 75 mls/hr Magnesium Sulfate 2 gm/ Premix 50 mls @ 50 mls/hr IV ONETIME ONE Stop: 03/13/17 09:59 Last Admin: 03/13/17 09:21 Dose: 50 mls/hr Potassium Chloride/Dextrose/Sod Cl (D5 1/2 Ns W/ 40 Meq/L Kcl) 1,000 mls @ 100 mls/hr IV ASDIRECTED [facility] Last Admin: 03/14/17 22:53 Dose: 100 mls/hr Magnesium Sulfate 2 gm/ Premix 50 mls @ 50 mls/hr IV ONETIME ONE Stop: 03/14/17 11:47 Last Admin: 03/14/17 11:37 Dose: 50 mls/hr Magnesium Sulfate 4 gm/ Premix 100 mls @ 50 mls/hr IV ONETIME ONE Stop: 03/15/17 09:43 Last Admin: 03/15/17 07:54 Dose: 50 mls/hr Dextrose/Sodium Chloride (Dextrose 5%-1/2 Ns) 1,000 mls @ 75 mls/hr IV ASDIRECTED [facility] Last Admin: 03/16/17 03:36 Dose: 75 mls/hr Potassium Phosphate 45 mmole/ (Sodium Chloride) 265 mls @ 125 mls/hr IV ASDIRECTED [facility] Potassium Phosphate 5 mmole/ (Sodium Chloride) 251.6667 mls @ 41.944 mls/hr IV Q6H PRN PRN Reason: ASDIRECTED Lidocaine (Xylocaine-Mpf 2%) Confirm Administered Dose 10 ml .ROUTE .STK-MED ONE Stop: 03/15/17 10:24 Lidocaine HCl (Xylocaine 1%) Confirm Administered Dose 20 ml .ROUTE .STK-MED ONE Stop: 03/15/17 07:24 Metoprolol Tartrate (Lopressor) Confirm Administered Dose 5 mg .ROUTE .STK-MED ONE Stop: 03/15/17 12:22 Midazolam HCl (Versed 1 Mg/Ml) Confirm Administered Dose 2 mg .ROUTE .STK-MED ONE Stop: 03/15/17 10:26 Phenylephrine HCl (Phenylephrine In Ns 100 Mcg/Ml) Confirm Administered Dose 1 mg .ROUTE .STK-MED ONE Stop: 03/15/17 12:17 Propofol (Diprivan 20 Ml) Confirm Administered Dose 200 mg .ROUTE .STK-MED ONE Stop: 03/15/17 09:04 Propofol (Diprivan 20 Ml) Confirm Administered Dose 400 mg .ROUTE .STK-MED ONE Stop: 03/15/17 10:25 Sucralfate (Carafate) 1 gm PO QIDACANDBED [facility] Vancomycin HCl (Pharmacy To Dose - Vancomycin) 1 dose .XX ASDIRECTED [place] - Exam Wound/Incisions: healing well, dressing dry and intact, no drainage. No: erythema General: no acute distress Abdomen: soft, no tenderness, no distension - Problem List & Annotations (1) Failure to thrive SNOMED Code(s): 85966199 Code(s): [id number] - Status: Acute Current Visit: Yes Qualifiers: Failure to thrive age range: in adult Qualified Code(s): R62.7 - Adult failure to thrive (2) Dysphagia as late effect of cerebrovascular accident (CVA) SNOMED Code(s): 547406740 Code(s): I69.391 - DYSPHAGIA FOLLOWING CEREBRAL INFARCTION Status: Acute Current Visit: Yes - Problem List Review Problem List Initiated/Reviewed/Updated: Yes - My Orders Last 24 Hours: Active Orders 24 hr Category Date Time Status Aspiration Precautions [RC] ASDIRECTED Care 03/15/17 18:34 Active Communication Order [RC] ROUTINE Care 03/15/17 13:26 Active Tube Feeding Adult Diet [DIET] Diet 03/15/17 Dinner Active CBC WITH AUTO DIFF [HEME] DAILY Lab 03/17/17 05:00 Ordered CBC WITH AUTO DIFF [HEME] DAILY Lab 03/18/17 05:00 Ordered CBC WITH AUTO DIFF [HEME] DAILY Lab 03/19/17 05:00 Ordered COMPREHENSIVE METABOLIC PN,CMP [CHEM] DAILY Lab 03/17/17 05:00 Ordered COMPREHENSIVE METABOLIC PN,CMP [CHEM] DAILY Lab 03/18/17 05:00 Ordered COMPREHENSIVE METABOLIC PN,CMP [CHEM] DAILY Lab 03/19/17 05:00 Ordered MAGNESIUM [CHEM] DAILY Lab 03/17/17 05:00 Ordered MAGNESIUM [CHEM] DAILY Lab 03/18/17 05:00 Ordered MAGNESIUM [CHEM] DAILY Lab 03/19/17 05:00 Ordered PHOSPHORUS [CHEM] DAILY Lab 03/17/17 13:29 Ordered PHOSPHORUS [CHEM] DAILY Lab 03/18/17 13:29 Ordered PHOSPHORUS [CHEM] DAILY Lab 03/19/17 13:29 Ordered Digoxin [Lanoxin] Med 03/16/17 09:00 Ordered 125 mcg PO DAILY Magnesium Sulfate/Water [Magnesium Sulfate 4 GM in Med 03/16/17 07:34 Ordered Water 100 ML] 4 gm Premix Bag 1 bag IV ONETIME Metoprolol Succinate [Toprol XL] Med 03/16/17 09:00 Ordered 50 mg PO DAILY Pantoprazole [ProTONIX IV] 40 mg Med 03/15/17 13:45 Active Sodium Chloride 0.9% [Normal Saline] 10 ml IVPUSH BID Potassium Phosphates 5 mmole Med 03/15/17 10:30 Active Sodium Chloride 0.9% [Normal Saline] 250 ml IV ASDIRECTED Potassium Phosphates 5 mmole Med 03/16/17 07:45 Ordered Sodium Chloride 0.9% [Normal Saline] 250 ml IV ASDIRECTED Sucralfate [Carafate] Med 03/15/17 18:00 Active 1 gm GTUBE QIDACANDBED Medication Orders Acetaminophen (Tylenol) 650 mg RECTAL Q4H PRN PRN Reason: Pain (mild 1-3) Albuterol/Ipratropium (Duoneb 3.0-0.5 Mg/3 Ml) 3 ml NEB Q4HRRT PRN PRN Reason: Shortness Of Breath/wheezing Last Admin: 03/12/17 19:53 Dose: 3 ml Admin: 03/10/17 17:16 Dose: 3 ml Bisacodyl (Dulcolax) 10 mg RECTAL DAILY PRN PRN Reason: Constipation Digoxin (Lanoxin) 125 mcg PO DAILY [facility] Heparin Sodium (Porcine) (Heparin Sodium) 5,000 units SUBCUT Q12HR [facility] Last Admin: 03/15/17 21:21 Dose: 5,000 units Admin: 03/15/17 08:06 Dose: Admin: 03/14/17 21:20 Dose: 5,000 units Admin: 03/14/17 08:17 Dose: 5,000 units Admin: 03/13/17 20:21 Dose: 5,000 units Admin: 03/13/17 09:24 Dose: 5,000 units Admin: 03/12/17 21:06 Dose: 5,000 units Admin: 03/12/17 08:22 Dose: 5,000 units Admin: 03/11/17 20:36 Dose: 5,000 units Admin: 03/11/17 10:18 Dose: 5,000 units Admin: 03/10/17 20:46 Dose: 5,000 units Levofloxacin/Dextrose 750 mg/ (Premix) 150 mls @ 100 mls/hr IV Q24H [facility] Last Admin: 03/15/17 13:45 Dose: 100 mls/hr Infusion: 03/14/17 14:11 Dose: 100 mls/hr Admin: 03/14/17 12:41 Dose: 100 mls/hr Infusion: 03/13/17 13:36 Dose: 100 mls/hr Admin: 03/13/17 12:06 Dose: 100 mls/hr Infusion: 03/12/17 14:08 Dose: 100 mls/hr Admin: 03/12/17 12:38 Dose: 100 mls/hr Infusion: 03/11/17 15:24 Dose: 100 mls/hr Admin: 03/11/17 13:54 Dose: 100 mls/hr Potassium Phosphate 5 mmole/ (Sodium Chloride) 251.6667 mls @ 41.944 mls/hr IV ASDIRECTED [facility] Last Admin: 03/15/17 11:41 Dose: 41.944 mls/hr Pantoprazole Sodium 40 mg/ (Sodium Chloride) 10 mls @ 300 mls/hr IVPUSH BID [facility] Last Admin: 03/15/17 22:22 Dose: 300 mls/hr Infusion: 03/15/17 14:47 Dose: 300 mls/hr Admin: 03/15/17 14:45 Dose: 300 mls/hr Magnesium Sulfate 4 gm/ Premix 100 mls @ 50 mls/hr IV ONETIME ONE Stop: 03/16/17 09:33 Potassium Phosphate 5 mmole/ (Sodium Chloride) 251.6667 mls @ 41 mls/hr IV ASDIRECTED [facility] Stop: 03/16/17 13:54 Metoprolol Succinate (Toprol Xl) 50 mg PO DAILY [facility] Metoprolol Tartrate (Lopressor) 5 mg IVPUSH Q6H PRN PRN Reason: Tachycardia Last Admin: 03/15/17 17:36 Dose: 5 mg Admin: 03/14/17 23:47 Dose: 5 mg Admin: 03/14/17 04:09 Dose: 5 mg Admin: 03/13/17 13:47 Dose: 5 mg Admin: 03/12/17 20:32 Dose: 5 mg Admin: 03/12/17 03:28 Dose: 5 mg Admin: 03/11/17 20:48 Dose: 5 mg Admin: 03/10/17 18:27 Dose: 5 mg Ondansetron HCl (Zofran) 4 mg IVPUSH Q4H PRN PRN Reason: Nausea Sodium Chloride (Saline Flush) 10 ml FLUSH ASDIRECTED PRN PRN Reason: Keep Vein Open Sodium Chloride (Saline Flush) 2.5 ml FLUSH ASDIRECTED PRN PRN Reason: Keep Vein Open Sodium Chloride ([place] Nasal [place]) 1 ml KIEL BID [facility] Last Admin: 03/15/17 21:22 Dose: 1 spray Admin: 03/15/17 08:06 Dose: 1 spray Admin: 03/14/17 20:33 Dose: 1 ml Admin: 03/14/17 08:19 Dose: 1 ml Admin: 03/13/17 20:24 Dose: 1 ml Admin: 03/13/17 09:29 Dose: 1 ml Admin: 03/13/17 00:28 Dose: 1 ml Sucralfate (Carafate) 1 gm GTUBE QIDACANDBED [facility] Last Admin: 03/16/17 07:48 Dose: 1 gm Admin: 03/15/17 21:21 Dose: 1 gm Admin: 03/15/17 18:27 Dose: 1 gm - Plan Plan (Free Text/Narrative):: Feeding tube appears to be working well with no acute complications. Tube feeds to goal per primary team. Sutures around bumper can be removed after one week. This can be done in PCP clinic or my clinic. Will sign off at this point in time. Call with any questions or concerns.
--- NOTE | 2017-03-16 08:22 | PCM.PN ---
- General Info Date of Service: 03/16/17 Admission Dx/Problem (Free Text): Admission Diagnosis/Problem Admission Diagnosis/Problem Pneumonia, UTI Subjective Update: Non-verbal. Connor at bedside. Has no complaints. 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 He is working on getting a new caregiver at home. The last one left in anger and he does not want her back. Will make sure prior to discharge he is fully educated on tube feeding and medication administration. - Patient Data Vitals - most recent: Last Vital Signs Temp 97.1 F 03/16/17 07:48 Pulse 121 H 03/16/17 07:48 Resp 20 03/16/17 07:48 BP 141/89 H 03/16/17 07:48 Pulse Ox 96 03/16/17 07:48 Weight - most recent: 46 kg I&O - last 24 hours: Intake & Output 03/15/17 03/16/17 03/16/17 22:59 06:59 14:59 Intake Total 536 1000 Output Total 870 750 Balance -334 250 Lab Results last 24 hrs: Laboratory Results - last 24 hr 03/15/17 03/16/17 03/16/17 Range/Units 05:49 05:02 05:02 WBC 7.25 (4.0-11.0) K/uL RBC 3.89 L (4.30-5.90) M/uL Hgb 10.0 L (12.0-16.0) g/dL Hct 30.6 L (36.0-46.0) % MCV 78.7 L (80.0-98.0) fL MCH 25.7 L (27.0-32.0) pg MCHC 32.7 (31.0-37.0) g/dL RDW Std Deviation 54.8 (28.0-62.0) fl RDW Coeff of Deanna 19 H (11.0-15.0) % Plt Count 273 (150-400) K/uL MPV 9.50 (7.40-12.00) fL Neut % (Auto) 76.0 (48.0-80.0) % Lymph % (Auto) 14.9 L (16.0-40.0) % Terry % (Auto) 7.2 (0.0-15.0) % Eos % (Auto) 1.8 (0.0-7.0) % Baso % (Auto) 0.1 (0.0-1.5) % Neut # (Auto) 5.5 (1.4-5.7) K/uL Lymph # (Auto) 1.1 (0.6-2.4) K/uL Terry # (Auto) 0.5 (0.0-0.8) K/uL Eos # (Auto) 0.1 (0.0-0.7) K/uL Baso # (Auto) 0.0 (0.0-0.1) K/uL Nucleated RBC % 0.0 /100WBC Nucleated RBCs # 0 K/uL Sodium 133 L (136-146) mmol/L Potassium 3.6 (3.5-5.1) mmol/L Chloride 106 (98-110) mmol/L Carbon Dioxide 20 L (21-31) mmol/L BUN 2 L (6.0-23.0) mg/dL Creatinine 0.4 L (0.6-1.5) mg/dL Est Cr Clr Drug Dosing 89.60 mL/min Estimated GFR (MDRD) > 60.0 ml/min Glucose 128 H (60-110) mg/dL Calcium 7.3 L (8.8-10.8) mg/dL Phosphorus 1.4 L (2.4-4.7) mg/dL Magnesium 1.4 L (1.5-2.3) mEq/L Total Bilirubin 0.4 (0.1-1.5) mg/dL AST 14 (5-40) IU/L ALT 7 L (8-54) IU/L Alkaline Phosphatase 78 (40-150) Total Protein 4.1 L (6.0-8.0) g/dL Albumin 1.8 L (3.4-4.8) g/dL Globulin 2.3 (2.0-3.5) g/dL Albumin/Globulin Ratio 0.8 L (1.3-2.8) 03/16/17 Range/Units 05:02 WBC (4.0-11.0) K/uL RBC (4.30-5.90) M/uL Hgb (12.0-16.0) g/dL Hct (36.0-46.0) % MCV (80.0-98.0) fL MCH (27.0-32.0) pg MCHC (31.0-37.0) g/dL RDW Std Deviation (28.0-62.0) fl RDW Coeff of Deanna (11.0-15.0) % Plt Count (150-400) K/uL MPV (7.40-12.00) fL Neut % (Auto) (48.0-80.0) % Lymph % (Auto) (16.0-40.0) % Terry % (Auto) (0.0-15.0) % Eos % (Auto) (0.0-7.0) % Baso % (Auto) (0.0-1.5) % Neut # (Auto) (1.4-5.7) K/uL Lymph # (Auto) (0.6-2.4) K/uL Terry # (Auto) (0.0-0.8) K/uL Eos # (Auto) (0.0-0.7) K/uL Baso # (Auto) (0.0-0.1) K/uL Nucleated RBC % /100WBC Nucleated RBCs # K/uL Sodium (136-146) mmol/L Potassium (3.5-5.1) mmol/L Chloride (98-110) mmol/L Carbon Dioxide (21-31) mmol/L BUN (6.0-23.0) mg/dL Creatinine (0.6-1.5) mg/dL Est Cr Clr Drug Dosing mL/min Estimated GFR (MDRD) ml/min Glucose (60-110) mg/dL Calcium (8.8-10.8) mg/dL Phosphorus 2.0 L (2.4-4.7) mg/dL Magnesium (1.5-2.3) mEq/L Total Bilirubin (0.1-1.5) mg/dL AST (5-40) IU/L ALT (8-54) IU/L Alkaline Phosphatase (40-150) Total Protein (6.0-8.0) g/dL Albumin (3.4-4.8) g/dL Globulin (2.0-3.5) g/dL Albumin/Globulin Ratio (1.3-2.8) Med Orders - Current: Current Medications Acetaminophen (Tylenol) 650 mg RECTAL Q4H PRN PRN Reason: Pain (mild 1-3) Albuterol/Ipratropium (Duoneb 3.0-0.5 Mg/3 Ml) 3 ml NEB Q4HRRT PRN PRN Reason: Shortness Of Breath/wheezing Last Admin: 03/12/17 19:53 Dose: 3 ml Bisacodyl (Dulcolax) 10 mg RECTAL DAILY PRN PRN Reason: Constipation Digoxin (Lanoxin) 125 mcg PO DAILY [facility] Heparin Sodium (Porcine) (Heparin Sodium) 5,000 units SUBCUT Q12HR [facility] Last Admin: 03/15/17 21:21 Dose: 5,000 units Levofloxacin/Dextrose 750 mg/ (Premix) 150 mls @ 100 mls/hr IV Q24H [facility] Last Admin: 03/15/17 13:45 Dose: 100 mls/hr Potassium Phosphate 5 mmole/ (Sodium Chloride) 251.6667 mls @ 41.944 mls/hr IV ASDIRECTED [facility] Last Admin: 03/15/17 11:41 Dose: 41.944 mls/hr Pantoprazole Sodium 40 mg/ (Sodium Chloride) 10 mls @ 300 mls/hr IVPUSH BID [facility] Last Admin: 03/15/17 22:22 Dose: 300 mls/hr Magnesium Sulfate 4 gm/ Premix 100 mls @ 50 mls/hr IV ONETIME ONE Stop: 03/16/17 09:59 Potassium Phosphate 5 mmole/ (Sodium Chloride) 251.6667 mls @ 41 mls/hr IV ASDIRECTED [facility] Stop: 03/16/17 14:09 Metoprolol Succinate (Toprol Xl) 50 mg PO DAILY [facility] Metoprolol Tartrate (Lopressor) 5 mg IVPUSH Q6H PRN PRN Reason: Tachycardia Last Admin: 03/15/17 17:36 Dose: 5 mg Ondansetron HCl (Zofran) 4 mg IVPUSH Q4H PRN PRN Reason: Nausea Sodium Chloride (Saline Flush) 10 ml FLUSH ASDIRECTED PRN PRN Reason: Keep Vein Open Sodium Chloride (Saline Flush) 2.5 ml FLUSH ASDIRECTED PRN PRN Reason: Keep Vein Open Sodium Chloride ([place] Nasal Drain) 1 ml KIEL BID [facility] Last Admin: 03/15/17 21:22 Dose: 1 spray Sucralfate (Carafate) 1 gm GTUBE QIDACANDBED [facility] Last Admin: 03/16/17 07:48 Dose: 1 gm Discontinued Medications Bupivacaine HCl (Marcaine 0.5%) Confirm Administered Dose 30 ml .ROUTE .STK-MED ONE Stop: 03/15/17 07:24 Ephedrine Sulfate (Ephedrine Sulfate) Confirm Administered Dose 50 mg .ROUTE .STK-MED ONE Stop: 03/15/17 12:17 Fentanyl (Sublimaze) Confirm Administered Dose 100 mcg .ROUTE .STK-MED ONE Stop: 03/15/17 10:26 Sodium Chloride (Normal Saline) 500 mls @ 999 mls/hr IV STAT [facility] Sodium Chloride (Normal Saline) 500 mls @ 999 mls/hr IV .BOLUS DWIGHT Sodium Chloride (Normal Saline) 1,000 mls @ 999 mls/hr IV ASDIRECTED [facility] Last Infusion: 03/10/17 14:11 Dose: 300 mls/hr Levofloxacin/Dextrose 500 mg/ (Premix) 100 mls @ 100 mls/hr IV ONETIME ONE Stop: 03/10/17 15:00 Last Admin: 03/10/17 14:11 Dose: 100 mls/hr Sodium Chloride (Normal Saline) 1,000 mls @ 75 mls/hr IV ASDIRECTED [facility] Last Admin: 03/11/17 05:30 Dose: 75 mls/hr Cefepime HCl 2 gm/ Premix 50 mls @ 100 mls/hr IV Q8H [facility] Last Admin: 03/13/17 08:30 Dose: 100 mls/hr Vancomycin HCl 750 mg/ Sodium (Chloride) 250 mls @ 250 mls/hr IV Q12H [facility] Last Admin: 03/14/17 06:28 Dose: 250 mls/hr Magnesium Sulfate 4 gm/ Premix 100 mls @ 50 mls/hr IV ONETIME ONE Stop: 03/10/17 19:03 Last Admin: 03/10/17 18:04 Dose: 50 mls/hr Potassium Chloride 40 meq/ (Sodium Chloride) 1,020 mls @ 75 mls/hr IV ASDIRECTED [facility] Stop: 03/11/17 21:20 Last Admin: 03/11/17 09:54 Dose: 75 mls/hr Fluconazole 200 mg/ Premix 100 mls @ 100 mls/hr IV ONETIME ONE Stop: 03/11/17 12:04 Last Admin: 03/11/17 11:15 Dose: 100 mls/hr Potassium Chloride 40 meq/ (Sodium Chloride) 1,020 mls @ 75 mls/hr IV ASDIRECTED [facility] Last Admin: 03/12/17 05:46 Dose: 75 mls/hr Magnesium Sulfate 4 gm/ Premix 100 mls @ 50 mls/hr IV ONETIME ONE Stop: 03/12/17 09:50 Last Admin: 03/12/17 08:21 Dose: 50 mls/hr Sodium Chloride (Sodium Chloride 0.45%) 1,000 mls @ 50 mls/hr IV ASDIRECTED [facility] Last Admin: 03/12/17 09:56 Dose: 50 mls/hr Dextrose/Sodium Chloride (Dextrose 5%-1/2 Ns) 1,000 mls @ 50 mls/hr IV ASDIRECTED [facility] Last Admin: 03/12/17 11:00 Dose: 50 mls/hr Potassium Chloride/Dextrose/Sod Cl (D5 1/2 Ns W/ 20 Meq/L Kcl) 1,000 mls [facility] Admin: 03/14/17 01:30 Dose: 75 mls/hr Magnesium Sulfate 2 gm/ Premix 50 mls @ 50 mls/hr IV ONETIME ONE Stop: 03/13/17 09:59 Last Admin: 03/13/17 09:21 Dose: 50 mls/hr Potassium Chloride/Dextrose/Sod Cl (D5 1/2 Ns W/ 40 Meq/L Kcl) 1,000 mls @ 100 mls/hr IV ASDIRECTED [facility] Last Admin: 03/14/17 22:53 Dose: 100 mls/hr Magnesium Sulfate 2 gm/ Premix 50 mls @ 50 mls/hr IV ONETIME ONE Stop: 03/14/17 11:47 Last Admin: 03/14/17 11:37 Dose: 50 mls/hr Magnesium Sulfate 4 gm/ Premix 100 mls @ 50 mls/hr IV ONETIME ONE Stop: 03/15/17 09:43 Last Admin: 03/15/17 07:54 Dose: 50 mls/hr Dextrose/Sodium Chloride (Dextrose 5%-1/2 Ns) 1,000 mls @ 75 mls/hr IV ASDIRECTED [facility] Last Admin: 03/16/17 03:36 Dose: 75 mls/hr Potassium Phosphate 45 mmole/ (Sodium Chloride) 265 mls @ 125 mls/hr IV ASDIRECTED [facility] Potassium Phosphate 5 mmole/ (Sodium Chloride) 251.6667 mls @ 41.944 mls/hr IV Q6H PRN PRN Reason: ASDIRECTED Lidocaine (Xylocaine-Mpf 2%) Confirm Administered Dose 10 ml .ROUTE .STK-MED ONE Stop: 03/15/17 10:24 Lidocaine HCl (Xylocaine 1%) Confirm Administered Dose 20 ml .ROUTE .STK-MED ONE Stop: 03/15/17 07:24 Metoprolol Tartrate (Lopressor) Confirm Administered Dose 5 mg .ROUTE .STK-MED ONE Stop: 03/15/17 12:22 Midazolam HCl (Versed 1 Mg/Ml) Confirm Administered Dose 2 mg .ROUTE .STK-MED ONE Stop: 03/15/17 10:26 Phenylephrine HCl (Phenylephrine In Ns 100 Mcg/Ml) Confirm Administered Dose 1 mg .ROUTE .STK-MED ONE Stop: 03/15/17 12:17 Propofol (Diprivan 20 Ml) Confirm Administered Dose 200 mg .ROUTE .STK-MED ONE Stop: 03/15/17 09:04 Propofol (Diprivan 20 Ml) Confirm Administered Dose 400 mg .ROUTE .STK-MED ONE Stop: 03/15/17 10:25 Sucralfate (Carafate) 1 gm PO QIDACANDBED [facility] Vancomycin HCl (Pharmacy To Dose - Vancomycin) 1 dose .XX ASDIRECTED [facility] - Exam Quality Assessment: supplemental oxygen, urine catheter, DVT prophylaxis General: alert, cooperative, no acute distress Neck: supple Lungs: Clear to auscultation, Normal respiratory effort Cardiovascular: Regular Rate, Regular Rhythm, No Murmurs Extremities: normal pulses, edema (+1 pitting edema remains to bilateral feet, + 1 to hips. +1 non pitting to bilateral arms.) Wound/Incisions: dressing dry and intact Neurological: no new focal deficit Psy/Mental Status: alert, normal affect, normal mood - Problem List & Annotations (1) UTI (urinary tract infection) SNOMED Code(s): 96233885 Code(s): N39.0 - URINARY TRACT INFECTION, SITE NOT SPECIFIED Status: Acute Current Visit: Yes Qualifiers: Urinary tract infection type: acute cystitis Hematuria presence: with hematuria Qualified Code(s): N30.01 - Acute cystitis with hematuria (2) Pneumonia SNOMED Code(s): 767722338 Code(s): J18.9 - PNEUMONIA, UNSPECIFIED ORGANISM Status: Acute Current Visit: Yes Qualifiers: Pneumonia type: due to unspecified organism Laterality: left Lung location: lower lobe of lung Qualified Code(s): J18.1 - Lobar pneumonia, unspecified organism (3) Altered mental status SNOMED Code(s): 903002591 Code(s): R41.82 - ALTERED MENTAL STATUS, UNSPECIFIED Status: Acute Current Visit: Yes Qualifiers: Altered mental status type: somnolence Qualified Code(s): R40.0 - Somnolence (4) Hx MRSA infection SNOMED Code(s): 690421814, 126543439 Code(s): Z86.14 - PERSONAL HISTORY OF METHICILLIN RESIS STAPH INFECTION Status: Chronic Current Visit: Yes Annotation/Comment:: UTI (5) Pressure ulcer of coccygeal region, stage 4 SNOMED Code(s): 183614290, 530136470 Code(s): L89.154 - PRESSURE ULCER OF SACRAL REGION, STAGE 4 Status: Chronic Priority: Medium Current Visit: Yes (6) History of CVA with residual deficit SNOMED Code(s): 940055004 Code(s): I69.30 - UNSPECIFIED SEQUELAE OF CEREBRAL INFARCTION Status: Chronic Current Visit: No (7) Malnutrition SNOMED Code(s): 9478038 Code(s): E46 - UNSPECIFIED PROTEIN-CALORIE MALNUTRITION Status: Acute Current Visit: Yes (8) Failure to thrive SNOMED Code(s): 45845451 Code(s): SIF3670 - Status: Acute Current Visit: Yes Qualifiers: Failure to thrive age range: in adult Qualified Code(s): R62.7 - Adult failure to thrive - Problem List Review Problem List Initiated/Reviewed/Updated: Yes - My Orders Last 24 Hours: My Active Orders 03/15/17 10:30 Potassium Phosphates 5 mmole Sodium Chloride 0.9% [Normal Saline] 250 ml IV ASDIRECTED 03/15/17 13:45 Pantoprazole [ProTONIX IV] 40 mg Sodium Chloride 0.9% [Normal Saline] 10 ml IVPUSH BID 03/15/17 18:00 Sucralfate [Carafate] 1 gm GTUBE QIDACANDBED 03/15/17 18:34 Aspiration Precautions [RC] ASDIRECTED 03/15/17 Dinner Tube Feeding Adult Diet [DIET] 03/16/17 08:00 Magnesium Sulfate/Water [Magnesium Sulfate 4 GM in Water 100 ML] 4 gm Premix Bag 1 bag IV ONETIME Potassium Phosphates 5 mmole Sodium Chloride 0.9% [Normal Saline] 250 ml IV ASDIRECTED 03/16/17 09:00 Digoxin [Lanoxin] 125 mcg PO DAILY Metoprolol Succinate [Toprol XL] 50 mg PO DAILY 03/17/17 05:00 CBC WITH AUTO DIFF [HEME] DAILY COMPREHENSIVE METABOLIC PN,CMP [CHEM] DAILY MAGNESIUM [CHEM] DAILY 03/17/17 13:29 PHOSPHORUS [CHEM] DAILY 03/18/17 05:00 CBC WITH AUTO DIFF [HEME] DAILY COMPREHENSIVE METABOLIC PN,CMP [CHEM] DAILY MAGNESIUM [CHEM] DAILY 03/18/17 13:29 PHOSPHORUS [CHEM] DAILY 03/19/17 05:00 CBC WITH AUTO DIFF [HEME] DAILY COMPREHENSIVE METABOLIC PN,CMP [CHEM] DAILY MAGNESIUM [CHEM] DAILY 03/19/17 13:29 PHOSPHORUS [CHEM] DAILY - Plan Plan:: This 76 year old female admitted with HCAP vs aspiration PNA, UTI, and AMS 1. PNA: Continue Levaquin, has had 5 days treatment. Discontinue after todays dose and Monitor. 2. UTI: Chronic anton remains intact. Monitor. 3. Afib/tachycardia: Will restart home medications, Metoprolol and Digoxin. Lopressor IV PRN, monitor on telemetry. Supplement magnesium and potassium. debating chronic anticoagluation besides ASA which she has been on at home. 4. Hypokalemia/hypomagnesia/hypophosphatemia: Replace magnesium 4 gm today. Replace Phosphate today per IV, Phosphate 2.0 today. 5. CHF: Stable. Monitor daily weights. 6. Malnutrition/protein deficiency: secondary to dysphagia from hx CVA. PEG tube successfully placed this afternoon. Increase feedings 10 ml/hr every 8 hours until maximum goal reached of 39 ml/hr continuous with free water flushes QID. VTE prophylaxis: Heparin. Dispo: 3-4 days
[2017-03-16] MEDS: Heparin Sodium 5,000 Units/ML Vial SUBCUT SCH ×2 (08:39→20:01)
[2017-03-16] MEDS: Digoxin 125 MCG Tab PO SCH (08:40)
[2017-03-16] MEDS: Sodium Chloride 0.65% Nasal Spray 45 ML Bottle NAS SCH ×2 (08:42→20:11)
[2017-03-16] MEDS: Metoprolol Succinate 50 MG Tab.ER PO SCH (08:42)
[2017-03-16] MEDS: Pantoprazole 40 MG in Sodium Chloride 0.9% 10 ML IVPUSH SCH ×2 (08:43→20:01)
[2017-03-16] MEDS: Levofloxacin/Dextrose 5%-Water 750 MG in Premix Bag 1 BAG IV SCH (12:30)
[2017-03-17 05:31] LABS: CHLORIDE,CL 106 mmol/L (98-110); SODIUM,NA 134 mmol/L (136-146)
--- NOTE | 2017-03-17 06:22 | OR ---
SURGEON: Aleksey Weller M.D. DATE OF PROCEDURE: 03/15/2017 OPERATION PERFORMED: Percutaneous endoscopic gastrostomy. CO-SURGEONS: Dr. Weller and Dr. Martinez. PREOPERATIVE DIAGNOSIS: Severe stroke, failure to thrive. POSTOPERATIVE DIAGNOSIS: Severe stroke, failure to thrive. ESTIMATED BLOOD LOSS: Minimal. ANESTHESIA: General endotracheal. ASA CLASSIFICATION: IV. DESCRIPTION OF PROCEDURE: The patient was taken to the operating room, placed on the transfer cart in the supine position. Following satisfactory attainment of general endotracheal anesthesia, bite-block was placed between the patient's teeth. The gastroscope was inserted into the mouth and advanced with minimal difficulty into the stomach. Pressure on the abdominal wall dictated the position of the gastrostomy tube placement. The abdominal portion of the procedure will be dictated by Dr. Martinez. Once appropriate site for placement of the PEG tube was identified, the skin had been infiltrated. The needle and introducer were passed into the lumen of the stomach. A guidewire was then passed through this and this was grasped with the snare and brought out through the mouth. The PEG tube was then connected to the snare and pulled back through the mouth and esophagus into the stomach. The gastroscope was reinserted to visualize appropriate placement of the PEG tube. This was confirmed endoscopically. The gastroscope was then passed through the pylorus into the pyloric channel and duodenal bulb, where superficial ulcers were seen. The scope was then withdrawn. Photographs were obtained documenting the proper positioning of the feeding tube. The scope was then slowly withdrawn. I did not see any acute ulcerations or tumors within the stomach. No biopsies were done. The GE junction was well defined. The esophagus demonstrates fair contractility. The vocal cords had been visualized at the time of intubation noted to move symmetrically. The gastroscope was then removed with the patient having tolerated the procedure well. EVA / RICARDO /[id number]
[2017-03-17] MEDS: Sucralfate Suspension 1 GM/10 ML Cup GTUBE SCH ×4 (06:32→20:50)
[2017-03-17] MEDS ORDERED: Magnesium Sulfate/Water 2 GM in Premix Bag 1 BAG IV ONE (07:51)
[2017-03-17] MEDS ORDERED: Potassium Chloride 10% 20 MEQ/15 ML Soln 30 ML UD Cup PO ONE (07:56)
--- NOTE | 2017-03-17 07:56 | PCM.PN ---
- General Info Date of Service: 03/17/17 Admission Dx/Problem (Free Text): Admission Diagnosis/Problem Admission Diagnosis/Problem Failure to thrive Subjective Update: Non verbal, not awake this am. not at bedside. Will stop by later and visit with him. Starting to plan discharge for end of week if she continues to do well. - Patient Data Vitals - most recent: Last Vital Signs Temp 97.3 F 03/17/17 04:00 Pulse 99 03/17/17 04:00 Resp 14 03/17/17 04:00 BP 101/53 L 03/17/17 04:00 Pulse Ox 97 03/17/17 04:00 Weight - most recent: 45.5 kg I&O - last 24 hours: Intake & Output 03/16/17 03/17/17 03/17/17 22:59 06:59 14:59 Intake Total 735 628 Output Total 1350 400 Balance -615 228 Lab Results last 24 hrs: Laboratory Results - last 24 hr 03/17/17 03/17/17 03/17/17 Range/Units 04:50 04:50 04:50 WBC 5.37 (4.0-11.0) K/uL RBC 3.78 L (4.30-5.90) M/uL Hgb 9.6 L (12.0-16.0) g/dL Hct 29.8 L (36.0-46.0) % MCV 78.8 L (80.0-98.0) fL MCH 25.4 L (27.0-32.0) pg MCHC 32.2 (31.0-37.0) g/dL RDW Std Deviation 54.9 (28.0-62.0) fl RDW Coeff of Deanna 19 H (11.0-15.0) % Plt Count 264 (150-400) K/uL MPV 9.60 (7.40-12.00) fL Neut % (Auto) 68.7 (48.0-80.0) % Lymph % (Auto) 18.4 (16.0-40.0) % [place] % (Auto) 9.9 (0.0-15.0) % Eos % (Auto) 2.8 (0.0-7.0) % Baso % (Auto) 0.2 (0.0-1.5) % Neut # (Auto) 3.7 (1.4-5.7) K/uL Lymph # (Auto) 1.0 (0.6-2.4) K/uL [place] # (Auto) 0.5 (0.0-0.8) K/uL Eos # (Auto) 0.2 (0.0-0.7) K/uL Baso # (Auto) 0.0 (0.0-0.1) K/uL Nucleated RBC % 0.8 /100WBC Nucleated RBCs # 0 K/uL Sodium 134 L (136-146) mmol/L Potassium 3.6 (3.5-5.1) mmol/L Chloride 106 (98-110) mmol/L Carbon Dioxide 21 (21-31) mmol/L BUN 4 L (6.0-23.0) mg/dL Creatinine 0.4 L (0.6-1.5) mg/dL Est Cr Clr Drug Dosing 89.60 mL/min Estimated GFR (MDRD) > 60.0 ml/min Glucose 123 H (60-110) mg/dL Calcium 7.0 L (8.8-10.8) mg/dL Phosphorus 1.9 L (2.4-4.7) mg/dL Magnesium 1.6 (1.5-2.3) mEq/L Total Bilirubin 0.3 (0.1-1.5) mg/dL AST 13 (5-40) IU/L ALT 7 L (8-54) IU/L Alkaline Phosphatase 92 (40-150) Total Protein 3.9 L (6.0-8.0) g/dL Albumin 1.8 L (3.4-4.8) g/dL Globulin 2.1 (2.0-3.5) g/dL Albumin/Globulin Ratio 0.9 L (1.3-2.8) Med Orders - Current: Current Medications Acetaminophen (Tylenol) 650 mg RECTAL Q4H PRN PRN Reason: Pain (mild 1-3) Albuterol/Ipratropium (Duoneb 3.0-0.5 Mg/3 Ml) 3 ml NEB Q4HRRT PRN PRN Reason: Shortness Of Breath/wheezing Last Admin: 03/12/17 19:53 Dose: 3 ml Bisacodyl (Dulcolax) 10 mg RECTAL DAILY PRN PRN Reason: Constipation Digoxin (Lanoxin) 125 mcg PO DAILY [facility] Last Admin: 03/16/17 08:40 Dose: 125 mcg Heparin Sodium (Porcine) (Heparin Sodium) 5,000 units SUBCUT Q12HR [facility] Last Admin: 03/16/17 20:01 Dose: 5,000 units Potassium Phosphate 5 mmole/ (Sodium Chloride) 251.6667 mls @ 41.944 mls/hr IV ASDIRECTED [facility] Last Admin: 03/15/17 11:41 Dose: 41.944 mls/hr Pantoprazole Sodium 40 mg/ (Sodium Chloride) 10 mls @ 300 mls/hr IVPUSH BID [facility] Last Admin: 03/16/17 20:01 Dose: 300 mls/hr Potassium Phosphate 5 mmole/ (Sodium Chloride) 251.6667 mls @ 42 mls/hr IV ASDIRECTED [facility] Stop: 03/17/17 14:00 Magnesium Sulfate 2 gm/ Premix 50 mls @ 50 mls/hr IV ONETIME ONE Stop: 03/17/17 08:50 Metoprolol Succinate (Toprol Xl) 50 mg PO DAILY [facility] Last Admin: 03/16/17 08:42 Dose: 50 mg Metoprolol Tartrate (Lopressor) 5 mg IVPUSH Q6H PRN PRN Reason: Tachycardia Last Admin: 03/15/17 17:36 Dose: 5 mg Ondansetron HCl (Zofran) 4 mg IVPUSH Q4H PRN PRN Reason: Nausea Potassium Chloride (Potassium Chloride) 40 meq PO ONETIME ONE Stop: 03/17/17 07:57 Sodium Chloride (Saline Flush) 10 ml FLUSH ASDIRECTED PRN PRN Reason: Keep Vein Open Sodium Chloride (Saline Flush) 2.5 ml FLUSH ASDIRECTED PRN PRN Reason: Keep Vein Open Sodium Chloride ([place] Nasal [place]) 1 ml KIEL BID [facility] Last Admin: 03/16/17 20:11 Dose: 1 spray Sucralfate (Carafate) 1 gm GTUBE QIDACANDBED [facility] Last Admin: 03/17/17 06:32 Dose: 1 gm Discontinued Medications Bupivacaine HCl (Marcaine 0.5%) Confirm Administered Dose 30 ml .ROUTE .STK-MED ONE Stop: 03/15/17 07:24 Ephedrine Sulfate (Ephedrine Sulfate) Confirm Administered Dose 50 mg .ROUTE .STK-MED ONE Stop: 03/15/17 12:17 Fentanyl (Sublimaze) Confirm Administered Dose 100 mcg .ROUTE .STK-MED ONE Stop: 03/15/17 10:26 Sodium Chloride (Normal Saline) 500 mls @ 999 mls/hr IV STAT DWIGHT Sodium Chloride (Normal Saline) 500 mls @ 999 mls/hr IV .BOLUS DWIGHT Sodium Chloride (Normal Saline) 1,000 mls @ 999 mls/hr IV ASDIRECTED [facility] Last Infusion: 03/10/17 14:11 Dose: 300 mls/hr Levofloxacin/Dextrose 500 mg/ (Premix) 100 mls @ 100 mls/hr IV ONETIME ONE Stop: 03/10/17 15:00 Last Admin: 03/10/17 14:11 Dose: 100 mls/hr Levofloxacin/Dextrose 750 mg/ (Premix) 150 mls @ 100 mls/hr IV Q24H [facility] Last Admin: 03/16/17 12:30 Dose: 100 mls/hr Sodium Chloride (Normal Saline) 1,000 mls @ 75 mls/hr IV ASDIRECTED [facility] Last Admin: 03/11/17 05:30 Dose: 75 mls/hr Cefepime HCl 2 gm/ Premix 50 mls @ 100 mls/hr IV Q8H [facility] Last Admin: 03/13/17 08:30 Dose: 100 mls/hr Vancomycin HCl 750 mg/ Sodium (Chloride) 250 mls @ 250 mls/hr IV Q12H [facility] Last Admin: 03/14/17 06:28 Dose: 250 mls/hr Magnesium Sulfate 4 gm/ Premix 100 mls @ 50 mls/hr IV ONETIME ONE Stop: 03/10/17 19:03 Last Admin: 03/10/17 18:04 Dose: 50 mls/hr Potassium Chloride 40 meq/ (Sodium Chloride) 1,020 mls @ 75 mls/hr IV ASDIRECTED [facility] Stop: 03/11/17 21:20 Last Admin: 03/11/17 09:54 Dose: 75 mls/hr Fluconazole 200 mg/ Premix 100 mls @ 100 mls/hr IV ONETIME ONE Stop: 03/11/17 12:04 Last Admin: 03/11/17 11:15 Dose: 100 mls/hr Potassium Chloride 40 meq/ (Sodium Chloride) 1,020 mls @ 75 mls/hr IV ASDIRECTED [facility] Last Admin: 03/12/17 05:46 Dose: 75 mls/hr Magnesium Sulfate 4 gm/ Premix 100 mls @ 50 mls/hr IV ONETIME ONE Stop: 03/12/17 09:50 Last Admin: 03/12/17 08:21 Dose: 50 mls/hr Sodium Chloride (Sodium Chloride 0.45%) 1,000 mls @ 50 mls/hr IV ASDIRECTED [facility] Last Admin: 03/12/17 09:56 Dose: 50 mls/hr Dextrose/Sodium Chloride (Dextrose 5%-1/2 Ns) 1,000 mls @ 50 mls/hr IV ASDIRECTED [facility] Last Admin: 03/12/17 11:00 Dose: 50 mls/hr Potassium Chloride/Dextrose/Sod Cl (D5 1/2 Ns W/ 20 Meq/L Kcl) 1,000 mls @ 75 mls/hr IV ASDIRECTED [facility] Last Admin: 03/14/17 01:30 Dose: 75 mls/hr Magnesium Sulfate 2 gm/ Premix 50 mls @ 50 mls/hr IV ONETIME ONE Stop: 03/13/17 09:59 Last Admin: 03/13/17 09:21 Dose: 50 mls/hr Potassium Chloride/Dextrose/Sod Cl (D5 1/2 Ns W/ 40 Meq/L Kcl) 1,000 mls @ 100 mls/hr IV ASDIRECTED [facility] Last Admin: 03/14/17 22:53 Dose: 100 mls/hr Magnesium Sulfate 2 gm/ Premix 50 mls @ 50 mls/hr IV ONETIME ONE Stop: 03/14/17 11:47 Last Admin: 03/14/17 11:37 Dose: 50 mls/hr Magnesium Sulfate 4 gm/ Premix 100 mls @ 50 mls/hr IV ONETIME ONE Stop: 03/15/17 09:43 Last Admin: 03/15/17 07:54 Dose: 50 mls/hr Dextrose/Sodium Chloride (Dextrose 5%-1/2 Ns) 1,000 mls @ 75 mls/hr IV ASDIRECTED [facility] Last Admin: 03/16/17 03:36 Dose: 75 mls/hr Potassium Phosphate 45 mmole/ (Sodium Chloride) 265 mls @ 125 mls/hr IV ASDIRECTED [facility] Potassium Phosphate 5 mmole/ (Sodium Chloride) 251.6667 mls @ 41.944 mls/hr IV Q6H PRN PRN Reason: ASDIRECTED Magnesium Sulfate 4 gm/ Premix 100 mls @ 50 mls/hr IV ONETIME ONE Stop: 03/16/17 09:59 Last Admin: 03/16/17 08:43 Dose: 50 mls/hr Potassium Phosphate 5 mmole/ (Sodium Chloride) 251.6667 mls @ 41 mls/hr IV ASDIRECTED [facility] Stop: 03/16/17 14:09 Last Admin: 03/16/17 09:00 Dose: 41 mls/hr Lidocaine (Xylocaine-Mpf 2%) Confirm Administered Dose 10 ml .ROUTE .STK-MED ONE Stop: 03/15/17 10:24 Lidocaine HCl (Xylocaine 1%) Confirm Administered Dose 20 ml .ROUTE .STK-MED ONE Stop: 03/15/17 07:24 Metoprolol Tartrate (Lopressor) Confirm Administered Dose 5 mg .ROUTE .STK-MED ONE Stop: 03/15/17 12:22 Midazolam HCl (Versed 1 Mg/Ml) Confirm Administered Dose 2 mg .ROUTE .STK-MED ONE Stop: 03/15/17 10:26 Phenylephrine HCl (Phenylephrine In Ns 100 Mcg/Ml) Confirm Administered Dose 1 mg .ROUTE .STK-MED ONE Stop: 03/15/17 12:17 Propofol (Diprivan 20 Ml) Confirm Administered Dose 200 mg .ROUTE .STK-MED ONE Stop: 03/15/17 09:04 Propofol (Diprivan 20 Ml) Confirm Administered Dose 400 mg .ROUTE .STK-MED ONE Stop: 03/15/17 10:25 Sucralfate (Carafate) 1 gm PO QIDACANDBED [facility] Vancomycin HCl (Pharmacy To Dose - Vancomycin) 1 dose .XX ASDIRECTED [facility] - Exam HEENT: Pupils equal, Pupils reactive, EOMI, Mucous membr. moist/pink Neck: supple Lungs: Clear to auscultation, Normal respiratory effort Cardiovascular: Regular Rate, Regular Rhythm, No Murmurs Abdomen: bowel sounds present, soft, no tenderness, no distension, other (PEG to R abdomen intact, no erythema or drainage.) Extremities: edema (+1 to R arm, +2 pitting to bilateral feet, +1 to hips and bottom.) Wound/Incisions: dressing dry and intact Neurological: no new focal deficit - Problem List & Annotations (1) UTI (urinary tract infection) SNOMED Code(s): 61071355 Code(s): N39.0 - URINARY TRACT INFECTION, SITE NOT SPECIFIED Status: Acute Current Visit: Yes Qualifiers: Urinary tract infection type: acute cystitis Hematuria presence: with hematuria Qualified Code(s): N30.01 - Acute cystitis with hematuria (2) Pneumonia SNOMED Code(s): 534888780 Code(s): J18.9 - PNEUMONIA, UNSPECIFIED ORGANISM Status: Acute Current Visit: Yes Qualifiers: Pneumonia type: due to unspecified organism Laterality: left Lung location: lower lobe of lung Qualified Code(s): J18.1 - Lobar pneumonia, unspecified organism (3) Altered mental status SNOMED Code(s): 717288756 Code(s): R41.82 - ALTERED MENTAL STATUS, UNSPECIFIED Status: Acute Current Visit: Yes Qualifiers: Altered mental status type: somnolence Qualified Code(s): R40.0 - Somnolence (4) Hx MRSA infection SNOMED Code(s): 424882424, 379492299 Code(s): Z86.14 - PERSONAL HISTORY OF METHICILLIN RESIS STAPH INFECTION Status: Chronic Current Visit: Yes Annotation/Comment:: UTI (5) Pressure ulcer of coccygeal region, stage 4 SNOMED Code(s): 837476250, 401088101 Code(s): L89.154 - PRESSURE ULCER OF SACRAL REGION, STAGE 4 Status: Chronic Priority: Medium Current Visit: Yes (6) History of CVA with residual deficit SNOMED Code(s): 511155435 Code(s): I69.30 - UNSPECIFIED SEQUELAE OF CEREBRAL INFARCTION Status: Chronic Current Visit: No (7) Malnutrition SNOMED Code(s): 1179335 Code(s): E46 - UNSPECIFIED PROTEIN-CALORIE MALNUTRITION Status: Acute Current Visit: Yes (8) Failure to thrive SNOMED Code(s): 19994828 Code(s): [id number] - Status: Acute Current Visit: Yes Qualifiers: Failure to thrive age range: in adult Qualified Code(s): R62.7 - Adult failure to thrive - Problem List Review Problem List Initiated/Reviewed/Updated: Yes - My Orders Last 24 Hours: My Active Orders 03/16/17 09:00 Digoxin [Lanoxin] 125 mcg PO DAILY Metoprolol Succinate [Toprol XL] 50 mg PO DAILY 03/16/17 10:01 Communication Order [RC] ROUTINE 03/17/17 07:51 Magnesium Sulfate/Water [Magnesium Sulfate 2 GM in Water 50 ML] 2 gm Premix Bag 1 bag IV ONETIME 03/17/17 07:54 Potassium Chloride 40 meq PO ONETIME ONE 03/17/17 08:00 Potassium Phosphates 5 mmole Sodium Chloride 0.9% [Normal Saline] 250 ml IV ASDIRECTED 03/18/17 05:00 CBC WITH AUTO DIFF [HEME] DAILY COMPREHENSIVE METABOLIC PN,CMP [CHEM] DAILY MAGNESIUM [CHEM] DAILY 03/18/17 13:29 PHOSPHORUS [CHEM] DAILY 03/19/17 05:00 CBC WITH AUTO DIFF [HEME] DAILY COMPREHENSIVE METABOLIC PN,CMP [CHEM] DAILY MAGNESIUM [CHEM] DAILY 03/19/17 13:29 PHOSPHORUS [CHEM] DAILY - Plan Plan:: This 76 year old female admitted with HCAP vs aspiration PNA, UTI, and AMS 1. PNA: Resolved. Levaquin discontinued. 2. UTI: Resolved. Chronic anton remains intact. Monitor. 3. Afib/tachycardia: Continue Metoprolol and Digoxin. Lopressor IV PRN, monitor on telemetry. Supplement magnesium and potassium. debating chronic anticoagluation besides ASA which she has been on at home. 4. Hypokalemia/hypomagnesia/hypophosphatemia: Replace magnesium 2 gm today. Replace Phosphate today per Gtube. 5. CHF: Stable. Monitor daily weights. 6. Malnutrition/protein deficiency: secondary to dysphagia from hx CVA. Tolerating continuous feedings very well. Feedings close to max at 30 ml/hr increased 10 mls every 8hrs to reach max of 39 mls/hr, with free water flushes QID. Spoke with flame channeler regarding plan for discharge home. She would recommended continuous feedings due to length of malnutrition state, risk of aspiration with large bolus feeds and the need for steady nutrition due to her severe malnutrition, bedridden state, and stage IV decubitous ulcer. VTE prophylaxis: Heparin. Dispo: 2-3 days
[2017-03-17] MEDS ORDERED: SODIUM CHLORIDE IV SCH (08:00)
[2017-03-17] MEDS ORDERED: POTASSIUM PHOSPHATES IV SCH (08:00)
[2017-03-17] MEDS: Metoprolol Succinate 50 MG Tab.ER PO SCH (08:14)
[2017-03-17] MEDS: Digoxin 125 MCG Tab PO SCH (08:15)
[2017-03-17] MEDS: Pantoprazole 40 MG in Sodium Chloride 0.9% 10 ML IVPUSH SCH ×2 (08:16→20:55)
[2017-03-17] MEDS: Heparin Sodium 5,000 Units/ML Vial SUBCUT SCH ×2 (08:21→20:51)
[2017-03-17] MEDS: Sodium Chloride 0.65% Nasal Spray 45 ML Bottle NAS SCH ×2 (08:24→21:09)
[2017-03-17] MEDS: Phosphorus #1 250 MG Tab PO SCH ×3 (11:01→17:21)
[2017-03-18] MEDS: Phosphorus #1 250 MG Tab PO SCH ×2 (00:11→06:54)
[2017-03-18 06:03] LABS: CHLORIDE,CL 105 mmol/L (98-110); SODIUM,NA 135 mmol/L (136-146)
[2017-03-18] MEDS: Sucralfate Suspension 1 GM/10 ML Cup GTUBE SCH ×4 (06:54→20:40)
[2017-03-18] MEDS ORDERED: Magnesium Sulfate/Water 4 GM in Premix Bag 1 BAG IV ONE (07:45)
[2017-03-18] MEDS ORDERED: Calcium Carbonate 500 MG Tab.Chew ONE (07:55)
[2017-03-18] MEDS: Metoprolol Succinate 50 MG Tab.ER PO SCH (08:21)
[2017-03-18] MEDS: Digoxin 125 MCG Tab PO SCH (08:21)
[2017-03-18] MEDS: Heparin Sodium 5,000 Units/ML Vial SUBCUT SCH ×2 (08:21→20:39)
--- NOTE | 2017-03-18 08:30 | PCM.PN ---
- General Info Date of Service: 03/18/17 Admission Dx/Problem (Free Text): Admission Diagnosis/Problem Admission Diagnosis/Problem Failure to thrive Subjective Update: Non-verbal at bedside, will be educated with nursing today regarding feedings and medication administration - Patient Data Vitals - most recent: Last Vital Signs Temp 97.4 F 03/18/17 07:32 Pulse 109 H 03/18/17 08:21 Resp 16 03/18/17 07:32 BP 127/69 03/18/17 08:21 Pulse Ox 95 03/18/17 07:32 Weight - most recent: 46.5 kg I&O - last 24 hours: Intake & Output 03/17/17 03/18/17 03/18/17 22:59 06:59 14:59 Intake Total 373 714 Output Total 700 800 Balance -327 -86 Lab Results last 24 hrs: Laboratory Results - last 24 hr 03/18/17 03/18/17 03/18/17 Range/Units 04:45 04:45 04:45 WBC 6.60 (4.0-11.0) K/uL RBC 3.82 L (4.30-5.90) M/uL Hgb 9.8 L (12.0-16.0) g/dL Hct 30.3 L (36.0-46.0) % MCV 79.3 L (80.0-98.0) fL MCH 25.7 L (27.0-32.0) pg MCHC 32.3 (31.0-37.0) g/dL RDW Std Deviation 56.9 (28.0-62.0) fl RDW Coeff of Deanna 20 H (11.0-15.0) % Plt Count 271 (150-400) K/uL MPV 10.10 (7.40-12.00) fL Neut % (Auto) 64.5 (48.0-80.0) % Lymph % (Auto) 21.4 (16.0-40.0) % [place] % (Auto) 10.8 (0.0-15.0) % Eos % (Auto) 3.0 (0.0-7.0) % Baso % (Auto) 0.3 (0.0-1.5) % Neut # (Auto) 4.3 (1.4-5.7) K/uL Lymph # (Auto) 1.4 (0.6-2.4) K/uL [place] # (Auto) 0.7 (0.0-0.8) K/uL Eos # (Auto) 0.2 (0.0-0.7) K/uL Baso # (Auto) 0.0 (0.0-0.1) K/uL Nucleated RBC % 0.0 /100WBC Nucleated RBCs # 0 K/uL Sodium 135 L (136-146) mmol/L Potassium 4.2 (3.5-5.1) mmol/L Chloride 105 (98-110) mmol/L Carbon Dioxide 23 (21-31) mmol/L BUN 5 L (6.0-23.0) mg/dL Creatinine 0.4 L (0.6-1.5) mg/dL Est Cr Clr Drug Dosing 90.58 mL/min Estimated GFR (MDRD) > 60.0 ml/min Glucose 94 (60-110) mg/dL Calcium 7.2 L (8.8-10.8) mg/dL Phosphorus 2.0 L (2.4-4.7) mg/dL Magnesium 1.3 L (1.5-2.3) mEq/L Total Bilirubin 0.3 (0.1-1.5) mg/dL AST 14 (5-40) IU/L ALT 8 (8-54) IU/L Alkaline Phosphatase 96 (40-150) Total Protein 3.9 L (6.0-8.0) g/dL Albumin 1.8 L (3.4-4.8) g/dL Globulin 2.1 (2.0-3.5) g/dL Albumin/Globulin Ratio 0.9 L (1.3-2.8) Med Orders - Current: Current Medications Acetaminophen (Tylenol) 650 mg RECTAL Q4H PRN PRN Reason: Pain (mild 1-3) Albuterol/Ipratropium (Duoneb 3.0-0.5 Mg/3 Ml) 3 ml NEB Q4HRRT PRN PRN Reason: Shortness Of Breath/wheezing Last Admin: 03/12/17 19:53 Dose: 3 ml Bisacodyl (Dulcolax) 10 mg RECTAL DAILY PRN PRN Reason: Constipation Digoxin (Lanoxin) 125 mcg PO DAILY [facility] Last Admin: 03/18/17 08:21 Dose: 125 mcg Heparin Sodium (Porcine) (Heparin Sodium) 5,000 units SUBCUT Q12HR [facility] Last Admin: 03/18/17 08:21 Dose: 5,000 units Pantoprazole Sodium 40 mg/ (Sodium Chloride) 10 mls @ 300 mls/hr IVPUSH BID [facility] Last Admin: 03/17/17 20:55 Dose: 300 mls/hr Magnesium Sulfate 4 gm/ Premix 100 mls @ 50 mls/hr IV ONETIME ONE Stop: 03/18/17 09:44 Last Admin: 03/18/17 08:18 Dose: 50 mls/hr Metoprolol Succinate (Toprol Xl) 50 mg PO DAILY [facility] Last Admin: 03/18/17 08:21 Dose: 50 mg Metoprolol Tartrate (Lopressor) 5 mg IVPUSH Q6H PRN PRN Reason: Tachycardia Last Admin: 03/15/17 17:36 Dose: 5 mg Ondansetron HCl (Zofran) 4 mg IVPUSH Q4H PRN PRN Reason: Nausea Sodium Chloride (Saline Flush) 10 ml FLUSH ASDIRECTED PRN PRN Reason: Keep Vein Open Sodium Chloride (Saline Flush) 2.5 ml FLUSH ASDIRECTED PRN PRN Reason: Keep Vein Open Sodium Chloride (Culpeper Nasal [place]) 1 ml KIEL BID [facility] Last Admin: 03/17/17 21:09 Dose: 1 spray Sodium Phosphate (Neutra-Phos) 250 mg PO QID [facility] Last Admin: 03/18/17 06:54 Dose: 250 mg Sucralfate (Carafate) 1 gm GTUBE QIDACANDBED [facility] Last Admin: 03/18/17 06:54 Dose: 1 gm Discontinued Medications Bupivacaine HCl (Marcaine 0.5%) Confirm Administered Dose 30 ml .ROUTE .STK-MED ONE Stop: 03/15/17 07:24 Calcium Carbonate/Glycine (Tums) 1,000 mg .XX ONETIME ONE Stop: 03/18/17 07:56 Last Admin: 03/18/17 08:20 Dose: 1,000 mg Ephedrine Sulfate (Ephedrine Sulfate) Confirm Administered Dose 50 mg .ROUTE .STK-MED ONE Stop: 03/15/17 12:17 Fentanyl (Sublimaze) Confirm Administered Dose 100 mcg .ROUTE .STK-MED ONE Stop: 03/15/17 10:26 Sodium Chloride (Normal Saline) 500 mls @ 999 mls/hr IV STAT [facility] Sodium Chloride (Normal Saline) 500 mls @ 999 mls/hr IV .BOLUS DWIGHT Sodium Chloride (Normal Saline) 1,000 mls @ 999 mls/hr IV ASDIRECTED [facility] Last Infusion: 03/10/17 14:11 Dose: 300 mls/hr Levofloxacin/Dextrose 500 mg/ (Premix) 100 mls @ 100 mls/hr IV ONETIME ONE Stop: 03/10/17 15:00 Last Admin: 03/10/17 14:11 Dose: 100 mls/hr Levofloxacin/Dextrose 750 mg/ (Premix) 150 mls @ 100 mls/hr IV Q24H [facility] Last Admin: 03/16/17 12:30 Dose: 100 mls/hr Sodium Chloride (Normal Saline) 1,000 mls @ 75 mls/hr IV ASDIRECTED [facility] Last Admin: 03/11/17 05:30 Dose: 75 mls/hr Cefepime HCl 2 gm/ Premix 50 mls @ 100 mls/hr IV Q8H [facility] Last Admin: 03/13/17 08:30 Dose: 100 mls/hr Vancomycin HCl 750 mg/ Sodium (Chloride) 250 mls @ 250 mls/hr IV Q12H [facility] Last Admin: 03/14/17 06:28 Dose: 250 mls/hr Magnesium Sulfate 4 gm/ Premix 100 mls @ 50 mls/hr IV ONETIME ONE Stop: 03/10/17 19:03 Last Admin: 03/10/17 18:04 Dose: 50 mls/hr Potassium Chloride 40 meq/ (Sodium Chloride) 1,020 mls @ 75 mls/hr IV ASDIRECTED [facility] Stop: 03/11/17 21:20 Last Admin: 03/11/17 09:54 Dose: 75 mls/hr Fluconazole 200 mg/ Premix 100 mls @ 100 mls/hr IV ONETIME ONE Stop: 03/11/17 12:04 Last Admin: 03/11/17 11:15 Dose: 100 mls/hr Potassium Chloride 40 meq/ (Sodium Chloride) 1,020 mls @ 75 mls/hr IV ASDIRECTED [facility] Last Admin: 03/12/17 05:46 Dose: 75 mls/hr Magnesium Sulfate 4 gm/ Premix 100 mls @ 50 mls/hr IV ONETIME ONE Stop: 03/12/17 09:50 Last Admin: 03/12/17 08:21 Dose: 50 mls/hr Sodium Chloride (Sodium Chloride 0.45%) 1,000 mls @ 50 mls/hr IV ASDIRECTED [facility] Last Admin: 03/12/17 09:56 Dose: 50 mls/hr Dextrose/Sodium Chloride (Dextrose 5%-1/2 Ns) 1,000 mls @ 50 mls/hr IV ASDIRECTED [facility] Last Admin: 03/12/17 11:00 Dose: 50 mls/hr Potassium Chloride/Dextrose/Sod Cl (D5 1/2 Ns W/ 20 Meq/L Kcl) 1,000 mls @ 75 mls/hr IV ASDIRECTED [facility] Last Admin: 03/14/17 01:30 Dose: 75 mls/hr Magnesium Sulfate 2 gm/ Premix 50 mls @ 50 mls/hr IV ONETIME ONE Stop: 03/13/17 09:59 Last Admin: 03/13/17 09:21 Dose: 50 mls/hr Potassium Chloride/Dextrose/Sod Cl (D5 1/2 Ns W/ 40 Meq/L Kcl) 1,000 mls @ 100 mls/hr IV ASDIRECTED [facility] Last Admin: 03/14/17 22:53 Dose: 100 mls/hr Magnesium Sulfate 2 gm/ Premix 50 mls @ 50 mls/hr IV ONETIME ONE Stop: 03/14/17 11:47 Last Admin: 03/14/17 11:37 Dose: 50 mls/hr Magnesium Sulfate 4 gm/ Premix 100 mls @ 50 mls/hr IV ONETIME ONE Stop: 03/15/17 09:43 Last Admin: 03/15/17 07:54 Dose: 50 mls/hr Dextrose/Sodium Chloride (Dextrose 5%-1/2 Ns) 1,000 mls @ 75 mls/hr IV ASDIRECTED [facility] Last Admin: 03/16/17 03:36 Dose: 75 mls/hr Potassium Phosphate 45 mmole/ (Sodium Chloride) 265 mls @ 125 mls/hr IV ASDIRECTED [facility] Potassium Phosphate 5 mmole/ (Sodium Chloride) 251.6667 mls @ 41.944 mls/hr IV ASDIRECTED [facility] Last Admin: 03/15/17 11:41 Dose: 41.944 mls/hr Potassium Phosphate 5 mmole/ (Sodium Chloride) 251.6667 mls @ 41.944 mls/hr IV Q6H PRN PRN Reason: ASDIRECTED Magnesium Sulfate 4 gm/ Premix 100 mls @ 50 mls/hr IV ONETIME ONE Stop: 03/16/17 09:59 Last Admin: 03/16/17 08:43 Dose: 50 mls/hr Potassium Phosphate 5 mmole/ (Sodium Chloride) 251.6667 mls @ 41 mls/hr IV ASDIRECTED [facility] Stop: 03/16/17 14:09 Last Admin: 03/16/17 09:00 Dose: 41 mls/hr Magnesium Sulfate 2 gm/ Premix 50 mls @ 50 mls/hr IV ONETIME ONE Stop: 03/17/17 08:50 Last Admin: 03/17/17 08:37 Dose: 50 mls/hr Lidocaine (Xylocaine-Mpf 2%) Confirm Administered Dose 10 ml .ROUTE .STK-MED ONE Stop: 03/15/17 10:24 Lidocaine HCl (Xylocaine 1%) Confirm Administered Dose 20 ml .ROUTE .STK-MED ONE Stop: 03/15/17 07:24 Metoprolol Tartrate (Lopressor) Confirm Administered Dose 5 mg .ROUTE .STK-MED ONE Stop: 03/15/17 12:22 Midazolam HCl (Versed 1 Mg/Ml) Confirm Administered Dose 2 mg .ROUTE .STK-MED ONE Stop: 03/15/17 10:26 Phenylephrine HCl (Phenylephrine In Ns 100 Mcg/Ml) Confirm Administered Dose 1 mg .ROUTE .STK-MED ONE Stop: 03/15/17 12:17 Potassium Chloride (Potassium Chloride) 40 meq PO ONETIME ONE Stop: 03/17/17 07:57 Last Admin: 03/17/17 08:14 Dose: 40 meq Propofol (Diprivan 20 Ml) Confirm Administered Dose 200 mg .ROUTE .STK-MED ONE Stop: 03/15/17 09:04 Propofol (Diprivan 20 Ml) Confirm Administered Dose 400 mg .ROUTE .STK-MED ONE Stop: 03/15/17 10:25 Sucralfate (Carafate) 1 gm PO QIDACANDBED [facility] Vancomycin HCl (Pharmacy To Dose - Vancomycin) 1 dose .XX ASDIRECTED [facility] - Exam General: alert, cooperative, no acute distress Lungs: Clear to auscultation, Normal respiratory effort Cardiovascular: Regular Rate, Regular Rhythm, No Murmurs Abdomen: bowel sounds present, soft, no tenderness, no distension, other (PEG in place, no erythema or drainage.) Extremities: normal pulses, edema (+2 to bilateral feet, improving. +1 to R arm , improved dramatically overnight.) Wound/Incisions: dressing dry and intact, decubitis Neurological: no new focal deficit Psy/Mental Status: alert, normal affect, normal mood - Problem List & Annotations (1) UTI (urinary tract infection) SNOMED Code(s): 17502170 Code(s): N39.0 - URINARY TRACT INFECTION, SITE NOT SPECIFIED Status: Acute Current Visit: Yes Qualifiers: Urinary tract infection type: acute cystitis Hematuria presence: with hematuria Qualified Code(s): N30.01 - Acute cystitis with hematuria (2) Pneumonia SNOMED Code(s): 304906625 Code(s): J18.9 - PNEUMONIA, UNSPECIFIED ORGANISM Status: Acute Current Visit: Yes Qualifiers: Pneumonia type: due to unspecified organism Laterality: left Lung location: lower lobe of lung Qualified Code(s): J18.1 - Lobar pneumonia, unspecified organism (3) Altered mental status SNOMED Code(s): 322764129 Code(s): R41.82 - ALTERED MENTAL STATUS, UNSPECIFIED Status: Acute Current Visit: Yes Qualifiers: Altered mental status type: somnolence Qualified Code(s): R40.0 - Somnolence (4) Hx MRSA infection SNOMED Code(s): 487167945, 782417169 Code(s): Z86.14 - PERSONAL HISTORY OF METHICILLIN RESIS STAPH INFECTION Status: Chronic Current Visit: Yes Annotation/Comment:: UTI (5) Pressure ulcer of coccygeal region, stage 4 SNOMED Code(s): 582306042, 280910639 Code(s): L89.154 - PRESSURE ULCER OF SACRAL REGION, STAGE 4 Status: Chronic Priority: Medium Current Visit: Yes (6) History of CVA with residual deficit SNOMED Code(s): 793381187 Code(s): I69.30 - UNSPECIFIED SEQUELAE OF CEREBRAL INFARCTION Status: Chronic Current Visit: No (7) Malnutrition SNOMED Code(s): 5688773 Code(s): E46 - UNSPECIFIED PROTEIN-CALORIE MALNUTRITION Status: Acute Current Visit: Yes (8) Failure to thrive SNOMED Code(s): 11194327 Code(s): QCL6434 - Status: Acute Current Visit: Yes Qualifiers: Failure to thrive age range: in adult Qualified Code(s): R62.7 - Adult failure to thrive - Problem List Review Problem List Initiated/Reviewed/Updated: Yes - My Orders Last 24 Hours: My Active Orders 03/17/17 09:00 Phosphorus #1 [Neutra-Phos] 250 mg PO QID 03/17/17 17:04 Communication Order [RC] ROUTINE 03/18/17 07:45 Magnesium Sulfate/Water [Magnesium Sulfate 4 GM in Water 100 ML] 4 gm Premix Bag 1 bag IV ONETIME 03/19/17 05:00 CBC WITH AUTO DIFF [HEME] DAILY COMPREHENSIVE METABOLIC PN,CMP [CHEM] DAILY MAGNESIUM [CHEM] DAILY 03/19/17 13:29 PHOSPHORUS [CHEM] DAILY - Plan Plan:: This 76 year old female admitted with HCAP vs aspiration PNA, UTI, and AMS 1. Afib/tachycardia: Continue Metoprolol and Digoxin. Lopressor IV PRN, monitor on telemetry. Supplement magnesium and potassium. would like anticoagluation started on discharge, will plan for Eliquis. 2. Hypokalemia/hypomagnesia/hypophosphatemia: Replace magnesium 4 gm today. Replace Phosphate today per Gtube, 250 mg QID. 3. CHF: Stable. Monitor daily weights. 4. Malnutrition/protein deficiency: secondary to dysphagia from hx CVA. Tolerating continuous feedings very well. Tube feedings at max 39 mls/hr, with free water flushes QID. Educate and caregiver on how to manage pump, feedings and medication administration. VTE prophylaxis: Heparin. Dispo: 2-3 days
[2017-03-18] MEDS: Pantoprazole 40 MG in Sodium Chloride 0.9% 10 ML IVPUSH SCH ×2 (08:34→20:40)
[2017-03-18] MEDS: Sodium Chloride 0.65% Nasal Spray 45 ML Bottle NAS SCH ×2 (08:37→21:22)
[2017-03-18] MEDS: Phosphorus #1 250 MG Tab GTUBE SCH ×3 (12:12→23:57)
[2017-03-19 06:01] LABS: CHLORIDE,CL 102 mmol/L (98-110); SODIUM,NA 132 mmol/L (136-146)
[2017-03-19] MEDS: Sucralfate Suspension 1 GM/10 ML Cup GTUBE SCH ×4 (06:49→20:31)
[2017-03-19] MEDS: Phosphorus #1 250 MG Tab GTUBE SCH ×3 (06:50→17:12)
[2017-03-19] MEDS ORDERED: Magnesium Sulfate/Water 4 GM in Premix Bag 1 BAG IV ONE (07:52)
--- NOTE | 2017-03-19 07:55 | PCM.PN ---
- General Info Date of Service: 03/19/17 Admission Dx/Problem (Free Text): Admission Diagnosis/Problem Admission Diagnosis/Problem Failure to thrive Subjective Update: Non verbal, more alert today, opening eyes. would like to arrnge house today and get supplies and will be ready for discharge tomorrow. Nursing has educated him on pump set up and medication administration, he reports feeling comfortable with this. Home Health will be resumed - Patient Data Vitals - most recent: Last Vital Signs Temp 97.6 F 03/19/17 03:00 Pulse 106 H 03/19/17 03:00 Resp 17 03/19/17 03:00 BP 117/59 L 03/19/17 03:00 Pulse Ox 95 03/19/17 03:00 Weight - most recent: 44 kg I&O - last 24 hours: Intake & Output 03/18/17 03/19/17 03/19/17 22:59 06:59 14:59 Intake Total 511 928 Output Total 775 400 Balance -264 528 Lab Results last 24 hrs: Laboratory Results - last 24 hr 03/19/17 03/19/17 03/19/17 Range/Units 05:10 05:10 05:10 WBC 6.92 (4.0-11.0) K/uL RBC 3.58 L (4.30-5.90) M/uL Hgb 9.1 L (12.0-16.0) g/dL Hct 28.5 L (36.0-46.0) % MCV 79.6 L (80.0-98.0) fL MCH 25.4 L (27.0-32.0) pg MCHC 31.9 (31.0-37.0) g/dL RDW Std Deviation 57.1 (28.0-62.0) fl RDW Coeff of Deanna 20 H (11.0-15.0) % Plt Count 241 (150-400) K/uL MPV 9.90 (7.40-12.00) fL Neut % (Auto) 69.5 (48.0-80.0) % Lymph % (Auto) 18.8 (16.0-40.0) % [place] % (Auto) 8.4 (0.0-15.0) % Eos % (Auto) 3.0 (0.0-7.0) % Baso % (Auto) 0.3 (0.0-1.5) % Neut # (Auto) 4.8 (1.4-5.7) K/uL Lymph # (Auto) 1.3 (0.6-2.4) K/uL [place] # (Auto) 0.6 (0.0-0.8) K/uL Eos # (Auto) 0.2 (0.0-0.7) K/uL Baso # (Auto) 0.0 (0.0-0.1) K/uL Nucleated RBC % 0.0 /100WBC Nucleated RBCs # 0 K/uL Sodium 132 L (136-146) mmol/L Potassium 4.3 (3.5-5.1) mmol/L Chloride 102 (98-110) mmol/L Carbon Dioxide 27 (21-31) mmol/L BUN 8 (6.0-23.0) mg/dL Creatinine 0.4 L (0.6-1.5) mg/dL Est Cr Clr Drug Dosing 85.71 mL/min Estimated GFR (MDRD) > 60.0 ml/min Glucose 127 H (60-110) mg/dL Calcium 7.2 L (8.8-10.8) mg/dL Phosphorus 2.6 (2.4-4.7) mg/dL Magnesium 1.3 L (1.5-2.3) mEq/L Total Bilirubin 0.2 (0.1-1.5) mg/dL AST 14 (5-40) IU/L ALT 7 L (8-54) IU/L Alkaline Phosphatase 94 (40-150) Total Protein 3.7 L (6.0-8.0) g/dL Albumin 1.7 L (3.4-4.8) g/dL Globulin 2.0 (2.0-3.5) g/dL Albumin/Globulin Ratio 0.9 L (1.3-2.8) Med Orders - Current: Current Medications Acetaminophen (Tylenol) 650 mg RECTAL Q4H PRN PRN Reason: Pain (mild 1-3) Albuterol/Ipratropium (Duoneb 3.0-0.5 Mg/3 Ml) 3 ml NEB Q4HRRT PRN PRN Reason: Shortness Of Breath/wheezing Last Admin: 03/12/17 19:53 Dose: 3 ml Bisacodyl (Dulcolax) 10 mg RECTAL DAILY PRN PRN Reason: Constipation Digoxin (Lanoxin) 125 mcg PO DAILY [facility] Last Admin: 03/18/17 08:21 Dose: 125 mcg Heparin Sodium (Porcine) (Heparin Sodium) 5,000 units SUBCUT Q12HR [facility] Last Admin: 03/18/17 20:39 Dose: 5,000 units Pantoprazole Sodium 40 mg/ (Sodium Chloride) 10 mls @ 300 mls/hr IVPUSH BID [facility] Last Admin: 03/18/17 20:40 Dose: 300 mls/hr Magnesium Sulfate 4 gm/ Premix 100 mls @ 50 mls/hr IV ONETIME ONE Stop: 03/19/17 09:51 Metoprolol Succinate (Toprol Xl) 50 mg PO DAILY [facility] Last Admin: 03/18/17 08:21 Dose: 50 mg Metoprolol Tartrate (Lopressor) 5 mg IVPUSH Q6H PRN PRN Reason: Tachycardia Last Admin: 03/15/17 17:36 Dose: 5 mg Ondansetron HCl (Zofran) 4 mg IVPUSH Q4H PRN PRN Reason: Nausea Sodium Chloride (Saline Flush) 10 ml FLUSH ASDIRECTED PRN PRN Reason: Keep Vein Open Sodium Chloride (Saline Flush) 2.5 ml FLUSH ASDIRECTED PRN PRN Reason: Keep Vein Open Sodium Chloride ([place] Nasal [place]) 1 ml KIEL BID [facility] Last Admin: 03/18/17 21:22 Dose: 1 spray Sodium Phosphate (Neutra-Phos) 250 mg GTUBE QID [facility] Last Admin: 03/19/17 06:50 Dose: 250 mg Sucralfate (Carafate) 1 gm GTUBE QIDACANDBED [facility] Last Admin: 03/19/17 06:49 Dose: 1 gm Discontinued Medications Bupivacaine HCl (Marcaine 0.5%) Confirm Administered Dose 30 ml .ROUTE .STK-MED ONE Stop: 03/15/17 07:24 Calcium Carbonate/Glycine (Tums) 1,000 mg .XX ONETIME ONE Stop: 03/18/17 07:56 Last Admin: 03/18/17 08:20 Dose: 1,000 mg Ephedrine Sulfate (Ephedrine Sulfate) Confirm Administered Dose 50 mg .ROUTE .STK-MED ONE Stop: 03/15/17 12:17 Fentanyl (Sublimaze) Confirm Administered Dose 100 mcg .ROUTE .STK-MED ONE Stop: 03/15/17 10:26 Sodium Chloride (Normal Saline) 500 mls @ 999 mls/hr IV STAT DWIGHT Sodium Chloride (Normal Saline) 500 mls @ 999 mls/hr IV .BOLUS DWIGHT Sodium Chloride (Normal Saline) 1,000 mls @ 999 mls/hr IV ASDIRECTED [facility] Last Infusion: 03/10/17 14:11 Dose: 300 mls/hr Levofloxacin/Dextrose 500 mg/ (Premix) 100 mls @ 100 mls/hr IV ONETIME ONE Stop: 03/10/17 15:00 Last Admin: 03/10/17 14:11 Dose: 100 mls/hr Levofloxacin/Dextrose 750 mg/ (Premix) 150 mls @ 100 mls/hr IV Q24H [facility] Last Admin: 03/16/17 12:30 Dose: 100 mls/hr Sodium Chloride (Normal Saline) 1,000 mls @ 75 mls/hr IV ASDIRECTED [facility] Last Admin: 03/11/17 05:30 Dose: 75 mls/hr Cefepime HCl 2 gm/ Premix 50 mls @ 100 mls/hr IV Q8H [facility] Last Admin: 03/13/17 08:30 Dose: 100 mls/hr Vancomycin HCl 750 mg/ Sodium (Chloride) 250 mls @ 250 mls/hr IV Q12H [facility] Last Admin: 03/14/17 06:28 Dose: 250 mls/hr Magnesium Sulfate 4 gm/ Premix 100 mls @ 50 mls/hr IV ONETIME ONE Stop: 03/10/17 19:03 Last Admin: 03/10/17 18:04 Dose: 50 mls/hr Potassium Chloride 40 meq/ (Sodium Chloride) 1,020 mls @ 75 mls/hr IV ASDIRECTED [facility] Stop: 03/11/17 21:20 Last Admin: 03/11/17 09:54 Dose: 75 mls/hr Fluconazole 200 mg/ Premix 100 mls @ 100 mls/hr IV ONETIME ONE Stop: 03/11/17 12:04 Last Admin: 03/11/17 11:15 Dose: 100 mls/hr Potassium Chloride 40 meq/ (Sodium Chloride) 1,020 mls @ 75 mls/hr IV ASDIRECTED [facility] Last Admin: 03/12/17 05:46 Dose: 75 mls/hr Magnesium Sulfate 4 gm/ Premix 100 mls @ 50 mls/hr IV ONETIME ONE Stop: 03/12/17 09:50 Last Admin: 03/12/17 08:21 Dose: 50 mls/hr Sodium Chloride (Sodium Chloride 0.45%) 1,000 mls @ 50 mls/hr IV ASDIRECTED [facility] Last Admin: 03/12/17 09:56 Dose: 50 mls/hr Dextrose/Sodium Chloride (Dextrose 5%-1/2 Ns) 1,000 mls @ 50 mls/hr IV ASDIRECTED [facility] Last Admin: 03/12/17 11:00 Dose: 50 mls/hr Potassium Chloride/Dextrose/Sod Cl (D5 1/2 Ns W/ 20 Meq/L Kcl) 1,000 mls @ 75 mls/hr IV ASDIRECTED [facility] Last Admin: 03/14/17 01:30 Dose: 75 mls/hr Magnesium Sulfate 2 gm/ Premix 50 mls @ 50 mls/hr IV ONETIME ONE Stop: 03/13/17 09:59 Last Admin: 03/13/17 09:21 Dose: 50 mls/hr Potassium Chloride/Dextrose/Sod Cl (D5 1/2 Ns W/ 40 Meq/L Kcl) 1,000 mls @ 100 mls/hr IV ASDIRECTED [facility] Last Admin: 03/14/17 22:53 Dose: 100 mls/hr Magnesium Sulfate 2 gm/ Premix 50 mls @ 50 mls/hr IV ONETIME ONE Stop: 03/14/17 11:47 Last Admin: 03/14/17 11:37 Dose: 50 mls/hr Magnesium Sulfate 4 gm/ Premix 100 mls @ 50 mls/hr IV ONETIME ONE Stop: 03/15/17 09:43 Last Admin: 03/15/17 07:54 Dose: 50 mls/hr Dextrose/Sodium Chloride (Dextrose 5%-1/2 Ns) 1,000 mls @ 75 mls/hr IV ASDIRECTED [facility] Last Admin: 03/16/17 03:36 Dose: 75 mls/hr Potassium Phosphate 45 mmole/ (Sodium Chloride) 265 mls @ 125 mls/hr IV ASDIRECTED [facility] Potassium Phosphate 5 mmole/ (Sodium Chloride) 251.6667 mls @ 41.944 mls/hr IV ASDIRECTED [facility] Last Admin: 03/15/17 11:41 Dose: 41.944 mls/hr Potassium Phosphate 5 mmole/ (Sodium Chloride) 251.6667 mls @ 41.944 mls/hr IV Q6H PRN PRN Reason: ASDIRECTED Magnesium Sulfate 4 gm/ Premix 100 mls @ 50 mls/hr IV ONETIME ONE Stop: 03/16/17 09:59 Last Admin: 03/16/17 08:43 Dose: 50 mls/hr Potassium Phosphate 5 mmole/ (Sodium Chloride) 251.6667 mls @ 41 mls/hr IV ASDIRECTED [facility] Stop: 03/16/17 14:09 Last Admin: 03/16/17 09:00 Dose: 41 mls/hr Magnesium Sulfate 2 gm/ Premix 50 mls @ 50 mls/hr IV ONETIME ONE Stop: 03/17/17 08:50 Last Admin: 03/17/17 08:37 Dose: 50 mls/hr Magnesium Sulfate 4 gm/ Premix 100 mls @ 50 mls/hr IV ONETIME ONE Stop: 03/18/17 09:44 Last Admin: 03/18/17 08:18 Dose: 50 mls/hr Lidocaine (Xylocaine-Mpf 2%) Confirm Administered Dose 10 ml .ROUTE .STK-MED ONE Stop: 03/15/17 10:24 Lidocaine HCl (Xylocaine 1%) Confirm Administered Dose 20 ml .ROUTE .STK-MED ONE Stop: 03/15/17 07:24 Metoprolol Tartrate (Lopressor) Confirm Administered Dose 5 mg .ROUTE .STK-MED ONE Stop: 03/15/17 12:22 Midazolam HCl (Versed 1 Mg/Ml) Confirm Administered Dose 2 mg .ROUTE .STK-MED ONE Stop: 03/15/17 10:26 Phenylephrine HCl (Phenylephrine In Ns 100 Mcg/Ml) Confirm Administered Dose 1 mg .ROUTE .STK-MED ONE Stop: 03/15/17 12:17 Potassium Chloride (Potassium Chloride) 40 meq PO ONETIME ONE Stop: 03/17/17 07:57 Last Admin: 03/17/17 08:14 Dose: 40 meq Propofol (Diprivan 20 Ml) Confirm Administered Dose 200 mg .ROUTE .STK-MED ONE Stop: 03/15/17 09:04 Propofol (Diprivan 20 Ml) Confirm Administered Dose 400 mg .ROUTE .STK-MED ONE Stop: 03/15/17 10:25 Sodium Phosphate (Neutra-Phos) 250 mg PO QID [facility] Last Admin: 03/18/17 06:54 Dose: 250 mg Sucralfate (Carafate) 1 gm PO QIDACANDBED [facility] Vancomycin HCl (Pharmacy To Dose - Vancomycin) 1 dose .XX ASDIRECTED [facility] - Exam Quality Assessment: urine catheter, DVT prophylaxis General: alert, no acute distress Neck: supple Lungs: Clear to auscultation, Normal respiratory effort Cardiovascular: Regular Rate, Regular Rhythm Abdomen: bowel sounds present, soft, no tenderness, no distension, other (PEG tube in place, slight drainage noted, not purulent, serous in color. Will place gauze to protect skin) Extremities: normal pulses, edema (+1 pitting to feet, improving each day. ) Wound/Incisions: dressing dry and intact, decubitis (6x4x4 cm, red and pink tissue, no necrotic tissue noted. some bleeding noted, tunneling noted to 9:00 and 3:00 position). No: erythema Neurological: no new focal deficit Psy/Mental Status: alert, normal affect, normal mood - Problem List & Annotations (1) UTI (urinary tract infection) SNOMED Code(s): 58069111 Code(s): N39.0 - URINARY TRACT INFECTION, SITE NOT SPECIFIED Status: Acute Current Visit: Yes Qualifiers: Urinary tract infection type: acute cystitis Hematuria presence: with hematuria Qualified Code(s): N30.01 - Acute cystitis with hematuria (2) Pneumonia SNOMED Code(s): 175997083 Code(s): J18.9 - PNEUMONIA, UNSPECIFIED ORGANISM Status: Acute Current Visit: Yes Qualifiers: Pneumonia type: due to unspecified organism Laterality: left Lung location: lower lobe of lung Qualified Code(s): J18.1 - Lobar pneumonia, unspecified organism (3) Altered mental status SNOMED Code(s): 401131155 Code(s): R41.82 - ALTERED MENTAL STATUS, UNSPECIFIED Status: Acute Current Visit: Yes Qualifiers: Altered mental status type: somnolence Qualified Code(s): R40.0 - Somnolence (4) Hx MRSA infection SNOMED Code(s): 410189410, 923022462 Code(s): Z86.14 - PERSONAL HISTORY OF METHICILLIN RESIS STAPH INFECTION Status: Chronic Current Visit: Yes Annotation/Comment:: UTI (5) Pressure ulcer of coccygeal region, stage 4 SNOMED Code(s): 305034347, 093199279 Code(s): L89.154 - PRESSURE ULCER OF SACRAL REGION, STAGE 4 Status: Chronic Priority: Medium Current Visit: Yes (6) History of CVA with residual deficit SNOMED Code(s): 934249484 Code(s): I69.30 - UNSPECIFIED SEQUELAE OF CEREBRAL INFARCTION Status: Chronic Current Visit: No (7) Malnutrition SNOMED Code(s): 5467828 Code(s): E46 - UNSPECIFIED PROTEIN-CALORIE MALNUTRITION Status: Acute Current Visit: Yes (8) Failure to thrive SNOMED Code(s): 58988549 Code(s): MMF0825 - Status: Acute Current Visit: Yes Qualifiers: Failure to thrive age range: in adult Qualified Code(s): R62.7 - Adult failure to thrive - Problem List Review Problem List Initiated/Reviewed/Updated: Yes - My Orders Last 24 Hours: My Active Orders 03/18/17 11:28 Phosphorus #1 [Neutra-Phos] 250 mg GTUBE QID 03/19/17 07:52 Magnesium Sulfate/Water [Magnesium Sulfate 4 GM in Water 100 ML] 4 gm Premix Bag 1 bag IV ONETIME - Plan Plan:: This 76 year old female admitted with HCAP vs aspiration PNA, UTI, and AMS 1. Afib/tachycardia: Continue Metoprolol and Digoxin. Lopressor IV PRN. Supplement magnesium and potassium. would like anticoagluation started on discharge, will plan for Eliquis. 2. Hypokalemia/hypomagnesia/hypophosphatemia: Replace magnesium 4 gm today. Replace Phosphate today per Gtube, 250 mg QID. Phosphate normalized, continue supplementation today. 3. CHF: Stable. Monitor daily weights. 4. Malnutrition/protein deficiency: secondary to dysphagia from hx CVA. Tolerating continuous feedings very well. Tube feedings at max 39 mls/hr, with free water flushes QID. Educate and caregiver on how to manage pump, feedings and medication administration. VTE prophylaxis: Heparin. Dispo: 2-3 days
[2017-03-19] MEDS: Pantoprazole 40 MG in Sodium Chloride 0.9% 10 ML IVPUSH SCH ×2 (08:51→20:41)
[2017-03-19] MEDS: Heparin Sodium 5,000 Units/ML Vial SUBCUT SCH ×2 (09:05→20:35)
[2017-03-19] MEDS: Sodium Chloride 0.65% Nasal Spray 45 ML Bottle NAS SCH ×2 (09:06→20:30)
[2017-03-19] MEDS: Metoprolol Succinate 50 MG Tab.ER PO SCH (09:06)
[2017-03-19] MEDS: Digoxin 125 MCG Tab PO SCH (09:06)
[2017-03-20] MEDS: Phosphorus #1 250 MG Tab GTUBE SCH ×3 (00:27→11:49)
[2017-03-20 06:33] LABS: CHLORIDE,CL 102 mmol/L (98-110); SODIUM,NA 132 mmol/L (136-146)
[2017-03-20] MEDS: Sucralfate Suspension 1 GM/10 ML Cup GTUBE SCH ×2 (06:33→11:49)
[2017-03-20] MEDS: Sodium Chloride 0.65% Nasal Spray 45 ML Bottle NAS SCH (10:00)
[2017-03-20] MEDS: Metoprolol Succinate 50 MG Tab.ER PO SCH (10:00)
[2017-03-20] MEDS: Pantoprazole 40 MG in Sodium Chloride 0.9% 10 ML IVPUSH SCH (10:00)
[2017-03-20] MEDS: Heparin Sodium 5,000 Units/ML Vial SUBCUT SCH (10:00)
[2017-03-20] MEDS: Digoxin 125 MCG Tab PO SCH (10:17)
[2017-03-20 11:48] VITALS: BP 102/52
--- NOTE | 2017-03-20 12:40 | PCM.DCSUM1 ---
Discharge Summary - Hospital Course Free Text/Narrative:: The patient is a 76-year-old lady who was admitted to hospitalization secondary to failure to thrive, inadequate oral intake and dysphagia secondary to post CVA. Patient is noted to have a stage IV sacral decubitus ulcer on admission. - Discharge Data Discharge Date: 03/20/17 Discharge Disposition: Home, W Home Health Agency 06 Condition: Poor - Discharge Diagnosis/Problem(s) (1) Dysphagia as late effect of cerebrovascular accident (CVA) SNOMED Code(s): 492168709 ICD Code: I69.391 - DYSPHAGIA FOLLOWING CEREBRAL INFARCTION Status: Chronic Priority: High Current Visit: Yes Problem Details: PEG tube placed March 15, 2017 by consulting surgeon (2) Aspiration of food SNOMED Code(s): 03593002 ICD Code: T17.890A - OTH FOREIGN OBJECT IN OTH PRT RESP TRACT CAUSE ASPHYX, INIT Status: Acute Current Visit: Yes Qualifiers: Encounter type: subsequent encounter Qualified Code(s): T17.890D - Other foreign object in other parts of respiratory tract causing asphyxiation, subsequent encounter (3) Dysphagia SNOMED Code(s): 71055770, 364011683 ICD Code: R13.10 - DYSPHAGIA, UNSPECIFIED Status: Acute Current Visit: Yes Qualifiers: Dysphagia type: other dysphagia Qualified Code(s): R13.19 - Other dysphagia (4) Pressure ulcer of coccygeal region, stage 4 SNOMED Code(s): 439212594, 762639241 ICD Code: L89.154 - PRESSURE ULCER OF SACRAL REGION, STAGE 4 Status: Chronic Priority: Medium Current Visit: Yes Problem Details: Present on admission (5) PEG (percutaneous endoscopic gastrostomy) status SNOMED Code(s): 333118949, 211283108 ICD Code: Z93.1 - GASTROSTOMY STATUS Status: Acute Current Visit: Yes - Patient Summary/Data Operative Procedure(s) Performed: PEG Consults: Consultations 03/10/17 17:02 Consult to Speech Language Pathology [REAL ESTATE SPECIALIST Evaluation and Treatment] [CONS] Routine 03/11/17 14:53 Consult to Director Public [CONS] Routine Hospital Course: March 20, 2017:The patient is a 76-year-old lady who is bedridden with contractures secondary to a stroke had been eating up until one week prior to presentation for admission. The patient also has a history of pneumonia which is likely secondary to aspiration. The patient had been admitted secondary to inability to eat or drink. The patient was noted to have some coughing associated with this. Patient is nonverbal and noncommunicative. Information was obtained from the patient's family. The family reported that she wasn't able to use a straw with thickened water and had some coughing. The patient was also noted to have on admission a urinary tract infection which was secondary to her chronic indwelling catheter. Secondary to the patient's chronic debilitated nature she was considered as a DO NOT RESUSCITATE/DO NOT INTUBATE. Secondary to the patient's dysphagia and inability to consume oral sustenance a PEG tube was placed. This tube was in place on March 15, 2017. Patient tolerated the procedure well. She had been undergoing nutrition via PEG tube and had less than 30 mL residual volume. The patient's culture for her urine has grown out greater than 100,000 colony-forming units of yeast. I suspect that the patient is likely colonized as opposed to infected with the yeast organisms. By day of discharge the patient had been returned to her somewhat chronic health and had been tolerating tube feeding. The patient's family has been instructed with regards to the feedings and also has access to feeding pump as well as nutritional feeding. The patient's white blood cell count today is 7.1 thousand and her hemoglobin is 9.0 g/dL. This is likely secondary to the patient's chronic health issues. The patient's nutritional status also is poor as she has an albumin of 1.8 g/dL. Again this reflects the patient's poor oral intake as well as her chronic health issues. The patient does have home health arranged and she will be discharged to home health with a recommendation to follow-up with her primary care physician. Regardless of the PEG tube, physical therapy, home health I believe that the patient's overall prognosis is poor. Patient's vital signs are stable. - Patient Instructions Diet: NPO Diet, Other: PEG tube feeding as recommended - Discharge Plan Home Medications: Home Meds Metoprolol Succinate 50 mg PO DAILY #30 tab.er.24h 11/04/16 [Rx] Digoxin [Lanoxin] 125 mcg PO DAILY #30 tablet 03/04/17 [Rx] Sulfamethoxazole/Trimethoprim [IJD: Sulfamethoxazole/Trimethoprim DS] 1 tab PO DAILY 03/10/17 [History] Patient Handouts: PEG Tube Home Guide, [id number], Percutaneous Endoscopic Jejunostomy, Care After Referrals: Volodymyr Arellano MD [Primary Care Provider] - 03/29/17 10:00 am - Discharge Summary/Plan Comment DC Time >30 min.: Yes - General Info Date of Service: 03/20/17 Admission Dx/Problem (Free Text: The patient is nonverbal, nonresponsive and bedridden. - Review of Systems Systems Review Comment: Review of systems not obtainable - Patient Data Vitals - Most Recent: Last Vital Signs Temp 36.1 C 03/20/17 11:44 Pulse 98 03/20/17 11:44 Resp 16 03/20/17 11:44 BP 102/52 L 03/20/17 11:44 Pulse Ox 94 L 03/20/17 11:44 Weight - Most Recent: 45.5 kg I&O - Last 24 hours: Intake & Output 03/19/17 03/20/17 03/20/17 22:59 06:59 14:59 Intake Total 851 963 Output Total 1100 800 Balance -249 163 Lab Results - Last 24 hrs: Laboratory Results - last 24 hr 03/20/17 03/20/17 Range/Units 05:45 05:45 WBC 7.01 (4.0-11.0) K/uL RBC 3.56 L (4.30-5.90) M/uL Hgb 9.0 L (12.0-16.0) g/dL Hct 28.6 L (36.0-46.0) % MCV 80.3 (80.0-98.0) fL MCH 25.3 L (27.0-32.0) pg MCHC 31.5 (31.0-37.0) g/dL RDW Std Deviation 58.5 (28.0-62.0) fl RDW Coeff of Deanna 20 H (11.0-15.0) % Plt Count 245 (150-400) K/uL MPV 9.80 (7.40-12.00) fL Neut % (Auto) 70.9 (48.0-80.0) % Lymph % (Auto) 17.5 (16.0-40.0) % [place] % (Auto) 7.6 (0.0-15.0) % Eos % (Auto) 3.6 (0.0-7.0) % Baso % (Auto) 0.4 (0.0-1.5) % Neut # (Auto) 5.0 (1.4-5.7) K/uL Lymph # (Auto) 1.2 (0.6-2.4) K/uL [place] # (Auto) 0.5 (0.0-0.8) K/uL Eos # (Auto) 0.3 (0.0-0.7) K/uL Baso # (Auto) 0.0 (0.0-0.1) K/uL Nucleated RBC % 0.0 /100WBC Nucleated RBCs # 0 K/uL Sodium 132 L (136-146) mmol/L Potassium 4.2 (3.5-5.1) mmol/L Chloride 102 (98-110) mmol/L Carbon Dioxide 27 (21-31) mmol/L BUN 8 (6.0-23.0) mg/dL Creatinine 0.4 L (0.6-1.5) mg/dL Est Cr Clr Drug Dosing 88.63 mL/min Estimated GFR (MDRD) > 60.0 ml/min Glucose 125 H (60-110) mg/dL Calcium 7.5 L (8.8-10.8) mg/dL Phosphorus 3.7 (2.4-4.7) mg/dL Magnesium 1.6 (1.5-2.3) mEq/L Total Bilirubin 0.2 (0.1-1.5) mg/dL AST 17 (5-40) IU/L ALT 7 L (8-54) IU/L Alkaline Phosphatase 98 (40-150) Total Protein 4.1 L (6.0-8.0) g/dL Albumin 1.8 L (3.4-4.8) g/dL Globulin 2.3 (2.0-3.5) g/dL Albumin/Globulin Ratio 0.8 L (1.3-2.8) Med Orders - Current: Current Medications Acetaminophen (Tylenol) 650 mg RECTAL Q4H PRN PRN Reason: Pain (mild 1-3) Albuterol/Ipratropium (Duoneb 3.0-0.5 Mg/3 Ml) 3 ml NEB Q4HRRT PRN PRN Reason: Shortness Of Breath/wheezing Last Admin: 03/12/17 19:53 Dose: 3 ml Bisacodyl (Dulcolax) 10 mg RECTAL DAILY PRN PRN Reason: Constipation Digoxin (Lanoxin) 125 mcg PO DAILY [facility] Last Admin: 03/20/17 10:17 Dose: 125 mcg Heparin Sodium (Porcine) (Heparin Sodium) 5,000 units SUBCUT Q12HR [facility] Last Admin: 03/20/17 10:00 Dose: 5,000 units Pantoprazole Sodium 40 mg/ (Sodium Chloride) 10 mls @ 300 mls/hr IVPUSH BID [facility] Last Admin: 03/20/17 10:00 Dose: 300 mls/hr Metoprolol Succinate (Toprol Xl) 50 mg PO DAILY [facility] Last Admin: 03/20/17 10:00 Dose: 50 mg Metoprolol Tartrate (Lopressor) 5 mg IVPUSH Q6H PRN PRN Reason: Tachycardia Last Admin: 03/15/17 17:36 Dose: 5 mg Ondansetron HCl (Zofran) 4 mg IVPUSH Q4H PRN PRN Reason: Nausea Sodium Chloride (Saline Flush) 10 ml FLUSH ASDIRECTED PRN PRN Reason: Keep Vein Open Sodium Chloride (Saline Flush) 2.5 ml FLUSH ASDIRECTED PRN PRN Reason: Keep Vein Open Sodium Chloride (Camp Nasal [place]) 1 ml KIEL BID [facility] Last Admin: 03/20/17 10:00 Dose: 1 spray Sodium Phosphate (Neutra-Phos) 250 mg GTUBE QID [facility] Last Admin: 03/20/17 11:49 Dose: 250 mg Sucralfate (Carafate) 1 gm GTUBE QIDACANDBED [facility] Last Admin: 03/20/17 11:49 Dose: 1 gm Discontinued Medications Bupivacaine HCl (Marcaine 0.5%) Confirm Administered Dose 30 ml .ROUTE .STK-MED ONE Stop: 03/15/17 07:24 Calcium Carbonate/Glycine (Tums) 1,000 mg .XX ONETIME ONE Stop: 03/18/17 07:56 Last Admin: 03/18/17 08:20 Dose: 1,000 mg Ephedrine Sulfate (Ephedrine Sulfate) Confirm Administered Dose 50 mg .ROUTE .STK-MED ONE Stop: 03/15/17 12:17 Fentanyl (Sublimaze) Confirm Administered Dose 100 mcg .ROUTE .STK-MED ONE Stop: 03/15/17 10:26 Sodium Chloride (Normal Saline) 500 mls @ 999 mls/hr IV STAT [facility] Sodium Chloride (Normal Saline) 500 mls @ 999 mls/hr IV .BOLUS [facility] Sodium Chloride (Normal Saline) 1,000 mls @ 999 mls/hr IV ASDIRECTED [facility] Last Infusion: 03/10/17 14:11 Dose: 300 mls/hr Levofloxacin/Dextrose 500 mg/ (Premix) 100 mls @ 100 mls/hr IV ONETIME ONE Stop: 03/10/17 15:00 Last Admin: 03/10/17 14:11 Dose: 100 mls/hr Levofloxacin/Dextrose 750 mg/ (Premix) 150 mls @ 100 mls/hr IV Q24H [facility] Last Admin: 03/16/17 12:30 Dose: 100 mls/hr Sodium Chloride (Normal Saline) 1,000 mls @ 75 mls/hr IV ASDIRECTED [facility] Last Admin: 03/11/17 05:30 Dose: 75 mls/hr Cefepime HCl 2 gm/ Premix 50 mls @ 100 mls/hr IV Q8H [facility] Last Admin: 03/13/17 08:30 Dose: 100 mls/hr Vancomycin HCl 750 mg/ Sodium (Chloride) 250 mls @ 250 mls/hr IV Q12H [facility] Last Admin: 03/14/17 06:28 Dose: 250 mls/hr Magnesium Sulfate 4 gm/ Premix 100 mls @ 50 mls/hr IV ONETIME ONE Stop: 03/10/17 19:03 Last Admin: 03/10/17 18:04 Dose: 50 mls/hr Potassium Chloride 40 meq/ (Sodium Chloride) 1,020 mls @ 75 mls/hr IV ASDIRECTED [facility] Stop: 03/11/17 21:20 Last Admin: 03/11/17 09:54 Dose: 75 mls/hr Fluconazole 200 mg/ Premix 100 mls @ 100 mls/hr IV ONETIME ONE Stop: 03/11/17 12:04 Last Admin: 03/11/17 11:15 Dose: 100 mls/hr Potassium Chloride 40 meq/ (Sodium Chloride) 1,020 mls @ 75 mls/hr IV ASDIRECTED [facility] Last Admin: 03/12/17 05:46 Dose: 75 mls/hr Magnesium Sulfate 4 gm/ Premix 100 mls @ 50 mls/hr IV ONETIME ONE Stop: 03/12/17 09:50 Last Admin: 03/12/17 08:21 Dose: 50 mls/hr Sodium Chloride (Sodium Chloride 0.45%) 1,000 mls @ 50 mls/hr IV ASDIRECTED [facility] Last Admin: 03/12/17 09:56 Dose: 50 mls/hr Dextrose/Sodium Chloride (Dextrose 5%-1/2 Ns) 1,000 mls @ 50 mls/hr IV ASDIRECTED [facility] Last Admin: 03/12/17 11:00 Dose: 50 mls/hr Potassium Chloride/Dextrose/Sod Cl (D5 1/2 Ns W/ 20 Meq/L Kcl) 1,000 mls @ 75 mls/hr IV ASDIRECTED [facility] Last Admin: 03/14/17 01:30 Dose: 75 mls/hr Magnesium Sulfate 2 gm/ Premix 50 mls @ 50 mls/hr IV ONETIME ONE Stop: 03/13/17 09:59 Last Admin: 03/13/17 09:21 Dose: 50 mls/hr Potassium Chloride/Dextrose/Sod Cl (D5 1/2 Ns W/ 40 Meq/L Kcl) 1,000 mls @ 100 mls/hr IV ASDIRECTED [facility] Last Admin: 03/14/17 22:53 Dose: 100 mls/hr Magnesium Sulfate 2 gm/ Premix 50 mls @ 50 mls/hr IV ONETIME ONE Stop: 03/14/17 11:47 Last Admin: 03/14/17 11:37 Dose: 50 mls/hr Magnesium Sulfate 4 gm/ Premix 100 mls @ 50 mls/hr IV ONETIME ONE Stop: 03/15/17 09:43 Last Admin: 03/15/17 07:54 Dose: 50 mls/hr Dextrose/Sodium Chloride (Dextrose 5%-1/2 Ns) 1,000 mls @ 75 mls/hr IV ASDIRECTED [facility] Last Admin: 03/16/17 03:36 Dose: 75 mls/hr Potassium Phosphate 45 mmole/ (Sodium Chloride) 265 mls @ 125 mls/hr IV ASDIRECTED [facility] Potassium Phosphate 5 mmole/ (Sodium Chloride) 251.6667 mls @ 41.944 mls/hr IV ASDIRECTED [facility] Last Admin: 03/15/17 11:41 Dose: 41.944 mls/hr Potassium Phosphate 5 mmole/ (Sodium Chloride) 251.6667 mls @ 41.944 mls/hr IV Q6H PRN PRN Reason: ASDIRECTED Magnesium Sulfate 4 gm/ Premix 100 mls @ 50 mls/hr IV ONETIME ONE Stop: 03/16/17 09:59 Last Admin: 03/16/17 08:43 Dose: 50 mls/hr Potassium Phosphate 5 mmole/ (Sodium Chloride) 251.6667 mls @ 41 mls/hr IV ASDIRECTED [facility] Stop: 03/16/17 14:09 Last Admin: 03/16/17 09:00 Dose: 41 mls/hr Magnesium Sulfate 2 gm/ Premix 50 mls @ 50 mls/hr IV ONETIME ONE Stop: 03/17/17 08:50 Last Admin: 03/17/17 08:37 Dose: 50 mls/hr Magnesium Sulfate 4 gm/ Premix 100 mls @ 50 mls/hr IV ONETIME ONE Stop: 03/18/17 09:44 Last Admin: 03/18/17 08:18 Dose: 50 mls/hr Magnesium Sulfate 4 gm/ Premix 100 mls @ 50 mls/hr IV ONETIME ONE Stop: 03/19/17 09:51 Last Admin: 03/19/17 09:00 Dose: 50 mls/hr Lidocaine (Xylocaine-Mpf 2%) Confirm Administered Dose 10 ml .ROUTE .STK-MED ONE Stop: 03/15/17 10:24 Lidocaine HCl (Xylocaine 1%) Confirm Administered Dose 20 ml .ROUTE .STK-MED ONE Stop: 03/15/17 07:24 Metoprolol Tartrate (Lopressor) Confirm Administered Dose 5 mg .ROUTE .STK-MED ONE Stop: 03/15/17 12:22 Midazolam HCl (Versed 1 Mg/Ml) Confirm Administered Dose 2 mg .ROUTE .STK-MED ONE Stop: 03/15/17 10:26 Phenylephrine HCl (Phenylephrine In Ns 100 Mcg/Ml) Confirm Administered Dose 1 mg .ROUTE .STK-MED ONE Stop: 03/15/17 12:17 Potassium Chloride (Potassium Chloride) 40 meq PO ONETIME ONE Stop: 03/17/17 07:57 Last Admin: 03/17/17 08:14 Dose: 40 meq Propofol (Diprivan 20 Ml) Confirm Administered Dose 200 mg .ROUTE .STK-MED ONE Stop: 03/15/17 09:04 Propofol (Diprivan 20 Ml) Confirm Administered Dose 400 mg .ROUTE .STK-MED ONE Stop: 03/15/17 10:25 Sodium Phosphate (Neutra-Phos) 250 mg PO QID [facility] Last Admin: 03/18/17 06:54 Dose: 250 mg Sucralfate (Carafate) 1 gm PO QIDACANDBED [facility] Vancomycin HCl (Pharmacy To Dose - Vancomycin) 1 dose .XX ASDIRECTED [facility] - Exam Quality Assessment: Reports: urine catheter. Denies: supplemental oxygen General: Denies: alert, oriented HEENT: Reports: Pupils equal Neck: Reports: supple, +2 carotid pulse wo bruit Lungs: Reports: Decreased breath sounds Cardiovascular: Reports: Regular Rate, Regular Rhythm Abdomen: Reports: other (PEG tube in place) Back Exam: Reports: Other (Kyphosis) Extremities: Reports: no edema, other (Contractures) Skin: Reports: warm, dry, other (Stage IV sacral decubitus ulcer on admission) Psy/Mental Status: Denies: alert, normal affect (Nonverbal, nonresponsive) *Q Meaningful Use (DIS) - VTE *Q VTE Criteria *Q: - Stroke *Q Stroke Criteria *Q: - AMI *Q AMI Criteria *Q:
[2017-03-21] MEDS ORDERED: Sulfamethoxazole/Trimethoprim 800-160 MG Tab PO SCH (09:00)
== END 2017-03-20 15:30 | disposition home health service (06) | DRG 592 ==
LOC: MW.ED 12:54 → MW.MS 14:02
PROVIDERS: ADMIT Family Medicine; ATTEND Family Medicine
PROC: 0DH67UZ Insertion of Feeding Device into Stomach, Via Natural or Artificial Opening (ICD-10-PCS; 2017-03-10)
PROC: 0DH63UZ Insertion of Feeding Device into Stomach, Percutaneous Approach (ICD-10-PCS; principal; 2017-03-15)
DX: J18.1 Lobar pneumonia, unspecified organism (principal); L89.154 Pressure ulcer of sacral region, stage 4; J69.0 Pneumonitis due to inhalation of food and vomit; E46 Unspecified protein-calorie malnutrition; R40.0 Somnolence; R53.1 Weakness; N39.0 Urinary tract infection, site not specified; Z86.73 Personal history of transient ischemic attack (TIA), and cerebral infarction without residual deficits; T83.511A Infection and inflammatory reaction due to indwelling urethral catheter, initial encounter; R62.7 Adult failure to thrive; I69.991 Dysphagia following unspecified cerebrovascular disease; R13.10 Dysphagia, unspecified; I10 Essential (primary) hypertension; I48.91 Unspecified atrial fibrillation; I50.9 Heart failure, unspecified; Z79.899 Other long term (current) drug therapy; R41.82 Altered mental status, unspecified; E87.6 Hypokalemia; E83.42 Hypomagnesemia; E83.39 Other disorders of phosphorus metabolism; K20.9 Esophagitis, unspecified; K29.80 Duodenitis without bleeding; Z46.6 Encounter for fitting and adjustment of urinary device; Z86.14 Personal history of Methicillin resistant Staphylococcus aureus infection; Z66 Do not resuscitate; Z88.0 Allergy status to penicillin; Z74.01 Bed confinement status; Z93.1 Gastrostomy status
CPT/HCPCS: 36415; 36600; 70450; 71010; 80053; 80162; 81001; 82140; 82803; 83605; 83735; 84484; 85025; 85610; 87040 ×2; 87086; 99285; J7040; 00740; 51703; 74000; 74000-26; 80048; 80202; 84100; 94664; 96365; A9270-GY; C9113; J0692; J1450; J1644; J1956; J2250; J2704; J3010; J3370; J3475; J3480; J7030; J7042; J7050

== ENCOUNTER 2017-06-01 09:58 | Inpatient (IN) | payer MEDICARE, MEDICAID ==
[2017-06-01] MEDS ORDERED: Sodium Chloride 0.9% 2.5 ML Syringe FLUSH PRN (10:09)
[2017-06-01] MEDS ORDERED: Sodium Chloride 0.9% 10 ML Syringe FLUSH PRN (10:09)
[2017-06-01] MEDS ORDERED: Sodium Chloride 0.9% 1,000 ML IV ONE ×2 (10:10→23:36)
--- NOTE | 2017-06-01 11:29 | EDM.PDOC ---
ED HPI GENERAL MEDICAL PROBLEM - General Chief Complaint: General Stated Complaint: AMBULANCE Time Seen by Provider: 06/01/17 10:00 Source of Information: Reports: EMS History Limitations: Reports: Altered Mental Status, Physical Impairment - History of Present Illness INITIAL COMMENTS - FREE TEXT/NARRATIVE: History of present illness: []Patient has had a left-sided CVA recently, has a J-tube, indwelling catheter and is nonverbal. She has been more short of breath recently Review of systems: As per history of present illness and below otherwise all systems reviewed and negative. Past medical history: As per history of present illness and as reviewed below otherwise noncontributory. Surgical history: As per history of present illness and as reviewed below otherwise noncontributory. Social history: No reported history of drug or alcohol abuse. Family history: As per history of present illness and as reviewed below otherwise noncontributory. Physical exam: General: Well developed, well nourished in mild respiratory distress HEENT: Atraumatic, normocephalic, pupils reactive, negative for conjunctival pallor or scleral icterus, mucous membranes moist, throat clear, neck supple, nontender, trachea midline. Lungs: Clear to auscultation, bronchitic breath sounds equal bilaterally with accessory muscle use, chest nontender. Heart: S1S2, regular, negative for clicks, rubs, or JVD. Abdomen: Soft, nondistended, nontender. Negative for masses or hepatosplenomegaly. Negative for costovertebral tenderness. Pelvis: Stable nontender. Genitourinary: Deferred. Rectal: Deferred. Extremities: Atraumatic, negative for cords or calf pain. Neurovascular unremarkable. Neuro: Patient is awake and moans is not responsive to commands. Exam nonfocal. Diagnostics: []Chest x-ray CBC shows pneumonia anemia Therapeutics: []IV fluids anti-biotics started in the ED Impression: []pneumonia, anemia Plan: []Admit for blood transfusion and breathing treatments, pulmonary toilet Definitive disposition and diagnosis as appropriate pending reevaluation and review of above. - Related Data Allergies Allergy/AdvReac Type Severity Reaction Status Date / Time Penicillins Allergy Hives Verified 06/01/17 10:09 strawberry Allergy Hives Verified 06/01/17 10:09 Home Meds: Home Meds Metoprolol Succinate 50 mg PO DAILY #30 tab.er.24h 11/04/16 [Rx] Digoxin [Lanoxin] 125 mcg PO DAILY #30 tablet 03/20/17 [Rx] Hydrocodone/Acetaminophen [Hydrocodon-Acetaminophen 5-325] 1 tab PO Q8H PRN [History] Polyethylene Glycol 3350 [MiraLAX] 17 gm PO DAILY PRN 06/01/17 [History] Past Medical History HEENT History: Reports: None Cardiovascular History: Reports: Afib, Heart Failure, Hypertension Gastrointestinal History: Reports: Other (See Below) Other Gastrointestinal History: constipation Genitourinary History: Reports: UTI, Recurrent, Other (See Below) Other Genitourinary History: 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, Dysphagia, Aphasia Psychiatric History: Reports: Other (See Below) Other Psychiatric History: Non-verbal Endocrine/Metabolic History: Reports: None Oncologic (Cancer) History: Reports: Brain Dermatologic History: Reports: Other (See Below) Other Dermatologic History: Pressure ulscer of sacral region - Infectious Disease History Infectious Disease History: Reports: MRSA - Past Surgical History HEENT Surgical History: Reports: None Cardiovascular Surgical History: Reports: None GI Surgical History: Reports: None Female Surgical History: Reports: Hysterectomy Oncologic Surgical History: Reports: None Social & Family History - Family History Family Medical History: Noncontributory - Tobacco Use Smoking Status *Q: Unknown Ever Smoked Second Hand Smoke Exposure: No - Caffeine Use Caffeine Use: Reports: Other Other Caffeine Use: unknown - Alcohol Use Days Per Week of Alcohol Use: 0 - Recreational Drug Use Recreational Drug Use: No - Living Situation & Occupation Living situation: Reports: with Spouse, Other (has caregiver as well) Occupation: Disabled ED ROS GENERAL - Review of Systems Review Of Systems: See Below (See history of present illness) ED EXAM, GENERAL - Physical Exam Exam: See Below (See history of present illness) Course - Vital Signs Last Recorded V/S: Last Vital Signs Temp 38.7 C H 06/01/17 13:10 Pulse 125 H 06/01/17 13:10 Resp 24 H 06/01/17 13:10 BP 103/56 L 06/01/17 13:10 Pulse Ox 100 06/01/17 13:10 - Orders/Labs/Meds Orders: Active Orders 24 hr Category Date Time Status CULTURE BLOOD [BC] Stat Lab 06/01/17 10:25 Results CULTURE BLOOD [BC] Stat Lab 06/01/17 10:38 Results CULTURE URINE [RM] Stat Lab 06/01/17 11:10 Received Cefepime [Maxipime in D5W 1 GM/50 ML] 1 gm Med 06/01/17 11:30 Active Premix Bag 1 bag IV Q8H Sodium Chloride 0.9% [Saline Flush] Med 06/01/17 10:09 Active 10 ml FLUSH ASDIRECTED PRN Sodium Chloride 0.9% [Saline Flush] Med 06/01/17 10:09 Active 2.5 ml FLUSH ASDIRECTED PRN Blood Culture x2 Reflex Set [OM.PC] Stat Ot 06/01/17 10:09 Ordered Saline Lock Insert [OM.PC] Stat Ot 06/01/17 10:09 Ordered Transfuse RBC [Transfuse Red Blood Cells] [COMM] Stat Ot 06/01/17 11:04 Ordered Medication Orders Digoxin (Lanoxin) 125 mcg PO DAILY [facility] Cefepime HCl 1 gm/ Premix 50 mls @ 100 mls/hr IV Q8H [facility] Last Admin: 06/01/17 12:08 Dose: 100 mls/hr Azithromycin 500 mg/ Sodium (Chloride) 250 mls @ 250 mls/hr IV Q24H [facility] Last Admin: 06/01/17 14:48 Dose: 250 mls/hr Cefepime HCl 1 gm/ Premix 50 mls @ 100 mls/hr IV Q8H [facility] Vancomycin HCl 750 mg/ Sodium (Chloride) 250 mls @ 250 mls/hr IV Q12H [facility] Sodium Chloride (Normal Saline) 1,000 mls @ 150 mls/hr IV ASDIRECTED [facility] Last Admin: 06/01/17 14:47 Dose: 150 mls/hr Metoprolol Succinate (Toprol Xl) 50 mg PO DAILY [facility] Polyethylene Glycol (Miralax) 17 gm PO DAILY PRN PRN Reason: Constipation Sodium Chloride (Saline Flush) 10 ml FLUSH ASDIRECTED PRN PRN Reason: Keep Vein Open Sodium Chloride (Saline Flush) 2.5 ml FLUSH ASDIRECTED PRN PRN Reason: Keep Vein Open Vancomycin HCl (Pharmacy To Dose - Vancomycin) 1 dose .XX ASDIRECTED [facility] Labs: Laboratory Tests 06/01/17 06/01/17 06/01/17 Range/Units 10:25 10:25 11:10 WBC 14.31 H (4.0-11.0) K/uL RBC 3.20 L (4.30-5.90) M/uL Hgb 6.9 L (12.0-16.0) g/dL Hct 23.9 L (36.0-46.0) % MCV 74.7 L (80.0-98.0) fL MCH 21.6 L (27.0-32.0) pg MCHC 28.9 L (31.0-37.0) g/dL RDW Std Deviation 49.7 (28.0-62.0) fl RDW Coeff of Deanna 18 H (11.0-15.0) % Plt Count 466 H (150-400) K/uL MPV 10.00 (7.40-12.00) fL Add Manual Diff YES Neutrophils % (Manual) 81 H (48.0-80.0) % Band Neutrophils % 2 % Lymphocytes % (Manual) 12 L (16.0-40.0) % Monocytes % (Manual) 4 (0.0-15.0) % Eosinophils % (Manual) 1 (0.0-7.0) % Nucleated RBC % 0.0 /100WBC Absolute Seg Neuts 11.6 Band Neutrophils # 0.3 Lymphocytes # (Manual) 1.7 Monocytes # (Manual) 0.6 Eosinophils # (Manual) 0.1 Nucleated RBCs # 0 K/uL Sodium 147 H (136-146) mmol/L Potassium 4.6 (3.5-5.1) mmol/L Chloride 107 (98-110) mmol/L Carbon Dioxide 31 (21-31) mmol/L BUN 45 H (6.0-23.0) mg/dL Creatinine 0.6 (0.6-1.5) mg/dL Est Cr Clr Drug Dosing TNP Estimated GFR (MDRD) > 60.0 ml/min Glucose 155 H (60-110) mg/dL Calcium 7.9 L (8.8-10.8) mg/dL Total Bilirubin 0.2 (0.1-1.5) mg/dL AST 91 H (5-40) IU/L ALT 81 H (8-54) IU/L Alkaline Phosphatase 76 (40-150) Total Protein 5.5 L (6.0-8.0) g/dL Albumin 2.2 L (3.4-4.8) g/dL Globulin 3.3 (2.0-3.5) g/dL Albumin/Globulin Ratio 0.7 L (1.3-2.8) Urine Color YELLOW Urine Appearance SLT CLOUDY Urine pH 5.5 (5.0-8.0) Ur Specific [place] 1.020 (1.001-1.035) Urine Protein TRACE (NEGATIVE) mg/dL Urine Glucose (UA) NEGATIVE (NEGATIVE) mg/dL Urine Ketones NEGATIVE (NEGATIVE) mg/dL Urine Occult Blood TRACE-INTACT (NEGATIVE) Urine Nitrite NEGATIVE (NEGATIVE) Urine Bilirubin NEGATIVE (NEGATIVE) Urine Urobilinogen 0.2 (<2.0) EU/dL Ur Leukocyte Esterase LARGE (NEGATIVE) Urine RBC 2-4 (0-2/HPF) Urine WBC 35-42 (0-5/HPF) Ur Epithelial Cells FEW (NONE-FEW) Urine Bacteria 1+ H (NEGATIVE) Urine Mucus LIGHT (NONE-MOD) Meds: Medications Generic Name Dose Route Start Last Admin Trade Name Berhane PRN Reason Stop Dose Admin Digoxin 125 mcg 06/02/17 09:00 Lanoxin PO DAILY [facility] Cefepime HCl 1 gm/ Premix 50 mls @ 100 mls/hr 06/01/17 11:30 06/01/17 12:08 IV 100 mls/hr Q8H [facility] Administration Azithromycin 500 mg/ Sodium 250 mls @ 250 mls/hr 06/01/17 14:15 06/01/17 14: 48 Chloride IV 250 mls/hr Q24H [facility] Administration Cefepime HCl 1 gm/ Premix 50 mls @ 100 mls/hr 06/01/17 19:00 IV Q8H [facility] Vancomycin HCl 750 mg/ Sodium 250 mls @ 250 mls/hr 06/01/17 15:30 Chloride IV Q12H [facility] Sodium Chloride 1,000 mls @ 150 mls/hr 06/01/17 14:15 06/01/17 14:47 Normal Saline IV 150 mls/hr ASDIRECTED [facility] Administration Metoprolol Succinate 50 mg 06/02/17 09:00 Toprol Xl PO DAILY [facility] Polyethylene Glycol 17 gm 06/01/17 14:09 Miralax PO DAILY PRN Constipation Sodium Chloride 10 ml 06/01/17 10:09 Saline Flush FLUSH ASDIRECTED PRN Keep Vein Open Sodium Chloride 2.5 ml 06/01/17 10:09 Saline Flush FLUSH ASDIRECTED PRN Keep Vein Open Vancomycin HCl 1 dose 06/01/17 14:15 Pharmacy To Dose - Vancomycin .XX ASDIRECTED [facility] Discontinued Medications Generic Name Dose Route Start Last Admin Trade Name Freq PRN Reason Stop Dose Admin Sodium Chloride 1,000 mls @ 999 mls/hr 06/01/17 10:10 06/01/17 11:00 Normal Saline IV 06/01/17 11:10 999 mls/hr .Bolus ONE Administration Departure - Departure Time of Disposition: 15:09 Disposition: Admitted As Inpatient 68 Condition: Good, Poor Clinical Impression: Anemia, Pneumonia - Discharge Information - My Orders Last 24 Hours: My Active Orders 06/01/17 10:09 Sodium Chloride 0.9% [Saline Flush] 10 ml FLUSH ASDIRECTED PRN Sodium Chloride 0.9% [Saline Flush] 2.5 ml FLUSH ASDIRECTED PRN Blood Culture x2 Reflex Set [OM.PC] Stat Saline Lock Insert [OM.PC] Stat 06/01/17 10:25 CULTURE BLOOD [BC] Stat 06/01/17 10:38 CULTURE BLOOD [BC] Stat 06/01/17 11:04 Transfuse RBC [Transfuse Red Blood Cells] [COMM] Stat 06/01/17 11:10 CULTURE URINE [RM] Stat 06/01/17 11:30 Cefepime [Maxipime in D5W 1 GM/50 ML] 1 gm Premix Bag 1 bag IV Q8H - Assessment/Plan Last 24 Hours: My Active Orders 06/01/17 10:09 Sodium Chloride 0.9% [Saline Flush] 10 ml FLUSH ASDIRECTED PRN Sodium Chloride 0.9% [Saline Flush] 2.5 ml FLUSH ASDIRECTED PRN Blood Culture x2 Reflex Set [OM.PC] Stat Saline Lock Insert [OM.PC] Stat 06/01/17 10:25 CULTURE BLOOD [BC] Stat 06/01/17 10:38 CULTURE BLOOD [BC] Stat 06/01/17 11:04 Transfuse RBC [Transfuse Red Blood Cells] [COMM] Stat 06/01/17 11:10 CULTURE URINE [RM] Stat 06/01/17 11:30 Cefepime [Maxipime in D5W 1 GM/50 ML] 1 gm Premix Bag 1 bag IV Q8H
[2017-06-01] MEDS ORDERED: Cefepime 1 GM in Premix Bag 1 BAG IV SCH (11:30)
[2017-06-01 11:41] LABS: CHLORIDE,CL 107 mmol/L (98-110); SODIUM,NA 147 mmol/L (136-146)
--- NOTE | 2017-06-01 11:41 | CR ---
EXAMINATION: Portable chest radiograph. HISTORY: Shortness of breath. FINDINGS: The trachea is midline. The heart is mildly enlarged. There is a chronic interstitial prominence note d. Left basilar consolidation and likely a trace pleural effusion noted. No pneumothorax. Osseous structures appear osteopenic. IMPRESSION: Left basilar atelectasis/infiltrate with a small pleural effusion.
--- NOTE | 2017-06-01 13:59 | PCM.HP ---
H&P History of Present Illness - General Date of Service: 06/01/17 Admit Problem/Dx: Admission Diagnosis/Problem Admission Diagnosis/Problem Anemia Source of Information: Family, Provider - History of Present Illness Initial Comments - Free Text/Narative: She presented to the ED today for generalized weakness and was found to be anemic with Hg 5.9. Dr Nagy recommended hospitalization. She has had a prior stroke and has a PEG tube and left hemiparesis. She has known deep pressure wounds and has an indwelling anton catheter. - Related Data Allergies/Adverse Reactions: Allergies Allergy/AdvReac Type Severity Reaction Status Date / Time Penicillins Allergy Hives Verified 06/01/17 10:09 strawberry Allergy Hives Verified 06/01/17 10:09 Home Medications: Home Meds Metoprolol Succinate 50 mg PO DAILY #30 tab.er.24h 11/04/16 [Rx] Digoxin [Lanoxin] 125 mcg PO DAILY #30 tablet 03/20/17 [Rx] Hydrocodone/Acetaminophen [Hydrocodon-Acetaminophen 5-325] 1 tab PO Q8H PRN [History] Polyethylene Glycol 3350 [MiraLAX] 17 gm PO DAILY PRN 06/01/17 [History] Past Medical History HEENT History: Reports: None Cardiovascular History: Reports: Afib, Heart Failure, Hypertension Respiratory History: Reports: Pneumonia, Recurrent Gastrointestinal History: Reports: Other (See Below) Other Gastrointestinal History: constipation Genitourinary History: Reports: UTI, Recurrent, Other (See Below) Other Genitourinary History: 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, Dysphagia, Aphasia Psychiatric History: Reports: Other (See Below) Other Psychiatric History: Non-verbal Endocrine/Metabolic History: Reports: None Oncologic (Cancer) History: Reports: Brain Dermatologic History: Reports: Other (See Below) Other Dermatologic History: ulcer to coccyx and right hip, multiple open areas on feet - Infectious Disease History Infectious Disease History: Reports: MRSA - Past Surgical History Head Surgeries/Procedures: Reports: Craniotomy HEENT Surgical History: Reports: None Cardiovascular Surgical History: Reports: None Respiratory Surgical History: Reports: None GI Surgical History: Reports: Other (See Below) Other GI Surgeries/Procedures: peg tube Female Surgical History: Reports: Hysterectomy Musculoskeletal Surgical History: Reports: None Oncologic Surgical History: Reports: None Social & Family History - Family History Family Medical History: Noncontributory - Tobacco Use Smoking Status *Q: Never Smoker Second Hand Smoke Exposure: No - Caffeine Use Caffeine Use: Reports: None Other Caffeine Use: unknown - Alcohol Use Days Per Week of Alcohol Use: 0 - Recreational Drug Use Recreational Drug Use: No - Living Situation & Occupation Living situation: Reports: with Spouse, Other (has caregiver as well) Occupation: Disabled H&P Review of Systems - Review of Systems: Review Of Systems: Unable To Obtain Free Text/Narrative: unable to obtain a ROS from the patient. She is chronically non verbal. She has chronic pressure wounds. She lives withher at home. 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 Pulmonary: Denies: Wheezing Exam - Exam Exam: See Below - Vital Signs Vital Signs: Last Vital Signs Temp 101.7 F H 06/01/17 13:10 Pulse 125 H 06/01/17 13:10 Resp 24 H 06/01/17 13:10 BP 103/56 L 06/01/17 13:10 Pulse Ox 100 06/01/17 13:10 Weight: 47 kg - Exam Physical Exam Comments:: she is awake she is non verbal cachectic left flexion contractures LUE lungs : faint crackles heart RRR without m breasts: no definite masses abdomen: peg tube; soft no apparent tenderness no ankle edema anton in stage III-IV pressure wound presacral area and left buttock blistered areas and shallow pressure sores ankles CXR: L basilar infiltrate. - Patient Data Result Diagrams: 06/01/17 10:25 06/01/17 10:25 *Q Meaningful Use (ADM) - VTE *Q VTE Criteria *Q: - Stroke *Q Stroke Criteria *Q: - AMI *Q AMI Criteria *Q: - Problem List (1) Failure to thrive SNOMED Code(s): 87401533 ICD Code: [id number] - Status: Acute Current Visit: No Qualifiers: Failure to thrive age range: in adult Qualified Code(s): R62.7 - Adult failure to thrive (2) PEG (percutaneous endoscopic gastrostomy) status SNOMED Code(s): 229133877, 032711926 ICD Code: Z93.1 - GASTROSTOMY STATUS Status: Acute Current Visit: No (3) UTI (urinary tract infection) SNOMED Code(s): 61980858 ICD Code: N39.0 - URINARY TRACT INFECTION, SITE NOT SPECIFIED Status: Acute Current Visit: No Qualifiers: Urinary tract infection type: site unspecified (4) History of CVA with residual deficit SNOMED Code(s): 218542069 ICD Code: I69.30 - UNSPECIFIED SEQUELAE OF CEREBRAL INFARCTION Status: Chronic Current Visit: No (5) Hx MRSA infection SNOMED Code(s): 945525816, 174870585 ICD Code: Z86.14 - PERSONAL HISTORY OF METHICILLIN RESIS STAPH INFECTION Status: Chronic Current Visit: No Problem Details: UTI (6) Pressure ulcer of coccygeal region, stage 4 SNOMED Code(s): 854559986, 025924762 ICD Code: L89.154 - PRESSURE ULCER OF SACRAL REGION, STAGE 4 Status: Chronic Priority: Medium Current Visit: No Problem Details: Present on admission (7) Pneumonia SNOMED Code(s): 812680431 ICD Code: J18.9 - PNEUMONIA, UNSPECIFIED ORGANISM Status: Resolved Current Visit: No Qualifiers: Pneumonia type: due to unspecified organism Laterality: left Lung location: lower lobe of lung Qualified Code(s): J18.1 - Lobar pneumonia, unspecified organism (8) Sepsis SNOMED Code(s): 09998162 ICD Code: A41.9 - SEPSIS, UNSPECIFIED ORGANISM Status: Acute Current Visit: Yes Problem List Initiated/Reviewed/Updated: Yes Orders Last 24hrs: Active Orders 24 hr Category Date Time Status Pharmacy to Dose [Pharmacy to Dose - InFluenza Vaccine] Med 06/01/17 13:56 Once 1 each IM ONETIME ONE Medication Orders Cefepime HCl 1 gm/ Premix 50 mls @ 100 mls/hr IV Q8H [facility] Last Admin: 06/01/17 12:08 Dose: 100 mls/hr Sodium Chloride (Saline Flush) 10 ml FLUSH ASDIRECTED PRN PRN Reason: Keep Vein Open Sodium Chloride (Saline Flush) 2.5 ml FLUSH ASDIRECTED PRN PRN Reason: Keep Vein Open Assessment/Plan Comment:: I spoke with her . She has a DNR status. He agreed that we will try to avoid treatments and diagnostics. that may cause excessive discomforts
[2017-06-01] MEDS ORDERED: Polyethylene Glycol 3350 Powder 17 GM Packet PO PRN (14:09)
[2017-06-01] MEDS ORDERED: Sodium Chloride 0.9% 1,000 ML IV SCH (14:15)
[2017-06-01] MEDS: Azithromycin 500 MG in Sodium Chloride 0.9% 250 ML IV SCH (14:48)
[2017-06-01] MEDS: Cefepime 1 GM in Premix Bag 1 BAG IV SCH (18:51)
[2017-06-02] MEDS: Sodium Chloride 0.9% 1,000 ML IV SCH ×4 (00:27→22:24)
[2017-06-02] MEDS: Cefepime 1 GM in Premix Bag 1 BAG IV SCH ×3 (02:41→18:02)
[2017-06-02 05:32] LABS: CHLORIDE,CL 115 mmol/L (98-110); SODIUM,NA 147 mmol/L (136-146)
[2017-06-02] MEDS: Digoxin 125 MCG Tab PO SCH (12:12)
[2017-06-02] MEDS: Metoprolol Succinate 50 MG Tab.ER PO SCH (12:14)
[2017-06-02] MEDS: Azithromycin 500 MG in Sodium Chloride 0.9% 250 ML IV SCH (13:49)
--- NOTE | 2017-06-02 14:16 | PCM.PN ---
- General Info Date of Service: 06/02/17 Subjective Update: a little more alert. - Patient Data Vitals - Most Recent: Last Vital Signs Temp 96.7 F 06/02/17 12:00 Pulse 76 06/02/17 12:14 Resp 16 06/02/17 12:00 BP 111/52 L 06/02/17 12:14 Pulse Ox 97 06/02/17 12:00 Weight - Most Recent: 47 kg I&O - Last 24 Hours: Intake & Output 06/01/17 06/02/17 06/02/17 22:59 06:59 14:59 Intake Total 690 058 4626 Output Total 200 250 Balance 687 128 9990 Lab Results Last 24 Hours: Laboratory Results - last 24 hr 06/02/17 06/02/17 06/02/17 Range/Units 04:51 04:51 04:51 WBC 14.77 H (4.0-11.0) K/uL RBC 3.99 L (4.30-5.90) M/uL Hgb 10.1 L (12.0-16.0) g/dL Hct 32.7 L (36.0-46.0) % MCV 82.0 (80.0-98.0) fL MCH 25.3 L (27.0-32.0) pg MCHC 30.9 L (31.0-37.0) g/dL RDW Std Deviation 58.3 (28.0-62.0) fl RDW Coeff of Deanna 19 H (11.0-15.0) % Plt Count 292 (150-400) K/uL MPV 10.20 (7.40-12.00) fL Neut % (Auto) 85.3 H (48.0-80.0) % Lymph % (Auto) 8.1 L (16.0-40.0) % [place] % (Auto) 4.1 (0.0-15.0) % Eos % (Auto) 2.1 (0.0-7.0) % Baso % (Auto) 0.4 (0.0-1.5) % Neut # (Auto) 12.6 H (1.4-5.7) K/uL Lymph # (Auto) 1.2 (0.6-2.4) K/uL [place] # (Auto) 0.6 (0.0-0.8) K/uL Eos # (Auto) 0.3 (0.0-0.7) K/uL Baso # (Auto) 0.1 (0.0-0.1) K/uL Nucleated RBC % 0.0 /100WBC Nucleated RBCs # 0 K/uL Lactate 0.8 (0.20-2.00) mmol/L Sodium 147 H (136-146) mmol/L Potassium 4.3 (3.5-5.1) mmol/L Chloride 115 H (98-110) mmol/L Carbon Dioxide 26 (21-31) mmol/L BUN 36 H (6.0-23.0) mg/dL Creatinine 0.5 L (0.6-1.5) mg/dL Est Cr Clr Drug Dosing 73.24 mL/min Estimated GFR (MDRD) > 60.0 ml/min Glucose 84 (60-110) mg/dL Calcium 7.5 L (8.8-10.8) mg/dL Magnesium 1.6 (1.5-2.3) mEq/L Total Bilirubin 0.4 (0.1-1.5) mg/dL AST 54 H (5-40) IU/L ALT 69 H (8-54) IU/L Alkaline Phosphatase 61 (40-150) Total Protein 4.7 L (6.0-8.0) g/dL Albumin 1.9 L (3.4-4.8) g/dL Globulin 2.8 (2.0-3.5) g/dL Albumin/Globulin Ratio 0.7 L (1.3-2.8) Digoxin 1.00 (0.8-2.0) ng/mL Med Orders - Current: Current Medications Digoxin (Lanoxin) 125 mcg PO DAILY [facility] Last Admin: 06/02/17 12:12 Dose: 125 mcg Azithromycin 500 mg/ Sodium (Chloride) 250 mls @ 250 mls/hr IV Q24H [facility] Last Admin: 06/02/17 13:49 Dose: 250 mls/hr Cefepime HCl 1 gm/ Premix 50 mls @ 100 mls/hr IV Q8H [facility] Last Admin: 06/02/17 11:10 Dose: 100 mls/hr Vancomycin HCl 750 mg/ Sodium (Chloride) 250 mls @ 250 mls/hr IV Q12H [facility] Last Admin: 06/02/17 03:18 Dose: 250 mls/hr Sodium Chloride (Normal Saline) 1,000 mls @ 125 mls/hr IV ASDIRECTED [facility] Last Admin: 06/02/17 11:09 Dose: 125 mls/hr Metoprolol Succinate (Toprol Xl) 50 mg PO DAILY [facility] Last Admin: 06/02/17 12:14 Dose: 50 mg Polyethylene Glycol (Miralax) 17 gm PO DAILY PRN PRN Reason: Constipation Sodium Chloride (Saline Flush) 10 ml FLUSH ASDIRECTED PRN PRN Reason: Keep Vein Open Sodium Chloride (Saline Flush) 2.5 ml FLUSH ASDIRECTED PRN PRN Reason: Keep Vein Open Vancomycin HCl (Pharmacy To Dose - Vancomycin) 1 dose .XX ASDIRECTED [facility] Discontinued Medications Sodium Chloride (Normal Saline) 1,000 mls @ 999 mls/hr IV .Bolus ONE Stop: 06/01/17 11:10 Last Admin: 06/01/17 11:00 Dose: 999 mls/hr Cefepime HCl 1 gm/ Premix 50 mls @ 100 mls/hr IV Q8H [facility] Last Admin: 06/01/17 12:08 Dose: 100 mls/hr Sodium Chloride (Normal Saline) 1,000 mls @ 150 mls/hr IV ASDIRECTED [facility] Last Admin: 06/01/17 14:47 Dose: 150 mls/hr Sodium Chloride (Normal Saline) 1,000 mls @ 500 mls/hr IV .Bolus ONE Stop: 06/02/17 01:35 Last Admin: 06/01/17 23:56 Dose: 500 mls/hr - Exam General: Alert, Other (she is non verbal) Lungs: Clear to Auscultation Cardiovascular: Regular Rate, Regular Rhythm (flexion contractures RUE) - Problem List & Annotations (1) Failure to thrive SNOMED Code(s): 80099867 Code(s): SPJ1322 - Status: Acute Current Visit: No Qualifiers: Failure to thrive age range: in adult Qualified Code(s): R62.7 - Adult failure to thrive (2) PEG (percutaneous endoscopic gastrostomy) status SNOMED Code(s): 939906500, 105729357 Code(s): Z93.1 - GASTROSTOMY STATUS Status: Acute Current Visit: No (3) UTI (urinary tract infection) SNOMED Code(s): 50081148 Code(s): N39.0 - URINARY TRACT INFECTION, SITE NOT SPECIFIED Status: Acute Current Visit: No Qualifiers: Urinary tract infection type: site unspecified (4) History of CVA with residual deficit SNOMED Code(s): 047641336 Code(s): I69.30 - UNSPECIFIED SEQUELAE OF CEREBRAL INFARCTION Status: Chronic Current Visit: No (5) Hx MRSA infection SNOMED Code(s): 728829266, 301130058 Code(s): Z86.14 - PERSONAL HISTORY OF METHICILLIN RESIS STAPH INFECTION Status: Chronic Current Visit: No Annotation/Comment:: UTI (6) Pressure ulcer of coccygeal region, stage 4 SNOMED Code(s): 012199262, 717008493 Code(s): L89.154 - PRESSURE ULCER OF SACRAL REGION, STAGE 4 Status: Chronic Priority: Medium Current Visit: No Annotation/Comment:: Present on admission (7) Pneumonia SNOMED Code(s): 851527729 Code(s): J18.9 - PNEUMONIA, UNSPECIFIED ORGANISM Status: Resolved Current Visit: No Qualifiers: Pneumonia type: due to unspecified organism Laterality: left Lung location: lower lobe of lung Qualified Code(s): J18.1 - Lobar pneumonia, unspecified organism (8) Sepsis SNOMED Code(s): 48228051 Code(s): A41.9 - SEPSIS, UNSPECIFIED ORGANISM Status: Acute Current Visit : Yes (9) Anemia SNOMED Code(s): 694524289 Code(s): D64.9 - ANEMIA, UNSPECIFIED Status: Acute Current Visit: Yes - Problem List Review Problem List Initiated/Reviewed/Updated: Yes - My Orders Last 24 Hours: My Active Orders 06/01/17 14:09 Polyethylene Glycol 3350 [MiraLAX] 17 gm PO DAILY PRN 06/01/17 14:10 Resuscitation Status Routine 06/01/17 14:11 Oxygen Therapy [RC] PRN Vital Signs [RC] Q4H 06/01/17 14:13 Fecal Occult Blood Collection [RC] ASDIRECTED 06/01/17 14:14 Communication Order [RC] PER UNIT ROUTINE 06/01/17 14:15 Azithromycin [Zithromax] 500 mg Sodium Chloride 0.9% [Normal Saline] 250 ml IV Q24H Vancomycin Pharmacy to Dose [Pharmacy to Dose - Vancomycin] 1 dose .XX ASDIRECTED 06/01/17 15:30 Vancomycin 750 mg Sodium Chloride 0.9% [Normal Saline] 250 ml IV Q12H 06/01/17 16:56 Aspiration Precautions [RC] ASDIRECTED 06/01/17 17:58 Telemetry Monitoring [Cardiac Monitoring] [RC] Q8H 06/01/17 19:00 Cefepime [Maxipime in D5W 1 GM/50 ML] 1 gm Premix Bag 1 bag IV Q8H 06/01/17 19:30 Sodium Chloride 0.9% [Normal Saline] 1,000 ml IV ASDIRECTED 06/01/17 23:30 Communication Order [RC] PER UNIT ROUTINE 06/01/17 23:43 Communication Order [RC] PER UNIT ROUTINE 06/02/17 09:00 Digoxin [Lanoxin] 125 mcg PO DAILY Metoprolol Succinate [Toprol XL] 50 mg PO DAILY 06/02/17 14:11 Abdomen Ltd [US] Routine 06/03/17 05:11 CBC WITH AUTO DIFF [HEME] AM COMPREHENSIVE METABOLIC PN,CMP [CHEM] AM MAGNESIUM [CHEM] AM 06/03/17 15:00 VANCOMYCIN TROUGH [CHEM] Routine 06/04/17 05:11 CBC WITH AUTO DIFF [HEME] AM COMPREHENSIVE METABOLIC PN,CMP [CHEM] AM MAGNESIUM [CHEM] AM 06/08/17 13:56 Pharmacy to Dose [Pharmacy to Dose - InFluenza Vaccine] 1 each IM ONETIME ONE - Plan Plan:: I spoke with her . She has a DNR status. He agreed that we will try to avoid treatments and diagnostics. that may cause excessive discomforts Mathew Aguilera MD 06/02/2017 I spoke with her . continue present care. Mathew Aguilera MD
--- NOTE | 2017-06-02 17:06 | US ---
EXAMINATION: Right upper quadrant ultrasound HISTORY: Elevated LFTs COMPARISON: None TECHNIQUE: Grayscale, spectral Doppler and color Doppler images obtained of the right upper quadrant. FINDINGS: The pancreas is not well visualized. The liver is normal in contour and echotexture without a focal hepatic mass. Cholelithiasis noted. No gallbladder wall thickening or pericholecystic fluid. The common bile duct measures 3 mm. The right kidney measures at least 9.1 cm [id number] without e vidence of hydronephrosis. Sonographic Paez sign is not reported. IMPRESSION: 1. Cholelithiasis without evidence of cholecystitis. Liver appears normal in echotexture.
[2017-06-03] MEDS: Cefepime 1 GM in Premix Bag 1 BAG IV SCH ×3 (03:39→18:37)
[2017-06-03 05:52] LABS: CHLORIDE,CL 119 mmol/L (98-110); SODIUM,NA 150 mmol/L (136-146)
[2017-06-03] MEDS: Sodium Chloride 0.9% 1,000 ML IV SCH (07:31)
[2017-06-03] MEDS: Metoprolol Succinate 50 MG Tab.ER PO SCH (09:38)
[2017-06-03] MEDS: Digoxin 125 MCG Tab PO SCH (09:39)
[2017-06-03] MEDS: Azithromycin 500 MG in Sodium Chloride 0.9% 250 ML IV SCH (14:15)
--- NOTE | 2017-06-03 16:23 | PCM.PN ---
- Review of Systems Systems Review Comment:: nonverbal - Patient Data Vitals - Most Recent: Last Vital Signs Temp 36.7 C 06/03/17 12:07 Pulse 93 06/03/17 12:07 Resp 18 06/03/17 12:07 BP 125/62 06/03/17 12:07 Pulse Ox 100 06/03/17 12:07 Weight - Most Recent: 47 kg I&O - Last 24 Hours: Intake & Output 06/03/17 06/03/17 06/03/17 06:59 14:59 22:59 Intake Total 300 1254 Output Total 350 Balance -50 1254 Lab Results Last 24 Hours: Laboratory Results - last 24 hr 06/03/17 06/03/17 Range/Units 05:02 05:02 WBC 10.94 (4.0-11.0) K/uL RBC 4.24 L (4.30-5.90) M/uL Hgb 10.7 L (12.0-16.0) g/dL Hct 35.7 L (36.0-46.0) % MCV 84.2 (80.0-98.0) fL MCH 25.2 L (27.0-32.0) pg MCHC 30.0 L (31.0-37.0) g/dL RDW Std Deviation 63.4 H (28.0-62.0) fl RDW Coeff of Deanna 21 H (11.0-15.0) % Plt Count 336 (150-400) K/uL MPV 10.60 (7.40-12.00) fL Neut % (Auto) 80.7 H (48.0-80.0) % Lymph % (Auto) 9.0 L (16.0-40.0) % [place] % (Auto) 5.8 (0.0-15.0) % Eos % (Auto) 4.1 (0.0-7.0) % Baso % (Auto) 0.4 (0.0-1.5) % Neut # (Auto) 8.8 H (1.4-5.7) K/uL Lymph # (Auto) 1.0 (0.6-2.4) K/uL [place] # (Auto) 0.6 (0.0-0.8) K/uL Eos # (Auto) 0.5 (0.0-0.7) K/uL Baso # (Auto) 0.0 (0.0-0.1) K/uL Nucleated RBC % 0.0 /100WBC Nucleated RBCs # 0 K/uL Sodium 150 H (136-146) mmol/L Potassium 3.6 (3.5-5.1) mmol/L Chloride 119 H (98-110) mmol/L Carbon Dioxide 23 (21-31) mmol/L BUN 30 H (6.0-23.0) mg/dL Creatinine 0.5 L (0.6-1.5) mg/dL Est Cr Clr Drug Dosing 73.24 mL/min Estimated GFR (MDRD) > 60.0 ml/min Glucose 58 L (60-110) mg/dL Calcium 7.9 L (8.8-10.8) mg/dL Magnesium 1.5 (1.5-2.3) mEq/L Total Bilirubin 0.5 (0.1-1.5) mg/dL AST 32 (5-40) IU/L ALT 45 (8-54) IU/L Alkaline Phosphatase 59 (40-150) Total Protein 4.6 L (6.0-8.0) g/dL Albumin 1.9 L (3.4-4.8) g/dL Globulin 2.7 (2.0-3.5) g/dL Albumin/Globulin Ratio 0.7 L (1.3-2.8) Elbert Results Last 24 Hours: Microbiology 06/02/17 12:00 Stool Occult Blood (ELBERT) - Final Stool / Feces NEGATIVE OCCULT BLOOD Med Orders - Current: Current Medications Digoxin (Lanoxin) 125 mcg PO DAILY [facility] Last Admin: 06/03/17 09:39 Dose: 125 mcg Azithromycin 500 mg/ Sodium (Chloride) 250 mls @ 250 mls/hr IV Q24H [facility] Last Admin: 06/03/17 14:15 Dose: 250 mls/hr Cefepime HCl 1 gm/ Premix 50 mls @ 100 mls/hr IV Q8H [facility] Last Admin: 06/03/17 11:20 Dose: 100 mls/hr Vancomycin HCl 750 mg/ Sodium (Chloride) 250 mls @ 250 mls/hr IV Q12H [facility] Last Admin: 06/03/17 04:32 Dose: 250 mls/hr Sodium Chloride (Normal Saline) 1,000 mls @ 125 mls/hr IV ASDIRECTED [facility] Last Admin: 06/03/17 07:31 Dose: 125 mls/hr Metoprolol Succinate (Toprol Xl) 50 mg PO DAILY [facility] Last Admin: 06/03/17 09:38 Dose: 50 mg Polyethylene Glycol (Miralax) 17 gm PO DAILY PRN PRN Reason: Constipation Sodium Chloride (Saline Flush) 10 ml FLUSH ASDIRECTED PRN PRN Reason: Keep Vein Open Sodium Chloride (Saline Flush) 2.5 ml FLUSH ASDIRECTED PRN PRN Reason: Keep Vein Open Vancomycin HCl (Pharmacy To Dose - Vancomycin) 1 dose .XX ASDIRECTED [facility] Discontinued Medications Sodium Chloride (Normal Saline) 1,000 mls @ 999 mls/hr IV .Bolus ONE Stop: 06/01/17 11:10 Last Admin: 06/01/17 11:00 Dose: 999 mls/hr Cefepime HCl 1 gm/ Premix 50 mls @ 100 mls/hr IV Q8H [facility] Last Admin: 06/01/17 12:08 Dose: 100 mls/hr Sodium Chloride (Normal Saline) 1,000 mls @ 150 mls/hr IV ASDIRECTED [facility] Last Admin: 06/01/17 14:47 Dose: 150 mls/hr Sodium Chloride (Normal Saline) 1,000 mls @ 500 mls/hr IV .Bolus ONE Stop: 06/02/17 01:35 Last Admin: 06/01/17 23:56 Dose: 500 mls/hr - Exam General: No Acute Distress Neck: Supple Lungs: Decreased Breath Sounds, Rhonchi Cardiovascular: Regular Rate, Regular Rhythm GI/Abdominal Exam: Normal Bowel Sounds, Non-Tender, No Distention Extremities: Pedal Edema Skin: Warm, Dry, Intact - Problem List Review Problem List Initiated/Reviewed/Updated: Yes - My Orders Last 24 Hours: My Active Orders 06/03/17 16:12 Communication Order [RC] PER UNIT ROUTINE - Plan Plan:: 76 yo female with pmh of stroke, dementia, peg tube, large sacral ulcers, pneumonia and MRSA UTI aspiration pneumonia and possible gram negative flavia respiratory infection: treating with vancomycin, zosyn, azithromycin MRSA UTI: treating with vancomycin Will resume peg tube feeding today.
[2017-06-04] MEDS: Cefepime 1 GM in Premix Bag 1 BAG IV SCH ×3 (02:45→18:57)
[2017-06-04 06:54] LABS: CHLORIDE,CL 118 mmol/L (98-110); SODIUM,NA 148 mmol/L (136-146)
[2017-06-04] MEDS: Metoprolol Succinate 50 MG Tab.ER PO SCH (08:34)
[2017-06-04] MEDS: Digoxin 125 MCG Tab PO SCH (08:34)
[2017-06-04] MEDS ORDERED: Potassium Chloride 20 MEQ Tab.ER PO ONE (10:39)
[2017-06-04] MEDS ORDERED: Magnesium Sulfate/Water 4 GM in Premix Bag 1 BAG IV ONE (10:40)
[2017-06-04] MEDS ORDERED: Potassium Chloride 20 MEQ Tab.ER GTUBE ONE (11:30)
[2017-06-04] MEDS: Azithromycin 500 MG in Sodium Chloride 0.9% 250 ML IV SCH (13:48)
--- NOTE | 2017-06-04 14:06 | PCM.PN ---
- Review of Systems Systems Review Comment:: nonverbal - Patient Data Vitals - Most Recent: Last Vital Signs Temp 36.3 C 06/04/17 12:00 Pulse 91 06/04/17 12:00 Resp 20 06/04/17 12:00 BP 114/60 06/04/17 12:00 Pulse Ox 95 06/04/17 12:00 Weight - Most Recent: 47 kg I&O - Last 24 Hours: Intake & Output 06/03/17 06/04/17 06/04/17 22:59 06:59 14:59 Intake Total 1080 500 Output Total 350 375 Balance 730 125 Lab Results Last 24 Hours: Laboratory Results - last 24 hr 06/03/17 06/04/17 06/04/17 Range/Units 15:15 06:16 06:16 WBC 10.50 (4.0-11.0) K/uL RBC 4.53 (4.30-5.90) M/uL Hgb 11.4 L (12.0-16.0) g/dL Hct 37.6 (36.0-46.0) % MCV 83.0 (80.0-98.0) fL MCH 25.2 L (27.0-32.0) pg MCHC 30.3 L (31.0-37.0) g/dL RDW Std Deviation 65.7 H (28.0-62.0) fl RDW Coeff of Deanna 22 H (11.0-15.0) % Plt Count 354 (150-400) K/uL MPV 10.40 (7.40-12.00) fL Neut % (Auto) 79.2 (48.0-80.0) % Lymph % (Auto) 10.0 L (16.0-40.0) % [place] % (Auto) 6.5 (0.0-15.0) % Eos % (Auto) 3.9 (0.0-7.0) % Baso % (Auto) 0.4 (0.0-1.5) % Neut # (Auto) 8.3 H (1.4-5.7) K/uL Lymph # (Auto) 1.1 (0.6-2.4) K/uL [place] # (Auto) 0.7 (0.0-0.8) K/uL Eos # (Auto) 0.4 (0.0-0.7) K/uL Baso # (Auto) 0.0 (0.0-0.1) K/uL Nucleated RBC % 0.0 /100WBC Nucleated RBCs # 0 K/uL Sodium 148 H (136-146) mmol/L Potassium 3.2 L (3.5-5.1) mmol/L Chloride 118 H (98-110) mmol/L Carbon Dioxide 24 (21-31) mmol/L BUN 25 H (6.0-23.0) mg/dL Creatinine 0.5 L (0.6-1.5) mg/dL Est Cr Clr Drug Dosing 73.24 mL/min Estimated GFR (MDRD) > 60.0 ml/min Glucose 130 H (60-110) mg/dL POC Glucose (60-110) mg/dL Calcium 7.8 L (8.8-10.8) mg/dL Magnesium 1.4 L (1.5-2.3) mEq/L Total Bilirubin 0.4 (0.1-1.5) mg/dL AST 26 (5-40) IU/L ALT 32 (8-54) IU/L Alkaline Phosphatase 64 (40-150) Total Protein 4.8 L (6.0-8.0) g/dL Albumin 1.9 L (3.4-4.8) g/dL Globulin 2.9 (2.0-3.5) g/dL Albumin/Globulin Ratio 0.7 L (1.3-2.8) Vancomycin Trough 25.3 H (5-15) ug/mL 06/04/17 Range/Units 11:48 WBC (4.0-11.0) K/uL RBC (4.30-5.90) M/uL Hgb (12.0-16.0) g/dL Hct (36.0-46.0) % MCV (80.0-98.0) fL MCH (27.0-32.0) pg MCHC (31.0-37.0) g/dL RDW Std Deviation (28.0-62.0) fl RDW Coeff of Deanna (11.0-15.0) % Plt Count (150-400) K/uL MPV (7.40-12.00) fL Neut % (Auto) (48.0-80.0) % Lymph % (Auto) (16.0-40.0) % [place] % (Auto) (0.0-15.0) % Eos % (Auto) (0.0-7.0) % Baso % (Auto) (0.0-1.5) % Neut # (Auto) (1.4-5.7) K/uL Lymph # (Auto) (0.6-2.4) K/uL [place] # (Auto) (0.0-0.8) K/uL Eos # (Auto) (0.0-0.7) K/uL Baso # (Auto) (0.0-0.1) K/uL Nucleated RBC % /100WBC Nucleated RBCs # K/uL Sodium (136-146) mmol/L Potassium (3.5-5.1) mmol/L Chloride (98-110) mmol/L Carbon Dioxide (21-31) mmol/L BUN (6.0-23.0) mg/dL Creatinine (0.6-1.5) mg/dL Est Cr Clr Drug Dosing mL/min Estimated GFR (MDRD) ml/min Glucose (60-110) mg/dL POC Glucose 113 H (60-110) mg/dL Calcium (8.8-10.8) mg/dL Magnesium (1.5-2.3) mEq/L Total Bilirubin (0.1-1.5) mg/dL AST (5-40) IU/L ALT (8-54) IU/L Alkaline Phosphatase (40-150) Total Protein (6.0-8.0) g/dL Albumin (3.4-4.8) g/dL Globulin (2.0-3.5) g/dL Albumin/Globulin Ratio (1.3-2.8) Vancomycin Trough (5-15) ug/mL Med Orders - Current: Current Medications Digoxin (Lanoxin) 125 mcg PO DAILY [facility] Last Admin: 06/04/17 08:34 Dose: 125 mcg Heparin Sodium (Porcine) (Heparin Sodium) 5,000 units SUBCUT Q12HR [facility] Azithromycin 500 mg/ Sodium (Chloride) 250 mls @ 250 mls/hr IV Q24H [facility] Last Admin: 06/04/17 13:48 Dose: 250 mls/hr Cefepime HCl 1 gm/ Premix 50 mls @ 100 mls/hr IV Q8H [facility] Last Admin: 06/04/17 10:53 Dose: 100 mls/hr Vancomycin HCl 750 mg/ Sodium (Chloride) 250 mls @ 250 mls/hr IV Q18H [facility] Last Admin: 06/03/17 22:20 Dose: 250 mls/hr Metoprolol Succinate (Toprol Xl) 50 mg PO DAILY [facility] Last Admin: 06/04/17 08:34 Dose: 50 mg Polyethylene Glycol (Miralax) 17 gm PO DAILY PRN PRN Reason: Constipation Sodium Chloride (Saline Flush) 10 ml FLUSH ASDIRECTED PRN PRN Reason: Keep Vein Open Sodium Chloride (Saline Flush) 2.5 ml FLUSH ASDIRECTED PRN PRN Reason: Keep Vein Open Vancomycin HCl (Pharmacy To Dose - Vancomycin) 1 dose .XX ASDIRECTED [facility] Discontinued Medications Sodium Chloride (Normal Saline) 1,000 mls @ 999 mls/hr IV .Bolus ONE Stop: 06/01/17 11:10 Last Admin: 06/01/17 11:00 Dose: 999 mls/hr Cefepime HCl 1 gm/ Premix 50 mls @ 100 mls/hr IV Q8H [facility] Last Admin: 06/01/17 12:08 Dose: 100 mls/hr Vancomycin HCl 750 mg/ Sodium (Chloride) 250 mls @ 250 mls/hr IV Q12H [facility] Last Admin: 06/03/17 16:21 Dose: Not Given Sodium Chloride (Normal Saline) 1,000 mls @ 150 mls/hr IV ASDIRECTED [facility] Last Admin: 06/01/17 14:47 Dose: 150 mls/hr Sodium Chloride (Normal Saline) 1,000 mls @ 125 mls/hr IV ASDIRECTED [facility] Last Admin: 06/03/17 07:31 Dose: 125 mls/hr Sodium Chloride (Normal Saline) 1,000 mls @ 500 mls/hr IV .Bolus ONE Stop: 06/02/17 01:35 Last Admin: 06/01/17 23:56 Dose: 500 mls/hr Magnesium Sulfate 4 gm/ Premix 100 mls @ 50 mls/hr IV ONETIME ONE Stop: 06/04/17 12:39 Last Admin: 06/04/17 11:32 Dose: 50 mls/hr Potassium Chloride (Klor-Con M20) 40 meq PO ONETIME ONE Stop: 06/04/17 10:40 Last Admin: 06/04/17 11:22 Dose: Not Given Potassium Chloride (Klor-Con M20) 40 meq GTUBE ONETIME ONE Stop: 06/04/17 11:31 Last Admin: 06/04/17 11:31 Dose: 40 meq - Exam General: No Acute Distress Lungs: Decreased Breath Sounds, Rhonchi Cardiovascular: Regular Rate, Regular Rhythm GI/Abdominal Exam: No Distention Extremities: No Pedal Edema Skin: Warm, Dry, Intact - Problem List Review Problem List Initiated/Reviewed/Updated: Yes - My Orders Last 24 Hours: My Active Orders 06/03/17 16:12 Communication Order [RC] PER UNIT ROUTINE 06/03/17 17:21 Urinary Catheter Assessment [RC] ASDIRECTED 06/03/17 17:30 Nguyen Catheter Insertion [Insert Urinary Catheter] [OM.PC] Q24H 06/04/17 11:59 Manganese Wheeler Discontinue [Cardiac Monitoring Discontinue] [RC] Click to Edit 06/04/17 14:15 Heparin Sodium 5,000 units SUBCUT Q12HR 06/04/17 Breakfast Tube Feeding Adult Diet [DIET] - Plan Plan:: 76 yo female with pmh of stroke, dementia, peg tube, large sacral ulcers, pneumonia and MRSA UTI aspiration pneumonia and possible gram negative flavia respiratory infection: treating with vancomycin, cefepime, azithromycin MRSA UTI: treating with vancomycin Will continue peg tube feeding today. Hypernatremia: on free water flushes hypokalemia/hypomagnesia: replacing
[2017-06-04] MEDS: Heparin Sodium 5,000 Units/ML Vial SUBCUT SCH ×2 (14:50→20:52)
[2017-06-05] MEDS: Cefepime 1 GM in Premix Bag 1 BAG IV SCH ×3 (03:32→18:44)
[2017-06-05 05:49] LABS: CHLORIDE,CL 116 mmol/L (98-110); SODIUM,NA 145 mmol/L (136-146)
[2017-06-05] MEDS: Heparin Sodium 5,000 Units/ML Vial SUBCUT SCH ×2 (08:40→20:04)
[2017-06-05] MEDS: Digoxin 125 MCG Tab PO SCH (08:49)
[2017-06-05] MEDS: Metoprolol Succinate 50 MG Tab.ER PO SCH (08:49)
[2017-06-05] MEDS ORDERED: Potassium Chloride 20 MEQ Tab.ER PO ONE (12:06)
--- NOTE | 2017-06-05 12:10 | PCM.PN ---
- Review of Systems Systems Review Comment:: nonverbal - Patient Data Vitals - Most Recent: Last Vital Signs Temp 37.1 C 06/05/17 08:00 Pulse 100 06/05/17 08:49 Resp 20 06/05/17 08:00 BP 131/57 L 06/05/17 08:49 Pulse Ox 98 06/05/17 08:00 Weight - Most Recent: 47 kg I&O - Last 24 Hours: Intake & Output 06/04/17 06/05/17 06/05/17 22:59 06:59 14:59 Intake Total 625 1010 Output Total 425 350 Balance 200 660 Lab Results Last 24 Hours: Laboratory Results - last 24 hr 06/04/17 06/05/17 06/05/17 Range/Units 16:00 05:24 05:24 WBC 9.07 (4.0-11.0) K/uL RBC 4.21 L (4.30-5.90) M/uL Hgb 10.6 L (12.0-16.0) g/dL Hct 34.6 L (36.0-46.0) % MCV 82.2 (80.0-98.0) fL MCH 25.2 L (27.0-32.0) pg MCHC 30.6 L (31.0-37.0) g/dL RDW Std Deviation 67.1 H (28.0-62.0) fl RDW Coeff of Deanna 23 H (11.0-15.0) % Plt Count 318 (150-400) K/uL MPV 10.00 (7.40-12.00) fL Neut % (Auto) 79.8 (48.0-80.0) % Lymph % (Auto) 11.4 L (16.0-40.0) % [place] % (Auto) 5.2 (0.0-15.0) % Eos % (Auto) 3.4 (0.0-7.0) % Baso % (Auto) 0.2 (0.0-1.5) % Neut # (Auto) 7.2 H (1.4-5.7) K/uL Lymph # (Auto) 1.0 (0.6-2.4) K/uL [place] # (Auto) 0.5 (0.0-0.8) K/uL Eos # (Auto) 0.3 (0.0-0.7) K/uL Baso # (Auto) 0.0 (0.0-0.1) K/uL Nucleated RBC % 0.0 /100WBC Nucleated RBCs # 0 K/uL Sodium 145 (136-146) mmol/L Potassium 3.4 L (3.5-5.1) mmol/L Chloride 116 H (98-110) mmol/L Carbon Dioxide 24 (21-31) mmol/L BUN 21 (6.0-23.0) mg/dL Creatinine 0.5 L (0.6-1.5) mg/dL Est Cr Clr Drug Dosing 73.24 mL/min Estimated GFR (MDRD) > 60.0 ml/min Glucose 200 H (60-110) mg/dL Calcium 7.4 L (8.8-10.8) mg/dL Magnesium (1.5-2.3) mEq/L Vancomycin Trough 23.4 H (5-15) ug/mL 06/05/17 Range/Units 05:29 WBC (4.0-11.0) K/uL RBC (4.30-5.90) M/uL Hgb (12.0-16.0) g/dL Hct (36.0-46.0) % MCV (80.0-98.0) fL MCH (27.0-32.0) pg MCHC (31.0-37.0) g/dL RDW Std Deviation (28.0-62.0) fl RDW Coeff of Deanna (11.0-15.0) % Plt Count (150-400) K/uL MPV (7.40-12.00) fL Neut % (Auto) (48.0-80.0) % Lymph % (Auto) (16.0-40.0) % [place] % (Auto) (0.0-15.0) % Eos % (Auto) (0.0-7.0) % Baso % (Auto) (0.0-1.5) % Neut # (Auto) (1.4-5.7) K/uL Lymph # (Auto) (0.6-2.4) K/uL [place] # (Auto) (0.0-0.8) K/uL Eos # (Auto) (0.0-0.7) K/uL Baso # (Auto) (0.0-0.1) K/uL Nucleated RBC % /100WBC Nucleated RBCs # K/uL Sodium (136-146) mmol/L Potassium (3.5-5.1) mmol/L Chloride (98-110) mmol/L Carbon Dioxide (21-31) mmol/L BUN (6.0-23.0) mg/dL Creatinine (0.6-1.5) mg/dL Est Cr Clr Drug Dosing mL/min Estimated GFR (MDRD) ml/min Glucose (60-110) mg/dL Calcium (8.8-10.8) mg/dL Magnesium 1.8 (1.5-2.3) mEq/L Vancomycin Trough (5-15) ug/mL Med Orders - Current: Current Medications Digoxin (Lanoxin) 125 mcg PO DAILY [facility] Last Admin: 06/05/17 08:49 Dose: 125 mcg Heparin Sodium (Porcine) (Heparin Sodium) 5,000 units SUBCUT Q12HR [facility] Last Admin: 06/05/17 08:40 Dose: 5,000 units Azithromycin 500 mg/ Sodium (Chloride) 250 mls @ 250 mls/hr IV Q24H [facility] Last Admin: 06/04/17 13:48 Dose: 250 mls/hr Cefepime HCl 1 gm/ Premix 50 mls @ 100 mls/hr IV Q8H [facility] Last Admin: 06/05/17 10:35 Dose: 100 mls/hr Vancomycin HCl 500 mg/ Sodium (Chloride) 100 mls @ 100 mls/hr IV Q12H [facility] Last Infusion: 06/05/17 06:20 Dose: Infused Metoprolol Succinate (Toprol Xl) 50 mg PO DAILY [facility] Last Admin: 06/05/17 08:49 Dose: 50 mg Polyethylene Glycol (Miralax) 17 gm PO DAILY PRN PRN Reason: Constipation Potassium Chloride (Klor-Con M20) 40 meq PO ONETIME ONE Stop: 06/05/17 12:07 Sodium Chloride (Saline Flush) 10 ml FLUSH ASDIRECTED PRN PRN Reason: Keep Vein Open Sodium Chloride (Saline Flush) 2.5 ml FLUSH ASDIRECTED PRN PRN Reason: Keep Vein Open Vancomycin HCl (Pharmacy To Dose - Vancomycin) 1 dose .XX ASDIRECTED [facility] Discontinued Medications Sodium Chloride (Normal Saline) 1,000 mls @ 999 mls/hr IV .Bolus ONE Stop: 06/01/17 11:10 Last Admin: 06/01/17 11:00 Dose: 999 mls/hr Cefepime HCl 1 gm/ Premix 50 mls @ 100 mls/hr IV Q8H [facility] Last Admin: 06/01/17 12:08 Dose: 100 mls/hr Vancomycin HCl 750 mg/ Sodium (Chloride) 250 mls @ 250 mls/hr IV Q12H [facility] Last Admin: 06/03/17 16:21 Dose: Not Given Sodium Chloride (Normal Saline) 1,000 mls @ 150 mls/hr IV ASDIRECTED [facility] Last Admin: 06/01/17 14:47 Dose: 150 mls/hr Sodium Chloride (Normal Saline) 1,000 mls @ 125 mls/hr IV ASDIRECTED [facility] Last Admin: 06/03/17 07:31 Dose: 125 mls/hr Sodium Chloride (Normal Saline) 1,000 mls @ 500 mls/hr IV .Bolus ONE Stop: 06/02/17 01:35 Last Admin: 06/01/17 23:56 Dose: 500 mls/hr Vancomycin HCl 750 mg/ Sodium (Chloride) 250 mls @ 250 mls/hr IV Q18H [facility] Last Admin: 06/04/17 17:26 Dose: Not Given Magnesium Sulfate 4 gm/ Premix 100 mls @ 50 mls/hr IV ONETIME ONE Stop: 06/04/17 12:39 Last Admin: 06/04/17 11:32 Dose: 50 mls/hr Potassium Chloride (Klor-Con M20) 40 meq PO ONETIME ONE Stop: 06/04/17 10:40 Last Admin: 06/04/17 11:22 Dose: Not Given Potassium Chloride (Klor-Con M20) 40 meq GTUBE ONETIME ONE Stop: 06/04/17 11:31 Last Admin: 06/04/17 11:31 Dose: 40 meq - Exam General: No Acute Distress Lungs: Normal Respiratory Effort, Rhonchi Cardiovascular: Regular Rate, Regular Rhythm GI/Abdominal Exam: Soft, No Distention Extremities: No Pedal Edema Skin: Warm, Dry, Intact - Problem List Review Problem List Initiated/Reviewed/Updated: Yes - My Orders Last 24 Hours: My Active Orders 06/04/17 11:59 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 Support Specialist Discontinue [Cardiac Monitoring Discontinue] [RC] Click to Edit 06/04/17 14:15 Heparin Sodium 5,000 units SUBCUT Q12HR 06/04/17 16:54 Communication Order [RC] DAILY 06/05/17 12:06 Potassium Chloride [Klor-Con M20] 40 meq PO ONETIME ONE 06/06/17 05:11 BASIC METABOLIC PANEL,BMP [CHEM] AM CBC WITH AUTO DIFF [HEME] AM MAGNESIUM [CHEM] AM 06/07/17 05:11 BASIC METABOLIC PANEL,BMP [CHEM] AM CBC WITH AUTO DIFF [HEME] AM MAGNESIUM [CHEM] AM - Plan Plan:: 76 yo female with pmh of stroke, dementia, peg tube, large sacral ulcers, pneumonia and MRSA UTI aspiration pneumonia and possible gram negative flavia respiratory infection: treating with vancomycin, cefepime, azithromycin MRSA UTI: treating with vancomycin Hypernatremia: improving on free water flushes hypokalemia: replacing dispo: discharge likely in the next two days
[2017-06-05] MEDS ORDERED: Acetaminophen 325 MG Tab PO PRN (12:17)
[2017-06-05] MEDS ORDERED: Potassium Chloride 20 MEQ Tab.ER GTUBE ONE (12:45)
[2017-06-05] MEDS: Azithromycin 500 MG in Sodium Chloride 0.9% 250 ML IV SCH (14:54)
[2017-06-05] MEDS ORDERED: Furosemide 40 MG/4 ML VIAL IVPUSH ONE (19:09)
[2017-06-06] MEDS: Cefepime 1 GM in Premix Bag 1 BAG IV SCH ×2 (02:16→10:59)
[2017-06-06 05:54] LABS: CHLORIDE,CL 110 mmol/L (98-110); SODIUM,NA 144 mmol/L (136-146)
[2017-06-06] MEDS: Digoxin 125 MCG Tab PO SCH (08:28)
[2017-06-06] MEDS: Heparin Sodium 5,000 Units/ML Vial SUBCUT SCH ×2 (08:28→21:15)
[2017-06-06] MEDS: Metoprolol Succinate 50 MG Tab.ER PO SCH (08:30)
[2017-06-06] MEDS ORDERED: Magnesium Sulfate/Water 2 GM in Premix Bag 1 BAG IV ONE (09:02)
[2017-06-06] MEDS: Azithromycin 500 MG in Sodium Chloride 0.9% 250 ML IV SCH (14:10)
--- NOTE | 2017-06-06 14:41 | PCM.PN ---
- Review of Systems Systems Review Comment:: nonverbal - Patient Data Vitals - Most Recent: Last Vital Signs Temp 37.4 C 06/06/17 12:00 Pulse 113 H 06/06/17 12:00 Resp 28 H 06/06/17 04:00 BP 96/50 L 06/06/17 12:00 Pulse Ox 98 06/06/17 04:00 Weight - Most Recent: 47 kg I&O - Last 24 Hours: Intake & Output 06/05/17 06/06/17 06/06/17 22:59 06:59 14:59 Intake Total 670 1101 250 Output Total 275 1350 Balance 395 -249 250 Lab Results Last 24 Hours: Laboratory Results - last 24 hr 06/06/17 06/06/17 06/06/17 Range/Units 05:14 05:14 05:14 WBC 10.82 (4.0-11.0) K/uL RBC 4.00 L (4.30-5.90) M/uL Hgb 10.0 L (12.0-16.0) g/dL Hct 32.9 L (36.0-46.0) % MCV 82.3 (80.0-98.0) fL MCH 25.0 L (27.0-32.0) pg MCHC 30.4 L (31.0-37.0) g/dL RDW Std Deviation 68.3 H (28.0-62.0) fl RDW Coeff of Deanna 23 H (11.0-15.0) % Plt Count 280 (150-400) K/uL MPV 9.80 (7.40-12.00) fL Neut % (Auto) 77.5 (48.0-80.0) % Lymph % (Auto) 11.2 L (16.0-40.0) % [place] % (Auto) 5.5 (0.0-15.0) % Eos % (Auto) 5.5 (0.0-7.0) % Baso % (Auto) 0.3 (0.0-1.5) % Neut # (Auto) 8.4 H (1.4-5.7) K/uL Lymph # (Auto) 1.2 (0.6-2.4) K/uL [place] # (Auto) 0.6 (0.0-0.8) K/uL Eos # (Auto) 0.6 (0.0-0.7) K/uL Baso # (Auto) 0.0 (0.0-0.1) K/uL Nucleated RBC % 0.0 /100WBC Nucleated RBCs # 0 K/uL Sodium 144 (136-146) mmol/L Potassium 3.5 (3.5-5.1) mmol/L Chloride 110 (98-110) mmol/L Carbon Dioxide 27 (21-31) mmol/L BUN 22 (6.0-23.0) mg/dL Creatinine 0.4 L (0.6-1.5) mg/dL Est Cr Clr Drug Dosing 91.55 mL/min Estimated GFR (MDRD) > 60.0 ml/min Glucose 172 H (60-110) mg/dL Calcium 7.5 L (8.8-10.8) mg/dL Magnesium 1.4 L (1.5-2.3) mEq/L Vancomycin Trough 24.5 H (5-15) ug/mL Random Vancomycin ug/mL 06/06/17 Range/Units 11:28 WBC (4.0-11.0) K/uL RBC (4.30-5.90) M/uL Hgb (12.0-16.0) g/dL Hct (36.0-46.0) % MCV (80.0-98.0) fL MCH (27.0-32.0) pg MCHC (31.0-37.0) g/dL RDW Std Deviation (28.0-62.0) fl RDW Coeff of Deanna (11.0-15.0) % Plt Count (150-400) K/uL MPV (7.40-12.00) fL Neut % (Auto) (48.0-80.0) % Lymph % (Auto) (16.0-40.0) % [place] % (Auto) (0.0-15.0) % Eos % (Auto) (0.0-7.0) % Baso % (Auto) (0.0-1.5) % Neut # (Auto) (1.4-5.7) K/uL Lymph # (Auto) (0.6-2.4) K/uL [place] # (Auto) (0.0-0.8) K/uL Eos # (Auto) (0.0-0.7) K/uL Baso # (Auto) (0.0-0.1) K/uL Nucleated RBC % /100WBC Nucleated RBCs # K/uL Sodium (136-146) mmol/L Potassium (3.5-5.1) mmol/L Chloride (98-110) mmol/L Carbon Dioxide (21-31) mmol/L BUN (6.0-23.0) mg/dL Creatinine (0.6-1.5) mg/dL Est Cr Clr Drug Dosing mL/min Estimated GFR (MDRD) ml/min Glucose (60-110) mg/dL Calcium (8.8-10.8) mg/dL Magnesium (1.5-2.3) mEq/L Vancomycin Trough (5-15) ug/mL Random Vancomycin 20.6 ug/mL Med Orders - Current: Current Medications Acetaminophen (Tylenol) 650 mg PO Q6H PRN PRN Reason: Pain Last Admin: 06/05/17 14:54 Dose: 650 mg Digoxin (Lanoxin) 125 mcg PO DAILY [facility] Last Admin: 06/06/17 08:28 Dose: 125 mcg Heparin Sodium (Porcine) (Heparin Sodium) 5,000 units SUBCUT Q12HR [facility] Last Admin: 06/06/17 08:28 Dose: 5,000 units Azithromycin 500 mg/ Sodium (Chloride) 250 mls @ 250 mls/hr IV Q24H [facility] Last Admin: 06/06/17 14:10 Dose: 250 mls/hr Vancomycin HCl 500 mg/ Sodium (Chloride) 100 mls @ 100 mls/hr IV Q24H [facility] Last Admin: 06/06/17 12:33 Dose: 100 mls/hr Metoprolol Succinate (Toprol Xl) 50 mg PO DAILY [facility] Last Admin: 06/06/17 08:30 Dose: 50 mg Polyethylene Glycol (Miralax) 17 gm PO DAILY PRN PRN Reason: Constipation Sodium Chloride (Saline Flush) 10 ml FLUSH ASDIRECTED PRN PRN Reason: Keep Vein Open Sodium Chloride (Saline Flush) 2.5 ml FLUSH ASDIRECTED PRN PRN Reason: Keep Vein Open Vancomycin HCl (Pharmacy To Dose - Vancomycin) 1 dose .XX ASDIRECTED [facility] Discontinued Medications Furosemide (Lasix) 40 mg IVPUSH NOW ONE Stop: 06/05/17 19:10 Last Admin: 06/05/17 20:04 Dose: 40 mg Sodium Chloride (Normal Saline) 1,000 mls @ 999 mls/hr IV .Bolus ONE Stop: 06/01/17 11:10 Last Admin: 06/01/17 11:00 Dose: 999 mls/hr Cefepime HCl 1 gm/ Premix 50 mls @ 100 mls/hr IV Q8H [facility] Last Admin: 06/01/17 12:08 Dose: 100 mls/hr Cefepime HCl 1 gm/ Premix 50 mls @ 100 mls/hr IV Q8H [facility] Last Admin: 06/06/17 10:59 Dose: 100 mls/hr Vancomycin HCl 750 mg/ Sodium (Chloride) 250 mls @ 250 mls/hr IV Q12H [facility] Last Admin: 06/03/17 16:21 Dose: Not Given Sodium Chloride (Normal Saline) 1,000 mls @ 150 mls/hr IV ASDIRECTED [facility] Last Admin: 06/01/17 14:47 Dose: 150 mls/hr Sodium Chloride (Normal Saline) 1,000 mls @ 125 mls/hr IV ASDIRECTED [facility] Last Admin: 06/03/17 07:31 Dose: 125 mls/hr Sodium Chloride (Normal Saline) 1,000 mls @ 500 mls/hr IV .Bolus ONE Stop: 06/02/17 01:35 Last Admin: 06/01/17 23:56 Dose: 500 mls/hr Vancomycin HCl 750 mg/ Sodium (Chloride) 250 mls @ 250 mls/hr IV Q18H [facility] Last Admin: 06/04/17 17:26 Dose: Not Given Magnesium Sulfate 4 gm/ Premix 100 mls @ 50 mls/hr IV ONETIME ONE Stop: 06/04/17 12:39 Last Admin: 06/04/17 11:32 Dose: 50 mls/hr Vancomycin HCl 500 mg/ Sodium (Chloride) 100 mls @ 100 mls/hr IV Q12H [facility] Last Admin: 06/06/17 06:19 Dose: Not Given Magnesium Sulfate 2 gm/ Premix 50 mls @ 50 mls/hr IV ONETIME ONE Stop: 06/06/17 10:01 Last Admin: 06/06/17 09:49 Dose: 50 mls/hr Potassium Chloride (Klor-Con M20) 40 meq PO ONETIME ONE Stop: 06/04/17 10:40 Last Admin: 06/04/17 11:22 Dose: Not Given Potassium Chloride (Klor-Con M20) 40 meq GTUBE ONETIME ONE Stop: 06/04/17 11:31 Last Admin: 06/04/17 11:31 Dose: 40 meq Potassium Chloride (Klor-Con M20) 40 meq PO ONETIME ONE Stop: 06/05/17 12:07 Last Admin: 06/05/17 12:52 Dose: Not Given Potassium Chloride (Klor-Con M20) 40 meq GTUBE ONETIME ONE Stop: 06/05/17 12:46 Last Admin: 06/05/17 12:46 Dose: 40 meq - Exam General: No Acute Distress Lungs: Clear to Auscultation, Normal Respiratory Effort Cardiovascular: Regular Rate, Regular Rhythm GI/Abdominal Exam: Soft, No Distention Extremities: No Pedal Edema Skin: Warm, Dry, Intact - Problem List Review Problem List Initiated/Reviewed/Updated: Yes - My Orders Last 24 Hours: My Active Orders 06/07/17 05:11 BASIC METABOLIC PANEL,BMP [CHEM] AM CBC WITH AUTO DIFF [HEME] AM MAGNESIUM [CHEM] AM - Plan Plan:: 76 yo female with pmh of stroke, dementia, peg tube, large sacral ulcers, pneumonia and MRSA UTI aspiration pneumonia: treating with vancomycin, azithromycin, will d/c cefepime MRSA UTI: treating with vancomycin Hypernatremia: improving on free water flushes Hypomagnesia: replacing dispo: plan on discharge tomorrow
[2017-06-07 06:14] LABS: CHLORIDE,CL 109 mmol/L (98-110); SODIUM,NA 144 mmol/L (136-146)
[2017-06-07] MEDS: Heparin Sodium 5,000 Units/ML Vial SUBCUT SCH (08:12)
[2017-06-07] MEDS: Digoxin 125 MCG Tab PO SCH (08:13)
[2017-06-07 08:14] VITALS: BP 141/68
[2017-06-07] MEDS: Metoprolol Succinate 50 MG Tab.ER PO SCH (08:14)
--- NOTE | 2017-06-07 10:31 | PCM.DCSUM1 ---
Discharge Summary - Hospital Course Free Text/Narrative:: 76 year old non-verbal fm with history of stroke with left hemiparesis, peg tube , dementia, large sacral ulcers was admitted 06/01/17. While in the ED she was found to have Anemia with Hb 6.9, Pneumonia and UTI. She was transfused blood, given IVF and started on empiric therapy with Cefepime. She was then admitted to the floor. On the floor, Vancomycin IV and Azithromycin IV were added to her regimen. Her Pneumonia was attributed to Aspiration Pneumonia. Her status gradually improved back to baseline. During her hospitalization she was developed Hypernatremia and hypomagnasema both of which were corrected. She lives at home with her a caregiver and is on home health. is very adament on her living at home and will not consider SNF. Her UC grew out MRSA sensitive to MRSA. She was discharged home 06/07/17 on Bactrim DS BID for 8 days to complete 14 days total therapy. already had recently prescribed course of Bactrim tabs prescribed by her pcp just prior to admission. Bottle contained 17 tabs therefore no new presciption was written and he was instructed to continue that for 8 days. For her pneumonia she was discharged on Azithromycin 500 mg QD for 4 days to total 10 days of therapy. She farideh lbe following up with her PCP Dr. Arellano. She will resume home health under his care. She was transported home via ambulance. Diet instructions for peg tube feeding were given. - Discharge Data Discharge Date: 06/07/17 Discharge Disposition: Home, Home Health Agency Condition: Fair - Patient Instructions Diet: Usual Diet as Tolerated Activity: As Tolerated Notify Provider of: Fever, Increased Pain, Swelling and Redness, Drainage, Nausea and/or Vomiting Other/Special Instructions: 1. Take previously prescribed Trimethoprim- Sulfamethoxazole, 1 tablet by g-tube twice daily for 8 days. 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 Take 1 tablet by g-tube daily for 4 days. 3. Liquacel once daily. 4. formula: Jevity 1.5 Venkat, duration: 20 hours daily, rate : 50 ml/hour, free water: 165 ml QID. *stop feeding between 8 am to noon. check residual [id number] for 4 hours if greater than 125 - Discharge Plan Prescriptions/Med Rec: Azithromycin 500 mg PO DAILY 4 Days #4 tablet Sulfamethoxazole/Trimethoprim [Bactrim Ds Tablet] 1 each PO BID 1 Days #2 tablet Home Medications: Home Meds Metoprolol Succinate 50 mg PO DAILY #30 tab.er.24h 11/04/16 [Rx] Digoxin [Lanoxin] 125 mcg PO DAILY #30 tablet 03/20/17 [Rx] Sulfamethoxazole/Trimethoprim [Bactrim Ds Tablet] 1 each PO BID 1 Days #2 tablet 05/31/17 [Rx] Hydrocodone/Acetaminophen [Hydrocodon-Acetaminophen 5-325] 1 tab PO Q8H PRN [History] Polyethylene Glycol 3350 [MiraLAX] 17 gm PO DAILY PRN 06/01/17 [History] Azithromycin 500 mg PO DAILY 4 Days #4 tablet 06/07/17 [Rx] Patient Handouts: Sepsis, Adult, Azithromycin tablets, Sulfamethoxazole; Trimethoprim, SMX-TMP tablets Referrals: Volodymyr Arellano MD [Physician] - 06/24/17 10:15 am - Discharge Summary/Plan Comment DC Time >30 min.: No - Patient Data Vitals - Most Recent: Last Vital Signs Temp 36.5 C 06/07/17 07:55 Pulse 100 06/07/17 08:14 Resp 20 06/07/17 07:55 BP 141/68 H 06/07/17 08:14 Pulse Ox 97 06/07/17 07:55 Weight - Most Recent: 47 kg I&O - Last 24 hours: Intake & Output 06/06/17 06/07/17 06/07/17 22:59 06:59 14:59 Intake Total 550 930 Output Total 425 335 Balance 125 595 Lab Results - Last 24 hrs: Laboratory Results - last 24 hr 06/06/17 06/07/17 06/07/17 Range/Units 11:28 05:45 05:45 WBC 10.06 (4.0-11.0) K/uL RBC 4.05 L (4.30-5.90) M/uL Hgb 10.0 L (12.0-16.0) g/dL Hct 33.5 L (36.0-46.0) % MCV 82.7 (80.0-98.0) fL MCH 24.7 L (27.0-32.0) pg MCHC 29.9 L (31.0-37.0) g/dL RDW Std Deviation 70.0 H (28.0-62.0) fl RDW Coeff of Deanna 23 H (11.0-15.0) % Plt Count 273 (150-400) K/uL MPV 10.60 (7.40-12.00) fL Neut % (Auto) 73.7 (48.0-80.0) % Lymph % (Auto) 13.5 L (16.0-40.0) % [place] % (Auto) 5.8 (0.0-15.0) % Eos % (Auto) 6.7 (0.0-7.0) % Baso % (Auto) 0.3 (0.0-1.5) % Neut # (Auto) 7.4 H (1.4-5.7) K/uL Lymph # (Auto) 1.4 (0.6-2.4) K/uL [place] # (Auto) 0.6 (0.0-0.8) K/uL Eos # (Auto) 0.7 (0.0-0.7) K/uL Baso # (Auto) 0.0 (0.0-0.1) K/uL Nucleated RBC % 0.0 /100WBC Nucleated RBCs # 0 K/uL Sodium 144 (136-146) mmol/L Potassium 3.7 (3.5-5.1) mmol/L Chloride 109 (98-110) mmol/L Carbon Dioxide 30 (21-31) mmol/L BUN 22 (6.0-23.0) mg/dL Creatinine 0.4 L (0.6-1.5) mg/dL Est Cr Clr Drug Dosing 91.55 mL/min Estimated GFR (MDRD) > 60.0 ml/min Glucose 132 H (60-110) mg/dL Calcium 7.6 L (8.8-10.8) mg/dL Magnesium 1.5 (1.5-2.3) mEq/L Random Vancomycin 20.6 ug/mL Med Orders - Current: Current Medications Acetaminophen (Tylenol) 650 mg PO Q6H PRN PRN Reason: Pain Last Admin: 06/05/17 14:54 Dose: 650 mg Digoxin (Lanoxin) 125 mcg PO DAILY [facility] Last Admin: 06/07/17 08:13 Dose: 125 mcg Heparin Sodium (Porcine) (Heparin Sodium) 5,000 units SUBCUT Q12HR [facility] Last Admin: 06/07/17 08:12 Dose: 5,000 units Azithromycin 500 mg/ Sodium (Chloride) 250 mls @ 250 mls/hr IV Q24H [facility] Last Admin: 06/06/17 14:10 Dose: 250 mls/hr Vancomycin HCl 500 mg/ Sodium (Chloride) 100 mls @ 100 mls/hr IV Q24H [facility] Last Admin: 06/06/17 12:33 Dose: 100 mls/hr Metoprolol Succinate (Toprol Xl) 50 mg PO DAILY [facility] Last Admin: 06/07/17 08:14 Dose: 50 mg Polyethylene Glycol (Miralax) 17 gm PO DAILY PRN PRN Reason: Constipation Sodium Chloride (Saline Flush) 10 ml FLUSH ASDIRECTED PRN PRN Reason: Keep Vein Open Sodium Chloride (Saline Flush) 2.5 ml FLUSH ASDIRECTED PRN PRN Reason: Keep Vein Open Vancomycin HCl (Pharmacy To Dose - Vancomycin) 1 dose .XX ASDIRECTED [facility] Discontinued Medications Furosemide (Lasix) 40 mg IVPUSH NOW ONE Stop: 06/05/17 19:10 Last Admin: 06/05/17 20:04 Dose: 40 mg Sodium Chloride (Normal Saline) 1,000 mls @ 999 mls/hr IV .Bolus ONE Stop: 06/01/17 11:10 Last Admin: 06/01/17 11:00 Dose: 999 mls/hr Cefepime HCl 1 gm/ Premix 50 mls @ 100 mls/hr IV Q8H [facility] Last Admin: 06/01/17 12:08 Dose: 100 mls/hr Cefepime HCl 1 gm/ Premix 50 mls @ 100 mls/hr IV Q8H [facility] Last Admin: 06/06/17 10:59 Dose: 100 mls/hr Vancomycin HCl 750 mg/ Sodium (Chloride) 250 mls @ 250 mls/hr IV Q12H [facility] Last Admin: 06/03/17 16:21 Dose: Not Given Sodium Chloride (Normal Saline) 1,000 mls @ 150 mls/hr IV ASDIRECTED [facility] Last Admin: 06/01/17 14:47 Dose: 150 mls/hr Sodium Chloride (Normal Saline) 1,000 mls @ 125 mls/hr IV ASDIRECTED [facility] Last Admin: 06/03/17 07:31 Dose: 125 mls/hr Sodium Chloride (Normal Saline) 1,000 mls @ 500 mls/hr IV .Bolus ONE Stop: 06/02/17 01:35 Last Admin: 06/01/17 23:56 Dose: 500 mls/hr Vancomycin HCl 750 mg/ Sodium (Chloride) 250 mls @ 250 mls/hr IV Q18H [facility] Last Admin: 06/04/17 17:26 Dose: Not Given Magnesium Sulfate 4 gm/ Premix 100 mls @ 50 mls/hr IV ONETIME ONE Stop: 06/04/17 12:39 Last Admin: 06/04/17 11:32 Dose: 50 mls/hr Vancomycin HCl 500 mg/ Sodium (Chloride) 100 mls @ 100 mls/hr IV Q12H [facility] Last Admin: 06/06/17 06:19 Dose: Not Given Magnesium Sulfate 2 gm/ Premix 50 mls @ 50 mls/hr IV ONETIME ONE Stop: 06/06/17 10:01 Last Admin: 06/06/17 09:49 Dose: 50 mls/hr Potassium Chloride (Klor-Con M20) 40 meq PO ONETIME ONE Stop: 06/04/17 10:40 Last Admin: 06/04/17 11:22 Dose: Not Given Potassium Chloride (Klor-Con M20) 40 meq GTUBE ONETIME ONE Stop: 06/04/17 11:31 Last Admin: 06/04/17 11:31 Dose: 40 meq Potassium Chloride (Klor-Con M20) 40 meq PO ONETIME ONE Stop: 06/05/17 12:07 Last Admin: 06/05/17 12:52 Dose: Not Given Potassium Chloride (Klor-Con M20) 40 meq GTUBE ONETIME ONE Stop: 06/05/17 12:46 Last Admin: 06/05/17 12:46 Dose: 40 meq *Q Meaningful Use (DIS) - VTE *Q VTE Criteria *Q: - Stroke *Q Stroke Criteria *Q: - AMI *Q AMI Criteria *Q:
== END 2017-06-07 12:53 | disposition home health service (06) | DRG 871 ==
LOC: MW.ED 09:58 → MW.MS 11:31
PROVIDERS: ADMIT Family Medicine; ATTEND Family Medicine
DX: J18.9 Pneumonia, unspecified organism (principal); D64.9 Anemia, unspecified; A41.9 Sepsis, unspecified organism; J69.0 Pneumonitis due to inhalation of food and vomit; L89.154 Pressure ulcer of sacral region, stage 4; N39.0 Urinary tract infection, site not specified; E87.0 Hyperosmolality and hypernatremia; I69.354 Hemiplegia and hemiparesis following cerebral infarction affecting left non-dominant side; B95.62 Methicillin resistant Staphylococcus aureus infection as the cause of diseases classified elsewhere; E83.42 Hypomagnesemia; F03.90 Unspecified dementia, unspecified severity, without behavioral disturbance, psychotic disturbance, mood disturbance, and anxiety; I48.91 Unspecified atrial fibrillation; I50.9 Heart failure, unspecified; I10 Essential (primary) hypertension; I69.391 Dysphagia following cerebral infarction; R13.10 Dysphagia, unspecified; I69.320 Aphasia following cerebral infarction; R62.7 Adult failure to thrive; Z79.899 Other long term (current) drug therapy; Z88.0 Allergy status to penicillin; Z93.1 Gastrostomy status
CPT/HCPCS: 36415; 71010; 80053; 81001; 83605; 85025; 86850; 86900; 86901; 86920; 86921; 86922; 87040 ×2; 87086; 87088; 87186; 96361; 99285; J7040; 36430; 51702; 76705; 76705-26; 80048; 80162; 80202; 82272; 82962; 83735; 86902; 96360; 96365; 99283; A9270-GY; J0456; J0692; J1644; J1940; J3370; J3475; J7030; J7050; P9016

== ENCOUNTER 2017-09-08 10:59 | Emergency (ER) | payer MEDICARE, MEDICAID ==
--- NOTE | 2017-09-08 11:20 | EDM.PDOC ---
ED HPI GENERAL MEDICAL PROBLEM - General Chief Complaint: Respiratory Problem Stated Complaint: AMB Time Seen by Provider: 09/08/17 11:15 Source of Information: Reports: Patient History Limitations: Reports: No Limitations - History of Present Illness INITIAL COMMENTS - FREE TEXT/NARRATIVE: History of present illness: [77-year-old bedbound female brought in by family and stay provided caregiver with concerns of low-grade fever and coarse breath sounds. Patient has chronic indwelling catheter that was changed out today as well as a history of a CVA and a G-tube.] Review of systems: As per history of present illness and below otherwise all systems reviewed and negative. Past medical history: As per history of present illness and as reviewed below otherwise noncontributory. Surgical history: As per history of present illness and as reviewed below otherwise noncontributory. Social history: No reported history of drug or alcohol abuse. Family history: As per history of present illness and as reviewed below otherwise noncontributory. Physical exam: HEENT: Atraumatic, normocephalic, pupils reactive, negative for conjunctival pallor or scleral icterus, mucous membranes moist, throat clear, neck supple, nontender, trachea midline. Lungs: Bronchial vesicular in the upper airways diminished bilaterally in the lower otherwise breath sounds equal are bilaterally, chest nontender. Heart: S1S2, regular, negative for clicks, rubs, or JVD. Abdomen: Soft, nondistended, nontender. Negative for masses or hepatosplenomegaly. Negative for costovertebral tenderness. Pelvis: Stable nontender. Genitourinary: Indwelling catheter Rectal: Deferred. Extremities: Atraumatic, negative for cords or calf pain. Neurovascular unremarkable. Neuro: Awake, nonverbal, bedbound. Patient is total care and has been so since no CVA. 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 Discussed retained stool with family and caregiver. Caregiver indicated this is a chronic issue and that they have a bowel regimen for patient when this evolves into a concern. Diagnostics: [CBC, CMP, chest x-ray, UA] Therapeutics: [] Impression: [#1 constipation] Plan: [Albuterol inhaler with spacer retention chamber] Definitive disposition and diagnosis as appropriate pending reevaluation and review of above. - Related Data Allergies Allergy/AdvReac Type Severity Reaction Status Date / Time Penicillins Allergy Hives Verified 09/08/17 11:11 strawberry Allergy Hives Verified 09/08/17 11:11 Home Meds: Home Meds Albuterol Sulfate [Proair Hfa] 2 puff IH Q6HR #1 hfa.aer.ad 09/08/17 [Rx] Digoxin 125 mcg PEGTUBE DAILY 09/08/17 [History] Inhaler, Assist Devices [Space Chamber Plus] 1 each MC ASDIRECTED #1 spacer [Rx] Metoprolol Succinate [Toprol XL] 50 mg PEGTUBE DAILY 09/08/17 [History] Past Medical History HEENT History: Reports: None Cardiovascular History: Reports: Afib, Heart Failure, Hypertension Respiratory History: Reports: Pneumonia, Recurrent Gastrointestinal History: Reports: Other (See Below) Other Gastrointestinal History: constipation Genitourinary History: Reports: UTI, Recurrent, Other (See Below) Other Genitourinary History: 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, Dysphagia, Aphasia Psychiatric History: Reports: Other (See Below) Other Psychiatric History: Non-verbal Endocrine/Metabolic History: Reports: None Oncologic (Cancer) History: Reports: Brain Dermatologic History: Reports: Other (See Below) Other Dermatologic History: Pressure ulscer of sacral region - Infectious Disease History Infectious Disease History: Reports: MRSA - Past Surgical History Head Surgeries/Procedures: Reports: Craniotomy HEENT Surgical History: Reports: None Cardiovascular Surgical History: Reports: None Respiratory Surgical History: Reports: None GI Surgical History: Reports: None Female Surgical History: Reports: Hysterectomy Oncologic Surgical History: Reports: None Social & Family History - Family History Family Medical History: Noncontributory - Tobacco Use Smoking Status *Q: Never Smoker Second Hand Smoke Exposure: Yes - Caffeine Use Caffeine Use: Reports: None Other Caffeine Use: unknown - Alcohol Use Days Per Week of Alcohol Use: 0 - Recreational Drug Use Recreational Drug Use: No - Living Situation & Occupation Living situation: Reports: with Spouse, Other (has caregiver as well) Occupation: Disabled ED ROS GENERAL - Review of Systems Review Of Systems: See Below (See history of present illness) ED EXAM, GENERAL - Physical Exam Exam: See Below (See history of present illness) Course - Vital Signs Last Recorded V/S: Last Vital Signs Temp 36.2 C 09/08/17 11:06 Pulse 140 H 09/08/17 11:06 Resp 30 H 09/08/17 11:06 BP 146/92 H 09/08/17 11:06 Pulse Ox 95 09/08/17 11:06 - Orders/Labs/Meds Orders: Active Orders 24 hr Category Date Time Status Chest 1V Frontal [CR] Stat Exams 09/08/17 11:20 Taken UA W/MICROSCOPIC [URIN] Stat Lab 09/08/17 11:46 Uncollected Labs: Laboratory Tests 09/08/17 09/08/17 Range/Units 11:50 11:50 WBC 9.86 (4.0-11.0) K/uL RBC 3.58 L (4.30-5.90) M/uL Hgb 8.5 L (12.0-16.0) g/dL Hct 27.2 L (36.0-46.0) % MCV 76.0 L (80.0-98.0) fL MCH 23.7 L (27.0-32.0) pg MCHC 31.3 (31.0-37.0) g/dL RDW Std Deviation 48.4 (28.0-62.0) fl RDW Coeff of Deanna 18 H (11.0-15.0) % Plt Count 391 (150-400) K/uL MPV 8.70 (7.40-12.00) fL Neut % (Auto) 71.9 (48.0-80.0) % Lymph % (Auto) 15.0 L (16.0-40.0) % [place] % (Auto) 8.3 (0.0-15.0) % Eos % (Auto) 4.6 (0.0-7.0) % Baso % (Auto) 0.2 (0.0-1.5) % Neut # (Auto) 7.1 H (1.4-5.7) K/uL Lymph # (Auto) 1.5 (0.6-2.4) K/uL [place] # (Auto) 0.8 (0.0-0.8) K/uL Eos # (Auto) 0.5 (0.0-0.7) K/uL Baso # (Auto) 0.0 (0.0-0.1) K/uL Nucleated RBC % 0.0 /100WBC Nucleated RBCs # 0 K/uL Sodium 131 L (136-146) mmol/L Potassium 4.6 (3.5-5.1) mmol/L Chloride 97 L (98-110) mmol/L Carbon Dioxide 26 (21-31) mmol/L BUN 20 (6.0-23.0) mg/dL Creatinine 0.5 L (0.6-1.5) mg/dL Est Cr Clr Drug Dosing 73.36 mL/min Estimated GFR (MDRD) > 60.0 ml/min Glucose 92 (60-110) mg/dL Calcium 8.2 L (8.8-10.8) mg/dL Total Bilirubin 0.3 (0.1-1.5) mg/dL AST 15 (5-40) IU/L ALT 16 (8-54) IU/L Alkaline Phosphatase 95 (40-150) Total Protein 6.1 (6.0-8.0) g/dL Albumin 2.6 L (3.4-4.8) g/dL Globulin 3.5 (2.0-3.5) g/dL Albumin/Globulin Ratio 0.7 L (1.3-2.8) Departure - Departure Time of Disposition: 13:05 Disposition: Home, Self-Care 01 Condition: Good Clinical Impression: Generalized weakness, Constipation - Discharge Information Prescriptions: Albuterol Sulfate [Proair Hfa] 2 puff IH Q6HR #1 hfa.aer.ad Inhaler, Assist Devices [Space Chamber Plus] 1 each ASDIRECTED #1 spacer Referrals: Volodymyr Arellano MD [Primary Care Provider] - Forms: ED Department Discharge - My Orders Last 24 Hours: My Active Orders 09/08/17 11:20 Chest 1V Frontal [CR] Stat 09/08/17 11:46 UA W/MICROSCOPIC [URIN] Stat - Assessment/Plan Last 24 Hours: My Active Orders 09/08/17 11:20 Chest 1V Frontal [CR] Stat 09/08/17 11:46 UA W/MICROSCOPIC [URIN] Stat
[2017-09-08 12:39] LABS: CHLORIDE,CL 97 mmol/L (98-110); SODIUM,NA 131 mmol/L (136-146)
[2017-09-08 13:58] VITALS: BP 156/91
--- NOTE | 2017-09-08 14:24 | CR ---
EXAM DATE: 09/08/17 PATIENT'S AGE: 77 Patient: SAMINA SOULEYMANE Facility: [place], [place] Site . Site : [id number] Study: XRay Chest [id number]/27/2017 12:22:54 PM Ordering Physician: Doctor Noriega Final Report: INDICATION: Coarse breath sounds. Comparison: Portable chest radiograph June 01, 2017. Technique: Portable AP chest. Findings: Stable cardiomegaly. Increased bronchovascular markings both lungs diffuse. Diffuse osteoporosis with evidence of old trauma to the right ribcage. No acute pneumonic infiltrates. No evidence of CHF or pneumothorax. No evidence of pleural effusion. Impression: 1. Stable cardiomegaly. 2. Interstitial pulmonary fibrosis. 3. Old trauma to the right ribcage. Dictated by Claudia Kahn MD @ Sep 08 2017 12:44PM (Electronic Signature) Report Signed by Proxy. [facility]
== END 2017-09-08 13:54 | disposition home or self-care (01) ==
LOC: MW.ED 10:59
DX: K59.00 Constipation, unspecified (principal); R53.1 Weakness; I11.0 Hypertensive heart disease with heart failure; I50.9 Heart failure, unspecified; Z88.0 Allergy status to penicillin; Z79.899 Other long term (current) drug therapy; Z86.73 Personal history of transient ischemic attack (TIA), and cerebral infarction without residual deficits
CPT/HCPCS: 36415; 71010; 71010-26; 80053; 85025; 99284; 99285

== ENCOUNTER 2017-10-04 17:00 | Emergency (ER) | payer MEDICARE, MEDICAID ==
--- NOTE | 2017-10-04 17:07 | EDM.PDOC ---
ED HPI GENERAL MEDICAL PROBLEM - General Stated Complaint: FEED TUBE Time Seen by Provider: 10/04/17 17:04 Source of Information: Reports: Patient History Limitations: Reports: No Limitations - History of Present Illness INITIAL COMMENTS - FREE TEXT/NARRATIVE: HISTORY AND PHYSICAL: History of present illness: Patient is a 77-year-old female who presents to the emergency room with complaints of PEG tube breaking. Home health was at the patient's house when she reports that the distal portion of the PEG tube had broke. She is a hospice patient and is bedbound. EMS states that the hospice nurse and 's only concern is the PEG tube. As she is a hospice patient, there are no systemic complaints or concerns at this time. History of CVA, brain tumor, chronic indwelling catheter, PEG tube, and pressure ulcers. Review of systems: As per history of present illness and below otherwise all systems reviewed and negative. Past medical history: As per history of present illness and as reviewed below otherwise noncontributory. Surgical history: As per history of present illness and as reviewed below otherwise noncontributory. Social history: No reported history of drug or alcohol abuse. Family history: As per history of present illness and as reviewed below otherwise noncontributory. Physical exam: General: Patient is nonverbal, normal variance. Winter in a position, appears comfortable. Breathes easy and even. Appears in no acute distress HEENT: Atraumatic, normocephalic, pupils reactive, negative for conjunctival pallor or scleral icterus, mucous membranes moist, throat clear, neck supple, nontender, trachea midline. Lungs: Clear to auscultation, breath sounds equal bilaterally, chest nontender. Heart: S1S2, regular, negative for clicks, rubs, or JVD. Abdomen: Soft, nondistended, nontender. Negative for masses or hepatosplenomegaly. Negative for costovertebral tenderness. Pelvis: Stable nontender. Genitourinary: Deferred. Rectal: Deferred. Extremities: Atraumatic, negative for cords or calf pain. Neurovascular unremarkable. Skin: Large pressure ulcer with packing and nonstick dressing noted to the right sacrum. Neuro: Awake, alert, oriented. Cranial nerves II through XII unremarkable. Cerebellum unremarkable. Motor and sensory unremarkable throughout. Exam nonfocal. Difficult to assess the patient's status that she is nonverbal. The family and hospice nurse wanted patient evaluated solely for the PEG tube dysfunction. She is being cared for by the hospitalist/home nurse routinely. Patient arrived via EMS and will have to return to her home via EMS once the PEG tube has been addressed. 1699- Dr. Martinez was consulted on this case, general surgeon on-call, she will come to see the patient. 1704- Dr. Martinez is here to see patient. She was able to replace the bulb portion of the PEG tube. Further care is needed at this time. Patient will be discharged to resume her home health care and hospice. Patient will return home by ambulance. Diagnostics: [] Therapeutics: [] Impression: Encounter for PEG tube dysfunction Plan: 1. Please continue your normal feedings as directed. 2. Follow up and continue with your home health care. Follow up with her primary care as needed. Return to the ED as needed and as discussed. Definitive disposition and diagnosis as appropriate pending reevaluation and review of above. Onset: Today Duration: Minutes: - Related Data Allergies Allergy/AdvReac Type Severity Reaction Status Date / Time Penicillins Allergy Hives Verified 09/08/17 11:11 strawberry Allergy Hives Verified 09/08/17 11:11 Home Meds: Home Meds Albuterol Sulfate [Proair Hfa] 2 puff IH Q6HR #1 hfa.aer.ad 09/08/17 [Rx] Digoxin 125 mcg PEGTUBE DAILY 09/08/17 [History] Inhaler, Assist Devices [Space Chamber Plus] 1 each MC ASDIRECTED #1 spacer [Rx] Metoprolol Succinate [Toprol XL] 50 mg PEGTUBE DAILY 09/08/17 [History] Past Medical History HEENT History: Reports: None Cardiovascular History: Reports: Afib, Heart Failure, Hypertension Respiratory History: Reports: Pneumonia, Recurrent Gastrointestinal History: Reports: Other (See Below) Other Gastrointestinal History: constipation Genitourinary History: Reports: UTI, Recurrent, Other (See Below) Other Genitourinary History: 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, Dysphagia, Aphasia Psychiatric History: Reports: Other (See Below) Other Psychiatric History: Non-verbal Endocrine/Metabolic History: Reports: None Oncologic (Cancer) History: Reports: Brain Dermatologic History: Reports: Other (See Below) Other Dermatologic History: Pressure ulscer of sacral region - Infectious Disease History Infectious Disease History: Reports: MRSA - Past Surgical History Head Surgeries/Procedures: Reports: Craniotomy HEENT Surgical History: Reports: None Cardiovascular Surgical History: Reports: None Respiratory Surgical History: Reports: None GI Surgical History: Reports: None Female Surgical History: Reports: Hysterectomy Oncologic Surgical History: Reports: None Social & Family History - Family History Family Medical History: Noncontributory - Tobacco Use Smoking Status *Q: Never Smoker Second Hand Smoke Exposure: Yes - Caffeine Use Caffeine Use: Reports: None Other Caffeine Use: unknown - Alcohol Use Days Per Week of Alcohol Use: 0 - Recreational Drug Use Recreational Drug Use: No - Living Situation & Occupation Living situation: Reports: with Spouse, Other (has caregiver as well) Occupation: Disabled ED ROS GENERAL - Review of Systems Review Of Systems: ROS reveals no pertinent complaints other than HPI. ED EXAM, GENERAL - Physical Exam Exam: See Below (See dictation) Course - Vital Signs Last Recorded V/S: Last Vital Signs Temp 98.4 F 10/04/17 17:03 Pulse 119 H 10/04/17 17:03 Resp 18 10/04/17 17:03 BP 119/67 10/04/17 17:03 Pulse Ox 96 10/04/17 17:03 Departure - Departure Time of Disposition: 17:18 Disposition: Home, Self-Care 01 Clinical Impression: PEG tube malfunction - Discharge Information Additional Instructions: My general discharge The following information is given to patients seen in the emergency department who are being discharged to home. This information is to outline your options for follow-up care. We provide all patients seen in our emergency department with a follow-up referral. The need for follow-up, as well as the timing and circumstances, are variable depending upon the specifics of your emergency department visit. If you don't have a primary care physician on staff, we will provide you with a referral. We always advise you to contact your personal physician following an emergency department visit to inform them of the circumstance of the visit and for follow-up with them and/or the need for any referrals to a consulting specialist. The emergency department will also refer you to a specialist when appropriate. This referral assures that you have the opportunity for follow-up care with a specialist. All of these measure are taken in an effort to provide you with optimal care, which includes your follow-up. Under all circumstances we always encourage you to contact your private physician who remains a resource for coordinating your care. When calling for follow-up care, please make the office aware that this follow-up is from your recent emergency room visit. If for any reason you are refused follow-up, please contact the [facility] at and asked to speak to the emergency department charge nurse. [facility] [address] [place] [id number] 1. Please continue your normal feedings as directed. 2. Follow up and continue with your home health care. Follow up with her primary care as needed. Return to the ED as needed and as discussed.
[2017-10-04 18:16] VITALS: BP 119/63
== END 2017-10-04 18:11 | disposition home or self-care (01) ==
LOC: MW.ED 17:00
DX: K94.23 Gastrostomy malfunction (principal); I11.0 Hypertensive heart disease with heart failure; I50.9 Heart failure, unspecified; Z88.0 Allergy status to penicillin; Z79.899 Other long term (current) drug therapy
CPT/HCPCS: 99282

== ENCOUNTER 2017-12-07 20:37 | Inpatient (IN) | payer MEDICARE, MEDICAID ==
[2017-12-07] MEDS ORDERED: Sodium Chloride 0.9% 1,000 ML IV ONE (21:01)
[2017-12-07] MEDS ORDERED: Levofloxacin/Dextrose 5%-Water 750 MG in Premix Bag 1 BAG IV ONE (21:02)
--- NOTE | 2017-12-07 21:05 | EDM.PDOC ---
ED HPI GENERAL MEDICAL PROBLEM - General Chief Complaint: General Stated Complaint: UNK Time Seen by Provider: 12/07/17 21:04 Source of Information: Reports: Patient - History of Present Illness INITIAL COMMENTS - FREE TEXT/NARRATIVE: HISTORY AND PHYSICAL: History of present illness: [Patient nonverbal presents from longterm with fever Patient has history of CVA and craniotomy hence nonverbal is baseline ] Review of systems: As per history of present illness and below otherwise all systems reviewed and negative. Past medical history: As per history of present illness and as reviewed below otherwise noncontributory. Surgical history: As per history of present illness and as reviewed below otherwise noncontributory. Social history: No reported history of drug or alcohol abuse. Family history: As per history of present illness and as reviewed below otherwise noncontributory. Physical exam: HEENT: Atraumatic, normocephalic, pupils reactive, negative for conjunctival pallor or scleral icterus, mucous membranes moist, throat clear, neck supple, nontender, trachea midline. Lungs: Clear to auscultation, breath sounds equal bilaterally, chest nontender. Heart: S1S2, regular, negative for clicks, rubs, or JVD. Abdomen: Soft, nondistended, nontender. Negative for masses or hepatosplenomegaly. Negative for costovertebral tenderness. Pelvis: Stable nontender. Genitourinary: Deferred. Rectal: Deferred. Extremities: Atraumatic, negative for cords or calf pain. Neurovascular unremarkable. Neuro: patient nonverbal Diagnostics: [ CBC CMP UA troponin urine culture blood cultures UA Chest 1 view EKG ] Therapeutics: [LR his pain with bolus Levaquin 750 mg IV Vancomycin 1 g IV ] adenosine 6 mg IV followed by 12 mg IV followed by Cardizem 20 mg IV push Impression: Fever UTI hypotension-rule out sepsis I per need trimming you SVT resolved Sinus tachycardia [ hypotension improved Nonverbal baseline ] Definitive disposition and diagnosis as appropriate pending reevaluation and review of above. - Related Data Allergies Allergy/AdvReac Type Severity Reaction Status Date / Time Penicillins Allergy Hives Verified 12/07/17 22:19 strawberry Allergy Hives Verified 12/07/17 22:19 Home Meds: Home Meds Albuterol Sulfate [Proair Hfa] 2 puff IH Q6HR #1 hfa.aer.ad 09/08/17 [Rx] Digoxin 125 mcg PEGTUBE DAILY 09/08/17 [History] Metoprolol Succinate [Toprol XL] 50 mg PEGTUBE DAILY 09/08/17 [History] Acetaminophen [Tylenol Solution] 500 mg PO TID PRN 12/07/17 [History] Ferrous Sulfate 600 mg PEGTUBE DAILY 12/07/17 [History] Hydrocodone/Acetaminophen [Hydrocodon-Acetaminophen 5-325] 1 tab PEGTUBE Q8HR PRN 12/07/17 [History] Neutrogena T/Gel Shampoo 12/07/17 [History] Polyethylene Glycol 3350 [MiraLAX] 17 gm PO DAILY PRN 12/07/17 [History] Past Medical History HEENT History: Reports: None Cardiovascular History: Reports: Afib, Heart Failure, Hypertension Respiratory History: Reports: Pneumonia, Recurrent Gastrointestinal History: Reports: Other (See Below) Other Gastrointestinal History: constipation Genitourinary History: Reports: UTI, Recurrent, Other (See Below) Other Genitourinary History: 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, Dysphagia, Aphasia Psychiatric History: Reports: Other (See Below) Other Psychiatric History: Non-verbal Endocrine/Metabolic History: Reports: None Oncologic (Cancer) History: Reports: Brain Dermatologic History: Reports: Other (See Below) Other Dermatologic History: Pressure ulscer of sacral region - Infectious Disease History Infectious Disease History: Reports: MRSA - Past Surgical History Head Surgeries/Procedures: Reports: Craniotomy HEENT Surgical History: Reports: None Cardiovascular Surgical History: Reports: None Respiratory Surgical History: Reports: None GI Surgical History: Reports: None Female Surgical History: Reports: Hysterectomy Oncologic Surgical History: Reports: None Social & Family History - Family History Family Medical History: Noncontributory - Tobacco Use Smoking Status *Q: Never Smoker Second Hand Smoke Exposure: Yes - Caffeine Use Caffeine Use: Reports: None Other Caffeine Use: unknown - Alcohol Use Days Per Week of Alcohol Use: 0 - Recreational Drug Use Recreational Drug Use: No - Living Situation & Occupation Living situation: Reports: with Spouse, Other (has caregiver as well) Occupation: Disabled ED ROS GENERAL - Review of Systems Review Of Systems: ROS reveals no pertinent complaints other than HPI. ED EXAM, GENERAL - Physical Exam Exam: See Below Course - Vital Signs Last Recorded V/S: Last Vital Signs Temp 97.7 F 12/07/17 23:07 Pulse 136 H 12/07/17 23:07 Resp 22 H 12/07/17 23:07 BP 104/60 12/07/17 23:07 Pulse Ox 100 12/07/17 23:07 - Orders/Labs/Meds Orders: Active Orders 24 hr Category Date Time Status EKG Documentation Completion [RC] STAT Care 12/07/17 21:03 Active Chest 1V Frontal [CR] Stat Exams 12/07/17 21:04 Taken CULTURE BLOOD [BC] Stat Lab 12/07/17 21:32 Received CULTURE BLOOD [BC] Stat Lab 12/07/17 21:45 Received CULTURE SPUTUM + SMEAR [RM] Stat Lab 12/07/17 22:20 Received CULTURE URINE [RM] Stat Lab 12/07/17 21:40 Ordered LACTIC ACID,WHOLE BLOOD [BG] Stat Lab 12/07/17 21:04 Ordered UA W/MICROSCOPIC [URIN] Stat Lab 12/07/17 21:40 Ordered Sodium Chloride 0.9% [Normal Saline] 1,000 ml Med 12/07/17 23:00 Active IV STAT Vancomycin [Vancocin] 1 gm Med 12/07/17 22:47 Active Sodium Chloride 0.9% [Normal Saline] 250 ml IV ONETIME Blood Culture x2 Reflex Set [OM.PC] Stat Oth 12/07/17 21:02 Ordered Medication Orders Vancomycin HCl 1 gm/ Sodium (Chloride) 250 mls @ 250 mls/hr IV ONETIME ONE Stop: 12/07/17 23:46 Last Admin: 12/07/17 23:10 Dose: 250 mls/hr Sodium Chloride (Normal Saline) 1,000 mls @ 125 mls/hr IV STAT [facility] Last Admin: 12/07/17 23:09 Dose: 125 mls/hr Labs: Laboratory Tests 12/07/17 12/07/17 12/07/17 Range/Units 21:32 21:32 21:40 WBC 17.16 H (4.0-11.0) K/uL RBC 4.63 (4.30-5.90) M/uL Hgb 11.4 L (12.0-16.0) g/dL Hct 40.3 (36.0-46.0) % MCV 87.0 (80.0-98.0) fL MCH 24.6 L (27.0-32.0) pg MCHC 28.3 L (31.0-37.0) g/dL RDW Std Deviation 68.4 H (28.0-62.0) fl RDW Coeff of Deanna 22 H (11.0-15.0) % Plt Count 271 (150-400) K/uL MPV 11.20 (7.40-12.00) fL Neut % (Auto) 85.5 H (48.0-80.0) % Lymph % (Auto) 9.6 L (16.0-40.0) % [place] % (Auto) 4.4 (0.0-15.0) % Eos % (Auto) 0.3 (0.0-7.0) % Baso % (Auto) 0.2 (0.0-1.5) % Neut # (Auto) 14.7 H (1.4-5.7) K/uL Lymph # (Auto) 1.7 (0.6-2.4) K/uL [place] # (Auto) 0.8 (0.0-0.8) K/uL Eos # (Auto) 0.1 (0.0-0.7) K/uL Baso # (Auto) 0.0 (0.0-0.1) K/uL Nucleated RBC % 0.0 /100WBC Nucleated RBCs # 0 K/uL INR 1.06 Sodium (136-145) mmol/L Potassium (3.5-5.1) mmol/L Chloride (98-107) mmol/L Carbon Dioxide (21.0-32.0) mmol/L BUN (7.0-18.0) mg/dL Creatinine (0.6-1.0) mg/dL Est Cr Clr Drug Dosing Estimated GFR (MDRD) ml/min Glucose (74-106) mg/dL Calcium (8.5-10.1) mg/dL Total Bilirubin (0.2-1.0) mg/dL AST (15-37) IU/L ALT (14-63) IU/L Alkaline Phosphatase (46-116) U/L Total Protein (6.4-8.2) g/dL Albumin (3.4-5.0) g/dL Globulin (2.0-3.5) g/dL Albumin/Globulin Ratio (1.3-2.8) Urine Color YELLOW Urine Appearance CLOUDY Urine pH 7.0 (5.0-8.0) Ur Specific [place] 1.015 (1.001-1.035) Urine Protein 100 (NEGATIVE) mg/dL Urine Glucose (UA) NEGATIVE (NEGATIVE) mg/dL Urine Ketones NEGATIVE (NEGATIVE) mg/dL Urine Occult Blood LARGE H (NEGATIVE) Urine Nitrite NEGATIVE (NEGATIVE) Urine Bilirubin NEGATIVE (NEGATIVE) Urine Urobilinogen 0.2 (<2.0) EU/dL Ur Leukocyte Esterase LARGE (NEGATIVE) Urine RBC 0-2 (0-2/HPF) Urine WBC MANY (0-5/HPF) Ur Epithelial Cells MODERATE (NONE-FEW) Triple Phos Crystals FEW (NEGATIVE) Amorphous Sediment HEAVY (NEGATIVE) Urine Bacteria 3+ H (NEGATIVE) Urine Mucus MODERATE (NONE-MOD) 12/07/17 Range/Units 22:40 WBC (4.0-11.0) K/uL RBC (4.30-5.90) M/uL Hgb (12.0-16.0) g/dL Hct (36.0-46.0) % MCV (80.0-98.0) fL MCH (27.0-32.0) pg MCHC (31.0-37.0) g/dL RDW Std Deviation (28.0-62.0) fl RDW Coeff of Deanna (11.0-15.0) % Plt Count (150-400) K/uL MPV (7.40-12.00) fL Neut % (Auto) (48.0-80.0) % Lymph % (Auto) (16.0-40.0) % [place] % (Auto) (0.0-15.0) % Eos % (Auto) (0.0-7.0) % Baso % (Auto) (0.0-1.5) % Neut # (Auto) (1.4-5.7) K/uL Lymph # (Auto) (0.6-2.4) K/uL [place] # (Auto) (0.0-0.8) K/uL Eos # (Auto) (0.0-0.7) K/uL Baso # (Auto) (0.0-0.1) K/uL Nucleated RBC % /100WBC Nucleated RBCs # K/uL INR Sodium 171 H* (136-145) mmol/L Potassium 3.5 (3.5-5.1) mmol/L Chloride 132 H (98-107) mmol/L Carbon Dioxide 28.5 (21.0-32.0) mmol/L BUN 101 H (7.0-18.0) mg/dL Creatinine 1.1 H (0.6-1.0) mg/dL Est Cr Clr Drug Dosing TNP Estimated GFR (MDRD) 48.4 ml/min Glucose 153 H (74-106) mg/dL Calcium 8.8 (8.5-10.1) mg/dL Total Bilirubin 0.3 (0.2-1.0) mg/dL AST 28 (15-37) IU/L ALT 32 (14-63) IU/L Alkaline Phosphatase 81 (46-116) U/L Total Protein 6.9 (6.4-8.2) g/dL Albumin 2.4 L (3.4-5.0) g/dL Globulin 4.5 H (2.0-3.5) g/dL Albumin/Globulin Ratio 0.5 L (1.3-2.8) Urine Color Urine Appearance Urine pH (5.0-8.0) Ur Specific [place] (1.001-1.035) Urine Protein (NEGATIVE) mg/dL Urine Glucose (UA) (NEGATIVE) mg/dL Urine Ketones (NEGATIVE) mg/dL Urine Occult Blood (NEGATIVE) Urine Nitrite (NEGATIVE) Urine Bilirubin (NEGATIVE) Urine Urobilinogen (<2.0) EU/dL Ur Leukocyte Esterase (NEGATIVE) Urine RBC (0-2/HPF) Urine WBC (0-5/HPF) Ur Epithelial Cells (NONE-FEW) Triple Phos Crystals (NEGATIVE) Amorphous Sediment (NEGATIVE) Urine Bacteria (NEGATIVE) Urine Mucus (NONE-MOD) Meds: Medications Generic Name Dose Route Start Last Admin Trade Name Freq PRN Reason Stop Dose Admin Vancomycin HCl 1 gm/ Sodium 250 mls @ 250 mls/hr 12/07/17 22:47 12/07/17 23: 10 Chloride IV 12/07/17 23:46 250 mls/hr ONETIME ONE Administration Sodium Chloride 1,000 mls @ 125 mls/hr 12/07/17 23:00 12/07/17 23:09 Normal Saline IV 125 mls/hr STAT DWIGHT Administration Discontinued Medications Generic Name Dose Route Start Last Admin Trade Name Berhane PRN Reason Stop Dose Admin Adenosine 6 mg 12/07/17 21:09 12/07/17 21:13 Adenocard IVPUSH 12/07/17 21:10 6 mg NOW ONE Administration Adenosine Confirm 12/07/17 21:12 12/07/17 21:44 Adenocard Administered 12/07/17 21:13 Not Given Dose 6 mg .ROUTE .STK-MED ONE Adenosine 12 mg 12/07/17 21:22 12/07/17 21:26 Adenoscan IVPUSH 12/07/17 21:23 12 mg ONETIME ONE Administration Adenosine Confirm 12/07/17 21:22 12/07/17 21:44 Adenocard Administered 12/07/17 21:23 Not Given Dose 12 mg .ROUTE .STK-MED ONE Diltiazem HCl Confirm 12/07/17 21:27 12/07/17 21:45 Diltiazem Administered 12/07/17 21:28 Not Given Dose 25 mg .ROUTE .STK-MED ONE Diltiazem HCl 20 mg 12/07/17 21:28 12/07/17 21:30 Diltiazem IVPUSH 12/07/17 21:29 20 mg ONETIME ONE Administration Levofloxacin/Dextrose 750 mg/ 150 mls @ 100 mls/hr 12/07/17 21:02 12/07/17 21 :40 Premix IV 12/07/17 22:31 100 mls/hr ONETIME ONE Administration Sodium Chloride 1,000 mls @ 999 mls/hr 12/07/17 21:01 12/07/17 21:22 Normal Saline IV 12/07/17 22:01 999 mls/hr STAT ONE Administration Departure - Departure Time of Disposition: 23:34 Disposition: Admitted As Inpatient 68 Condition: Poor Clinical Impression: History of CVA with residual deficit, Hx MRSA infection, Hypotension - Discharge Information Referrals: PCP,None [Primary Care Provider] - Forms: ED Department Discharge - My Orders Last 24 Hours: My Active Orders 12/07/17 21:02 Blood Culture x2 Reflex Set [OM.PC] Stat 12/07/17 21:03 EKG Documentation Completion [RC] STAT 12/07/17 21:04 Chest 1V Frontal [CR] Stat LACTIC ACID,WHOLE BLOOD [BG] Stat 12/07/17 21:32 CULTURE BLOOD [BC] Stat 12/07/17 21:40 CULTURE URINE [RM] Stat UA W/MICROSCOPIC [URIN] Stat 12/07/17 21:45 CULTURE BLOOD [BC] Stat 12/07/17 22:20 CULTURE SPUTUM + SMEAR [RM] Stat 12/07/17 22:47 Vancomycin [Vancocin] 1 gm Sodium Chloride 0.9% [Normal Saline] 250 ml IV ONETIME 12/07/17 23:00 Sodium Chloride 0.9% [Normal Saline] 1,000 ml IV STAT - Assessment/Plan Last 24 Hours: My Active Orders 12/07/17 21:02 Blood Culture x2 Reflex Set [OM.PC] Stat 12/07/17 21:03 EKG Documentation Completion [RC] STAT 12/07/17 21:04 Chest 1V Frontal [CR] Stat LACTIC ACID,WHOLE BLOOD [BG] Stat 12/07/17 21:32 CULTURE BLOOD [BC] Stat 12/07/17 21:40 CULTURE URINE [RM] Stat UA W/MICROSCOPIC [URIN] Stat 12/07/17 21:45 CULTURE BLOOD [BC] Stat 12/07/17 22:20 CULTURE SPUTUM + SMEAR [RM] Stat 12/07/17 22:47 Vancomycin [Vancocin] 1 gm Sodium Chloride 0.9% [Normal Saline] 250 ml IV ONETIME 12/07/17 23:00 Sodium Chloride 0.9% [Normal Saline] 1,000 ml IV STAT
[2017-12-07] MEDS ORDERED: Adenosine 6 MG/2 ML SDV IVPUSH ONE (21:09)
[2017-12-07] MEDS ORDERED: Adenosine 6 MG/2 ML SDV ONE ×2 (21:12→21:22)
[2017-12-07] MEDS ORDERED: Diltiazem 25 MG/5 ML SDV ONE (21:27)
[2017-12-07] MEDS ORDERED: Diltiazem 25 MG/5 ML SDV IVPUSH ONE (21:28)
[2017-12-07] MEDS ORDERED: Sodium Chloride 0.9% 1,000 ML IV SCH (23:00)
[2017-12-07 23:23] LABS: CHLORIDE,CL 132 mmol/L (98-107)
[2017-12-07 23:26] LABS: SODIUM,NA 171 mmol/L (136-145)
[2017-12-08] MEDS ORDERED: Ondansetron 4 MG/2 ML SDV IVPUSH PRN (02:38)
[2017-12-08] MEDS ORDERED: Sodium Chloride 0.9% 1,000 ML IV ONE (02:41)
--- NOTE | 2017-12-08 02:48 | PCM.HP ---
H&P History of Present Illness - General Admit Problem/Dx: Admission Diagnosis/Problem Admission Diagnosis/Problem Hypotension - History of Present Illness Initial Comments - Free Text/Narative: 76 year old female with pmh of CVA with left hemiparesis, peg tube, indwelling anton, dementia, large sacral ulcers who presents to the ED from [place] with complaint of fever. In the ED patient was noted to be hypotensive and tacchycardic with HR in 180s. She was give adenosine and diltiazem that improved her heart rate inthe 120s-140s. She was noted to have a sodium of 170 , WBC of 17,160 and suspected to have UTI due to pyruia and bacteria on UA. She was given Levaquin and vancomycin due to history of MRSA growing in urine cultures. - Related Data Allergies/Adverse Reactions: Allergies Allergy/AdvReac Type Severity Reaction Status Date / Time Penicillins Allergy Hives Verified 12/07/17 22:19 strawberry Allergy Hives Verified 12/07/17 22:19 Home Medications: Home Meds Albuterol Sulfate [Proair Hfa] 2 puff IH Q6HR #1 hfa.aer.ad 09/08/17 [Rx] Digoxin 125 mcg PEGTUBE DAILY 09/08/17 [History] Metoprolol Succinate [Toprol XL] 50 mg PEGTUBE DAILY 09/08/17 [History] Acetaminophen [Tylenol Solution] 500 mg PO TID 12/07/17 [History] Ferrous Sulfate 600 mg PEGTUBE DAILY 12/07/17 [History] Hydrocodone/Acetaminophen [Hydrocodon-Acetaminophen 5-325] 1 tab PEGTUBE Q8HR PRN 12/07/17 [History] Neutrogena T/Gel Shampoo 1 applic TOP 12/07/17 [History] Acetaminophen [Tylenol Solution] 500 mg GTUBE Q4HR PRN 12/08/17 [History] Polyethylene Glycol 3350 [MiraLAX] 17 gm GTUBE DAILY PRN 12/08/17 [History] Past Medical History HEENT History: Reports: Other (See Below) Other HEENT History: dysphagia Cardiovascular History: Reports: Afib, Heart Failure, Hypertension Respiratory History: Reports: Pneumonia, Recurrent Gastrointestinal History: Reports: Other (See Below) Other Gastrointestinal History: constipation Genitourinary History: Reports: UTI, Recurrent, Other (See Below) Other Genitourinary History: 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 side, Dysphagia, Aphasia,dementia Psychiatric History: Reports: Other (See Below) Other Psychiatric History: Non-verbal Endocrine/Metabolic History: Reports: None Hematologic History: Reports: Anemia Oncologic (Cancer) History: Reports: Brain Dermatologic History: Reports: Other (See Below) Other Dermatologic History: Pressure ulscer of sacral region, right hip left buttock - Infectious Disease History Infectious Disease History: Reports: MRSA - Past Surgical History Head Surgeries/Procedures: Reports: Craniotomy HEENT Surgical History: Reports: None Cardiovascular Surgical History: Reports: None Respiratory Surgical History: Reports: None GI Surgical History: Reports: Other (See Below) Other GI Surgeries/Procedures: Gastrostomy tube in place Female Surgical History: Reports: Hysterectomy Oncologic Surgical History: Reports: None Social & Family History - Family History Family Medical History: Noncontributory - Tobacco Use Smoking Status *Q: Never Smoker Second Hand Smoke Exposure: Yes - Caffeine Use Caffeine Use: Reports: None Other Caffeine Use: unknown - Alcohol Use Days Per Week of Alcohol Use: 0 - Recreational Drug Use Recreational Drug Use: No - Living Situation & Occupation Living situation: Reports: with Spouse, Other (has caregiver as well) Occupation: Disabled H&P Review of Systems - Review of Systems: Review Of Systems: Unable To Obtain Exam - Exam Exam: See Below - Vital Signs Vital Signs: Last Vital Signs Temp 37.5 C 12/08/17 00:17 Pulse 132 H 12/07/17 23:45 Resp 22 H 12/08/17 01:00 BP 106/61 12/08/17 01:00 Pulse Ox 99 12/08/17 01:00 Weight: 48.7 kg - Exam General: Other (cachectic). No: Severe Distress HEENT: Mucosa Moist & [place] Lungs: Clear to Auscultation, Normal Respiratory Effort Cardiovascular: Regular Rate, Regular Rhythm GI/Abdominal Exam: Normal Bowel Sounds, Soft, Non-Tender Extremities: No Pedal Edema Skin: Other (large deep sacral ulcer and several smaller ones on hip, they do not appear cellulitic no purulent drainage noted.) - Patient Data Lab Results Last 24 hrs: Laboratory Results - last 24 hr 12/07/17 12/07/17 12/07/17 Range/Units 21:32 21:32 21:40 WBC 17.16 H (4.0-11.0) K/uL RBC 4.63 (4.30-5.90) M/uL Hgb 11.4 L (12.0-16.0) g/dL Hct 40.3 (36.0-46.0) % MCV 87.0 (80.0-98.0) fL MCH 24.6 L (27.0-32.0) pg MCHC 28.3 L (31.0-37.0) g/dL RDW Std Deviation 68.4 H (28.0-62.0) fl RDW Coeff of Deanna 22 H (11.0-15.0) % Plt Count 271 (150-400) K/uL MPV 11.20 (7.40-12.00) fL Neut % (Auto) 85.5 H (48.0-80.0) % Lymph % (Auto) 9.6 L (16.0-40.0) % [place] % (Auto) 4.4 (0.0-15.0) % Eos % (Auto) 0.3 (0.0-7.0) % Baso % (Auto) 0.2 (0.0-1.5) % Neut # (Auto) 14.7 H (1.4-5.7) K/uL Lymph # (Auto) 1.7 (0.6-2.4) K/uL [place] # (Auto) 0.8 (0.0-0.8) K/uL Eos # (Auto) 0.1 (0.0-0.7) K/uL Baso # (Auto) 0.0 (0.0-0.1) K/uL Nucleated RBC % 0.0 /100WBC Nucleated RBCs # 0 K/uL INR 1.06 Sodium (136-145) mmol/L Potassium (3.5-5.1) mmol/L Chloride (98-107) mmol/L Carbon Dioxide (21.0-32.0) mmol/L BUN (7.0-18.0) mg/dL Creatinine (0.6-1.0) mg/dL Est Cr Clr Drug Dosing Estimated GFR (MDRD) ml/min Glucose (74-106) mg/dL Calcium (8.5-10.1) mg/dL Total Bilirubin (0.2-1.0) mg/dL AST (15-37) IU/L ALT (14-63) IU/L Alkaline Phosphatase (46-116) U/L Total Protein (6.4-8.2) g/dL Albumin (3.4-5.0) g/dL Globulin (2.0-3.5) g/dL Albumin/Globulin Ratio (1.3-2.8) Urine Color YELLOW Urine Appearance CLOUDY Urine pH 7.0 (5.0-8.0) Ur Specific [place] 1.015 (1.001-1.035) Urine Protein 100 (NEGATIVE) mg/dL Urine Glucose (UA) NEGATIVE (NEGATIVE) mg/dL Urine Ketones NEGATIVE (NEGATIVE) mg/dL Urine Occult Blood LARGE H (NEGATIVE) Urine Nitrite NEGATIVE (NEGATIVE) Urine Bilirubin NEGATIVE (NEGATIVE) Urine Urobilinogen 0.2 (<2.0) EU/dL Ur Leukocyte Esterase LARGE (NEGATIVE) Urine RBC 0-2 (0-2/HPF) Urine WBC MANY (0-5/HPF) Ur Epithelial Cells MODERATE (NONE-FEW) Triple Phos Crystals FEW (NEGATIVE) Amorphous Sediment HEAVY (NEGATIVE) Urine Bacteria 3+ H (NEGATIVE) Urine Mucus MODERATE (NONE-MOD) 12/07/17 Range/Units 22:40 WBC (4.0-11.0) K/uL RBC (4.30-5.90) M/uL Hgb (12.0-16.0) g/dL Hct (36.0-46.0) % MCV (80.0-98.0) fL MCH (27.0-32.0) pg MCHC (31.0-37.0) g/dL RDW Std Deviation (28.0-62.0) fl RDW Coeff of Deanna (11.0-15.0) % Plt Count (150-400) K/uL MPV (7.40-12.00) fL Neut % (Auto) (48.0-80.0) % Lymph % (Auto) (16.0-40.0) % [place] % (Auto) (0.0-15.0) % Eos % (Auto) (0.0-7.0) % Baso % (Auto) (0.0-1.5) % Neut # (Auto) (1.4-5.7) K/uL Lymph # (Auto) (0.6-2.4) K/uL [place] # (Auto) (0.0-0.8) K/uL Eos # (Auto) (0.0-0.7) K/uL Baso # (Auto) (0.0-0.1) K/uL Nucleated RBC % /100WBC Nucleated RBCs # K/uL INR Sodium 171 H* (136-145) mmol/L Potassium 3.5 (3.5-5.1) mmol/L Chloride 132 H (98-107) mmol/L Carbon Dioxide 28.5 (21.0-32.0) mmol/L BUN 101 H (7.0-18.0) mg/dL Creatinine 1.1 H (0.6-1.0) mg/dL Est Cr Clr Drug Dosing TNP Estimated GFR (MDRD) 48.4 ml/min Glucose 153 H (74-106) mg/dL Calcium 8.8 (8.5-10.1) mg/dL Total Bilirubin 0.3 (0.2-1.0) mg/dL AST 28 (15-37) IU/L ALT 32 (14-63) IU/L Alkaline Phosphatase 81 (46-116) U/L Total Protein 6.9 (6.4-8.2) g/dL Albumin 2.4 L (3.4-5.0) g/dL Globulin 4.5 H (2.0-3.5) g/dL Albumin/Globulin Ratio 0.5 L (1.3-2.8) Urine Color Urine Appearance Urine pH (5.0-8.0) Ur Specific [place] (1.001-1.035) Urine Protein (NEGATIVE) mg/dL Urine Glucose (UA) (NEGATIVE) mg/dL Urine Ketones (NEGATIVE) mg/dL Urine Occult Blood (NEGATIVE) Urine Nitrite (NEGATIVE) Urine Bilirubin (NEGATIVE) Urine Urobilinogen (<2.0) EU/dL Ur Leukocyte Esterase (NEGATIVE) Urine RBC (0-2/HPF) Urine WBC (0-5/HPF) Ur Epithelial Cells (NONE-FEW) Triple Phos Crystals (NEGATIVE) Amorphous Sediment (NEGATIVE) Urine Bacteria (NEGATIVE) Urine Mucus (NONE-MOD) Result Diagrams: 12/08/17 05:43 12/08/17 16:22 Elbert Results Last 24 hrs: Microbiology 12/07/17 22:20 Gram Stain - Preliminary Sputum - Expectorated Problem List Initiated/Reviewed/Updated: Yes Orders Last 24hrs: Active Orders 24 hr Category Date Time Status Admission Status [Patient Status] [ADT] Stat ADT 12/07/17 23:36 Active Oxygen Therapy [RC] PRN Care 12/08/17 02:38 Active Up ad Toyin [RC] ASDIRECTED Care 12/08/17 02:38 Active VTE/DVT Education [RC] PER UNIT ROUTINE Care 12/08/17 02:38 Active Vital Signs [RC] Q4H Care 12/08/17 02:38 Active Chest 1V Frontal [CR] Stat Exams 12/07/17 21:04 Taken CBC WITH AUTO DIFF [HEME] AM Lab 12/08/17 05:11 Ordered CBC WITH AUTO DIFF [HEME] AM Lab 12/09/17 05:11 Ordered COMPREHENSIVE METABOLIC PN,CMP [CHEM] AM Lab 12/08/17 05:11 Ordered COMPREHENSIVE METABOLIC PN,CMP [CHEM] AM Lab 12/09/17 05:11 Ordered CULTURE BLOOD [BC] Stat Lab 12/07/17 21:32 Received CULTURE BLOOD [BC] Stat Lab 12/07/17 21:45 Received CULTURE SPUTUM + SMEAR [RM] Stat Lab 12/07/17 22:20 Results CULTURE URINE [RM] Stat Lab 12/07/17 21:40 Ordered DIGOXIN [CHEM] Routine Lab 12/08/17 02:41 Ordered LACTIC ACID,WHOLE BLOOD [BG] Stat Lab 12/07/17 21:04 Ordered UA W/MICROSCOPIC [URIN] Stat Lab 12/07/17 21:40 Ordered Heparin Sodium Med 12/08/17 02:45 Ordered 5,000 units SUBCUT Q8H Levofloxacin/Dextrose 5%-Water [Levaquin in D5W 750 MG/ Med 12/09/17 21:00 Active 150 ML] 750 mg Premix Bag 1 bag IV Q48H Ondansetron [Zofran] Med 12/08/17 02:38 Ordered 4 mg IVPUSH Q4H PRN Sodium Chloride 0.9% [Normal Saline] 1,000 ml Med 12/08/17 02:41 Ordered IV .Bolus Sodium Chloride 0.9% [Normal Saline] 1,000 ml Med 12/07/17 23:00 Active IV STAT Vancomycin Pharmacy to Dose [Pharmacy to Dose - Med 12/08/17 02:30 Ordered Vancomycin] 1 dose .XX ASDIRECTED Blood Culture x2 Reflex Set [OM.PC] Stat Ot 12/07/17 21:02 Ordered Sequential Compression Device [OM.PC] Per Unit Routine Oth 12/08/17 02:39 Ordered Resuscitation Status Routine Resus Stat 12/08/17 02:38 Ordered Medication Orders Heparin Sodium (Porcine) (Heparin Sodium) 5,000 units SUBCUT Q8H DWIGHT Sodium Chloride (Normal Saline) 1,000 mls @ 125 mls/hr IV STAT DWIGHT Last Admin: 12/07/17 23:09 Dose: 125 mls/hr Levofloxacin/Dextrose 750 mg/ (Premix) 150 mls @ 100 mls/hr IV Q48H DWIGHT Sodium Chloride (Normal Saline) 1,000 mls @ 999 mls/hr IV .Bolus ONE Stop: 12/08/17 03:41 Ondansetron HCl (Zofran) 4 mg IVPUSH Q4H PRN PRN Reason: Nausea Vancomycin HCl (Pharmacy To Dose - Vancomycin) 1 dose .XX ASDIRECTED [facility] Assessment/Plan Comment:: 77 yo female admitted sepsis, dehydration and hypernatremia. Likely source is UTI, pneumonia, and sacral ulcer. Sepsis: continue to resuscitate with IV fluids will cover with Vancomycin, cefepime, and Levaquin. Blood sputum and urine cultures ordered. Unable to trend lactic acid as machine in lab is down. Hypernatremia: likely from dehydration and sepsis, will trend sodium as we are resuscitation patient Sacral ulcer continue wound care SVT: improving, will check dig level. DVT prophylaxis: heparin
[2017-12-08] MEDS: Cefepime 1 GM in Premix Bag 1 BAG IV SCH ×3 (02:59→18:00)
[2017-12-08] MEDS: Heparin Sodium 5,000 Units/ML Vial SUBCUT SCH ×3 (02:59→18:00)
[2017-12-08] MEDS ORDERED: Metoprolol Tartrate 5 MG/5 ML SDV IVPUSH ONE (06:14)
[2017-12-08] MEDS: Dextrose 5% in Water 1,000 ML IV SCH ×2 (06:40→16:33)
[2017-12-08] MEDS ORDERED: Potassium Chloride 40 MEQ in Sodium Chloride 0.9% 500 ML IV ONE (08:30)
--- NOTE | 2017-12-08 09:49 | CR ---
EXAM DATE: 12/07/17 PATIENT'S AGE: 77 Patient: SAMINA SOULEYMANE Facility: [place], [place] Site . Site : [id number] Study: XRay Chest [id number]/27/2018 9:19:25 PM Ordering Physician: Doctor Noriega Final Report: HISTORY: Pain and shortness of breath. FINDINGS: AP portable chest radiograph is compared with 01 June 2017. EKG leads overlie the thorax. The patient is rotated to the right. The cardiac silhouette is acceptable size. There is a calcified granuloma in the medial right base. Pulmonary vasculature is free of cephalization. No lobar consolidation or pleural effusion is seen. Fibrotic changes in the upper lobes less apparent most likely due to positioning. Stable deformity of the right lateral ribs. IMPRESSION: No acute cardiopulmonary disease. Dictated by Lynn Ryaa MD @ 12/07/2017 9:33:37 PM Dictated by: Lynn Raya MD @ 12/07/2017 21:33:41 (Electronic Signature) Report Signed by Proxy. [facility]
[2017-12-08 12:13] LABS: CHLORIDE,CL 133 mmol/L (98-107)
[2017-12-08 12:18] LABS: SODIUM,NA 166 mmol/L (136-145)
[2017-12-08] MEDS: [UNRECOGNIZED DRUG - MIXTURE] GTUBE SCH (16:00)
[2017-12-08 16:53] LABS: CHLORIDE,CL 132 mmol/L (98-107)
[2017-12-08 17:01] LABS: SODIUM,NA 165 mmol/L (136-145)
[2017-12-08] MEDS ORDERED: Potassium Chloride 10% 20 MEQ/15 ML Soln 30 ML UD Cup PO ONE (19:18)
[2017-12-08] MEDS ORDERED: Potassium Chloride 10% 20 MEQ/15 ML Soln 30 ML UD Cup JTUBE ONE (19:30)
[2017-12-08] MEDS: Potassium Chloride 20 MEQ in Dextrose 5% in Water 1,000 ML IV SCH ×2 (20:28)
[2017-12-08] MEDS ORDERED: Levofloxacin/Dextrose 5%-Water 750 MG in Premix Bag 1 BAG IV SCH (21:00)
[2017-12-08 22:40] LABS: CHLORIDE,CL 130 mmol/L (98-107)
[2017-12-08 22:41] LABS: SODIUM,NA 162 mmol/L (136-145)
[2017-12-09] MEDS: Morphine 4 MG/ML Syringe IVPUSH PRN (00:51)
[2017-12-09] MEDS: Heparin Sodium 5,000 Units/ML Vial SUBCUT SCH ×3 (02:50→18:00)
[2017-12-09] MEDS: Cefepime 1 GM in Premix Bag 1 BAG IV SCH ×3 (02:50→18:00)
[2017-12-09 06:12] LABS: CHLORIDE,CL 130 mmol/L (98-107); SODIUM,NA 159 mmol/L (136-145)
[2017-12-09] MEDS: [UNRECOGNIZED DRUG - REMARK] GTUBE SCH (07:20)
[2017-12-09] MEDS: Potassium Chloride 20 MEQ in Dextrose 5% in Water 1,000 ML IV SCH ×4 (07:47→17:50)
--- NOTE | 2017-12-09 08:55 | PCM.PN ---
- General Info Date of Service: 12/09/17 Subjective Update: Patient continues to improve, she is able to open up her eyes, and is minimally responsive. - Patient Data Vitals - Most Recent: Last Vital Signs Temp 37.1 C 12/09/17 08:00 Pulse 142 H 12/08/17 06:40 Resp 18 12/09/17 08:00 BP 111/66 12/09/17 08:00 Pulse Ox 95 12/09/17 08:00 Weight - Most Recent: 51.3 kg I&O - Last 24 Hours: Intake & Output 12/08/17 12/09/17 12/09/17 22:59 06:59 14:59 Intake Total 721 1866 462 Output Total 105 550 Balance 616 1316 462 Lab Results Last 24 Hours: Laboratory Results - last 24 hr 12/08/17 12/08/17 12/08/17 Range/Units 11:20 16:22 22:15 WBC (4.0-11.0) K/uL RBC (4.30-5.90) M/uL Hgb (12.0-16.0) g/dL Hct (36.0-46.0) % MCV (80.0-98.0) fL MCH (27.0-32.0) pg MCHC (31.0-37.0) g/dL RDW Std Deviation (28.0-62.0) fl RDW Coeff of Deanna (11.0-15.0) % Plt Count (150-400) K/uL MPV (7.40-12.00) fL Neut % (Auto) (48.0-80.0) % Lymph % (Auto) (16.0-40.0) % Callahan % (Auto) (0.0-15.0) % Eos % (Auto) (0.0-7.0) % Baso % (Auto) (0.0-1.5) % Neut # (Auto) (1.4-5.7) K/uL Lymph # (Auto) (0.6-2.4) K/uL Callahan # (Auto) (0.0-0.8) K/uL Eos # (Auto) (0.0-0.7) K/uL Baso # (Auto) (0.0-0.1) K/uL Nucleated RBC % /100WBC Nucleated RBCs # K/uL Sodium 166 H* 165 H* 162 H* (136-145) mmol/L Potassium 3.4 L 3.1 L 3.9 (3.5-5.1) mmol/L Chloride 133 H 132 H 130 H (98-107) mmol/L Carbon Dioxide 24.6 24.9 26.0 (21.0-32.0) mmol/L BUN 75 H 71 H 64 H (7.0-18.0) mg/dL Creatinine 0.9 0.9 0.9 (0.6-1.0) mg/dL Est Cr Clr Drug Dosing 38.79 38.79 38.79 mL/min Estimated GFR (MDRD) > 60.0 > 60.0 > 60.0 ml/min Glucose 122 H 116 H 149 H (74-106) mg/dL Calcium 8.2 L 8.3 L 8.4 L (8.5-10.1) mg/dL Magnesium 1.9 (1.5-2.0) mg/dL Total Bilirubin (0.2-1.0) mg/dL AST (15-37) IU/L ALT (14-63) IU/L Alkaline Phosphatase (46-116) U/L Total Protein (6.4-8.2) g/dL Albumin (3.4-5.0) g/dL Globulin (2.0-3.5) g/dL Albumin/Globulin Ratio (1.3-2.8) 12/09/17 12/09/17 Range/Units 05:43 05:43 WBC 10.08 (4.0-11.0) K/uL RBC 3.47 L (4.30-5.90) M/uL Hgb 8.5 L (12.0-16.0) g/dL Hct 30.3 L (36.0-46.0) % MCV 87.3 (80.0-98.0) fL MCH 24.5 L (27.0-32.0) pg MCHC 28.1 L (31.0-37.0) g/dL RDW Std Deviation 68.3 H (28.0-62.0) fl RDW Coeff of Deanna 21 H (11.0-15.0) % Plt Count 168 (150-400) K/uL MPV 11.90 (7.40-12.00) fL Neut % (Auto) 70.9 (48.0-80.0) % Lymph % (Auto) 18.8 (16.0-40.0) % Callahan % (Auto) 4.8 (0.0-15.0) % Eos % (Auto) 5.3 (0.0-7.0) % Baso % (Auto) 0.2 (0.0-1.5) % Neut # (Auto) 7.2 H (1.4-5.7) K/uL Lymph # (Auto) 1.9 (0.6-2.4) K/uL Callahan # (Auto) 0.5 (0.0-0.8) K/uL Eos # (Auto) 0.5 (0.0-0.7) K/uL Baso # (Auto) 0.0 (0.0-0.1) K/uL Nucleated RBC % 0.0 /100WBC Nucleated RBCs # 0 K/uL Sodium 159 H (136-145) mmol/L Potassium 4.0 (3.5-5.1) mmol/L Chloride 130 H (98-107) mmol/L Carbon Dioxide 23.3 (21.0-32.0) mmol/L BUN 58 H (7.0-18.0) mg/dL Creatinine 0.8 (0.6-1.0) mg/dL Est Cr Clr Drug Dosing 43.64 mL/min Estimated GFR (MDRD) > 60.0 ml/min Glucose 180 H (74-106) mg/dL Calcium 8.4 L (8.5-10.1) mg/dL Magnesium (1.5-2.0) mg/dL Total Bilirubin 0.2 (0.2-1.0) mg/dL AST 24 (15-37) IU/L ALT 19 (14-63) IU/L Alkaline Phosphatase 71 (46-116) U/L Total Protein 5.7 L (6.4-8.2) g/dL Albumin 1.8 L (3.4-5.0) g/dL Globulin 3.9 H (2.0-3.5) g/dL Albumin/Globulin Ratio 0.5 L (1.3-2.8) Elbert Results Last 24 Hours: Microbiology 03/27/18 21:45 Aerobic Blood Culture - Preliminary Blood - Venous - Lab Draw NO GROWTH AFTER 1 DAY Anaerobic Blood Culture - Preliminary NO GROWTH AFTER 1 DAY 12/07/17 21:32 Aerobic Blood Culture - Preliminary Blood - Venous NO GROWTH AFTER 1 DAY Anaerobic Blood Culture - Preliminary NO GROWTH AFTER 1 DAY 12/07/17 22:20 Gram Stain - Final Sputum - Expectorated Sputum Culture - Preliminary 12/07/17 21:40 Urine Culture - Preliminary Urine, Bladder Med Orders - Current: Current Medications Heparin Sodium (Porcine) (Heparin Sodium) 5,000 units SUBCUT Q8H [facility] Last Admin: 12/09/17 02:50 Dose: 5,000 units Levofloxacin/Dextrose 750 mg/ (Premix) 150 mls @ 100 mls/hr IV Q48H [facility] Cefepime HCl 1 gm/ Premix 50 mls @ 100 mls/hr IV Q8H [facility] Last Admin: 12/09/17 02:50 Dose: 100 mls/hr Vancomycin HCl 0.75 gm/ Sodium (Chloride) 250 mls @ 166.667 mls/hr IV Q24H [facility] Last Admin: 12/08/17 22:42 Dose: 166.667 mls/hr Dextrose/Water (Dextrose 5% In Water) 1,000 mls @ 100 mls/hr IV ASDIRECTED [facility] Last Admin: 12/08/17 16:33 Dose: 100 mls/hr Potassium Chloride 20 meq/ (Dextrose/Water) 1,010 mls @ 100 mls/hr IV ASDIRECTED [facility] Last Admin: 12/09/17 07:47 Dose: 100 mls/hr Morphine Sulfate (Morphine) 1 mg IVPUSH Q3H PRN PRN Reason: Pain Last Admin: 12/09/17 00:51 Dose: 1 mg Jevity Feeding (Supplement Start) 1 each GTUBE 1600 [facility] Last Admin: 12/08/17 16:00 Dose: 1 each Jevity Feeding (Supplement Stop) 1 each GTUBE 0700 [facility] Last Admin: 12/09/17 07:20 Dose: 1 each Ondansetron HCl (Zofran) 4 mg IVPUSH Q4H PRN PRN Reason: Nausea Vancomycin HCl (Pharmacy To Dose - Vancomycin) 1 dose .XX ASDIRECTED [facility] Discontinued Medications Adenosine (Adenocard) 6 mg IVPUSH NOW ONE Stop: 12/07/17 21:10 Last Admin: 12/07/17 21:13 Dose: 6 mg Adenosine (Adenocard) Confirm Administered Dose 6 mg .ROUTE .STK-MED ONE Stop: 12/07/17 21:13 Last Admin: 12/07/17 21:44 Dose: Not Given Adenosine (Adenoscan) 12 mg IVPUSH ONETIME ONE Stop: 12/07/17 21:23 Last Admin: 12/07/17 21:26 Dose: 12 mg Adenosine (Adenocard) Confirm Administered Dose 12 mg .ROUTE .STK-MED ONE Stop: 12/07/17 21:23 Last Admin: 12/07/17 21:44 Dose: Not Given Diltiazem HCl (Diltiazem) Confirm Administered Dose 25 mg .ROUTE .STK-MED ONE Stop: 12/07/17 21:28 Last Admin: 12/07/17 21:45 Dose: Not Given Diltiazem HCl (Diltiazem) 20 mg IVPUSH ONETIME ONE Stop: 12/07/17 21:29 Last Admin: 12/07/17 21:30 Dose: 20 mg Levofloxacin/Dextrose 750 mg/ (Premix) 150 mls @ 100 mls/hr IV ONETIME ONE Stop: 12/07/17 22:31 Last Admin: 12/07/17 21:40 Dose: 100 mls/hr Sodium Chloride (Normal Saline) 1,000 mls @ 999 mls/hr IV STAT ONE Stop: 12/07/17 22:01 Last Admin: 12/07/17 21:22 Dose: 999 mls/hr Vancomycin HCl 1 gm/ Sodium (Chloride) 250 mls @ 250 mls/hr IV ONETIME ONE Stop: 12/07/17 23:46 Last Admin: 12/07/17 23:10 Dose: 250 mls/hr Sodium Chloride (Normal Saline) 1,000 mls @ 125 mls/hr IV STAT [facility] Last Admin: 12/07/17 23:09 Dose: 125 mls/hr Sodium Chloride (Normal Saline) 1,000 mls @ 999 mls/hr IV ONETIME ONE Stop: 12/08/17 03:41 Last Admin: 12/08/17 02:58 Dose: 999 mls/hr Potassium Chloride 40 meq/ (Sodium Chloride) 520 mls @ 130 mls/hr IV ONETIME ONE Stop: 12/08/17 12:29 Last Admin: 12/08/17 08:30 Dose: 130 mls/hr Metoprolol Tartrate (Lopressor) 5 mg IVPUSH ONETIME ONE Stop: 12/08/17 06:15 Last Admin: 12/08/17 06:40 Dose: 5 mg Potassium Chloride (Potassium Chloride) 40 meq PO ONETIME ONE Stop: 12/08/17 19:19 Last Admin: 12/08/17 19:32 Dose: Not Given Potassium Chloride (Potassium Chloride) 40 meq JTUBE ONETIME ONE Stop: 12/08/17 19:31 Last Admin: 12/08/17 19:34 Dose: 40 meq - Exam Quality Assessment: Supplemental Oxygen General: Mild Distress Lungs: Clear to Auscultation, Decreased Breath Sounds Cardiovascular: No Murmurs GI/Abdominal Exam: Soft, Non-Tender, Abnormal Bowel Sounds - Problem List Review Problem List Initiated/Reviewed/Updated: Yes - My Orders Last 24 Hours: My Active Orders 12/08/17 Dinner Tube Feeding Adult Diet [DIET] 12/09/17 10:00 BASIC METABOLIC PANEL,BMP [CHEM] Q6H 12/09/17 16:00 BASIC METABOLIC PANEL,BMP [CHEM] Q6H - Plan Plan:: 77 yo female admitted sepsis, dehydration and hypernatremia. Likely source is UTI, pneumonia, and sacral ulcer. Sepsis: continue to resuscitate with IV fluids will cover with Vancomycin, cefepime, and Levaquin. Blood sputum and urine cultures ordered. Unable to trend lactic acid as machine in lab is down. Hypernatremia: likely from dehydration and sepsis, will trend sodium as we are resuscitation patient Sacral ulcer continue wound care SVT: improving, will check dig level. DVT prophylaxis: heparin Update 12/09/2017 -Sputum and urine cultures growing MRSA which is resistant to Levaquin, but sensitive to vancomycin -DC Levaquin and cefepime continue with the vancomycin -Patient's sodium trending nicely downwards continue with current management. -Chest start the patient back on digoxin to get back to a therapeutic level as the patient's digoxin trough is low.
[2017-12-09] MEDS: Digoxin 125 MCG Tab GTUBE SCH (10:15)
[2017-12-09 10:58] LABS: CHLORIDE,CL 127 mmol/L (98-107); SODIUM,NA 158 mmol/L (136-145)
[2017-12-09] MEDS: [UNRECOGNIZED DRUG - MIXTURE] GTUBE SCH (15:45)
[2017-12-09 16:50] LABS: CHLORIDE,CL 125 mmol/L (98-107); SODIUM,NA 154 mmol/L (136-145)
[2017-12-09] MEDS ORDERED: Levofloxacin/Dextrose 5%-Water 750 MG in Premix Bag 1 BAG IV SCH (21:00)
[2017-12-10] MEDS: Morphine 4 MG/ML Syringe IVPUSH PRN (02:18)
[2017-12-10] MEDS: Heparin Sodium 5,000 Units/ML Vial SUBCUT SCH (02:25)
[2017-12-10] MEDS: Potassium Chloride 20 MEQ in Dextrose 5% in Water 1,000 ML IV SCH ×4 (06:16→16:08)
[2017-12-10] MEDS: [UNRECOGNIZED DRUG - REMARK] GTUBE SCH (06:40)
[2017-12-10 06:49] LABS: CHLORIDE,CL 119 mmol/L (98-107); SODIUM,NA 150 mmol/L (136-145)
[2017-12-10] MEDS ORDERED: Verapamil 5 MG/2 ML SDV IVPUSH ONE (08:39)
[2017-12-10] MEDS: Digoxin 125 MCG Tab GTUBE SCH (08:52)
[2017-12-10] MEDS: Pantoprazole 40 MG Vial IV SCH ×2 (09:23→20:13)
[2017-12-10] MEDS: Digoxin 500 MCG/2 ML Amp IVPUSH SCH (09:23)
--- NOTE | 2017-12-10 12:12 | PCM.PN ---
- Patient Data Vitals - Most Recent: Last Vital Signs Temp 37.3 C 12/10/17 12:00 Pulse 142 H 12/08/17 06:40 Resp 29 H 12/10/17 12:00 BP 115/67 12/10/17 12:00 Pulse Ox 96 12/10/17 12:00 Weight - Most Recent: 54.6 kg I&O - Last 24 Hours: Intake & Output 12/09/17 12/10/17 12/10/17 22:59 06:59 14:59 Intake Total 992 1748 65 Output Total 575 400 700 Balance 417 1343 -476 Lab Results Last 24 Hours: Laboratory Results - last 24 hr 12/09/17 12/10/17 12/10/17 Range/Units 16:26 05:25 05:45 WBC 10.19 (4.0-11.0) K/uL RBC 3.80 L (4.30-5.90) M/uL Hgb 9.2 L (12.0-16.0) g/dL Hct 32.5 L (36.0-46.0) % MCV 85.5 (80.0-98.0) fL MCH 24.2 L (27.0-32.0) pg MCHC 28.3 L (31.0-37.0) g/dL RDW Std Deviation 65.0 H (28.0-62.0) fl RDW Coeff of Deanna 21 H (11.0-15.0) % Plt Count 181 (150-400) K/uL MPV 12.30 H (7.40-12.00) fL Neut % (Auto) 77.2 (48.0-80.0) % Lymph % (Auto) 15.3 L (16.0-40.0) % Caroline % (Auto) 3.7 (0.0-15.0) % Eos % (Auto) 3.7 (0.0-7.0) % Baso % (Auto) 0.1 (0.0-1.5) % Neut # (Auto) 7.9 H (1.4-5.7) K/uL Lymph # (Auto) 1.6 (0.6-2.4) K/uL Caroline # (Auto) 0.4 (0.0-0.8) K/uL Eos # (Auto) 0.4 (0.0-0.7) K/uL Baso # (Auto) 0.0 (0.0-0.1) K/uL Nucleated RBC % 0.0 /100WBC Nucleated RBCs # 0 K/uL VBG pH (7.31-7.41) VBG pCO2 (35-45) mmHG VBG pO2 (30-40) mmHG VBG HCO3 (22-30) mEq/L VBG Total CO2 (41-51) mmol/L VBG Base Excess (-3.0-3.0) Lactate (0.20-2.00) mmol/L Sodium 154 H (136-145) mmol/L Potassium 3.5 (3.5-5.1) mmol/L Chloride 125 H (98-107) mmol/L Carbon Dioxide 22.7 (21.0-32.0) mmol/L BUN 47 H (7.0-18.0) mg/dL Creatinine 0.8 (0.6-1.0) mg/dL Est Cr Clr Drug Dosing 43.64 mL/min Estimated GFR (MDRD) > 60.0 ml/min Glucose 125 H (74-106) mg/dL Calcium 8.3 L (8.5-10.1) mg/dL Phosphorus (2.6-4.7) mg/dL Magnesium (1.5-2.0) mg/dL Total Bilirubin (0.2-1.0) mg/dL AST (15-37) IU/L ALT (14-63) IU/L Alkaline Phosphatase (46-116) U/L Troponin I (0.000-0.056) ng/mL B-Natriuretic Peptide 120 H (<100) PG/ML Total Protein (6.4-8.2) g/dL Albumin (3.4-5.0) g/dL Globulin (2.0-3.5) g/dL Albumin/Globulin Ratio (1.3-2.8) 12/10/17 12/10/17 12/10/17 Range/Units 05:58 07:42 08:30 WBC (4.0-11.0) K/uL RBC (4.30-5.90) M/uL Hgb (12.0-16.0) g/dL Hct (36.0-46.0) % MCV (80.0-98.0) fL MCH (27.0-32.0) pg MCHC (31.0-37.0) g/dL RDW Std Deviation (28.0-62.0) fl RDW Coeff of Deanna (11.0-15.0) % Plt Count (150-400) K/uL MPV (7.40-12.00) fL Neut % (Auto) (48.0-80.0) % Lymph % (Auto) (16.0-40.0) % Caroline % (Auto) (0.0-15.0) % Eos % (Auto) (0.0-7.0) % Baso % (Auto) (0.0-1.5) % Neut # (Auto) (1.4-5.7) K/uL Lymph # (Auto) (0.6-2.4) K/uL Caroline # (Auto) (0.0-0.8) K/uL Eos # (Auto) (0.0-0.7) K/uL Baso # (Auto) (0.0-0.1) K/uL Nucleated RBC % /100WBC Nucleated RBCs # K/uL VBG pH 7.36 (7.31-7.41) VBG pCO2 44 (35-45) mmHG VBG pO2 32 (30-40) mmHG VBG HCO3 25 (22-30) mEq/L VBG Total CO2 24 L (41-51) mmol/L VBG Base Excess -0.9 (-3.0-3.0) Lactate (0.20-2.00) mmol/L Sodium 150 H (136-145) mmol/L Potassium 4.1 (3.5-5.1) mmol/L Chloride 119 H (98-107) mmol/L Carbon Dioxide 22.0 (21.0-32.0) mmol/L BUN 40 H (7.0-18.0) mg/dL Creatinine 0.7 (0.6-1.0) mg/dL Est Cr Clr Drug Dosing 49.88 mL/min Estimated GFR (MDRD) > 60.0 ml/min Glucose 163 H (74-106) mg/dL Calcium 8.6 (8.5-10.1) mg/dL Phosphorus 2.5 L (2.6-4.7) mg/dL Magnesium 1.7 (1.5-2.0) mg/dL Total Bilirubin 0.2 (0.2-1.0) mg/dL AST 25 (15-37) IU/L ALT 20 (14-63) IU/L Alkaline Phosphatase 73 (46-116) U/L Troponin I (0.000-0.056) ng/mL B-Natriuretic Peptide (<100) PG/ML Total Protein 5.9 L (6.4-8.2) g/dL Albumin 1.9 L (3.4-5.0) g/dL Globulin 4.0 H (2.0-3.5) g/dL Albumin/Globulin Ratio 0.5 L (1.3-2.8) 12/10/17 12/10/17 Range/Units 08:30 08:30 WBC (4.0-11.0) K/uL RBC (4.30-5.90) M/uL Hgb (12.0-16.0) g/dL Hct (36.0-46.0) % MCV (80.0-98.0) fL MCH (27.0-32.0) pg MCHC (31.0-37.0) g/dL RDW Std Deviation (28.0-62.0) fl RDW Coeff of Deanna (11.0-15.0) % Plt Count (150-400) K/uL MPV (7.40-12.00) fL Neut % (Auto) (48.0-80.0) % Lymph % (Auto) (16.0-40.0) % Caroline % (Auto) (0.0-15.0) % Eos % (Auto) (0.0-7.0) % Baso % (Auto) (0.0-1.5) % Neut # (Auto) (1.4-5.7) K/uL Lymph # (Auto) (0.6-2.4) K/uL Caroline # (Auto) (0.0-0.8) K/uL Eos # (Auto) (0.0-0.7) K/uL Baso # (Auto) (0.0-0.1) K/uL Nucleated RBC % /100WBC Nucleated RBCs # K/uL VBG pH (7.31-7.41) VBG pCO2 (35-45) mmHG VBG pO2 (30-40) mmHG VBG HCO3 (22-30) mEq/L VBG Total CO2 (41-51) mmol/L VBG Base Excess (-3.0-3.0) Lactate 2.1 H (0.20-2.00) mmol/L Sodium (136-145) mmol/L Potassium (3.5-5.1) mmol/L Chloride (98-107) mmol/L Carbon Dioxide (21.0-32.0) mmol/L BUN (7.0-18.0) mg/dL Creatinine (0.6-1.0) mg/dL Est Cr Clr Drug Dosing mL/min Estimated GFR (MDRD) ml/min Glucose (74-106) mg/dL Calcium (8.5-10.1) mg/dL Phosphorus (2.6-4.7) mg/dL Magnesium (1.5-2.0) mg/dL Total Bilirubin (0.2-1.0) mg/dL AST (15-37) IU/L ALT (14-63) IU/L Alkaline Phosphatase (46-116) U/L Troponin I < 0.050 (0.000-0.056) ng/mL B-Natriuretic Peptide (<100) PG/ML Total Protein (6.4-8.2) g/dL Albumin (3.4-5.0) g/dL Globulin (2.0-3.5) g/dL Albumin/Globulin Ratio (1.3-2.8) Elbert Results Last 24 Hours: Microbiology 12/07/17 21:32 Aerobic Blood Culture - Preliminary Blood - Venous Anaerobic Blood Culture - Preliminary NO GROWTH AFTER 2 DAYS 12/07/17 21:45 Aerobic Blood Culture - Preliminary Blood - Venous - Lab Draw NO GROWTH AFTER 2 DAYS Anaerobic Blood Culture - Preliminary NO GROWTH AFTER 2 DAYS 12/07/17 22:20 Gram Stain - Final Sputum - Expectorated Sputum Culture - Final (Mrsa) Staphylococcus Aureus Normal Respiratory Victoria 12/07/17 21:40 Urine Culture - Final Urine, Bladder (Mrsa) Staphylococcus Aureus Med Orders - Current: Current Medications Digoxin (Lanoxin) 125 mcg IVPUSH DAILY [facility] Last Admin: 12/10/17 09:23 Dose: 125 mcg Dextrose/Water (Dextrose 5% In Water) 1,000 mls @ 100 mls/hr IV ASDIRECTED [facility] Last Admin: 12/08/17 16:33 Dose: 100 mls/hr Potassium Chloride 20 meq/ (Dextrose/Water) 1,010 mls @ 100 mls/hr IV ASDIRECTED [facility] Last Admin: 12/10/17 06:16 Dose: 100 mls/hr Morphine Sulfate (Morphine) 1 mg IVPUSH Q3H PRN PRN Reason: Pain Last Admin: 12/10/17 02:18 Dose: 1 mg Ondansetron HCl (Zofran) 4 mg IVPUSH Q4H PRN PRN Reason: Nausea Last Admin: 12/10/17 09:03 Dose: 4 mg Pantoprazole Sodium (Protonix Iv) 40 mg IV BID [facility] Last Admin: 12/10/17 09:23 Dose: 40 mg Discontinued Medications Adenosine (Adenocard) 6 mg IVPUSH NOW ONE Stop: 12/07/17 21:10 Last Admin: 12/07/17 21:13 Dose: 6 mg Adenosine (Adenocard) Confirm Administered Dose 6 mg .ROUTE .STK-MED ONE Stop: 12/07/17 21:13 Last Admin: 12/07/17 21:44 Dose: Not Given Adenosine (Adenoscan) 12 mg IVPUSH ONETIME ONE Stop: 12/07/17 21:23 Last Admin: 12/07/17 21:26 Dose: 12 mg Adenosine (Adenocard) Confirm Administered Dose 12 mg .ROUTE .STK-MED ONE Stop: 12/07/17 21:23 Last Admin: 12/07/17 21:44 Dose: Not Given Digoxin (Lanoxin) 125 mcg GTUBE DAILY [facility] Last Admin: 12/10/17 08:52 Dose: 125 mcg Diltiazem HCl (Diltiazem) Confirm Administered Dose 25 mg .ROUTE .STK-MED ONE Stop: 12/07/17 21:28 Last Admin: 12/07/17 21:45 Dose: Not Given Diltiazem HCl (Diltiazem) 20 mg IVPUSH ONETIME ONE Stop: 12/07/17 21:29 Last Admin: 12/07/17 21:30 Dose: 20 mg Heparin Sodium (Porcine) (Heparin Sodium) 5,000 units SUBCUT Q8H [facility] Last Admin: 12/10/17 02:25 Dose: 5,000 units Levofloxacin/Dextrose 750 mg/ (Premix) 150 mls @ 100 mls/hr IV ONETIME ONE Stop: 12/07/17 22:31 Last Admin: 12/07/17 21:40 Dose: 100 mls/hr Sodium Chloride (Normal Saline) 1,000 mls @ 999 mls/hr IV STAT ONE Stop: 12/07/17 22:01 Last Admin: 12/07/17 21:22 Dose: 999 mls/hr Vancomycin HCl 1 gm/ Sodium (Chloride) 250 mls @ 250 mls/hr IV ONETIME ONE Stop: 12/07/17 23:46 Last Admin: 12/07/17 23:10 Dose: 250 mls/hr Sodium Chloride (Normal Saline) 1,000 mls @ 125 mls/hr IV STAT [facility] Last Admin: 12/07/17 23:09 Dose: 125 mls/hr Levofloxacin/Dextrose 750 mg/ (Premix) 150 mls @ 100 mls/hr IV Q48H [facility] Sodium Chloride (Normal Saline) 1,000 mls @ 999 mls/hr IV ONETIME ONE Stop: 12/08/17 03:41 Last Admin: 12/08/17 02:58 Dose: 999 mls/hr Cefepime HCl 1 gm/ Premix 50 mls @ 100 mls/hr IV Q8H [facility] Last Admin: 12/09/17 18:00 Dose: 100 mls/hr Vancomycin HCl 0.75 gm/ Sodium (Chloride) 250 mls @ 166.667 mls/hr IV Q24H [facility] Last Admin: 12/09/17 23:25 Dose: 166.667 mls/hr Potassium Chloride 40 meq/ (Sodium Chloride) 520 mls @ 130 mls/hr IV ONETIME ONE Stop: 12/08/17 12:29 Last Admin: 12/08/17 08:30 Dose: 130 mls/hr Metoprolol Tartrate (Lopressor) 5 mg IVPUSH ONETIME ONE Stop: 12/08/17 06:15 Last Admin: 12/08/17 06:40 Dose: 5 mg Jevity Feeding (Supplement Start) 1 each GTUBE 1600 [facility] Last Admin: 12/09/17 15:45 Dose: 1 each Jevity Feeding (Supplement Stop) 1 each GTUBE 0700 [facility] Last Admin: 12/10/17 06:40 Dose: 1 each Potassium Chloride (Potassium Chloride) 40 meq PO ONETIME ONE Stop: 12/08/17 19:19 Last Admin: 12/08/17 19:32 Dose: Not Given Potassium Chloride (Potassium Chloride) 40 meq JTUBE ONETIME ONE Stop: 12/08/17 19:31 Last Admin: 12/08/17 19:34 Dose: 40 meq Vancomycin HCl (Pharmacy To Dose - Vancomycin) 1 dose .XX ASDIRECTED [facility] Verapamil HCl (Calan) 5 mg IVPUSH ONETIME ONE Stop: 12/10/17 08:40 Last Admin: 12/10/17 08:52 Dose: 5 mg - My Orders Last 24 Hours: My Active Orders 12/10/17 09:00 Pantoprazole [ProTONIX IV] 40 mg IV BID 12/10/17 11:54 Consult to Spiritual Care [CONS] Routine Comfort Measures [OM.PC] Routine 12/10/17 12:02 Metoprolol Tartrate [Lopressor] 25 mg GTUBE Q12HR 12/10/17 12:10 Transfer Patient (Change bed) [ADT] Routine Vital Signs [RC] Q6H 12/10/17 12:15 Sulfamethoxazole/Trimethoprim [Septra] 10 ml GTUBE BID - Plan Plan:: 77 yo female admitted sepsis, dehydration and hypernatremia. Likely source is UTI, pneumonia, and sacral ulcer. Sepsis: continue to resuscitate with IV fluids will cover with Vancomycin, cefepime, and Levaquin. Blood sputum and urine cultures ordered. Unable to trend lactic acid as machine in lab is down. Hypernatremia: likely from dehydration and sepsis, will trend sodium as we are resuscitation patient Sacral ulcer continue wound care SVT: improving, will check dig level. DVT prophylaxis: heparin Update 12/09/2017 -Sputum and urine cultures growing MRSA which is resistant to Levaquin, but sensitive to vancomycin -DC Levaquin and cefepime continue with the vancomycin -Patient's sodium trending nicely downwards continue with current management. -Chest start the patient back on digoxin to get back to a therapeutic level as the patient's digoxin trough is low.
[2017-12-10] MEDS: Metoprolol Tartrate 25 MG Tab GTUBE SCH ×2 (12:33→20:13)
[2017-12-10] MEDS: Sulfamethoxazole/Trimethoprim 200-40 MG/5 ML Susp ML (473 ML Bottle) GTUBE SCH ×2 (13:39→20:13)
[2017-12-10] MEDS ORDERED: Potassium Chloride 20 MEQ in Dextrose 5% in Water 1,000 ML IV SCH ×4 (15:30→16:30)
--- NOTE | 2017-12-10 18:39 | CR ---
EXAM DATE: 12/07/17 PATIENT'S AGE: 77 Patient: SAMINA SOULEYMANE Facility: [place], [place] Site . Site : [id number] Study: XRay Chest [id number]/30/2018 8:07:22 AM Ordering Physician: Rafal Blanco Final Report: INDICATION: DYSPNEA,COUGH COMPARISON: Chest x-ray dated 09 October 2017. FINDINGS: A single portable chest x-ray shows a normal cardiac silhouette. The lungs are somewhat hypoventilated and show mild interstitial prominence. No focal pulmonary opacities. Sharp pleural margins. No pneumothorax. IMPRESSION: Mild interstitial prominence. No focal pulmonary opacities. Dictated by Fredy Mcdonnell MD @ 12/10/2017 8:32:05 AM Dictated by: Fredy Mcdonnell MD @ 12/10/2017 08:32:10 (Electronic Signature) Report Signed by Proxy. [facility]
--- NOTE | 2017-12-11 01:30 | PCM.DCSUM1 ---
Discharge Summary - Hospital Course HPI Initial Comments: Discharge Summary Date of admission: 12/07/2017 Date of discharge: 12/11/2007. Admitting diagnosis: #1. Sepsis, dehydration, hypernatremia likely secondary to urinary tract infection, severe dementia resulting in decrease water intake #2. Community-acquired pneumonia #3. Severe sacral ulcers #4. Significant past medical history of atrial fibrillation, heart failure, hypertension, repeat bouts of pneumonia, repeat both the urinary tract infection with positive MRSA, #5. Severe hypernatremia Discharge diagnoses: #1. Due to significant decline in health and extensive discussion with patient has been placed upon comfort care with hospice consult did. #2. Palliative care measures in place including IV fluids and antibiotics for patient's urinary tract infection, and pneumonia #3. #4. #5. Consultations: None Procedures: None Hospitalization course: Patient was admitted secondary to severe hypernatremia of 171, sepsis, dehydration in the setting of severe dementia with decrease water intake, urinary tract infection, pneumonia. Patient was immediately placed within the ICU, patient was noted to have an elevated heart rate of 180 and was also hypotensive. Patient was given adenosine and diltiazem which did bring the heart rate down into the 120s. Placed upon broad-spectrum IV antibiotics including cefepime, Levaquin, vancomycin, urine culture and blood culture and sputum culture were obtained. During this time the treatment for the patient's hypernatremia was done via D5W fluids running at 100 with the goal of bringing the hypernatremia down by 10 points every 24 hours. Nutrition was consult did and G-tube feeding for the patient was started at half the normal rate to ensure that sodium would not should sodium did trend downwards nicely, however the patient was still quite tachycardic and tachypnea due to her pneumonia and urinary tract infection. Patient's sputum culture and urine culture came back positive for MRSA that was resistant to Levaquin but sensitive to vancomycin. However despite the appropriate treatment in terms of the vancomycin for both the urinary tract infection as the pneumonia status continued to worsen. On 12/10/2017 end a.m. patient throughout that night had significant tachycardia and tachypnea, end a.m. it was noticed that the patient' s heart rate was in the 140s to 150s, patient was given verapamil 5 mg IV push to help reduce the heart rate, however while this was going on the patient ended up and emesis after digoxin was given to the patient orally. Patient was also noted to have dark coffee-ground type emesis out of the G-tube. As it became evident of the patient's condition was not improving and she was clearly suffering despite the interventions that were you giving to her I had a extensive talk with her and her felt that it was time to place the patient on comfort care/hospice. He believed that the patient had suffered enough that she would not want those happened to her at the moment. Patient was then subsequently placed on comfort care with hospice consult.. And was made to treat the patient palliatively for her urinary tract infection, pneumonia, dehydration with Bactrim as it did cover both her urinary tract infection as well as a pneumonia. This palliative measurement would likely reduce the patient 's pain and make her more comfortable, it was also felt that the patient's tachycardia was also causing issues as such we will continue with the patient's digoxin, metoprolol tartrate. Patient shall be discharged in the a.m. back to [facility] with hospice taking over care after 5 days. Disposition on discharge: [facility] Condition on discharge: Critical but stable Discharge medications: Please review discharge medication list Follow-up instructions: Dr. Volodymyr Rosenthal [facility] PCP, hospice care at [facility] - Discharge Data Discharge Date: 12/10/17 Discharge Disposition: DC/Tfer to SNF 03 Condition: Poor - Patient Summary/Data Consults: Consultations 12/08/17 12:23 Consult to Dietary [Consult to Sustainability Manager] [CONS] Routine 12/10/17 11:54 Consult to Spiritual Care [CONS] Routine - Patient Instructions Diet: NPO Diet, Other: HOLD TUBE FEEDINGS, MAY START TOLERATED IF NO LONGER NAUSEATED Activity: As Tolerated Showering/Bathing: May Shower Notify Provider of: Fever, Increased Pain, Swelling and Redness, Drainage, Nausea and/or Vomiting Other/Special Instructions: Hold tube feedings if nauseated. Nguyen cares. Oral Suctioning PRN. Hospice to admit Wednesday morning and provide comfort medications. - Discharge Plan Prescriptions/Med Rec: Metoprolol Tartrate [Lopressor] 25 mg GTUBE Q12HR #20 tablet Sulfamethoxazole/Trimethoprim [IJD: Septra Susp 200-40 MG/5 ML] 10 ml GTUBE BID #100 milliliter Home Medications: Home Meds Albuterol Sulfate [Proair Hfa] 2 puff IH Q6HR #1 hfa.[email or web address] 09/08/17 [Rx] Digoxin 125 mcg PEGTUBE DAILY 09/08/17 [History] Acetaminophen [Tylenol Solution] 500 mg GTUBE Q4HR PRN 12/08/17 [History] Polyethylene Glycol 3350 [MiraLAX] 17 gm GTUBE DAILY PRN 12/08/17 [History] Metoprolol Tartrate [Lopressor] 25 mg GTUBE Q12HR #20 tablet 12/10/17 [Rx] Sulfamethoxazole/Trimethoprim [IJD: Septra Susp 200-40 MG/5 ML] 10 ml GTUBE BID #100 milliliter 12/10/17 [Rx] Referrals: Volodymyr Arellano MD [Physician] - - Discharge Summary/Plan Comment DC Time >30 min.: No - Patient Data Vitals - Most Recent: Last Vital Signs Temp 36.8 C 12/10/17 20:00 Pulse 101 H 12/10/17 20:13 Resp 22 H 12/10/17 20:00 BP 112/59 L 12/10/17 20:13 Pulse Ox 96 12/10/17 20:00 Weight - Most Recent: 54.6 kg I&O - Last 24 hours: Intake & Output 12/10/17 12/10/17 12/11/17 14:59 22:59 06:59 Intake Total 185 1409 Output Total 700 450 Balance -515 959 Lab Results - Last 24 hrs: Laboratory Results - last 24 hr 12/10/17 12/10/17 12/10/17 Range/Units 05:25 05:45 05:58 WBC 10.19 (4.0-11.0) K/uL RBC 3.80 L (4.30-5.90) M/uL Hgb 9.2 L (12.0-16.0) g/dL Hct 32.5 L (36.0-46.0) % MCV 85.5 (80.0-98.0) fL MCH 24.2 L (27.0-32.0) pg MCHC 28.3 L (31.0-37.0) g/dL RDW Std Deviation 65.0 H (28.0-62.0) fl RDW Coeff of Deanna 21 H (11.0-15.0) % Plt Count 181 (150-400) K/uL MPV 12.30 H (7.40-12.00) fL Neut % (Auto) 77.2 (48.0-80.0) % Lymph % (Auto) 15.3 L (16.0-40.0) % [place] % (Auto) 3.7 (0.0-15.0) % Eos % (Auto) 3.7 (0.0-7.0) % Baso % (Auto) 0.1 (0.0-1.5) % Neut # (Auto) 7.9 H (1.4-5.7) K/uL Lymph # (Auto) 1.6 (0.6-2.4) K/uL [place] # (Auto) 0.4 (0.0-0.8) K/uL Eos # (Auto) 0.4 (0.0-0.7) K/uL Baso # (Auto) 0.0 (0.0-0.1) K/uL Nucleated RBC % 0.0 /100WBC Nucleated RBCs # 0 K/uL VBG pH (7.31-7.41) VBG pCO2 (35-45) mmHG VBG pO2 (30-40) mmHG VBG HCO3 (22-30) mEq/L VBG Total CO2 (41-51) mmol/L VBG Base Excess (-3.0-3.0) Lactate (0.20-2.00) mmol/L Sodium 150 H (136-145) mmol/L Potassium 4.1 (3.5-5.1) mmol/L Chloride 119 H (98-107) mmol/L Carbon Dioxide 22.0 (21.0-32.0) mmol/L BUN 40 H (7.0-18.0) mg/dL Creatinine 0.7 (0.6-1.0) mg/dL Est Cr Clr Drug Dosing 49.88 mL/min Estimated GFR (MDRD) > 60.0 ml/min Glucose 163 H (74-106) mg/dL Calcium 8.6 (8.5-10.1) mg/dL Phosphorus (2.6-4.7) mg/dL Magnesium 1.7 (1.5-2.0) mg/dL Total Bilirubin 0.2 (0.2-1.0) mg/dL AST 25 (15-37) IU/L ALT 20 (14-63) IU/L Alkaline Phosphatase 73 (46-116) U/L Troponin I (0.000-0.056) ng/mL B-Natriuretic Peptide 120 H (<100) PG/ML Total Protein 5.9 L (6.4-8.2) g/dL Albumin 1.9 L (3.4-5.0) g/dL Globulin 4.0 H (2.0-3.5) g/dL Albumin/Globulin Ratio 0.5 L (1.3-2.8) 12/10/17 12/10/17 12/10/17 Range/Units 07:42 08:30 08:30 WBC (4.0-11.0) K/uL RBC (4.30-5.90) M/uL Hgb (12.0-16.0) g/dL Hct (36.0-46.0) % MCV (80.0-98.0) fL MCH (27.0-32.0) pg MCHC (31.0-37.0) g/dL RDW Std Deviation (28.0-62.0) fl RDW Coeff of Deanna (11.0-15.0) % Plt Count (150-400) K/uL MPV (7.40-12.00) fL Neut % (Auto) (48.0-80.0) % Lymph % (Auto) (16.0-40.0) % [place] % (Auto) (0.0-15.0) % Eos % (Auto) (0.0-7.0) % Baso % (Auto) (0.0-1.5) % Neut # (Auto) (1.4-5.7) K/uL Lymph # (Auto) (0.6-2.4) K/uL [place] # (Auto) (0.0-0.8) K/uL Eos # (Auto) (0.0-0.7) K/uL Baso # (Auto) (0.0-0.1) K/uL Nucleated RBC % /100WBC Nucleated RBCs # K/uL VBG pH 7.36 (7.31-7.41) VBG pCO2 44 (35-45) mmHG VBG pO2 32 (30-40) mmHG VBG HCO3 25 (22-30) mEq/L VBG Total CO2 24 L (41-51) mmol/L VBG Base Excess -0.9 (-3.0-3.0) Lactate (0.20-2.00) mmol/L Sodium (136-145) mmol/L Potassium (3.5-5.1) mmol/L Chloride (98-107) mmol/L Carbon Dioxide (21.0-32.0) mmol/L BUN (7.0-18.0) mg/dL Creatinine (0.6-1.0) mg/dL Est Cr Clr Drug Dosing mL/min Estimated GFR (MDRD) ml/min Glucose (74-106) mg/dL Calcium (8.5-10.1) mg/dL Phosphorus 2.5 L (2.6-4.7) mg/dL Magnesium (1.5-2.0) mg/dL Total Bilirubin (0.2-1.0) mg/dL AST (15-37) IU/L ALT (14-63) IU/L Alkaline Phosphatase (46-116) U/L Troponin I < 0.050 (0.000-0.056) ng/mL B-Natriuretic Peptide (<100) PG/ML Total Protein (6.4-8.2) g/dL Albumin (3.4-5.0) g/dL Globulin (2.0-3.5) g/dL Albumin/Globulin Ratio (1.3-2.8) 18 Range/Units 08:30 WBC (4.0-11.0) K/uL RBC (4.30-5.90) M/uL Hgb (12.0-16.0) g/dL Hct (36.0-46.0) % MCV (80.0-98.0) fL MCH (27.0-32.0) pg MCHC (31.0-37.0) g/dL RDW Std Deviation (28.0-62.0) fl RDW Coeff of Deanna (11.0-15.0) % Plt Count (150-400) K/uL MPV (7.40-12.00) fL Neut % (Auto) (48.0-80.0) % Lymph % (Auto) (16.0-40.0) % [place] % (Auto) (0.0-15.0) % Eos % (Auto) (0.0-7.0) % Baso % (Auto) (0.0-1.5) % Neut # (Auto) (1.4-5.7) K/uL Lymph # (Auto) (0.6-2.4) K/uL [place] # (Auto) (0.0-0.8) K/uL Eos # (Auto) (0.0-0.7) K/uL Baso # (Auto) (0.0-0.1) K/uL Nucleated RBC % /100WBC Nucleated RBCs # K/uL VBG pH (7.31-7.41) VBG pCO2 (35-45) mmHG VBG pO2 (30-40) mmHG VBG HCO3 (22-30) mEq/L VBG Total CO2 (41-51) mmol/L VBG Base Excess (-3.0-3.0) Lactate 2.1 H (0.20-2.00) mmol/L Sodium (136-145) mmol/L Potassium (3.5-5.1) mmol/L Chloride (98-107) mmol/L Carbon Dioxide (21.0-32.0) mmol/L BUN (7.0-18.0) mg/dL Creatinine (0.6-1.0) mg/dL Est Cr Clr Drug Dosing mL/min Estimated GFR (MDRD) ml/min Glucose (74-106) mg/dL Calcium (8.5-10.1) mg/dL Phosphorus (2.6-4.7) mg/dL Magnesium (1.5-2.0) mg/dL Total Bilirubin (0.2-1.0) mg/dL AST (15-37) IU/L ALT (14-63) IU/L Alkaline Phosphatase (46-116) U/L Troponin I (0.000-0.056) ng/mL B-Natriuretic Peptide (<100) PG/ML Total Protein (6.4-8.2) g/dL Albumin (3.4-5.0) g/dL Globulin (2.0-3.5) g/dL Albumin/Globulin Ratio (1.3-2.8) ALIYA Results - Last 24 hrs: Microbiology 12/07/17 21:45 Aerobic Blood Culture - Preliminary Blood - Venous - Lab Draw NO GROWTH AFTER 3 DAYS Anaerobic Blood Culture - Preliminary NO GROWTH AFTER 3 DAYS 12/07/17 21:32 Aerobic Blood Culture - Preliminary Blood - Venous Anaerobic Blood Culture - Preliminary NO GROWTH AFTER 3 DAYS Med Orders - Current: Current Medications Digoxin (Lanoxin) 125 mcg IVPUSH DAILY [facility] Last Admin: 12/10/17 09:23 Dose: 125 mcg Dextrose/Water (Dextrose 5% In Water) 1,000 mls @ 100 mls/hr IV ASDIRECTED [facility] Last Admin: 12/08/17 16:33 Dose: 100 mls/hr Potassium Chloride 20 meq/ (Dextrose/Water) 1,010 mls @ 100 mls/hr IV ASDIRECTED [facility] Last Admin: 12/10/17 16:08 Dose: 100 mls/hr Metoprolol Tartrate (Lopressor) 25 mg GTUBE Q12HR [facility] Last Admin: 12/10/17 20:13 Dose: 25 mg Morphine Sulfate (Morphine) 1 mg IVPUSH Q3H PRN PRN Reason: Pain Last Admin: 12/10/17 02:18 Dose: 1 mg Ondansetron HCl (Zofran) 4 mg IVPUSH Q4H PRN PRN Reason: Nausea Last Admin: 12/10/17 09:03 Dose: 4 mg Pantoprazole Sodium (Protonix Iv) 40 mg IV BID [facility] Last Admin: 12/10/17 20:13 Dose: 40 mg Trimethoprim/Sulfamethoxazole (Septra) 10 ml GTUBE BID [facility] Last Admin: 12/10/17 20:13 Dose: 10 ml Discontinued Medications Adenosine (Adenocard) 6 mg IVPUSH NOW ONE Stop: 12/07/17 21:10 Last Admin: 12/07/17 21:13 Dose: 6 mg Adenosine (Adenocard) Confirm Administered Dose 6 mg .ROUTE .STK-MED ONE Stop: 12/07/17 21:13 Last Admin: 12/07/17 21:44 Dose: Not Given Adenosine (Adenoscan) 12 mg IVPUSH ONETIME ONE Stop: 12/07/17 21:23 Last Admin: 12/07/17 21:26 Dose: 12 mg Adenosine (Adenocard) Confirm Administered Dose 12 mg .ROUTE .STK-MED ONE Stop: 12/07/17 21:23 Last Admin: 12/07/17 21:44 Dose: Not Given Digoxin (Lanoxin) 125 mcg GTUBE DAILY [facility] Last Admin: 12/10/17 08:52 Dose: 125 mcg Diltiazem HCl (Diltiazem) Confirm Administered Dose 25 mg .ROUTE .STK-MED ONE Stop: 12/07/17 21:28 Last Admin: 12/07/17 21:45 Dose: Not Given Diltiazem HCl (Diltiazem) 20 mg IVPUSH ONETIME ONE Stop: 12/07/17 21:29 Last Admin: 12/07/17 21:30 Dose: 20 mg Heparin Sodium (Porcine) (Heparin Sodium) 5,000 units SUBCUT Q8H [facility] Last Admin: 12/10/17 02:25 Dose: 5,000 units Levofloxacin/Dextrose 750 mg/ (Premix) 150 mls @ 100 mls/hr IV ONETIME ONE Stop: 12/07/17 22:31 Last Admin: 12/07/17 21:40 Dose: 100 mls/hr Sodium Chloride (Normal Saline) 1,000 mls @ 999 mls/hr IV STAT ONE Stop: 12/07/17 22:01 Last Admin: 12/07/17 21:22 Dose: 999 mls/hr Vancomycin HCl 1 gm/ Sodium (Chloride) 250 mls @ 250 mls/hr IV ONETIME ONE Stop: 12/07/17 23:46 Last Admin: 12/07/17 23:10 Dose: 250 mls/hr Sodium Chloride (Normal Saline) 1,000 mls @ 125 mls/hr IV STAT [facility] Last Admin: 12/07/17 23:09 Dose: 125 mls/hr Levofloxacin/Dextrose 750 mg/ (Premix) 150 mls @ 100 mls/hr IV Q48H [facility] Sodium Chloride (Normal Saline) 1,000 mls @ 999 mls/hr IV ONETIME ONE Stop: 12/08/17 03:41 Last Admin: 12/08/17 02:58 Dose: 999 mls/hr Cefepime HCl 1 gm/ Premix 50 mls @ 100 mls/hr IV Q8H [facility] Last Admin: 12/09/17 18:00 Dose: 100 mls/hr Vancomycin HCl 0.75 gm/ Sodium (Chloride) 250 mls @ 166.667 mls/hr IV Q24H [facility] Last Admin: 12/09/17 23:25 Dose: 166.667 mls/hr Potassium Chloride 40 meq/ (Sodium Chloride) 520 mls @ 130 mls/hr IV ONETIME ONE Stop: 12/08/17 12:29 Last Admin: 12/08/17 08:30 Dose: 130 mls/hr Potassium Chloride 20 meq/ (Dextrose/Water) 1,010 mls @ 100 mls/hr IV ASDIRECTED [facility] Last Admin: 12/10/17 06:16 Dose: 100 mls/hr Potassium Chloride 20 meq/ (Dextrose/Water) 1,010 mls @ 100 mls/hr IV Q10H [facility] Potassium Chloride 20 meq/ (Dextrose/Water) 1,010 mls @ 100 mls/hr IV Q10H [facility] Metoprolol Tartrate (Lopressor) 5 mg IVPUSH ONETIME ONE Stop: 12/08/17 06:15 Last Admin: 12/08/17 06:40 Dose: 5 mg Jevity Feeding (Supplement Start) 1 each GTUBE 1600 [facility] Last Admin: 12/09/17 15:45 Dose: 1 each Jevity Feeding (Supplement Stop) 1 each GTUBE 0700 [facility] Last Admin: 12/10/17 06:40 Dose: 1 each Potassium Chloride (Potassium Chloride) 40 meq PO ONETIME ONE Stop: 12/08/17 19:19 Last Admin: 12/08/17 19:32 Dose: Not Given Potassium Chloride (Potassium Chloride) 40 meq JTUBE ONETIME ONE Stop: 12/08/17 19:31 Last Admin: 12/08/17 19:34 Dose: 40 meq Vancomycin HCl (Pharmacy To Dose - Vancomycin) 1 dose .XX ASDIRECTED [facility] Verapamil HCl (Calan) 5 mg IVPUSH ONETIME ONE Stop: 12/10/17 08:40 Last Admin: 12/10/17 08:52 Dose: 5 mg
[2017-12-11] MEDS: Potassium Chloride 20 MEQ in Dextrose 5% in Water 1,000 ML IV SCH ×2 (02:14)
[2017-12-11 07:48] VITALS: BP 118/56
[2017-12-11] MEDS: Pantoprazole 40 MG Vial IV SCH (08:44)
[2017-12-11] MEDS: Digoxin 500 MCG/2 ML Amp IVPUSH SCH (08:44)
[2017-12-11] MEDS: Metoprolol Tartrate 25 MG Tab GTUBE SCH (08:44)
[2017-12-11] MEDS: Sulfamethoxazole/Trimethoprim 200-40 MG/5 ML Susp ML (473 ML Bottle) GTUBE SCH (08:45)
== END 2017-12-11 09:21 | DRG 871 ==
LOC: MW.ED 20:37 → MW.ICU 23:36
PROVIDERS: ADMIT Internal Medicine; ATTEND Internal Medicine
DX: I95.9 Hypotension, unspecified (principal); A41.9 Sepsis, unspecified organism; J18.9 Pneumonia, unspecified organism; E87.0 Hyperosmolality and hypernatremia; N39.0 Urinary tract infection, site not specified; I69.354 Hemiplegia and hemiparesis following cerebral infarction affecting left non-dominant side; B95.62 Methicillin resistant Staphylococcus aureus infection as the cause of diseases classified elsewhere; E86.0 Dehydration; F03.90 Unspecified dementia, unspecified severity, without behavioral disturbance, psychotic disturbance, mood disturbance, and anxiety; L98.419 Non-pressure chronic ulcer of buttock with unspecified severity; I48.91 Unspecified atrial fibrillation; I50.9 Heart failure, unspecified; I10 Essential (primary) hypertension; Z86.14 Personal history of Methicillin resistant Staphylococcus aureus infection; I69.320 Aphasia following cerebral infarction; I69.391 Dysphagia following cerebral infarction; R13.10 Dysphagia, unspecified; Z51.5 Encounter for palliative care; Z88.0 Allergy status to penicillin; Z79.899 Other long term (current) drug therapy
CPT/HCPCS: 36415; 71045; 80053; 81001; 85025; 85610; 87040 ×2; 87070; 87077; 87086; 87088; 87186 ×2; 87205; 93005 ×2; 96361; 96365; 96367; 96374; 96375; 99285; J0153 ×2; J1956; J3370; J3490; J7040 ×2; J7050; 51702; 80048; 80162; 82803; 83605; 83735; 83880; 84100; 84484; 99283; A9270-GY; C9113; J0692; J1160; J1644; J2270; J2405; J3480; J7060